=== PATIENT | male | born 1935 | race Caucasian/White ===

== ENCOUNTER 2017-01-07 16:26 | Outpatient (CLI) | payer MEDICARE | END 2017-01-07 16:27 | disposition home or self-care (01) | DX: R33.9 Retention of urine, unspecified (principal); R50.9 Fever, unspecified; R61 Generalized hyperhidrosis ==

== ENCOUNTER 2017-01-16 11:17 | Outpatient (CLI) | payer MEDICARE ==
[2017-01-16] MEDS ORDERED: IOPAMIDOL-300 50 ML VIAL PO ONE (13:47)
[2017-01-16] MEDS ORDERED: IOPAMIDOL-300 100 ML VIAL IVP ONE (13:47)
== END 2017-01-16 11:18 | disposition home or self-care (01) ==
DX: N40.0 Benign prostatic hyperplasia without lower urinary tract symptoms (principal); R50.9 Fever, unspecified; K57.30 Diverticulosis of large intestine without perforation or abscess without bleeding; J43.9 Emphysema, unspecified; R52 Pain, unspecified
CPT/HCPCS: 36415; 74177; 80053; 85025; Q9967

== ENCOUNTER 2018-07-21 13:28 | Outpatient (CLI) | payer MEDICARE ==
--- NOTE | 2018-07-21 14:17 | XRAY Report ---
Reason: R WRIST PAIN Procedure Date: 07/21/2018 Accession Number: [id number] / [id number] Procedure: XR - Wrist 4 View RT CPT Code: FULL RESULT: EXAM: RIGHT WRIST RADIOGRAPHY EXAM DATE: 07/21/2018 01:57 PM. CLINICAL HISTORY: Right wrist pain. COMPARISON: None. TECHNIQUE: 4 views. FINDINGS: Bones: Normal. No fractures or bone lesions. Joints: There are degenerative changes of the first carpometacarpal joint including sclerosis and joint space narrowing. Soft Tissues: Normal. No soft tissue swelling. IMPRESSION: No fracture or dislocation is identified. RADIA
== END 2018-07-21 13:29 | disposition home or self-care (01) ==
LOC: DI 13:28
PROVIDERS: ATTEND Internal Medicine
DX: M25.531 Pain in right wrist (principal)

== ENCOUNTER 2018-10-14 14:21 | Outpatient (CLI) | payer MEDICARE ==
--- NOTE | 2018-10-14 15:42 | XRAY Report ---
Reason: R SHOULDER PAIN Procedure Date: 10/14/2018 Accession Number: [id number] / [id number] Procedure: XR - Shoulder 3 View RT CPT Code: FULL RESULT: EXAM: RIGHT SHOULDER RADIOGRAPHY EXAM DATE: 10/14/2018 03:09 PM. CLINICAL HISTORY: Right shoulder pain. COMPARISON: None. TECHNIQUE: 3 views. FINDINGS: Bones: Note is made of degenerative changes along the inferior osseous glenoid as well as projecting over the superolateral aspect of the humeral head. No fracture or bone lesion. Joints: Degenerative changes of the AC joint are noted, mild to moderate. The glenohumeral joint is located. Soft tissues: The visualized hemithorax is unremarkable. No soft tissue swelling. IMPRESSION: Degenerative changes without acute fracture or dislocation. RADIA
== END 2018-10-14 14:22 | disposition home or self-care (01) ==
LOC: DI 14:21
PROVIDERS: ATTEND Internal Medicine
DX: M19.011 Primary osteoarthritis, right shoulder (principal)

== ENCOUNTER 2019-04-30 20:06 | Outpatient (CLI) | payer MEDICARE | END 2019-04-30 20:07 | disposition critical access hospital (66) | LOC: EMS 20:06 | PROVIDERS: ATTEND Surgery | DX: R42 Dizziness and giddiness (principal) | CPT/HCPCS: A0425; A0427 ==

== ENCOUNTER 2019-04-30 20:18 | Observation (INO) | payer MEDICARE ==
[2019-04-30] MEDS ORDERED: SODIUM CHLORIDE 0.9% 1,000 ML IV ONE (20:26)
--- NOTE | 2019-04-30 20:35 | ED Physician Documentation ---
History of Present Illness - Stated complaint Stated Complaint: FOUND DOWN - History obtained from History obtained from: Patient, EMS - History of Present Illness Timing: Today Pain level now: 0 Improved by: nothing Worsened by: no exacerbating factors - Additonal information Additional information: neighbors checked on patient today, and found him slumped over a table in his home. He usually lives with his , but his is in a subacute facility in [place] after having been admitted to [facility] for CVA. The patient was awake when neighbors found him, and denied any symptoms. Medics were called, and they report that the house was extremely hot, approximately 90 inside the house where the patient was. They found patients blood pressure to be 90/40 and measured a temperature of 100.4. On arrival to emergency department, patient denies symptoms, cannot give a reason that he was slumped onto the table. Review of Systems Constitutional: reports: Fever (as measured by medics) Eyes: reports: Reviewed and negative Ears: reports: Reviewed and negative Nose: reports: Reviewed and negative Throat: reports: Reviewed and negative Cardiac: reports: Reviewed and negative Respiratory: reports: Reviewed and negative GI: reports: Reviewed and negative : denies: Dysuria, Frequency Skin: reports: Reviewed and negative Musculoskeletal: reports: Reviewed and negative Neurologic: reports: Generalized weakness. denies: Focal weakness, Numbness, Headache PD PAST MEDICAL HISTORY - Past Medical History Past Medical History: No Cardiovascular: Hypertension - Past Surgical History Past Surgical History: No - Present Medications Home Medications: Ambulatory Orders Medication Instructions Recorded Confirmed Albuterol Sulfate [Proair Hfa 1 - 2 puffs INH Q4H PRN #1 inhaler 05/02/19 Inhaler] Cyanocobalamin (Vitamin B-12) 1,000 mcg PO DAILY #10 capsule 05/02/19 [Vitamin B-12] Folic Acid 1 mg PO DAILY #10 tablet 05/02/19 Furosemide [Lasix] 20 mg PO DAILY #10 tablet 05/02/19 Ipratropium/Albuterol [Combivent 4 gm IH Q6H PRN #1 aer.w.adap 05/02/19 Respimat] Lisinopril [Zestril] 2.5 mg PO DAILY #10 tablet 05/02/19 Metoprolol Succinate [Toprol Xl] 12.5 mg PO DAILY #10 tablet 05/02/19 Saccharomyces Boulardii [Florastor] 250 mg PO DAILY #7 capsule 05/02/19 cefUROXime axetil [Ceftin] 250 mg PO Q12H #14 tablet 05/02/19 - Allergies Allergies/Adverse Reactions: Allergies Allergy/AdvReac Type Severity Reaction Status Date / Time No Known Drug Allergies Allergy Verified 04/30/19 20:24 PD ED PE NORMAL - Vitals Vital signs reviewed: Yes - General General: Alert and oriented X 3, No acute distress, Well developed/nourished - HEENT HEENT: PERRL, EOMI, Moist mucous membranes - Neck Neck: Supple, no meningeal sign - Cardiac Cardiac: RRR, No murmur - Respiratory Respiratory: No respiratory distress, Clear bilaterally - Abdomen Abdomen: Normal bowel sounds, Soft, Non tender, Non distended - Derm Derm: Normal color, Warm and dry - Extremities Extremities: No edema - 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 No: Normal speech (mild slurred speech; sometimes slow to provide answers) Results - Vitals Vitals: Oxygen O2 Source Room air - Labs Labs: Microbiology 04/30/19 23:15 Urine Culture - Preliminary Urine,Catheterized Laboratory Tests 04/30/19 04/30/19 04/30/19 20:26 20:26 20:26 WBC RBC Hgb Hct MCV MCH MCHC RDW Plt Count MPV Neut # (Auto) Lymph # (Auto) [place] # (Auto) Eos # (Auto) Baso # (Auto) Absolute Nucleated RBC Nucleated RBC % Manual Slide Review WBC Morphology Platelet Estimate Platelet Morphology RBC Morph Micro Appear PT 17.3 H INR 1.5 H APTT 32.7 Sodium Potassium Chloride Carbon Dioxide Anion Gap BUN Creatinine Estimated GFR (MDRD) Glucose Lactic Acid Uric Acid Calcium Magnesium Total Bilirubin AST ALT Alkaline Phosphatase Total Creatine Kinase 61 CK-MB (CK-2) 0.8 Troponin I B-Natriuretic Peptide Total Protein Albumin Globulin Albumin/Globulin Ratio Lipase TSH Urine Color Urine Clarity Urine pH Ur Specific [place] Urine Protein Urine Glucose (UA) Urine Ketones Urine Occult Blood Urine Nitrite Urine Bilirubin Urine Urobilinogen Ur Leukocyte Esterase Urine RBC Urine WBC Ur Squamous Epith Cells Urine Bacteria Ur Microscopic Review Urine Culture Comments Urine Opiates Screen Ur Oxycodone Screen Urine Methadone Screen Ur Propoxyphene Screen Ur Barbiturates Screen Ur Tricyclics Screen Ur Phencyclidine Scrn Ur Amphetamine Screen U Methamphetamines Scrn U Benzodiazepines Scrn Urine Cocaine Screen U Cannabinoids Screen Ethyl Alcohol 04/30/19 04/30/19 04/30/19 20:37 20:37 20:37 WBC 15.6 H RBC 3.96 L Hgb 13.8 L Hct 42.3 MCV 106.8 H MCH 34.8 H MCHC 32.6 RDW 13.6 Plt Count 172 MPV 11.3 Neut # (Auto) 14.7 H Lymph # (Auto) 0.3 L [place] # (Auto) 0.2 Eos # (Auto) 0.1 Baso # (Auto) 0.0 Absolute Nucleated RBC 0.00 Nucleated RBC % 0.0 Manual Slide Review Indicated WBC Morphology NORMAL APPEARANCE Platelet Estimate NORMAL (130-450,000) Platelet Morphology NORMAL APPEARANCE RBC Morph Micro Appear NORMAL APPEARANCE PT INR APTT Sodium 142 Potassium 4.3 Chloride 108 Carbon Dioxide 25 Anion Gap 9.0 BUN 28 H Creatinine 1.5 H Estimated GFR (MDRD) 44 L Glucose 123 H Lactic Acid Uric Acid Calcium 8.2 L Magnesium Total Bilirubin 1.9 H AST 27 ALT 11 Alkaline Phosphatase 38 L Total Creatine Kinase CK-MB (CK-2) Troponin I B-Natriuretic Peptide 1315 H Total Protein 5.5 L Albumin 3.0 L Globulin 2.5 Albumin/Globulin Ratio 1.2 Lipase 20 L TSH Urine Color Urine Clarity Urine pH Ur Specific [place] Urine Protein Urine Glucose (UA) Urine Ketones Urine Occult Blood Urine Nitrite Urine Bilirubin Urine Urobilinogen Ur Leukocyte Esterase Urine RBC Urine WBC Ur Squamous Epith Cells Urine Bacteria Ur Microscopic Review Urine Culture Comments Urine Opiates Screen Ur Oxycodone Screen Urine Methadone Screen Ur Propoxyphene Screen Ur Barbiturates Screen Ur Tricyclics Screen Ur Phencyclidine Scrn Ur Amphetamine Screen U Methamphetamines Scrn U Benzodiazepines Scrn Urine Cocaine Screen U Cannabinoids Screen Ethyl Alcohol 04/30/19 04/30/19 04/30/19 20:37 20:37 20:37 WBC RBC Hgb Hct MCV MCH MCHC RDW Plt Count MPV Neut # (Auto) Lymph # (Auto) [place] # (Auto) Eos # (Auto) Baso # (Auto) Absolute Nucleated RBC Nucleated RBC % Manual Slide Review WBC Morphology Platelet Estimate Platelet Morphology RBC Morph Micro Appear PT INR APTT Sodium Potassium Chloride Carbon Dioxide Anion Gap BUN Creatinine Estimated GFR (MDRD) Glucose Lactic Acid Uric Acid Calcium Magnesium Total Bilirubin AST ALT Alkaline Phosphatase Total Creatine Kinase CK-MB (CK-2) Troponin I 0.06 B-Natriuretic Peptide Total Protein Albumin Globulin Albumin/Globulin Ratio Lipase TSH 1.39 Urine Color Urine Clarity Urine pH Ur Specific [place] Urine Protein Urine Glucose (UA) Urine Ketones Urine Occult Blood Urine Nitrite Urine Bilirubin Urine Urobilinogen Ur Leukocyte Esterase Urine RBC Urine WBC Ur Squamous Epith Cells Urine Bacteria Ur Microscopic Review Urine Culture Comments Urine Opiates Screen Ur Oxycodone Screen Urine Methadone Screen Ur Propoxyphene Screen Ur Barbiturates Screen Ur Tricyclics Screen Ur Phencyclidine Scrn Ur Amphetamine Screen U Methamphetamines Scrn U Benzodiazepines Scrn Urine Cocaine Screen U Cannabinoids Screen Ethyl Alcohol < 5.0 04/30/19 04/30/19 04/30/19 20:37 21:49 23:15 WBC RBC Hgb Hct MCV MCH MCHC RDW Plt Count MPV Neut # (Auto) Lymph # (Auto) [place] # (Auto) Eos # (Auto) Baso # (Auto) Absolute Nucleated RBC Nucleated RBC % Manual Slide Review WBC Morphology Platelet Estimate Platelet Morphology RBC Morph Micro Appear PT INR APTT Sodium Potassium Chloride Carbon Dioxide Anion Gap BUN Creatinine Estimated GFR (MDRD) Glucose Lactic Acid 1.9 Uric Acid 6.7 Calcium Magnesium 1.4 L Total Bilirubin AST ALT Alkaline Phosphatase Total Creatine Kinase CK-MB (CK-2) Troponin I B-Natriuretic Peptide Total Protein Albumin Globulin Albumin/Globulin Ratio Lipase TSH Urine Color YELLOW Urine Clarity HAZY Urine pH 5.0 Ur Specific [place] 1.025 Urine Protein 30 H Urine Glucose (UA) NEGATIVE Urine Ketones TRACE Urine Occult Blood LARGE H Urine Nitrite POSITIVE H Urine Bilirubin NEGATIVE Urine Urobilinogen 0.2 (NORMAL) Ur Leukocyte Esterase SMALL H Urine RBC TNTC H Urine WBC 4-5 Ur Squamous Epith Cells NONE SEEN Urine Bacteria Moderate H Ur Microscopic Review INDICATED Urine Culture Comments INDICATED Urine Opiates Screen Ur Oxycodone Screen Urine Methadone Screen Ur Propoxyphene Screen Ur Barbiturates Screen Ur Tricyclics Screen Ur Phencyclidine Scrn Ur Amphetamine Screen U Methamphetamines Scrn U Benzodiazepines Scrn Urine Cocaine Screen U Cannabinoids Screen Ethyl Alcohol 04/30/19 23:15 WBC RBC Hgb Hct MCV MCH MCHC RDW Plt Count MPV Neut # (Auto) Lymph # (Auto) [place] # (Auto) Eos # (Auto) Baso # (Auto) Absolute Nucleated RBC Nucleated RBC % Manual Slide Review WBC Morphology Platelet Estimate Platelet Morphology RBC Morph Micro Appear PT INR APTT Sodium Potassium Chloride Carbon Dioxide Anion Gap BUN Creatinine Estimated GFR (MDRD) Glucose Lactic Acid Uric Acid Calcium Magnesium Total Bilirubin AST ALT Alkaline Phosphatase Total Creatine Kinase CK-MB (CK-2) Troponin I B-Natriuretic Peptide Total Protein Albumin Globulin Albumin/Globulin Ratio Lipase TSH Urine Color Urine Clarity Urine pH Ur Specific [place] Urine Protein Urine Glucose (UA) Urine Ketones Urine Occult Blood Urine Nitrite Urine Bilirubin Urine Urobilinogen Ur Leukocyte Esterase Urine RBC Urine WBC Ur Squamous Epith Cells Urine Bacteria Ur Microscopic Review Urine Culture Comments Urine Opiates Screen NEGATIVE Ur Oxycodone Screen NEGATIVE Urine Methadone Screen NEGATIVE Ur Propoxyphene Screen NEGATIVE Ur Barbiturates Screen NEGATIVE Ur Tricyclics Screen NEGATIVE Ur Phencyclidine Scrn NEGATIVE Ur Amphetamine Screen NEGATIVE U Methamphetamines Scrn NEGATIVE U Benzodiazepines Scrn NEGATIVE Urine Cocaine Screen NEGATIVE U Cannabinoids Screen NEGATIVE Ethyl Alcohol - Rads (name of study) CT head Radiology: Prelim report reviewed, See rad report chest xray Radiology: Prelim report reviewed, See rad report PD MEDICAL DECISION MAKING - ED course Complexity details: reviewed old records, reviewed results, re-evaluated patient, considered differential, d/w patient, d/w family ED course: exhibits some difficulty with describing what is taking place in picture on NIHSS test, and points to first three objects and identifies them, but points to feather and identifies it as franco. however, most answers are correct, and he can read sentences easily albeit slurred and thus slight difficulty understanding him. one family member says this is new, other says it is chronic. patient was in NAD during ED stay, awake, alert, and smiling at times. Departure - Departure Disposition: ED Place in Observation Clinical Impression: Weakness Urinary tract infection Qualifiers: Urinary tract infection type: acute cystitis Hematuria presence: with hematuria Qualified Code(s): N30.01 - Acute cystitis with hematuria Condition: Poor Discharge Date/Time: 05/01/19 01:15
[2019-04-30] MEDS ORDERED: IPRATROPIUM/ALBUTEROL 3 ML NEB INH STA (20:39)
[2019-04-30 20:45] LABS: BASOPHILS % (AUTO) 0.3 %; EOSINOPHILS # (AUTO) 0.1 10^3/uL (0.0-0.7); EOSINOPHILS % (AUTO) 0.4 %; HGB - HEMOGLOBIN 13.8 g/dL (14.0-18.0); LYMPHOCYTES # (AUTO) 0.3 10^3/uL (1.5-3.5); LYMPHOCYTES % (AUTO) 1.8 %; MEAN CORPUSCULAR HEMOGLOBIN 34.8 pg (27.0-31.0); MEAN CORPUSCULAR HGB CONC 32.6 g/dL (32.0-36.0); MEAN CORPUSCULAR VOLUME 106.8 fL (80.0-94.0); MEAN PLATELET VOLUME 11.3 fL (7.4-11.4); MONOCYTES # (AUTO) 0.2 10^3/uL (0.0-1.0); MONOCYTES % (AUTO) 1.5 %; NEUTROPHILS # (AUTO) 14.7 10^3/uL (1.5-6.6); NEUTROPHILS % (AUTO) 94.5 %; PLT - PLATELET COUNT 172 10^3/uL (130-450); RED BLOOD COUNT 3.96 10^6/uL (4.70-6.10); RED CELL DISTRIBUTION WIDTH 13.6 % (12.0-15.0); WHITE BLOOD COUNT 15.6 x10^3/uL (4.8-10.8)
[2019-04-30 20:56] LABS: ALBUMIN/GLOBULIN RATIO 1.2 (1.0-2.2); BILIRUBIN,TOTAL 1.9 mg/dL (0.2-1.0); CALCIUM 8.2 mg/dL (8.5-10.3); CREATININE 1.5 mg/dL (0.6-1.2); TOTAL PROTEIN 5.5 g/dL (6.7-8.2)
[2019-04-30 21:08] LABS: INR 1.5 (0.8-1.2); PT - PROTHROMBIN TIME 17.3 secs (9.9-12.6)
[2019-04-30 21:15] LABS: PARTIAL THROMBOPLASTIN TIME 32.7 secs (24.9-33.3)
--- NOTE | 2019-04-30 21:20 | XRAY Report ---
Reason: dyspnea Procedure Date: 04/30/2019 Accession Number: [id number] / [id number] Procedure: XR - Chest 2 View X-Ray CPT Code: 66291 FULL RESULT: EXAM: CHEST RADIOGRAPHY EXAM DATE: 04/30/2019 08:53 PM. CLINICAL HISTORY: Dyspnea. COMPARISON: CHEST 2 VIEW PA/LAT 07/27/2013 10:06 AM. TECHNIQUE: 2 views. FINDINGS: Lungs/Pleura: Hyperexpanded with flattened diaphragm and coarse lung markings typical for COPD. No localized infiltrate, consolidation, effusion, or pneumothorax. Mediastinum: Heart and mediastinal contours are unremarkable. Upper lobe vessels not distended. Other: Degenerative changes. IMPRESSION: No acute disease. RADIA
[2019-04-30 21:22] LABS: PLATELET ESTIMATE, MANUAL NORMAL (130-450,000) (NORMAL); PLATELET MORPHOLOGY NORMAL APPEARANCE (NORMAL); RBC MORPHOLOGY (MULTIPLE) NORMAL APPEARANCE (NORMAL)
--- NOTE | 2019-04-30 23:10 | CT Report ---
Reason: AMS Procedure Date: 04/30/2019 Accession Number: [id number] / [id number] Procedure: CT - HEAD WO CPT Code: FULL RESULT: EXAM: CT HEAD EXAM DATE: 04/30/2019 10:53 PM. CLINICAL HISTORY: Altered mental status. COMPARISON: None. TECHNIQUE: Multiaxial CT images were obtained from the foramen magnum to the vertex. Reformats: Sagittal and coronal. IV contrast: None. In accordance with CT protocol optimization, one or more of the following dose reduction techniques were utilized for this exam: automated exposure control, adjustment of mA and/or KV based on patient size, or use of iterative reconstructive technique. FINDINGS: Parenchyma: No intraparenchymal hemorrhage. No evidence of mass, midline shift, or CT findings of infarction. [place]-white differentiation is distinct. There is moderate chronic microvascular change in the deep white matter bilaterally. Extraaxial Spaces: There is age-related generalized cerebral volume loss. No subdural or epidural collections identified. Ventricles: No hydrocephalus. Sinuses and Orbits: Imaged paranasal sinuses, orbits, and mastoids show no significant abnormality. Bones: No evidence of fracture or calvarial defect. Other: None. IMPRESSION: 1. No acute intracranial abnormality. 2. No intracranial mass lesion, mass-effect, or hydrocephalus. 3. Age-related generalized cerebral volume loss and chronic microvascular change. RADIA
[2019-04-30 23:33] LABS: BILIRUBIN,URINE NEGATIVE (NEGATIVE); GLUCOSE, URINE (UA) NEGATIVE (NEGATIVE); KETONES,URINE (UA) TRACE mg/dL (NEGATIVE); LEUKOCYTE ESTERASE, URINE SMALL (NEGATIVE); NITRITE,URINE POSITIVE (NEGATIVE); OCCULT BLOOD,URINE LARGE (NEGATIVE); PROTEIN,URINE 30 mg/dL (NEGATIVE); UROBILINOGEN,URINE 0.2 (NORMAL) E.U./dL (NORMAL)
[2019-04-30 23:34] LABS: CLARITY,URINE HAZY (CLEAR)
[2019-04-30 23:42] LABS: BACTERIA,URINE Moderate /HPF (None Seen); RBC,URINE TNTC /HPF (0-5); SQUAMOUS EPITHELIAL CELL,UR NONE SEEN (<= Few)
[2019-05-01 00:22] LABS: MUDS CUTOFF CONCENTRATIONS CUTOFF CONC BELOW:
[2019-05-01 00:32] LABS: AMPHETAMINE SCREEN,URINE NEGATIVE (NEGATIVE); BENZODIAZEPINES SCREEN, URINE NEGATIVE (NEGATIVE); COCAINE SCREEN URINE NEGATIVE (NEGATIVE); METHADONE SCREEN, URINE NEGATIVE (NEGATIVE); METHAMPHETAMINES SCREEN, URINE NEGATIVE (NEGATIVE); OPIATE SCREEN, URINE NEGATIVE (NEGATIVE); OXYCODONE SCREEN, URINE NEGATIVE (NEGATIVE); PROPOXYPHENE SCREEN, URINE NEGATIVE (NEGATIVE); TRICYCLIC ANTIDEPRESSANT,URINE NEGATIVE (NEGATIVE)
[2019-05-01] MEDS ORDERED: MIDODRINE 2.5 MG TABLET PO PRN (00:42)
[2019-05-01] MEDS ORDERED: ONDANSETRON ODT 4 MG TABLET TL PRN (00:44)
[2019-05-01] MEDS ORDERED: TEMAZEPAM 15 MG CAPSULE PO PRN (00:44)
[2019-05-01] MEDS ORDERED: ACETAMINOPHEN 325 MG TABLET PO PRN (00:44)
[2019-05-01] MEDS ORDERED: ASPIRIN CHEW 81 MG TABLET PO STA (00:48)
--- NOTE | 2019-05-01 00:56 | HISTORY & PHYSICAL EXAMINATION ---
Chief Complaint - Chief Complaint Chief Complaint: Weakness with associated slurred speech Stroke/TIA/Neuro Template - Admitted From Admitted from: ED - History Obtained From Records Reviewed: RN notes reviewed, Old records reviewed History obtained from: Patient, Family Exam limitations: Clinical condition (Patient is a poor historian and has dysarthria) - History of Present Illness HPI Comment/Other: This is a 84 y/o male with hx Asthma/COPD with 02 dep prn, occasional beer drinker who was found by neighbors slumped over on the coffee table. Initial bp 90/40. Pt reports not feeling well. FS 140. Gallo's was recently admitted at [facility] for a stroke and was dispositioned to [facility] for rehab. EMS stated patient using accessory muscle breathing. Denied, cough, SOB, SOSA, fevers, dysuria, flank pain, N/V//GI symptoms. Found to have mild pyuria on UA with micro hematuria, along with CXR showing COPD changes, CT head showed microvascular changes only, BNP elevated 1315, LA 1.9, Tbili 1..9 with cr 1.5, however unknown baseline as only last cr in 2017 showed 1.7, may have underlying CKD. WBC 15.6 with macrocytosis, INR 1.5, glucose 123. EKG SR at 89 bpm and LBBB. Patient displaying dysarthria and some ataxia with decreased regional liaison and plantar/dorsiflexion on exam. PMH/PSH - Past Medical History Respiratory: positive: Asthma Social & Family Hx - Social History Does the pt smoke?: No Smoking Status: Never smoker ETOH Use: Beer Meds/Allgy - Home Medications Home Medications: Ambulatory Orders Medication Instructions Recorded Confirmed No Known Home Medications 04/30/19 04/30/19 - Allergies Allergies/Adverse Reactions: Allergies Allergy/AdvReac Type Severity Reaction Status Date / Time No Known Drug Allergies Allergy Verified 04/30/19 20:24 Review of Systems - All Other Systems All Other Systems: reports: Reviewed and negative Prior Level of Functionality: Patient with unknown FC and home ADL's Exam - Vital Signs Reviewed Vital Signs: Yes Vital Signs: Vital Signs x48h Temp Pulse Resp BP Pulse Ox 05/01/19 00:44 85 21 103/71 99 04/30/19 23:12 93 24 113/56 L 97 04/30/19 20:55 96 22 04/30/19 20:19 37.9 C H 105 H 23 102/68 100 - Physical Exam General Appearance: positive: No acute distress, Alert Eyes Bilateral: positive: Normal inspection, PERRL, EOMI, Conjunctivae nml ENT: positive: ENT inspection nml, Pharynx nml, Dry mucous membranes Neck: positive: Nml inspection, Thyroid nml, No JVD, Trachea midline. negative: Thyromegaly Respiratory: positive: Chest non-tender, No respiratory distress, Breath sounds nml Cardiovascular: positive: Regular rate & rhythm, No murmur, No gallop Peripheral Pulses: positive: 2+ Abdomen: positive: Non-tender, No organomegaly, Nml bowel sounds, No distention Extremities: positive: Non-tender, Full ROM, Nml appearance. negative: Pedal e sharlene Neurologic/Psychiatric: positive: Oriented x3, CN's nml (2-12), Weakness, Slurred/abnml speech. negative: Facial droop, Depressed mood/affect Babinski Reflex: Right: Absent, Left: Absent Results - Lab Results Lab results reviewed: Yes Fish Bones: 04/30/19 20:37 04/30/19 20:37 Other Lab Results: Lab Results x24hrs 04/30/19 04/30/19 04/30/19 Range/Units 23:15 23:15 21:49 WBC (4.8-10.8) x10^3/uL RBC (4.70-6.10) 10^6/uL Hgb (14.0-18.0) g/dL Hct (42.0-52.0) % MCV (80.0-94.0) fL MCH (27.0-31.0) pg MCHC (32.0-36.0) g/dL RDW (12.0-15.0) % Plt Count (130-450) 10^3/uL MPV (7.4-11.4) fL Neut # (Auto) (1.5-6.6) 10^3/uL Lymph # (Auto) (1.5-3.5) 10^3/uL [place] # (Auto) (0.0-1.0) 10^3/uL Eos # (Auto) (0.0-0.7) 10^3/uL Baso # (Auto) (0.0-0.1) 10^3/uL Absolute Nucleated RBC x10^3/uL Nucleated RBC % /100WBC Manual Slide Review WBC Morphology (NORMAL) Platelet Estimate (NORMAL) Platelet Morphology (NORMAL) RBC Morph Micro Appear (NORMAL) PT (9.9-12.6) secs INR (0.8-1.2) APTT (24.9-33.3) secs Sodium (135-145) mmol/L Potassium (3.5-5.0) mmol/L Chloride (101-111) mmol/L Carbon Dioxide (21-32) mmol/L Anion Gap (6-13) BUN (6-20) mg/dL Creatinine (0.6-1.2) mg/dL Estimated GFR (MDRD) (>89) Glucose (70-100) mg/dL Lactic Acid 1.9 (0.5-2.2) mmol/L Calcium (8.5-10.3) mg/dL Total Bilirubin (0.2-1.0) mg/dL AST (10-42) IU/L ALT (10-60) IU/L Alkaline Phosphatase (42-121) IU/L Total Creatine Kinase (22-269) IU/L CK-MB (CK-2) (0.6-6.3) ng/mL Troponin I (<0.49) ng/mL B-Natriuretic Peptide (5-100) pg/mL Total Protein (6.7-8.2) g/dL Albumin (3.2-5.5) g/dL Globulin (2.1-4.2) g/dL Albumin/Globulin Ratio (1.0-2.2) Lipase (22-51) U/L Urine Color YELLOW Urine Clarity HAZY (CLEAR) Urine pH 5.0 (5.0-7.5) PH Ur Specific [place] 1.025 (1.002-1.030) Urine Protein 30 H (NEGATIVE) mg/dL Urine Glucose (UA) NEGATIVE (NEGATIVE) mg/dL Urine Ketones TRACE (NEGATIVE) mg/dL Urine Occult Blood LARGE H (NEGATIVE) Urine Nitrite POSITIVE H (NEGATIVE) Urine Bilirubin NEGATIVE (NEGATIVE) Urine Urobilinogen 0.2 (NORMAL) (NORMAL) E.U./dL Ur Leukocyte Esterase SMALL H (NEGATIVE) Urine RBC TNTC H (0-5) /HPF Urine WBC 4-5 (0-3) /HPF Ur Squamous Epith Cells NONE SEEN (<= Few) Urine Bacteria Moderate H (None Seen) /HPF Ur Microscopic Review INDICATED Urine Culture Comments INDICATED Urine Opiates Screen NEGATIVE (NEGATIVE) Ur Oxycodone Screen NEGATIVE (NEGATIVE) Urine Methadone Screen NEGATIVE (NEGATIVE) Ur Propoxyphene Screen NEGATIVE (NEGATIVE) Ur Barbiturates Screen NEGATIVE (NEGATIVE) Ur Tricyclics Screen NEGATIVE (NEGATIVE) Ur Phencyclidine Scrn NEGATIVE (NEGATIVE) Ur Amphetamine Screen NEGATIVE (NEGATIVE) U Methamphetamines Scrn NEGATIVE (NEGATIVE) U Benzodiazepines Scrn NEGATIVE (NEGATIVE) Urine Cocaine Screen NEGATIVE (NEGATIVE) U Cannabinoids Screen NEGATIVE (NEGATIVE) Ethyl Alcohol mg/dL 04/30/19 04/30/19 04/30/19 Range/Units 20:37 20:37 20:37 WBC (4.8-10.8) x10^3/uL RBC (4.70-6.10) 10^6/uL Hgb (14.0-18.0) g/dL Hct (42.0-52.0) % MCV (80.0-94.0) fL MCH (27.0-31.0) pg MCHC (32.0-36.0) g/dL RDW (12.0-15.0) % Plt Count (130-450) 10^3/uL MPV (7.4-11.4) fL Neut # (Auto) (1.5-6.6) 10^3/uL Lymph # (Auto) (1.5-3.5) 10^3/uL [place] # (Auto) (0.0-1.0) 10^3/uL Eos # (Auto) (0.0-0.7) 10^3/uL Baso # (Auto) (0.0-0.1) 10^3/uL Absolute Nucleated RBC x10^3/uL Nucleated RBC % /100WBC Manual Slide Review WBC Morphology (NORMAL) Platelet Estimate (NORMAL) Platelet Morphology (NORMAL) RBC Morph Micro Appear (NORMAL) PT (9.9-12.6) secs INR (0.8-1.2) APTT (24.9-33.3) secs Sodium (135-145) mmol/L Potassium (3.5-5.0) mmol/L Chloride (101-111) mmol/L Carbon Dioxide (21-32) mmol/L Anion Gap (6-13) BUN (6-20) mg/dL Creatinine (0.6-1.2) mg/dL Estimated GFR (MDRD) (>89) Glucose (70-100) mg/dL Lactic Acid (0.5-2.2) mmol/L Calcium (8.5-10.3) mg/dL Total Bilirubin (0.2-1.0) mg/dL AST (10-42) IU/L ALT (10-60) IU/L Alkaline Phosphatase (42-121) IU/L Total Creatine Kinase (22-269) IU/L CK-MB (CK-2) (0.6-6.3) ng/mL Troponin I 0.06 (<0.49) ng/mL B-Natriuretic Peptide 1315 H (5-100) pg/mL Total Protein (6.7-8.2) g/dL Albumin (3.2-5.5) g/dL Globulin (2.1-4.2) g/dL Albumin/Globulin Ratio (1.0-2.2) Lipase (22-51) U/L Urine Color Urine Clarity (CLEAR) Urine pH (5.0-7.5) PH Ur Specific [place] (1.002-1.030) Urine Protein (NEGATIVE) mg/dL Urine Glucose (UA) (NEGATIVE) mg/dL Urine Ketones (NEGATIVE) mg/dL Urine Occult Blood (NEGATIVE) Urine Nitrite (NEGATIVE) Urine Bilirubin (NEGATIVE) Urine Urobilinogen (NORMAL) E.U./dL Ur Leukocyte Esterase (NEGATIVE) Urine RBC (0-5) /HPF Urine WBC (0-3) /HPF Ur Squamous Epith Cells (<= Few) Urine Bacteria (None Seen) /HPF Ur Microscopic Review Urine Culture Comments Urine Opiates Screen (NEGATIVE) Ur Oxycodone Screen (NEGATIVE) Urine Methadone Screen (NEGATIVE) Ur Propoxyphene Screen (NEGATIVE) Ur Barbiturates Screen (NEGATIVE) Ur Tricyclics Screen (NEGATIVE) Ur Phencyclidine Scrn (NEGATIVE) Ur Amphetamine Screen (NEGATIVE) U Methamphetamines Scrn (NEGATIVE) U Benzodiazepines Scrn (NEGATIVE) Urine Cocaine Screen (NEGATIVE) U Cannabinoids Screen (NEGATIVE) Ethyl Alcohol < 5.0 mg/dL 04/30/19 04/30/19 04/30/19 Range/Units 20:37 20:37 20:26 WBC 15.6 H (4.8-10.8) x10^3/uL RBC 3.96 L (4.70-6.10) 10^6/uL Hgb 13.8 L (14.0-18.0) g/dL Hct 42.3 (42.0-52.0) % MCV 106.8 H (80.0-94.0) fL MCH 34.8 H (27.0-31.0) pg MCHC 32.6 (32.0-36.0) g/dL RDW 13.6 (12.0-15.0) % Plt Count 172 (130-450) 10^3/uL MPV 11.3 (7.4-11.4) fL Neut # (Auto) 14.7 H (1.5-6.6) 10^3/uL Lymph # (Auto) 0.3 L (1.5-3.5) 10^3/uL [place] # (Auto) 0.2 (0.0-1.0) 10^3/uL Eos # (Auto) 0.1 (0.0-0.7) 10^3/uL Baso # (Auto) 0.0 (0.0-0.1) 10^3/uL Absolute Nucleated RBC 0.00 x10^3/uL Nucleated RBC % 0.0 /100WBC Manual Slide Review Indicated WBC Morphology NORMAL APPEARANCE (NORMAL) Platelet Estimate NORMAL (130-450,000) (NORMAL) Platelet Morphology NORMAL APPEARANCE (NORMAL) RBC Morph Micro Appear NORMAL APPEARANCE (NORMAL) PT (9.9-12.6) secs INR (0.8-1.2) APTT (24.9-33.3) secs Sodium 142 (135-145) mmol/L Potassium 4.3 (3.5-5.0) mmol/L Chloride 108 (101-111) mmol/L Carbon Dioxide 25 (21-32) mmol/L Anion Gap 9.0 (6-13) BUN 28 H (6-20) mg/dL Creatinine 1.5 H (0.6-1.2) mg/dL Estimated GFR (MDRD) 44 L (>89) Glucose 123 H (70-100) mg/dL Lactic Acid (0.5-2.2) mmol/L Calcium 8.2 L (8.5-10.3) mg/dL Total Bilirubin 1.9 H (0.2-1.0) mg/dL AST 27 (10-42) IU/L ALT 11 (10-60) IU/L Alkaline Phosphatase 38 L (42-121) IU/L Total Creatine Kinase (22-269) IU/L CK-MB (CK-2) 0.8 (0.6-6.3) ng/mL Troponin I (<0.49) ng/mL B-Natriuretic Peptide (5-100) pg/mL Total Protein 5.5 L (6.7-8.2) g/dL Albumin 3.0 L (3.2-5.5) g/dL Globulin 2.5 (2.1-4.2) g/dL Albumin/Globulin Ratio 1.2 (1.0-2.2) Lipase 20 L (22-51) U/L Urine Color Urine Clarity (CLEAR) Urine pH (5.0-7.5) PH Ur Specific [place] (1.002-1.030) Urine Protein (NEGATIVE) mg/dL Urine Glucose (UA) (NEGATIVE) mg/dL Urine Ketones (NEGATIVE) mg/dL Urine Occult Blood (NEGATIVE) Urine Nitrite (NEGATIVE) Urine Bilirubin (NEGATIVE) Urine Urobilinogen (NORMAL) E.U./dL Ur Leukocyte Esterase (NEGATIVE) Urine RBC (0-5) /HPF Urine WBC (0-3) /HPF Ur Squamous Epith Cells (<= Few) Urine Bacteria (None Seen) /HPF Ur Microscopic Review Urine Culture Comments Urine Opiates Screen (NEGATIVE) Ur Oxycodone Screen (NEGATIVE) Urine Methadone Screen (NEGATIVE) Ur Propoxyphene Screen (NEGATIVE) Ur Barbiturates Screen (NEGATIVE) Ur Tricyclics Screen (NEGATIVE) Ur Phencyclidine Scrn (NEGATIVE) Ur Amphetamine Screen (NEGATIVE) U Methamphetamines Scrn (NEGATIVE) U Benzodiazepines Scrn (NEGATIVE) Urine Cocaine Screen (NEGATIVE) U Cannabinoids Screen (NEGATIVE) Ethyl Alcohol mg/dL 04/30/19 04/30/19 Range/Units 20:26 20:26 WBC (4.8-10.8) x10^3/uL RBC (4.70-6.10) 10^6/uL Hgb (14.0-18.0) g/dL Hct (42.0-52.0) % MCV (80.0-94.0) fL MCH (27.0-31.0) pg MCHC (32.0-36.0) g/dL RDW (12.0-15.0) % Plt Count (130-450) 10^3/uL MPV (7.4-11.4) fL Neut # (Auto) (1.5-6.6) 10^3/uL Lymph # (Auto) (1.5-3.5) 10^3/uL [place] # (Auto) (0.0-1.0) 10^3/uL Eos # (Auto) (0.0-0.7) 10^3/uL Baso # (Auto) (0.0-0.1) 10^3/uL Absolute Nucleated RBC x10^3/uL Nucleated RBC % /100WBC Manual Slide Review WBC Morphology (NORMAL) Platelet Estimate (NORMAL) Platelet Morphology (NORMAL) RBC Morph Micro Appear (NORMAL) PT 17.3 H (9.9-12.6) secs INR 1.5 H (0.8-1.2) APTT 32.7 (24.9-33.3) secs Sodium (135-145) mmol/L Potassium (3.5-5.0) mmol/L Chloride (101-111) mmol/L Carbon Dioxide (21-32) mmol/L Anion Gap (6-13) BUN (6-20) mg/dL Creatinine (0.6-1.2) mg/dL Estimated GFR (MDRD) (>89) Glucose (70-100) mg/dL Lactic Acid (0.5-2.2) mmol/L Calcium (8.5-10.3) mg/dL Total Bilirubin (0.2-1.0) mg/dL AST (10-42) IU/L ALT (10-60) IU/L Alkaline Phosphatase (42-121) IU/L Total Creatine Kinase 61 (22-269) IU/L CK-MB (CK-2) (0.6-6.3) ng/mL Troponin I (<0.49) ng/mL B-Natriuretic Peptide (5-100) pg/mL Total Protein (6.7-8.2) g/dL Albumin (3.2-5.5) g/dL Globulin (2.1-4.2) g/dL Albumin/Globulin Ratio (1.0-2.2) Lipase (22-51) U/L Urine Color Urine Clarity (CLEAR) Urine pH (5.0-7.5) PH Ur Specific [place] (1.002-1.030) Urine Protein (NEGATIVE) mg/dL Urine Glucose (UA) (NEGATIVE) mg/dL Urine Ketones (NEGATIVE) mg/dL Urine Occult Blood (NEGATIVE) Urine Nitrite (NEGATIVE) Urine Bilirubin (NEGATIVE) Urine Urobilinogen (NORMAL) E.U./dL Ur Leukocyte Esterase (NEGATIVE) Urine RBC (0-5) /HPF Urine WBC (0-3) /HPF Ur Squamous Epith Cells (<= Few) Urine Bacteria (None Seen) /HPF Ur Microscopic Review Urine Culture Comments Urine Opiates Screen (NEGATIVE) Ur Oxycodone Screen (NEGATIVE) Urine Methadone Screen (NEGATIVE) Ur Propoxyphene Screen (NEGATIVE) Ur Barbiturates Screen (NEGATIVE) Ur Tricyclics Screen (NEGATIVE) Ur Phencyclidine Scrn (NEGATIVE) Ur Amphetamine Screen (NEGATIVE) U Methamphetamines Scrn (NEGATIVE) U Benzodiazepines Scrn (NEGATIVE) Urine Cocaine Screen (NEGATIVE) U Cannabinoids Screen (NEGATIVE) Ethyl Alcohol mg/dL - Diagnostic Imaging Results Diagnostic Imaging Results: positive: Final report reviewed - EKG Results EKG Interpreted Independently: Yes EKG Comparison: positive: Old EKG unavailable Impression/Plan - Problem List Problem List: 1. UTI 2. Acute hypoxemic RF 3. Acute renal insufficiency sec to dehydration 4. Acute transient hypovolemia sec to dehydration 5. Acute encephalopathy 6. Dysarthria 7. Hyperbilirubinemia 8. LBBB on EKG 9. Mild coagulopathy 10. leukocytosis sec to UTI 11. Hyperglycemia 12. COPD exacerbation 13. Advanced care planning education and counseling Plan: Admit to obs/tele, start empiric IV abx with rocephin for UTI, WBC reflective of possible UTI which was POA. However, no dysuria but is weak and encephalopathic, blood cultures to collect prior. Hypovolemia resolved, IVF's to continue, neurochecks, MRI brain to eval for ischemic CVA, give ASA daily, check am lipids, although motor/sensory intact some weakness to regional liaison strength with mild tremors. ECHO to follow in the setting of LBBB on ECG. Orthostats. M idodrine prn. Dehydration present with cr 1.5, likely underlying CKD however only a cr in 2017 available and was 1.7. Would correct underlyning electrolyte d/o, perduse kidneys, check uric acid, tsh, amg, etoh and uds in the setting of his encephalopathy as drinks beers, does not mention depression as his was recently d/c'ed to [facility] for rehab for an CVA. Inr slightly elevated with no evidence of bleeding, hgba1c to follow, LA was only 1.9. Would benefit from PT/OT adnd palliative care services. Upon re-eval patient was tachypniec, wheezing and hypoxemic 88%RA and placed on supp o2 now, will starts IV solumedrol, duonebs, pulmicort, performist, singulair, [place], pulm toilet, and check CXR in am. GI/DVT ppx initiated Code status: DNR per patient's wishes. Core Measures - Anticipated LOS I expect patient to be DC'd or transferred within 96 hours.: Yes - Issues Hospital Issues and Management Plan: IVF's, IV abx, med mgmt, possible SNF. MRI - DVT/VTE - Prophylaxis VTE/DVT Device ordered at admit?: Yes VTE/DVT Prophylaxis med ordered at admit?: Yes - Stroke - Rehab Assessment Rehab services assessment to be ordered?: No - AMI - Statin at Admit Aspirin Prescribed on Admit: Yes
[2019-05-01] MEDS ORDERED: SODIUM CHLORIDE 0.9% 1,000 ML IV SCH (01:00)
[2019-05-01] MEDS ORDERED: cefTRIAXone 1 GM VIAL IVP STA (01:02)
[2019-05-01 01:17] LABS: MAGNESIUM 1.4 mg/dL (1.7-2.8); URIC ACID 6.7 mg/dL (2.6-7.2)
[2019-05-01] MEDS: SODIUM CHLORIDE FLUSH 0.9% 10 ML SYRINGE IVP SCH ×3 (01:58→18:51)
--- NOTE | 2019-05-01 02:30 | ADVANCE CARE PLANNING NOTE ---
Advance Care Planning - Date/Time Date: 05/01/19 Time: 01:00 - Purpose of encounter Text: To discuss goals of care with medical conditions and line with patient's personal values and beliefs - Parties in attendance Parties in attendance: Patient and his son - Decisional capacity Decisional capacity of: Gallo with good decision making capacity however hindered with by his clinical presentation - Subjective/Patient's story Subjective/Patient's story: Patient lives alone and was found by neighbors as he recalls being helped from chair stating he was feeling weak and was not able to ambulate effectively. States his intentions to receive medical care and get better. States he does not feel sad even though his had a bad stroke and was admitted to [facility] and was just discharged to [facility] for rehab he anticipates her to getting better as well. He states he would like to discuss further medical options in terms of his current condition and that may be to use a POLST on this admission. - Objective/Medical story Objective/Medical Story: This is a 84 y/o male with hx Asthma/COPD with 02 dep prn, occasional beer drinker who was found by neighbors slumped over on the coffee table. Initial bp 90/40. Pt reports not feeling well. FS 140. Gallo's was recently adm itted at [facility] for a stroke and was dispositioned to [facility] for rehab. EMS stated patient using accessory muscle breathing. Denied, cough, SOB, SOSA, fevers, dysuria, flank pain, N/V//GI symptoms. Found to have mild pyuria on UA with micro hematuria, along with CXR showing COPD changes, CT head showed microvascular changes only, BNP elevated 1315, LA 1.9, Tbili 1..9 with cr 1.5, however unknown baseline as only last cr in 2017 showed 1.7, may have underlying CKD. WBC 15.6 with macrocytosis, INR 1.5, glucose 123. EKG SR at 89 bpm and LBBB. Patient displaying dysarthria and some ataxia with decreased trucker hand and plantar/dorsiflexion on exam. - Goals of Care Goals of care determinations: Goals of care determinations to be evaluated in detail as they pertain to his prognosis for hid medical conditions and whether he would like to continue with full code status. I explained to him that this may change at any given time as deemed necessary and how the trajectory of illness either declines or improves over time in the setting of inpatient clinical status. - Plan Plan: Continue with medical mgmt with the intention of correcting reversible causes and determining underlying etiology causing encephalopathy, dysarthria and treatment of UTI which may explain presentaion. Currently wants to be treated with DNR for his code status and would reevaluate the need for further discussions on changing this as deemed necessary. - Code Status Code Status: Attempt Resuscitation - Time Spent on Advance Care Planning Time spent on advance care plannin
[2019-05-01] MEDS: methylPREDNISolone SUCCINATE 40 MG/ML VIAL IVP SCH ×3 (04:41→21:55)
[2019-05-01] MEDS ORDERED: METOPROLOL 5 MG/5 ML VIAL IVP PRN (05:21)
[2019-05-01] MEDS: IPRATROPIUM/ALBUTEROL 3 ML NEB INH SCH ×4 (05:30→20:03)
[2019-05-01] MEDS ORDERED: IPRATROPIUM/ALBUTEROL 3 ML NEB INH ONE (05:33)
[2019-05-01] MEDS ORDERED: INSULIN REGULAR HUMAN 100 UNIT/1 ML 10 ML MDV SUBQ SCH (06:00)
[2019-05-01 06:56] LABS: BASOPHILS % (AUTO) 0.3 %; EOSINOPHILS % (AUTO) 2.6 %; HGB - HEMOGLOBIN 13.5 g/dL (14.0-18.0); LYMPHOCYTES % (AUTO) 2.6 %; MEAN CORPUSCULAR HEMOGLOBIN 34.4 pg (27.0-31.0); MEAN CORPUSCULAR HGB CONC 32.8 g/dL (32.0-36.0); MEAN CORPUSCULAR VOLUME 104.8 fL (80.0-94.0); MEAN PLATELET VOLUME 11.8 fL (7.4-11.4); MONOCYTES % (AUTO) 1.1 %; NEUTROPHILS % (AUTO) 92.8 %; PLT - PLATELET COUNT 157 10^3/uL (130-450); RED BLOOD COUNT 3.93 10^6/uL (4.70-6.10); RED CELL DISTRIBUTION WIDTH 13.6 % (12.0-15.0); WHITE BLOOD COUNT 6.5 x10^3/uL (4.8-10.8)
[2019-05-01 07:01] LABS: ABNORMAL LYMPHS % (MANUAL) 0 %
[2019-05-01 07:10] LABS: ALBUMIN 2.9 g/dL (3.2-5.5); BUN - BLOOD UREA NITROGEN 34 mg/dL (6-20); CARBON DIOXIDE - CO2 22 mmol/L (21-32); CHLORIDE 108 mmol/L (101-111); CHOL/HDL RATIO 2.2 (<5.0); CHOLESTEROL 86 mg/dL; CREATININE 1.6 mg/dL (0.6-1.2); GFR - MDRD 41 (>89); GLUCOSE 111 mg/dL (70-100); HDL CHOLESTEROL 39 mg/dL; LDL CHOLESTEROL,CALCULATED 33 mg/dL; LDL/HDL RATIO 0.8 (<3.6); PHOSPHORUS 1.8 mg/dL (2.5-4.6); SODIUM 141 mmol/L (135-145); VLDL CHOLESTEROL 14 mg/dL
[2019-05-01] MEDS: BUDESONIDE 0.5 MG/2 ML NEB INH SCH ×2 (07:20→20:02)
[2019-05-01 07:32] LABS: FOLATE 5.12 ng/mL (5.90 - >24.8)
[2019-05-01 07:44] LABS: HB2 TOTAL 13.9 g/dL; HEMOGLOBIN A1C 0.48 g/dL; HEMOGLOBIN A1C % 5.3 % (4.6-6.2)
[2019-05-01 07:55] LABS: BAND NEUTROPHILS % (MANUAL) 16 %; EOSINOPHILS # (MANUAL) 0.3 10^3/uL (0-0.7); LYMPHOCYTES # (MANUAL) 0.3 10^3/uL (1.5-3.5); LYMPHOCYTES % (MANUAL) 4 %; NEUTROPHILS % (MANUAL) 76 %
[2019-05-01 07:57] LABS: PLATELET ESTIMATE, MANUAL NORMAL (130-450,000) (NORMAL); PLATELET MORPHOLOGY NORMAL APPEARANCE (NORMAL)
[2019-05-01 07:58] LABS: DIFFERENTIAL COMMENT MANUAL DIFFERENTIAL
--- NOTE | 2019-05-01 08:53 | XRAY Report ---
Reason: COPD exacerabtion Procedure Date: 05/01/2019 Accession Number: [id number] / [id number] Procedure: XR - Chest 1 View X-Ray CPT Code: 20922 FULL RESULT: EXAM: CHEST RADIOGRAPHY EXAM DATE: 05/01/2019 08:26 AM. CLINICAL HISTORY: COPD exacerbation. COMPARISON: CHEST 2 VIEW 04/30/2019 8:41 PM. TECHNIQUE: 1 view. FINDINGS: Lungs/Pleura: Increased interstitial markings bilaterally No focal opacities evident. No pleural effusion. No pneumothorax. Hyperexpanded. Mediastinum: Within exam limitations, the cardiomediastinal contour is normal. Other: None. IMPRESSION: 1. COPD. 2. No new findings RADIA
[2019-05-01] MEDS ORDERED: MAGNESIUM SULFATE 2 GRAM 2 GM/50 ML BAG IV ONE (08:54)
[2019-05-01] MEDS ORDERED: cefTRIAXone 1 GM VIAL IVP SCH (09:00)
[2019-05-01] MEDS: FAMOTIDINE 20 MG TABLET PO SCH ×2 (10:31→21:55)
[2019-05-01] MEDS: POLYETHYLENE GLYCOL 3350 17 GM PACKET PO SCH (10:32)
[2019-05-01] MEDS ORDERED: CYANOCOBALAMIN 1,000 MCG/ML VIAL IM ONE (10:35)
[2019-05-01] MEDS: CYANOCOBALAMIN 500 MCG TABLET PO SCH (10:37)
[2019-05-01] MEDS: FOLIC ACID 1 MG TABLET PO SCH (10:37)
[2019-05-01] MEDS: HEPARIN 5,000 UNIT/ML VIAL SUBQ SCH ×2 (10:44→21:55)
[2019-05-01] MEDS ORDERED: FUROSEMIDE 20 MG TABLET PO SCH (11:00)
[2019-05-01] MEDS: SODIUM CHLORIDE FLUSH 0.9% 10 ML SYRINGE IVP PRN ×2 (11:37→13:05)
[2019-05-01] MEDS: LORazepam 2 MG/ML VIAL IVP ONE ×2 (11:37→17:43)
[2019-05-01] MEDS: cefTRIAXone 1 GM in SODIUM CHLORIDE 0.9% MINIBAG 100 ML IV SCH (11:42)
[2019-05-01] MEDS: NEUTRA-PHOS 250 MG TABLET PO SCH ×2 (13:06→17:38)
--- NOTE | 2019-05-01 16:41 | Ultrasound Report ---
Reason: TIA Procedure Date: 05/01/2019 Accession Number: [id number] / [id number] Procedure: US - Carotid Doppler Complete CPT Code: FULL RESULT: EXAM: BILATERAL CAROTID AND VERTEBRAL ARTERY DUPLEX DOPPLER ULTRASOUND: EXAM DATE: 05/01/2019 04:08 PM CLINICAL HISTORY: TIA. COMPARISON: None. TECHNIQUE: Grayscale imaging, color Doppler, and duplex spectral Doppler were used to evaluate the carotid and vertebral arteries bilaterally. Static images were obtained. FINDINGS: There is marked intimal thickening throughout both carotid systems. Morphologically, there is a combination of hypoechoic and focally echogenic atherosclerotic plaque in both systems which is most pronounced in the regions of the bifurcation, visually less than 50% of caliber. Normal antegrade flow is present in bilateral vertebral arteries. VELOCITIES (cm/sec): Right CCA mid: PSV 72 cm/sec CCA dist: PSV 68 cm/sec ICA prox: PSV 52 cm/sec, EDV 10 cm/sec ICA mid: PSV 73 cm/sec, EDV 15 cm/sec ICA dist: PSV 88 cm/sec, EDV 17 cm/sec ECA: PSV 152 cm/sec Vert: PSV 72 cm/sec ICA/CCA: 1.2 Left CCA mid: PSV 83 cm/sec CCA dist: PSV 92 cm/sec ICA prox: PSV 74 cm/sec, EDV 11 cm/sec ICA mid: PSV 92 cm/sec, EDV 14 cm/sec ICA dist: PSV 106 cm/sec, EDV 18 cm/sec ECA: PSV 82 cm/sec Vert: PSV 70 cm/sec ICA/CCA: 1.2 ICA diameter stenosis: Right: <50% by velocity and <70% by NASCET criteria. Left: <50% by velocity and <70% by NASCET criteria. IMPRESSION: 1. Morphologically less than 50% bilateral carotid artery plaquing. 2. In the right carotid artery there are no elevated carotid artery velocities to suggest hemodynamically significant stenosis. 3. In the left carotid artery there are no elevated carotid artery velocities to suggest hemodynamically significant stenosis. 4. Normal antegrade flow is present in bilateral vertebral arteries. General Recommendations: Stenosis =50% ICA - Follow-up ultrasound 6-12 months Stenosis <50% ICA - High Risk Patient with plaque - Follow-up ultrasound 1-2 years Normal Study but High Risk Patient - Follow-up ultrasound 3-5 years Management recommendations and diagnostic criteria are based on current IAC endorsed standards in Carotid Artery Stenosis: Grayscale and Doppler Ultrasound Diagnosis. Validated velocity measurements with angiographic measurements and velocity criteria are extrapolated from diameter data as defined by the Society of Radiologists in Ultrasound Consensus Conference Radiology 2003; 229;340-346. RADIA
[2019-05-01] MEDS ORDERED: LORazepam 0.5 MG TABLET PO SCH (17:00)
[2019-05-01] MEDS: NS W/20 MEQ KCL 1,000 ML IV SCH (17:36)
[2019-05-01] MEDS: SACCHAROMYCES BOULARDII 250 MG CAPSULE PO SCH (17:38)
--- NOTE | 2019-05-01 18:19 | PROVIDER PROGRESS NOTE ---
Objective - Vital Signs/Intake & Output Vital Signs: Vital Signs x48h Temp Pulse Pulse Pulse Resp Resp BP 05/01/19 16:00 36.1 C L 79 16 109/64 05/01/19 15:45 84 16 05/01/19 14:28 36.6 C 82 20 93/54 L 05/01/19 12:10 83 16 05/01/19 11:30 83 16 BP Pulse Ox Pulse Ox 05/01/19 16:00 98 05/01/19 15:45 05/01/19 14:28 100 05/01/19 12:10 102/68 99 05/01/19 11:30 Intake & Output: Intake & Output 04/28/19 04/29/19 04/30/19 05/01/19 23:59 23:59 23:59 23:59 Intake Total 1000 1390 Output Total 200 Balance 1000 1190 - Lab Results Fish Bones: 05/01/19 06:08 05/01/19 06:08 Other Labs: Lab Results x24hrs 05/01/19 05/01/19 05/01/19 Range/Units 14:10 11:08 06:08 WBC (4.8-10.8) x10^3/uL RBC (4.70-6.10) 10^6/uL Hgb (14.0-18.0) g/dL Hct (42.0-52.0) % MCV (80.0-94.0) fL MCH (27.0-31.0) pg MCHC (32.0-36.0) g/dL RDW (12.0-15.0) % Plt Count (130-450) 10^3/uL MPV (7.4-11.4) fL Neut # (Auto) (1.5-6.6) 10^3/uL Lymph # (Auto) (1.5-3.5) 10^3/uL [place] # (Auto) (0.0-1.0) 10^3/uL Eos # (Auto) (0.0-0.7) 10^3/uL Baso # (Auto) (0.0-0.1) 10^3/uL Absolute Nucleated RBC x10^3/uL Total Counted Band Neuts % (Manual) (0 - 10) % Abnorm Lymph % (Manual) % Nucleated RBC % /100WBC Neutrophils # (Manual) (1.5-6.6) 10^3/uL Lymphocytes # (Manual) (1.5-3.5) 10^3/uL Monocytes # (Manual) (0.0-1.0) 10^3/uL Eosinophils # (Manual) (0-0.7) 10^3/uL Basophils # (Manual) (0-0.1) 10^3/uL Differential Comment Manual Slide Review WBC Morphology (NORMAL) Platelet Estimate (NORMAL) Platelet Morphology (NORMAL) RBC Morph Micro Appear (NORMAL) PT (9.9-12.6) secs INR (0.8-1.2) APTT (24.9-33.3) secs Sodium (135-145) mmol/L Potassium (3.5-5.0) mmol/L Chloride (101-111) mmol/L Carbon Dioxide (21-32) mmol/L Anion Gap (6-13) BUN (6-20) mg/dL Creatinine (0.6-1.2) mg/dL Estimated GFR (MDRD) (>89) Glucose (70-100) mg/dL Glycated Hemoglobin (4.6-6.2) % Estim Average Glucose (70-100) Lactic Acid (0.5-2.2) mmol/L Uric Acid (2.6-7.2) mg/dL Calcium (8.5-10.3) mg/dL Phosphorus (2.5-4.6) mg/dL Magnesium (1.7-2.8) mg/dL Total Bilirubin (0.2-1.0) mg/dL AST (10-42) IU/L ALT (10-60) IU/L Alkaline Phosphatase (42-121) IU/L Total Creatine Kinase (22-269) IU/L CK-MB (CK-2) (0.6-6.3) ng/mL Troponin I 0.16 (<0.49) ng/mL B-Natriuretic Peptide (5-100) pg/mL Total Protein (6.7-8.2) g/dL Albumin (3.2-5.5) g/dL Globulin (2.1-4.2) g/dL Albumin/Globulin Ratio (1.0-2.2) Triglycerides ( - 149) mg/dL Cholesterol ( - 199) mg/dL LDL Cholesterol, Calc ( - 129) mg/dL VLDL Cholesterol mg/dL HDL Cholesterol (60 - ) mg/dL LDL/HDL Ratio (<3.6) Cholesterol/HDL Ratio (<5.0) Lipase (22-51) U/L Vitamin B12 77 L (180-914) pg/mL Folate 5.12 L (5.90 - >24.8) ng/mL TSH (0.34-5.60) uIU/mL Urine Color Urine Clarity (CLEAR) Urine pH (5.0-7.5) PH Ur Specific [place] (1.002-1.030) Urine Protein (NEGATIVE) mg/dL Urine Glucose (UA) (NEGATIVE) mg/dL Urine Ketones (NEGATIVE) mg/dL Urine Occult Blood (NEGATIVE) Urine Nitrite (NEGATIVE) Urine Bilirubin (NEGATIVE) Urine Urobilinogen (NORMAL) E.U./dL Ur Leukocyte Esterase (NEGATIVE) Urine RBC (0-5) /HPF Urine WBC (0-3) /HPF Ur Squamous Epith Cells (<= Few) Urine Bacteria (None Seen) /HPF Ur Microscopic Review Urine Culture Comments Urine Opiates Screen (NEGATIVE) Ur Oxycodone Screen (NEGATIVE) Urine Methadone Screen (NEGATIVE) Ur Propoxyphene Screen (NEGATIVE) Ur Barbiturates Screen (NEGATIVE) Ur Tricyclics Screen (NEGATIVE) Ur Phencyclidine Scrn (NEGATIVE) Ur Amphetamine Screen (NEGATIVE) U Methamphetamines Scrn (NEGATIVE) U Benzodiazepines Scrn (NEGATIVE) Urine Cocaine Screen (NEGATIVE) U Cannabinoids Screen (NEGATIVE) Ethyl Alcohol mg/dL C. difficile Tox B Gene NEGATIVE (NEGATIVE) 05/01/19 05/01/19 05/01/19 Range/Units 06:08 06:08 06:08 WBC 6.5 (4.8-10.8) x10^3/uL RBC 3.93 L (4.70-6.10) 10^6/uL Hgb 13.5 L (14.0-18.0) g/dL Hct 41.2 L (42.0-52.0) % MCV 104.8 H (80.0-94.0) fL MCH 34.4 H (27.0-31.0) pg MCHC 32.8 (32.0-36.0) g/dL RDW 13.6 (12.0-15.0) % Plt Count 157 (130-450) 10^3/uL MPV 11.8 H (7.4-11.4) fL Neut # (Auto) Not Reportable (1.5-6.6) 10^3/uL Lymph # (Auto) Not Reportable (1.5-3.5) 10^3/uL [place] # (Auto) Not Reportable (0.0-1.0) 10^3/uL Eos # (Auto) Not Reportable (0.0-0.7) 10^3/uL Baso # (Auto) Not Reportable (0.0-0.1) 10^3/uL Absolute Nucleated RBC Not Reportable x10^3/uL Total Counted 100 Band Neuts % (Manual) 16 H (0 - 10) % Abnorm Lymph % (Manual) 0 % Nucleated RBC % Not Reportable /100WBC Neutrophils # (Manual) 6.0 (1.5-6.6) 10^3/uL Lymphocytes # (Manual) 0.3 L (1.5-3.5) 10^3/uL Monocytes # (Manual) 0.0 (0.0-1.0) 10^3/uL Eosinophils # (Manual) 0.3 (0-0.7) 10^3/uL Basophils # (Manual) 0.0 (0-0.1) 10^3/uL Differential Comment MANUAL DIFFERENTIAL Manual Slide Review WBC Morphology 1+ DOHLE BODIES (NORMAL) Platelet Estimate NORMAL (130-450,000) (NORMAL) Platelet Morphology NORMAL APPEARANCE (NORMAL) RBC Morph Micro Appear 1+ POIKILOCYTOSIS (NORMAL) PT (9.9-12.6) secs INR (0.8-1.2) APTT (24.9-33.3) secs Sodium 141 (135-145) mmol/L Potassium 3.5 (3.5-5.0) mmol/L Chloride 108 (101-111) mmol/L Carbon Dioxide 22 (21-32) mmol/L Anion Gap 11.0 (6-13) BUN 34 H (6-20) mg/dL Creatinine 1.6 H (0.6-1.2) mg/dL Estimated GFR (MDRD) 41 L (>89) Glucose 111 H (70-100) mg/dL Glycated Hemoglobin 5.3 (4.6-6.2) % Estim Average Glucose 105 H (70-100) Lactic Acid (0.5-2.2) mmol/L Uric Acid (2.6-7.2) mg/dL Calcium 8.0 L (8.5-10.3) mg/dL Phosphorus 1.8 L (2.5-4.6) mg/dL Magnesium (1.7-2.8) mg/dL Total Bilirubin (0.2-1.0) mg/dL AST (10-42) IU/L ALT (10-60) IU/L Alkaline Phosphatase (42-121) IU/L Total Creatine Kinase (22-269) IU/L CK-MB (CK-2) (0.6-6.3) ng/mL Troponin I (<0.49) ng/mL B-Natriuretic Peptide (5-100) pg/mL Total Protein (6.7-8.2) g/dL Albumin 2.9 L (3.2-5.5) g/dL Globulin (2.1-4.2) g/dL Albumin/Globulin Ratio (1.0-2.2) Triglycerides 71 ( - 149) mg/dL Cholesterol 86 ( - 199) mg/dL LDL Cholesterol, Calc 33 ( - 129) mg/dL VLDL Cholesterol 14 mg/dL HDL Cholesterol 39 L (60 - ) mg/dL LDL/HDL Ratio 0.8 (<3.6) Cholesterol/HDL Ratio 2.2 (<5.0) Lipase (22-51) U/L Vitamin B12 (180-914) pg/mL Folate (5.90 - >24.8) ng/mL TSH (0.34-5.60) uIU/mL Urine Color Urine Clarity (CLEAR) Urine pH (5.0-7.5) PH Ur Specific [place] (1.002-1.030) Urine Protein (NEGATIVE) mg/dL Urine Glucose (UA) (NEGATIVE) mg/dL Urine Ketones (NEGATIVE) mg/dL Urine Occult Blood (NEGATIVE) Urine Nitrite (NEGATIVE) Urine Bilirubin (NEGATIVE) Urine Urobilinogen (NORMAL) E.U./dL Ur Leukocyte Esterase (NEGATIVE) Urine RBC (0-5) /HPF Urine WBC (0-3) /HPF Ur Squamous Epith Cells (<= Few) Urine Bacteria (None Seen) /HPF Ur Microscopic Review Urine Culture Comments Urine Opiates Screen (NEGATIVE) Ur Oxycodone Screen (NEGATIVE) Urine Methadone Screen (NEGATIVE) Ur Propoxyphene Screen (NEGATIVE) Ur Barbiturates Screen (NEGATIVE) Ur Tricyclics Screen (NEGATIVE) Ur Phencyclidine Scrn (NEGATIVE) Ur Amphetamine Screen (NEGATIVE) U Methamphetamines Scrn (NEGATIVE) U Benzodiazepines Scrn (NEGATIVE) Urine Cocaine Screen (NEGATIVE) U Cannabinoids Screen (NEGATIVE) Ethyl Alcohol mg/dL C. difficile Tox B Gene (NEGATIVE) 04/30/19 04/30/19 04/30/19 Range/Units 23:15 23:15 21:49 WBC (4.8-10.8) x10^3/uL RBC (4.70-6.10) 10^6/uL Hgb (14.0-18.0) g/dL Hct (42.0-52.0) % MCV (80.0-94.0) fL MCH (27.0-31.0) pg MCHC (32.0-36.0) g/dL RDW (12.0-15.0) % Plt Count (130-450) 10^3/uL MPV (7.4-11.4) fL Neut # (Auto) (1.5-6.6) 10^3/uL Lymph # (Auto) (1.5-3.5) 10^3/uL [place] # (Auto) (0.0-1.0) 10^3/uL Eos # (Auto) (0.0-0.7) 10^3/uL Baso # (Auto) (0.0-0.1) 10^3/uL Absolute Nucleated RBC x10^3/uL Total Counted Band Neuts % (Manual) (0 - 10) % Abnorm Lymph % (Manual) % Nucleated RBC % /100WBC Neutrophils # (Manual) (1.5-6.6) 10^3/uL Lymphocytes # (Manual) (1.5-3.5) 10^3/uL Monocytes # (Manual) (0.0-1.0) 10^3/uL Eosinophils # (Manual) (0-0.7) 10^3/uL Basophils # (Manual) (0-0.1) 10^3/uL Differential Comment Manual Slide Review WBC Morphology (NORMAL) Platelet Estimate (NORMAL) Platelet Morphology (NORMAL) RBC Morph Micro Appear (NORMAL) PT (9.9-12.6) secs INR (0.8-1.2) APTT (24.9-33.3) secs Sodium (135-145) mmol/L Potassium (3.5-5.0) mmol/L Chloride (101-111) mmol/L Carbon Dioxide (21-32) mmol/L Anion Gap (6-13) BUN (6-20) mg/dL Creatinine (0.6-1.2) mg/dL Estimated GFR (MDRD) (>89) Glucose (70-100) mg/dL Glycated Hemoglobin (4.6-6.2) % Estim Average Glucose (70-100) Lactic Acid 1.9 (0.5-2.2) mmol/L Uric Acid (2.6-7.2) mg/dL Calcium (8.5-10.3) mg/dL Phosphorus (2.5-4.6) mg/dL Magnesium (1.7-2.8) mg/dL Total Bilirubin (0.2-1.0) mg/dL AST (10-42) IU/L ALT (10-60) IU/L Alkaline Phosphatase (42-121) IU/L Total Creatine Kinase (22-269) IU/L CK-MB (CK-2) (0.6-6.3) ng/mL Troponin I (<0.49) ng/mL B-Natriuretic Peptide (5-100) pg/mL Total Protein (6.7-8.2) g/dL Albumin (3.2-5.5) g/dL Globulin (2.1-4.2) g/dL Albumin/Globulin Ratio (1.0-2.2) Triglycerides ( - 149) mg/dL Cholesterol ( - 199) mg/dL LDL Cholesterol, Calc ( - 129) mg/dL VLDL Cholesterol mg/dL HDL Cholesterol (60 - ) mg/dL LDL/HDL Ratio (<3.6) Cholesterol/HDL Ratio (<5.0) Lipase (22-51) U/L Vitamin B12 (180-914) pg/mL Folate (5.90 - >24.8) ng/mL TSH (0.34-5.60) uIU/mL Urine Color YELLOW Urine Clarity HAZY (CLEAR) Urine pH 5.0 (5.0-7.5) PH Ur Specific [place] 1.025 (1.002-1.030) Urine Protein 30 H (NEGATIVE) mg/dL Urine Glucose (UA) NEGATIVE (NEGATIVE) mg/dL Urine Ketones TRACE (NEGATIVE) mg/dL Urine Occult Blood LARGE H (NEGATIVE) Urine Nitrite POSITIVE H (NEGATIVE) Urine Bilirubin NEGATIVE (NEGATIVE) Urine Urobilinogen 0.2 (NORMAL) (NORMAL) E.U./dL Ur Leukocyte Esterase SMALL H (NEGATIVE) Urine RBC TNTC H (0-5) /HPF Urine WBC 4-5 (0-3) /HPF Ur Squamous Epith Cells NONE SEEN (<= Few) Urine Bacteria Moderate H (None Seen) /HPF Ur Microscopic Review INDICATED Urine Culture Comments INDICATED Urine Opiates Screen NEGATIVE (NEGATIVE) Ur Oxycodone Screen NEGATIVE (NEGATIVE) Urine Methadone Screen NEGATIVE (NEGATIVE) Ur Propoxyphene Screen NEGATIVE (NEGATIVE) Ur Barbiturates Screen NEGATIVE (NEGATIVE) Ur Tricyclics Screen NEGATIVE (NEGATIVE) Ur Phencyclidine Scrn NEGATIVE (NEGATIVE) Ur Amphetamine Screen NEGATIVE (NEGATIVE) U Methamphetamines Scrn NEGATIVE (NEGATIVE) U Benzodiazepines Scrn NEGATIVE (NEGATIVE) Urine Cocaine Screen NEGATIVE (NEGATIVE) U Cannabinoids Screen NEGATIVE (NEGATIVE) Ethyl Alcohol mg/dL C. difficile Tox B Gene (NEGATIVE) 04/30/19 04/30/19 04/30/19 Range/Units 20:37 20:37 20:37 WBC (4.8-10.8) x10^3/uL RBC (4.70-6.10) 10^6/uL Hgb (14.0-18.0) g/dL Hct (42.0-52.0) % MCV (80.0-94.0) fL MCH (27.0-31.0) pg MCHC (32.0-36.0) g/dL RDW (12.0-15.0) % Plt Count (130-450) 10^3/uL MPV (7.4-11.4) fL Neut # (Auto) (1.5-6.6) 10^3/uL Lymph # (Auto) (1.5-3.5) 10^3/uL [place] # (Auto) (0.0-1.0) 10^3/uL Eos # (Auto) (0.0-0.7) 10^3/uL Baso # (Auto) (0.0-0.1) 10^3/uL Absolute Nucleated RBC x10^3/uL Total Counted Band Neuts % (Manual) (0 - 10) % Abnorm Lymph % (Manual) % Nucleated RBC % /100WBC Neutrophils # (Manual) (1.5-6.6) 10^3/uL Lymphocytes # (Manual) (1.5-3.5) 10^3/uL Monocytes # (Manual) (0.0-1.0) 10^3/uL Eosinophils # (Manual) (0-0.7) 10^3/uL Basophils # (Manual) (0-0.1) 10^3/uL Differential Comment Manual Slide Review WBC Morphology (NORMAL) Platelet Estimate (NORMAL) Platelet Morphology (NORMAL) RBC Morph Micro Appear (NORMAL) PT (9.9-12.6) secs INR (0.8-1.2) APTT (24.9-33.3) secs Sodium (135-145) mmol/L Potassium (3.5-5.0) mmol/L Chloride (101-111) mmol/L Carbon Dioxide (21-32) mmol/L Anion Gap (6-13) BUN (6-20) mg/dL Creatinine (0.6-1.2) mg/dL Estimated GFR (MDRD) (>89) Glucose (70-100) mg/dL Glycated Hemoglobin (4.6-6.2) % Estim Average Glucose (70-100) Lactic Acid (0.5-2.2) mmol/L Uric Acid 6.7 (2.6-7.2) mg/dL Calcium (8.5-10.3) mg/dL Phosphorus (2.5-4.6) mg/dL Magnesium 1.4 L (1.7-2.8) mg/dL Total Bilirubin (0.2-1.0) mg/dL AST (10-42) IU/L ALT (10-60) IU/L Alkaline Phosphatase (42-121) IU/L Total Creatine Kinase (22-269) IU/L CK-MB (CK-2) (0.6-6.3) ng/mL Troponin I (<0.49) ng/mL B-Natriuretic Peptide (5-100) pg/mL Total Protein (6.7-8.2) g/dL Albumin (3.2-5.5) g/dL Globulin (2.1-4.2) g/dL Albumin/Globulin Ratio (1.0-2.2) Triglycerides ( - 149) mg/dL Cholesterol ( - 199) mg/dL LDL Cholesterol, Calc ( - 129) mg/dL VLDL Cholesterol mg/dL HDL Cholesterol (60 - ) mg/dL LDL/HDL Ratio (<3.6) Cholesterol/HDL Ratio (<5.0) Lipase (22-51) U/L Vitamin B12 (180-914) pg/mL Folate (5.90 - >24.8) ng/mL TSH 1.39 (0.34-5.60) uIU/mL Urine Color Urine Clarity (CLEAR) Urine pH (5.0-7.5) PH Ur Specific [place] (1.002-1.030) Urine Protein (NEGATIVE) mg/dL Urine Glucose (UA) (NEGATIVE) mg/dL Urine Ketones (NEGATIVE) mg/dL Urine Occult Blood (NEGATIVE) Urine Nitrite (NEGATIVE) Urine Bilirubin (NEGATIVE) Urine Urobilinogen (NORMAL) E.U./dL Ur Leukocyte Esterase (NEGATIVE) Urine RBC (0-5) /HPF Urine WBC (0-3) /HPF Ur Squamous Epith Cells (<= Few) Urine Bacteria (None Seen) /HPF Ur Microscopic Review Urine Culture Comments Urine Opiates Screen (NEGATIVE) Ur Oxycodone Screen (NEGATIVE) Urine Methadone Screen (NEGATIVE) Ur Propoxyphene Screen (NEGATIVE) Ur Barbiturates Screen (NEGATIVE) Ur Tricyclics Screen (NEGATIVE) Ur Phencyclidine Scrn (NEGATIVE) Ur Amphetamine Screen (NEGATIVE) U Methamphetamines Scrn (NEGATIVE) U Benzodiazepines Scrn (NEGATIVE) Urine Cocaine Screen (NEGATIVE) U Cannabinoids Screen (NEGATIVE) Ethyl Alcohol < 5.0 mg/dL C. difficile Tox B Gene (NEGATIVE) 04/30/19 04/30/19 04/30/19 Range/Units 20:37 20:37 20:37 WBC (4.8-10.8) x10^3/uL RBC (4.70-6.10) 10^6/uL Hgb (14.0-18.0) g/dL Hct (42.0-52.0) % MCV (80.0-94.0) fL MCH (27.0-31.0) pg MCHC (32.0-36.0) g/dL RDW (12.0-15.0) % Plt Count (130-450) 10^3/uL MPV (7.4-11.4) fL Neut # (Auto) (1.5-6.6) 10^3/uL Lymph # (Auto) (1.5-3.5) 10^3/uL [place] # (Auto) (0.0-1.0) 10^3/uL Eos # (Auto) (0.0-0.7) 10^3/uL Baso # (Auto) (0.0-0.1) 10^3/uL Absolute Nucleated RBC x10^3/uL Total Counted Band Neuts % (Manual) (0 - 10) % Abnorm Lymph % (Manual) % Nucleated RBC % /100WBC Neutrophils # (Manual) (1.5-6.6) 10^3/uL Lymphocytes # (Manual) (1.5-3.5) 10^3/uL Monocytes # (Manual) (0.0-1.0) 10^3/uL Eosinophils # (Manual) (0-0.7) 10^3/uL Basophils # (Manual) (0-0.1) 10^3/uL Differential Comment Manual Slide Review WBC Morphology (NORMAL) Platelet Estimate (NORMAL) Platelet Morphology (NORMAL) RBC Morph Micro Appear (NORMAL) PT (9.9-12.6) secs INR (0.8-1.2) APTT (24.9-33.3) secs Sodium 142 (135-145) mmol/L Potassium 4.3 (3.5-5.0) mmol/L Chloride 108 (101-111) mmol/L Carbon Dioxide 25 (21-32) mmol/L Anion Gap 9.0 (6-13) BUN 28 H (6-20) mg/dL Creatinine 1.5 H (0.6-1.2) mg/dL Estimated GFR (MDRD) 44 L (>89) Glucose 123 H (70-100) mg/dL Glycated Hemoglobin (4.6-6.2) % Estim Average Glucose (70-100) Lactic Acid (0.5-2.2) mmol/L Uric Acid (2.6-7.2) mg/dL Calcium 8.2 L (8.5-10.3) mg/dL Phosphorus (2.5-4.6) mg/dL Magnesium (1.7-2.8) mg/dL Total Bilirubin 1.9 H (0.2-1.0) mg/dL AST 27 (10-42) IU/L ALT 11 (10-60) IU/L Alkaline Phosphatase 38 L (42-121) IU/L Total Creatine Kinase (22-269) IU/L CK-MB (CK-2) (0.6-6.3) ng/mL Troponin I 0.06 (<0.49) ng/mL B-Natriuretic Peptide 1315 H (5-100) pg/mL Total Protein 5.5 L (6.7-8.2) g/dL Albumin 3.0 L (3.2-5.5) g/dL Globulin 2.5 (2.1-4.2) g/dL Albumin/Globulin Ratio 1.2 (1.0-2.2) Triglycerides ( - 149) mg/dL Cholesterol ( - 199) mg/dL LDL Cholesterol, Calc ( - 129) mg/dL VLDL Cholesterol mg/dL HDL Cholesterol (60 - ) mg/dL LDL/HDL Ratio (<3.6) Cholesterol/HDL Ratio (<5.0) Lipase 20 L (22-51) U/L Vitamin B12 (180-914) pg/mL Folate (5.90 - >24.8) ng/mL TSH (0.34-5.60) uIU/mL Urine Color Urine Clarity (CLEAR) Urine pH (5.0-7.5) PH Ur Specific [place] (1.002-1.030) Urine Protein (NEGATIVE) mg/dL Urine Glucose (UA) (NEGATIVE) mg/dL Urine Ketones (NEGATIVE) mg/dL Urine Occult Blood (NEGATIVE) Urine Nitrite (NEGATIVE) Urine Bilirubin (NEGATIVE) Urine Urobilinogen (NORMAL) E.U./dL Ur Leukocyte Esterase (NEGATIVE) Urine RBC (0-5) /HPF Urine WBC (0-3) /HPF Ur Squamous Epith Cells (<= Few) Urine Bacteria (None Seen) /HPF Ur Microscopic Review Urine Culture Comments Urine Opiates Screen (NEGATIVE) Ur Oxycodone Screen (NEGATIVE) Urine Methadone Screen (NEGATIVE) Ur Propoxyphene Screen (NEGATIVE) Ur Barbiturates Screen (NEGATIVE) Ur Tricyclics Screen (NEGATIVE) Ur Phencyclidine Scrn (NEGATIVE) Ur Amphetamine Screen (NEGATIVE) U Methamphetamines Scrn (NEGATIVE) U Benzodiazepines Scrn (NEGATIVE) Urine Cocaine Screen (NEGATIVE) U Cannabinoids Screen (NEGATIVE) Ethyl Alcohol mg/dL C. difficile Tox B Gene (NEGATIVE) 04/30/19 04/30/19 04/30/19 Range/Units 20:37 20:26 20:26 WBC 15.6 H (4.8-10.8) x10^3/uL RBC 3.96 L (4.70-6.10) 10^6/uL Hgb 13.8 L (14.0-18.0) g/dL Hct 42.3 (42.0-52.0) % MCV 106.8 H (80.0-94.0) fL MCH 34.8 H (27.0-31.0) pg MCHC 32.6 (32.0-36.0) g/dL RDW 13.6 (12.0-15.0) % Plt Count 172 (130-450) 10^3/uL MPV 11.3 (7.4-11.4) fL Neut # (Auto) 14.7 H (1.5-6.6) 10^3/uL Lymph # (Auto) 0.3 L (1.5-3.5) 10^3/uL [place] # (Auto) 0.2 (0.0-1.0) 10^3/uL Eos # (Auto) 0.1 (0.0-0.7) 10^3/uL Baso # (Auto) 0.0 (0.0-0.1) 10^3/uL Absolute Nucleated RBC 0.00 x10^3/uL Total Counted Band Neuts % (Manual) (0 - 10) % Abnorm Lymph % (Manual) % Nucleated RBC % 0.0 /100WBC Neutrophils # (Manual) (1.5-6.6) 10^3/uL Lymphocytes # (Manual) (1.5-3.5) 10^3/uL Monocytes # (Manual) (0.0-1.0) 10^3/uL Eosinophils # (Manual) (0-0.7) 10^3/uL Basophils # (Manual) (0-0.1) 10^3/uL Differential Comment Manual Slide Review Indicated WBC Morphology NORMAL APPEARANCE (NORMAL) Platelet Estimate NORMAL (130-450,000) (NORMAL) Platelet Morphology NORMAL APPEARANCE (NORMAL) RBC Morph Micro Appear NORMAL APPEARANCE (NORMAL) PT (9.9-12.6) secs INR (0.8-1.2) APTT (24.9-33.3) secs Sodium (135-145) mmol/L Potassium (3.5-5.0) mmol/L Chloride (101-111) mmol/L Carbon Dioxide (21-32) mmol/L Anion Gap (6-13) BUN (6-20) mg/dL Creatinine (0.6-1.2) mg/dL Estimated GFR (MDRD) (>89) Glucose (70-100) mg/dL Glycated Hemoglobin (4.6-6.2) % Estim Average Glucose (70-100) Lactic Acid (0.5-2.2) mmol/L Uric Acid (2.6-7.2) mg/dL Calcium (8.5-10.3) mg/dL Phosphorus (2.5-4.6) mg/dL Magnesium (1.7-2.8) mg/dL Total Bilirubin (0.2-1.0) mg/dL AST (10-42) IU/L ALT (10-60) IU/L Alkaline Phosphatase (42-121) IU/L Total Creatine Kinase 61 (22-269) IU/L CK-MB (CK-2) 0.8 (0.6-6.3) ng/mL Troponin I (<0.49) ng/mL B-Natriuretic Peptide (5-100) pg/mL Total Protein (6.7-8.2) g/dL Albumin (3.2-5.5) g/dL Globulin (2.1-4.2) g/dL Albumin/Globulin Ratio (1.0-2.2) Triglycerides ( - 149) mg/dL Cholesterol ( - 199) mg/dL LDL Cholesterol, Calc ( - 129) mg/dL VLDL Cholesterol mg/dL HDL Cholesterol (60 - ) mg/dL LDL/HDL Ratio (<3.6) Cholesterol/HDL Ratio (<5.0) Lipase (22-51) U/L Vitamin B12 (180-914) pg/mL Folate (5.90 - >24.8) ng/mL TSH (0.34-5.60) uIU/mL Urine Color Urine Clarity (CLEAR) Urine pH (5.0-7.5) PH Ur Specific [place] (1.002-1.030) Urine Protein (NEGATIVE) mg/dL Urine Glucose (UA) (NEGATIVE) mg/dL Urine Ketones (NEGATIVE) mg/dL Urine Occult Blood (NEGATIVE) Urine Nitrite (NEGATIVE) Urine Bilirubin (NEGATIVE) Urine Urobilinogen (NORMAL) E.U./dL Ur Leukocyte Esterase (NEGATIVE) Urine RBC (0-5) /HPF Urine WBC (0-3) /HPF Ur Squamous Epith Cells (<= Few) Urine Bacteria (None Seen) /HPF Ur Microscopic Review Urine Culture Comments Urine Opiates Screen (NEGATIVE) Ur Oxycodone Screen (NEGATIVE) Urine Methadone Screen (NEGATIVE) Ur Propoxyphene Screen (NEGATIVE) Ur Barbiturates Screen (NEGATIVE) Ur Tricyclics Screen (NEGATIVE) Ur Phencyclidine Scrn (NEGATIVE) Ur Amphetamine Screen (NEGATIVE) U Methamphetamines Scrn (NEGATIVE) U Benzodiazepines Scrn (NEGATIVE) Urine Cocaine Screen (NEGATIVE) U Cannabinoids Screen (NEGATIVE) Ethyl Alcohol mg/dL C. difficile Tox B Gene (NEGATIVE) 04/30/19 Range/Units 20:26 WBC (4.8-10.8) x10^3/uL RBC (4.70-6.10) 10^6/uL Hgb (14.0-18.0) g/dL Hct (42.0-52.0) % MCV (80.0-94.0) fL MCH (27.0-31.0) pg MCHC (32.0-36.0) g/dL RDW (12.0-15.0) % Plt Count (130-450) 10^3/uL MPV (7.4-11.4) fL Neut # (Auto) (1.5-6.6) 10^3/uL Lymph # (Auto) (1.5-3.5) 10^3/uL [place] # (Auto) (0.0-1.0) 10^3/uL Eos # (Auto) (0.0-0.7) 10^3/uL Baso # (Auto) (0.0-0.1) 10^3/uL Absolute Nucleated RBC x10^3/uL Total Counted Band Neuts % (Manual) (0 - 10) % Abnorm Lymph % (Manual) % Nucleated RBC % /100WBC Neutrophils # (Manual) (1.5-6.6) 10^3/uL Lymphocytes # (Manual) (1.5-3.5) 10^3/uL Monocytes # (Manual) (0.0-1.0) 10^3/uL Eosinophils # (Manual) (0-0.7) 10^3/uL Basophils # (Manual) (0-0.1) 10^3/uL Differential Comment Manual Slide Review WBC Morphology (NORMAL) Platelet Estimate (NORMAL) Platelet Morphology (NORMAL) RBC Morph Micro Appear (NORMAL) PT 17.3 H (9.9-12.6) secs INR 1.5 H (0.8-1.2) APTT 32.7 (24.9-33.3) secs Sodium (135-145) mmol/L Potassium (3.5-5.0) mmol/L Chloride (101-111) mmol/L Carbon Dioxide (21-32) mmol/L Anion Gap (6-13) BUN (6-20) mg/dL Creatinine (0.6-1.2) mg/dL Estimated GFR (MDRD) (>89) Glucose (70-100) mg/dL Glycated Hemoglobin (4.6-6.2) % Estim Average Glucose (70-100) Lactic Acid (0.5-2.2) mmol/L Uric Acid (2.6-7.2) mg/dL Calcium (8.5-10.3) mg/dL Phosphorus (2.5-4.6) mg/dL Magnesium (1.7-2.8) mg/dL Total Bilirubin (0.2-1.0) mg/dL AST (10-42) IU/L ALT (10-60) IU/L Alkaline Phosphatase (42-121) IU/L Total Creatine Kinase (22-269) IU/L CK-MB (CK-2) (0.6-6.3) ng/mL Troponin I (<0.49) ng/mL B-Natriuretic Peptide (5-100) pg/mL Total Protein (6.7-8.2) g/dL Albumin (3.2-5.5) g/dL Globulin (2.1-4.2) g/dL Albumin/Globulin Ratio (1.0-2.2) Triglycerides ( - 149) mg/dL Cholesterol ( - 199) mg/dL LDL Cholesterol, Calc ( - 129) mg/dL VLDL Cholesterol mg/dL HDL Cholesterol (60 - ) mg/dL LDL/HDL Ratio (<3.6) Cholesterol/HDL Ratio (<5.0) Lipase (22-51) U/L Vitamin B12 (180-914) pg/mL Folate (5.90 - >24.8) ng/mL TSH (0.34-5.60) uIU/mL Urine Color Urine Clarity (CLEAR) Urine pH (5.0-7.5) PH Ur Specific [place] (1.002-1.030) Urine Protein (NEGATIVE) mg/dL Urine Glucose (UA) (NEGATIVE) mg/dL Urine Ketones (NEGATIVE) mg/dL Urine Occult Blood (NEGATIVE) Urine Nitrite (NEGATIVE) Urine Bilirubin (NEGATIVE) Urine Urobilinogen (NORMAL) E.U./dL Ur Leukocyte Esterase (NEGATIVE) Urine RBC (0-5) /HPF Urine WBC (0-3) /HPF Ur Squamous Epith Cells (<= Few) Urine Bacteria (None Seen) /HPF Ur Microscopic Review Urine Culture Comments Urine Opiates Screen (NEGATIVE) Ur Oxycodone Screen (NEGATIVE) Urine Methadone Screen (NEGATIVE) Ur Propoxyphene Screen (NEGATIVE) Ur Barbiturates Screen (NEGATIVE) Ur Tricyclics Screen (NEGATIVE) Ur Phencyclidine Scrn (NEGATIVE) Ur Amphetamine Screen (NEGATIVE) U Methamphetamines Scrn (NEGATIVE) U Benzodiazepines Scrn (NEGATIVE) Urine Cocaine Screen (NEGATIVE) U Cannabinoids Screen (NEGATIVE) Ethyl Alcohol mg/dL C. difficile Tox B Gene (NEGATIVE) Assessment/Plan - Problem List (1) Urinary tract infection Impression: 1. UTI 2. Acute hypoxemic RF 3. Acute renal insufficiency sec to dehydration 4. Acute transient hypovolemia sec to dehydration 5. Acute encephalopathy 6. Dysarthria 7. Hyperbilirubinemia 8. LBBB on EKG 9. Mild coagulopathy 10. leukocytosis sec to UTI 11. Hyperglycemia 12. COPD exacerbation 13. Advanced care planning education and counseling 14 systolic heart failure Qualifiers: Urinary tract infection type: acute cystitis Hematuria presence: with hematuria Qualified Code(s): N30.01 - Acute cystitis with hematuria
--- NOTE | 2019-05-01 18:25 | CONSULTATION NOTE ---
Palliative Care Consultation - Referral Referring Provider: Shravan Cole MD Time of Visit: [id number]; [id number] Referral setting: [facility] [place] Referral Reason: Failure to Thrive - Information Sources Records reviewed: Previous records reviewed Exam limitations: Clinical condition (son Grayson does not know much about history; patient with STM deficits) - History of Present Illness Brief History of Present Illness: This is a frail 84-year-old gentleman who was admitted acutely after found by his neighbors slumped over the coffee table. Patient has been under a lot of stress, his had a severe stroke last week, has been at the [facility], and they are transitioning her home with hospice tomorrow at their son Grayson's house. Son and had neighbors checked, because had not shown up at residential yesterday, and is not quite sure how the series of events happened. Patient does not recall much of the history of the last couple days, other than he was feeling somewhat weak. Patient denies any acute pain, shortness of breath, cough, but is still feeling quite weak. Patient does have known underlying COPD, he does not have oxygen at home. Son reports they did receive Meals on Wheels at the home setting, patient was the one to cook some meals. Not quite sure if he been managing to stay. Patient has had hoarseness and increased tr ouble with talking for actually a couple weeks, though this is much more acute in nature. Patient still having some difficulty with memory, tracking conversation, and feeling somewhat overwhelmed. Medical/Surgical History - Past Medical History Cardiovascular: reports: None Respiratory: reports: Asthma, COPD Neuro: Tremors, Other (mild cognitive issues) Endocrine/Autoimmune: reports: None GI: reports: None : reports: None Psych: reports: Depression, Anxiety Musculoskeletal: reports: Osteoarthritis, Chronic back pain Derm: reports: None - Past Surgical History General: reports: Appendectomy - Substance History Use: Uses substance without health or social issues: Tobacco (hx), Alcohol (beer) Social History - Living Situation Living arrangement: At home Living Situation: Alone Support System: Patient has a frail elderly spouse, who would actually been running mostly the household and doing the finances. Secondary to patient's memory issues. She had an acute stroke, concerned about patient be able to take care of himself long-term even previous to this episode. [place] him most likely live with them long-term, but certainly for the short-term. Other son Ronak expected back on May 07, he also has other siblings who are aware of the situation as well.Patient has 8 children, 2 who had at an early age. They also have significant financial stressors. Family History - Family History Family History: Mother: , Father: , Other family: Alive and Well (2 children) Medications/Allergies - Medications Active Medication List: Active Medications Acetaminophen (Tylenol) 650 mg PO Q4HR PRN PRN Reason: Pain 1 to 4 Albuterol/Ipratropium (Duoneb) 3 ml INH RTQID [facility] Last Admin: 05/01/19 15:45 Dose: 3 ml Budesonide (Pulmicort) 0.5 mg INH RTBID [facility] Last Admin: 05/01/19 07:20 Dose: 0.5 mg Cyanocobalamin (Vitamin B-12) 500 mcg PO DAILY [facility] Last Admin: 05/01/19 10:37 Dose: 500 mcg Famotidine (Pepcid) 20 mg PO BID [facility] Last Admin: 05/01/19 10:31 Dose: 20 mg Folic Acid () 1 mg PO DAILY [facility] Last Admin: 05/01/19 10:37 Dose: 1 mg Furosemide (Lasix) 20 mg PO BIDDIURETIC [facility] Heparin Sodium (Porcine) () 5,000 unit SUBQ BID [facility] Last Admin: 05/01/19 10:44 Dose: 5,000 unit Ceftriaxone Sodium 1 gm/ (Sodium Chloride) 100 mls @ 200 mls/hr IV DAILY [facility] Last Infusion: 05/01/19 12:12 Dose: Infused Potassium Chloride/Sodium Chloride (Normal Saline 0.9% W/20 Meq Kcl) 1,000 mls @ 50 mls/hr IV .Q20H [facility] Last Admin: 05/01/19 17:36 Dose: 50 mls/hr Lorazepam (Ativan) 1 mg PO ONCE [facility] Stop: 05/01/19 19:00 Last Admin: 05/01/19 16:28 Dose: 1 mg Methylprednisolone (Solu-Medrol (40mg Vial)) 40 mg IVP TID [facility] Last Admin: 05/01/19 13:05 Dose: 40 mg Metoprolol Tartrate (Lopressor Inj) 5 mg IVP Q6H PRN PRN Reason: HR>120, hold if SBP<110 Midodrine () 10 mg PO TID PRN PRN Reason: SBP<100 Ondansetron HCl (Zofran Odt) 4 mg TL Q6HR PRN PRN Reason: Nausea / Vomiting Polyethylene Glycol (Miralax) 17 gm PO DAILY [facility] Last Admin: 05/01/19 10:32 Dose: Not Given Saccharomyces Boulardii (Florastor) 250 mg PO BIDWM [facility] Last Admin: 05/01/19 17:38 Dose: 250 mg Sodium Chloride (Normal Saline Flush 0.9%) 10 ml IVP PRN PRN PRN Reason: NEEDED PER PROVIDER ORDERS Last Admin: 05/01/19 13:05 Dose: 20 ml Sodium Chloride (Normal Saline Flush 0.9%) 10 ml IVP 0100,0900,1700 [facility] Last Admin: 05/01/19 10:50 Dose: Not Given Sodium Phosphate (K-Phos Neutral) 250 mg PO TIDWM [facility] Last Admin: 05/01/19 17:38 Dose: 250 mg Sterile Water (Sterile Water) 10 ml MC DAILY [facility] Last Admin: 05/01/19 10:47 Dose: Not Given Temazepam (Restoril) 15 mg PO QPM PRN PRN Reason: Insomnia No Known Home Medications 04/30/19 - Allergies Allergies/Adverse Reactions: Allergies Allergy/AdvReac Type Severity Reaction Status Date / Time No Known Drug Allergies Allergy Verified 04/30/19 20:24 Review of Systems - Constitutional Constitutional: reports: Fatigue, Other (quite cachetic) - Eyes Eyes: reports: Vision loss - Ears, Nose & Throat Ears, Nose & Throat: reports: Hearing loss, Dry mouth - Cardiovascular Cardiovascular: reports: Decr. exercise tolerance - Respiratory Respiratory: reports: Cough, SOB with exertion. denies: SOB at rest - Gastrointestinal Gastrointestinal: reports: Poor appetite, Early satiety. denies: Abdominal pain, Nausea, Reflux/heartburn - Musculoskeletal Musculoskeletal: reports: Back pain, Stiffness, Limited range of motion, Muscle weakness - Integumentary Integumentary: reports: Dryness - Neurological Neurological: reports: General weakness, Memory problems, Abnormal gait, Other (tremors) - Psychiatric Psychiatric: reports: Depression - Hematologic/Lymphatic Hematologic/Lymphatic: denies: Recurrent infections - All Other Systems All Other Systems: reports: Other (limited ROS) Physical Exam - Vital Signs Vital Signs: Vital Signs x48h Temp Pulse Pulse Pulse Resp Resp BP 05/01/19 16:00 36.1 C L 79 16 109/64 05/01/19 15:45 84 16 05/01/19 14:28 36.6 C 82 20 93/54 L 05/01/19 12:10 83 16 05/01/19 11:30 83 16 BP Pulse Ox Pulse Ox 05/01/19 16:00 98 05/01/19 15:45 05/01/19 14:28 100 05/01/19 12:10 102/68 99 05/01/19 11:30 - Physical Exam General Appearance: positive: No acute distress Eyes Bilateral: positive: Normal inspection ENT: negative: Pharyngeal erythema Neck: positive: No JVD, Trachea midline Cardiovascular: positive: Regular rate & rhythm Respiratory: positive: No respiratory distress, Diminished throughout, Diminished in bases. negative: Wheezes, Rales, Rhonchi Abdomen: positive: Non-tender, Soft Skin: positive: Pallor, Dryness Extremities: positive: No pedal edema Neurologic/Psychiatric: positive: Disoriented to time, Weakness, Slurred/abnml speech, Flat affect, Other (voice very weak). negative: Facial droop Palliative Care - POLST Patient has POLST: No Pain: No pain Performance Status: Patient has had functional decline over the last several weeks to months. He is ambulatory, but is quite weak and frail. Has been managing his ADLs up to this point in time, he has been visiting his at residential. He appears quite frail weak and shaky in his bed, has not been out of bed yet. - Palliative Care Discussion: I met with patient in the morning, patient reports he "had a heart attack". He was unable to recall events leading up to event, he understands he is in the hospital, but does not understand the plan and is feeling quite tired and lethargic. He did recognize me from meeting with the family previously for his . Did speak with son, did agree patient most likely is not been taking care of himself, feeling somewhat stressed with all the changes and his 's decline. They are bringing his home to their house, Grayson and Vianey'carlos, to take care of her through end of life with hospice support. They do have room for patient, and plan eventually for him to move in with him anyway. Met with son and patient in room, patient does not have a D POA, and does have any legal and financial issues to resolve. We did focus today though on the medical power of environmental attorney, discussed the need to pick 1 of his sons Grayson or Ronak to serve as his spokesperson if he is unable to speak for himself. Given the form, they will talk amongst themselves and confirm what makes most sense. Explained need to witnesses or rotary. Also initiate conversation regarding the POLST, given patient's frailty, leaning towards do not attempt resuscitation with selective treatments. There are 5 other siblings, that need to be consulted, Grayson will work with them and complete form with his dad. Do feel that he needs some time, given patient's acute illness, and have not had previous discussions. They do have hard choices for loving people and have just gone through this or their mom. Discussed patient is not currently appropriate for hospice, but still would need to know what patient's goals would be in the future as well as with acute hospitalization regarding CODE STATUS.Encouraged to follow-up either with hospitalist and/or primary care provider at later date if not completed before discharge Results - Lab Results Lab results reviewed: Yes Fish Bones: 05/01/19 06:08 05/01/19 06:08 Lab and Imaging Results: Lab Results x24hrs 05/01/19 05/01/19 05/01/19 Range/Units 14:10 11:08 06:08 WBC (4.8-10.8) x10^3/uL RBC (4.70-6.10) 10^6/uL Hgb (14.0-18.0) g/dL Hct (42.0-52.0) % MCV (80.0-94.0) fL MCH (27.0-31.0) pg MCHC (32.0-36.0) g/dL RDW (12.0-15.0) % Plt Count (130-450) 10^3/uL MPV (7.4-11.4) fL Neut # (Auto) (1.5-6.6) 10^3/uL Lymph # (Auto) (1.5-3.5) 10^3/uL [place] # (Auto) (0.0-1.0) 10^3/uL Eos # (Auto) (0.0-0.7) 10^3/uL Baso # (Auto) (0.0-0.1) 10^3/uL Absolute Nucleated RBC x10^3/uL Total Counted Band Neuts % (Manual) (0 - 10) % Abnorm Lymph % (Manual) % Nucleated RBC % /100WBC Neutrophils # (Manual) (1.5-6.6) 10^3/uL Lymphocytes # (Manual) (1.5-3.5) 10^3/uL Monocytes # (Manual) (0.0-1.0) 10^3/uL Eosinophils # (Manual) (0-0.7) 10^3/uL Basophils # (Manual) (0-0.1) 10^3/uL Differential Comment Manual Slide Review WBC Morphology (NORMAL) Platelet Estimate (NORMAL) Platelet Morphology (NORMAL) RBC Morph Micro Appear (NORMAL) PT (9.9-12.6) secs INR (0.8-1.2) APTT (24.9-33.3) secs Sodium (135-145) mmol/L Potassium (3.5-5.0) mmol/L Chloride (101-111) mmol/L Carbon Dioxide (21-32) mmol/L Anion Gap (6-13) BUN (6-20) mg/dL Creatinine (0.6-1.2) mg/dL Estimated GFR (MDRD) (>89) Glucose (70-100) mg/dL Glycated Hemoglobin (4.6-6.2) % Estim Average Glucose (70-100) Lactic Acid (0.5-2.2) mmol/L Uric Acid (2.6-7.2) mg/dL Calcium (8.5-10.3) mg/dL Phosphorus (2.5-4.6) mg/dL Magnesium (1.7-2.8) mg/dL Total Bilirubin (0.2-1.0) mg/dL AST (10-42) IU/L ALT (10-60) IU/L Alkaline Phosphatase (42-121) IU/L Total Creatine Kinase (22-269) IU/L CK-MB (CK-2) (0.6-6.3) ng/mL Troponin I 0.16 (<0.49) ng/mL B-Natriuretic Peptide (5-100) pg/mL Total Protein (6.7-8.2) g/dL Albumin (3.2-5.5) g/dL Globulin (2.1-4.2) g/dL Albumin/Globulin Ratio (1.0-2.2) Triglycerides ( - 149) mg/dL Cholesterol ( - 199) mg/dL LDL Cholesterol, Calc ( - 129) mg/dL VLDL Cholesterol mg/dL HDL Cholesterol (60 - ) mg/dL LDL/HDL Ratio (<3.6) Cholesterol/HDL Ratio (<5.0) Lipase (22-51) U/L Vitamin B12 77 L (180-914) pg/mL Folate 5.12 L (5.90 - >24.8) ng/mL TSH (0.34-5.60) uIU/mL Urine Color Urine Clarity (CLEAR) Urine pH (5.0-7.5) PH Ur Specific [place] (1.002-1.030) Urine Protein (NEGATIVE) mg/dL Urine Glucose (UA) (NEGATIVE) mg/dL Urine Ketones (NEGATIVE) mg/dL Urine Occult Blood (NEGATIVE) Urine Nitrite (NEGATIVE) Urine Bilirubin (NEGATIVE) Urine Urobilinogen (NORMAL) E.U./dL Ur Leukocyte Esterase (NEGATIVE) Urine RBC (0-5) /HPF Urine WBC (0-3) /HPF Ur Squamous Epith Cells (<= Few) Urine Bacteria (None Seen) /HPF Ur Microscopic Review Urine Culture Comments Urine Opiates Screen (NEGATIVE) Ur Oxycodone Screen (NEGATIVE) Urine Methadone Screen (NEGATIVE) Ur Propoxyphene Screen (NEGATIVE) Ur Barbiturates Screen (NEGATIVE) Ur Tricyclics Screen (NEGATIVE) Ur Phencyclidine Scrn (NEGATIVE) Ur Amphetamine Screen (NEGATIVE) U Methamphetamines Scrn (NEGATIVE) U Benzodiazepines Scrn (NEGATIVE) Urine Cocaine Screen (NEGATIVE) U Cannabinoids Screen (NEGATIVE) Ethyl Alcohol mg/dL C. difficile Tox B Gene NEGATIVE (NEGATIVE) 05/01/19 05/01/19 05/01/19 Range/Units 06:08 06:08 06:08 WBC 6.5 (4.8-10.8) x10^3/uL RBC 3.93 L (4.70-6.10) 10^6/uL Hgb 13.5 L (14.0-18.0) g/dL Hct 41.2 L (42.0-52.0) % MCV 104.8 H (80.0-94.0) fL MCH 34.4 H (27.0-31.0) pg MCHC 32.8 (32.0-36.0) g/dL RDW 13.6 (12.0-15.0) % Plt Count 157 (130-450) 10^3/uL MPV 11.8 H (7.4-11.4) fL Neut # (Auto) Not Reportable (1.5-6.6) 10^3/uL Lymph # (Auto) Not Reportable (1.5-3.5) 10^3/uL [place] # (Auto) Not Reportable (0.0-1.0) 10^3/uL Eos # (Auto) Not Reportable (0.0-0.7) 10^3/uL Baso # (Auto) Not Reportable (0.0-0.1) 10^3/uL Absolute Nucleated RBC Not Reportable x10^3/uL Total Counted 100 Band Neuts % (Manual) 16 H (0 - 10) % Abnorm Lymph % (Manual) 0 % Nucleated RBC % Not Reportable /100WBC Neutrophils # (Manual) 6.0 (1.5-6.6) 10^3/uL Lymphocytes # (Manual) 0.3 L (1.5-3.5) 10^3/uL Monocytes # (Manual) 0.0 (0.0-1.0) 10^3/uL Eosinophils # (Manual) 0.3 (0-0.7) 10^3/uL Basophils # (Manual) 0.0 (0-0.1) 10^3/uL Differential Comment MANUAL DIFFERENTIAL Manual Slide Review WBC Morphology 1+ DOHLE BODIES (NORMAL) Platelet Estimate NORMAL (130-450,000) (NORMAL) Platelet Morphology NORMAL APPEARANCE (NORMAL) RBC Morph Micro Appear 1+ POIKILOCYTOSIS (NORMAL) PT (9.9-12.6) secs INR (0.8-1.2) APTT (24.9-33.3) secs Sodium 141 (135-145) mmol/L Potassium 3.5 (3.5-5.0) mmol/L Chloride 108 (101-111) mmol/L Carbon Dioxide 22 (21-32) mmol/L Anion Gap 11.0 (6-13) BUN 34 H (6-20) mg/dL Creatinine 1.6 H (0.6-1.2) mg/dL Estimated GFR (MDRD) 41 L (>89) Glucose 111 H (70-100) mg/dL Glycated Hemoglobin 5.3 (4.6-6.2) % Estim Average Glucose 105 H (70-100) Lactic Acid (0.5-2.2) mmol/L Uric Acid (2.6-7.2) mg/dL Calcium 8.0 L (8.5-10.3) mg/dL Phosphorus 1.8 L (2.5-4.6) mg/dL Magnesium (1.7-2.8) mg/dL Total Bilirubin (0.2-1.0) mg/dL AST (10-42) IU/L ALT (10-60) IU/L Alkaline Phosphatase (42-121) IU/L Total Creatine Kinase (22-269) IU/L CK-MB (CK-2) (0.6-6.3) ng/mL Troponin I (<0.49) ng/mL B-Natriuretic Peptide (5-100) pg/mL Total Protein (6.7-8.2) g/dL Albumin 2.9 L (3.2-5.5) g/dL Globulin (2.1-4.2) g/dL Albumin/Globulin Ratio (1.0-2.2) Triglycerides 71 ( - 149) mg/dL Cholesterol 86 ( - 199) mg/dL LDL Cholesterol, Calc 33 ( - 129) mg/dL VLDL Cholesterol 14 mg/dL HDL Cholesterol 39 L (60 - ) mg/dL LDL/HDL Ratio 0.8 (<3.6) Cholesterol/HDL Ratio 2.2 (<5.0) Lipase (22-51) U/L Vitamin B12 (180-914) pg/mL Folate (5.90 - >24.8) ng/mL TSH (0.34-5.60) uIU/mL Urine Color Urine Clarity (CLEAR) Urine pH (5.0-7.5) PH Ur Specific [place] (1.002-1.030) Urine Protein (NEGATIVE) mg/dL Urine Glucose (UA) (NEGATIVE) mg/dL Urine Ketones (NEGATIVE) mg/dL Urine Occult Blood (NEGATIVE) Urine Nitrite (NEGATIVE) Urine Bilirubin (NEGATIVE) Urine Urobilinogen (NORMAL) E.U./dL Ur Leukocyte Esterase (NEGATIVE) Urine RBC (0-5) /HPF Urine WBC (0-3) /HPF Ur Squamous Epith Cells (<= Few) Urine Bacteria (None Seen) /HPF Ur Microscopic Review Urine Culture Comments Urine Opiates Screen (NEGATIVE) Ur Oxycodone Screen (NEGATIVE) Urine Methadone Screen (NEGATIVE) Ur Propoxyphene Screen (NEGATIVE) Ur Barbiturates Screen (NEGATIVE) Ur Tricyclics Screen (NEGATIVE) Ur Phencyclidine Scrn (NEGATIVE) Ur Amphetamine Screen (NEGATIVE) U Methamphetamines Scrn (NEGATIVE) U Benzodiazepines Scrn (NEGATIVE) Urine Cocaine Screen (NEGATIVE) U Cannabinoids Screen (NEGATIVE) Ethyl Alcohol mg/dL C. difficile Tox B Gene (NEGATIVE) 04/30/19 04/30/19 04/30/19 Range/Units 23:15 23:15 21:49 WBC (4.8-10.8) x10^3/uL RBC (4.70-6.10) 10^6/uL Hgb (14.0-18.0) g/dL Hct (42.0-52.0) % MCV (80.0-94.0) fL MCH (27.0-31.0) pg MCHC (32.0-36.0) g/dL RDW (12.0-15.0) % Plt Count (130-450) 10^3/uL MPV (7.4-11.4) fL Neut # (Auto) (1.5-6.6) 10^3/uL Lymph # (Auto) (1.5-3.5) 10^3/uL [place] # (Auto) (0.0-1.0) 10^3/uL Eos # (Auto) (0.0-0.7) 10^3/uL Baso # (Auto) (0.0-0.1) 10^3/uL Absolute Nucleated RBC x10^3/uL Total Counted Band Neuts % (Manual) (0 - 10) % Abnorm Lymph % (Manual) % Nucleated RBC % /100WBC Neutrophils # (Manual) (1.5-6.6) 10^3/uL Lymphocytes # (Manual) (1.5-3.5) 10^3/uL Monocytes # (Manual) (0.0-1.0) 10^3/uL Eosinophils # (Manual) (0-0.7) 10^3/uL Basophils # (Manual) (0-0.1) 10^3/uL Differential Comment Manual Slide Review WBC Morphology (NORMAL) Platelet Estimate (NORMAL) Platelet Morphology (NORMAL) RBC Morph Micro Appear (NORMAL) PT (9.9-12.6) secs INR (0.8-1.2) APTT (24.9-33.3) secs Sodium (135-145) mmol/L Potassium (3.5-5.0) mmol/L Chloride (101-111) mmol/L Carbon Dioxide (21-32) mmol/L Anion Gap (6-13) BUN (6-20) mg/dL Creatinine (0.6-1.2) mg/dL Estimated GFR (MDRD) (>89) Glucose (70-100) mg/dL Glycated Hemoglobin (4.6-6.2) % Estim Average Glucose (70-100) Lactic Acid 1.9 (0.5-2.2) mmol/L Uric Acid (2.6-7.2) mg/dL Calcium (8.5-10.3) mg/dL Phosphorus (2.5-4.6) mg/dL Magnesium (1.7-2.8) mg/dL Total Bilirubin (0.2-1.0) mg/dL AST (10-42) IU/L ALT (10-60) IU/L Alkaline Phosphatase (42-121) IU/L Total Creatine Kinase (22-269) IU/L CK-MB (CK-2) (0.6-6.3) ng/mL Troponin I (<0.49) ng/mL B-Natriuretic Peptide (5-100) pg/mL Total Protein (6.7-8.2) g/dL Albumin (3.2-5.5) g/dL Globulin (2.1-4.2) g/dL Albumin/Globulin Ratio (1.0-2.2) Triglycerides ( - 149) mg/dL Cholesterol ( - 199) mg/dL LDL Cholesterol, Calc ( - 129) mg/dL VLDL Cholesterol mg/dL HDL Cholesterol (60 - ) mg/dL LDL/HDL Ratio (<3.6) Cholesterol/HDL Ratio (<5.0) Lipase (22-51) U/L Vitamin B12 (180-914) pg/mL Folate (5.90 - >24.8) ng/mL TSH (0.34-5.60) uIU/mL Urine Color YELLOW Urine Clarity HAZY (CLEAR) Urine pH 5.0 (5.0-7.5) PH Ur Specific [place] 1.025 (1.002-1.030) Urine Protein 30 H (NEGATIVE) mg/dL Urine Glucose (UA) NEGATIVE (NEGATIVE) mg/dL Urine Ketones TRACE (NEGATIVE) mg/dL Urine Occult Blood LARGE H (NEGATIVE) Urine Nitrite POSITIVE H (NEGATIVE) Urine Bilirubin NEGATIVE (NEGATIVE) Urine Urobilinogen 0.2 (NORMAL) (NORMAL) E.U./dL Ur Leukocyte Esterase SMALL H (NEGATIVE) Urine RBC TNTC H (0-5) /HPF Urine WBC 4-5 (0-3) /HPF Ur Squamous Epith Cells NONE SEEN (<= Few) Urine Bacteria Moderate H (None Seen) /HPF Ur Microscopic Review INDICATED Urine Culture Comments INDICATED Urine Opiates Screen NEGATIVE (NEGATIVE) Ur Oxycodone Screen NEGATIVE (NEGATIVE) Urine Methadone Screen NEGATIVE (NEGATIVE) Ur Propoxyphene Screen NEGATIVE (NEGATIVE) Ur Barbiturates Screen NEGATIVE (NEGATIVE) Ur Tricyclics Screen NEGATIVE (NEGATIVE) Ur Phencyclidine Scrn NEGATIVE (NEGATIVE) Ur Amphetamine Screen NEGATIVE (NEGATIVE) U Methamphetamines Scrn NEGATIVE (NEGATIVE) U Benzodiazepines Scrn NEGATIVE (NEGATIVE) Urine Cocaine Screen NEGATIVE (NEGATIVE) U Cannabinoids Screen NEGATIVE (NEGATIVE) Ethyl Alcohol mg/dL C. difficile Tox B Gene (NEGATIVE) 04/30/19 04/30/19 04/30/19 Range/Units 20:37 20:37 20:37 WBC (4.8-10.8) x10^3/uL RBC (4.70-6.10) 10^6/uL Hgb (14.0-18.0) g/dL Hct (42.0-52.0) % MCV (80.0-94.0) fL MCH (27.0-31.0) pg MCHC (32.0-36.0) g/dL RDW (12.0-15.0) % Plt Count (130-450) 10^3/uL MPV (7.4-11.4) fL Neut # (Auto) (1.5-6.6) 10^3/uL Lymph # (Auto) (1.5-3.5) 10^3/uL [place] # (Auto) (0.0-1.0) 10^3/uL Eos # (Auto) (0.0-0.7) 10^3/uL Baso # (Auto) (0.0-0.1) 10^3/uL Absolute Nucleated RBC x10^3/uL Total Counted Band Neuts % (Manual) (0 - 10) % Abnorm Lymph % (Manual) % Nucleated RBC % /100WBC Neutrophils # (Manual) (1.5-6.6) 10^3/uL Lymphocytes # (Manual) (1.5-3.5) 10^3/uL Monocytes # (Manual) (0.0-1.0) 10^3/uL Eosinophils # (Manual) (0-0.7) 10^3/uL Basophils # (Manual) (0-0.1) 10^3/uL Differential Comment Manual Slide Review WBC Morphology (NORMAL) Platelet Estimate (NORMAL) Platelet Morphology (NORMAL) RBC Morph Micro Appear (NORMAL) PT (9.9-12.6) secs INR (0.8-1.2) APTT (24.9-33.3) secs Sodium (135-145) mmol/L Potassium (3.5-5.0) mmol/L Chloride (101-111) mmol/L Carbon Dioxide (21-32) mmol/L Anion Gap (6-13) BUN (6-20) mg/dL Creatinine (0.6-1.2) mg/dL Estimated GFR (MDRD) (>89) Glucose (70-100) mg/dL Glycated Hemoglobin (4.6-6.2) % Estim Average Glucose (70-100) Lactic Acid (0.5-2.2) mmol/L Uric Acid 6.7 (2.6-7.2) mg/dL Calcium (8.5-10.3) mg/dL Phosphorus (2.5-4.6) mg/dL Magnesium 1.4 L (1.7-2.8) mg/dL Total Bilirubin (0.2-1.0) mg/dL AST (10-42) IU/L ALT (10-60) IU/L Alkaline Phosphatase (42-121) IU/L Total Creatine Kinase (22-269) IU/L CK-MB (CK-2) (0.6-6.3) ng/mL Troponin I (<0.49) ng/mL B-Natriuretic Peptide (5-100) pg/mL Total Protein (6.7-8.2) g/dL Albumin (3.2-5.5) g/dL Globulin (2.1-4.2) g/dL Albumin/Globulin Ratio (1.0-2.2) Triglycerides ( - 149) mg/dL Cholesterol ( - 199) mg/dL LDL Cholesterol, Calc ( - 129) mg/dL VLDL Cholesterol mg/dL HDL Cholesterol (60 - ) mg/dL LDL/HDL Ratio (<3.6) Cholesterol/HDL Ratio (<5.0) Lipase (22-51) U/L Vitamin B12 (180-914) pg/mL Folate (5.90 - >24.8) ng/mL TSH 1.39 (0.34-5.60) uIU/mL Urine Color Urine Clarity (CLEAR) Urine pH (5.0-7.5) PH Ur Specific [place] (1.002-1.030) Urine Protein (NEGATIVE) mg/dL Urine Glucose (UA) (NEGATIVE) mg/dL Urine Ketones (NEGATIVE) mg/dL Urine Occult Blood (NEGATIVE) Urine Nitrite (NEGATIVE) Urine Bilirubin (NEGATIVE) Urine Urobilinogen (NORMAL) E.U./dL Ur Leukocyte Esterase (NEGATIVE) Urine RBC (0-5) /HPF Urine WBC (0-3) /HPF Ur Squamous Epith Cells (<= Few) Urine Bacteria (None Seen) /HPF Ur Microscopic Review Urine Culture Comments Urine Opiates Screen (NEGATIVE) Ur Oxycodone Screen (NEGATIVE) Urine Methadone Screen (NEGATIVE) Ur Propoxyphene Screen (NEGATIVE) Ur Barbiturates Screen (NEGATIVE) Ur Tricyclics Screen (NEGATIVE) Ur Phencyclidine Scrn (NEGATIVE) Ur Amphetamine Screen (NEGATIVE) U Methamphetamines Scrn (NEGATIVE) U Benzodiazepines Scrn (NEGATIVE) Urine Cocaine Screen (NEGATIVE) U Cannabinoids Screen (NEGATIVE) Ethyl Alcohol < 5.0 mg/dL C. difficile Tox B Gene (NEGATIVE) 04/30/19 04/30/19 04/30/19 Range/Units 20:37 20:37 20:37 WBC (4.8-10.8) x10^3/uL RBC (4.70-6.10) 10^6/uL Hgb (14.0-18.0) g/dL Hct (42.0-52.0) % MCV (80.0-94.0) fL MCH (27.0-31.0) pg MCHC (32.0-36.0) g/dL RDW (12.0-15.0) % Plt Count (130-450) 10^3/uL MPV (7.4-11.4) fL Neut # (Auto) (1.5-6.6) 10^3/uL Lymph # (Auto) (1.5-3.5) 10^3/uL [place] # (Auto) (0.0-1.0) 10^3/uL Eos # (Auto) (0.0-0.7) 10^3/uL Baso # (Auto) (0.0-0.1) 10^3/uL Absolute Nucleated RBC x10^3/uL Total Counted Band Neuts % (Manual) (0 - 10) % Abnorm Lymph % (Manual) % Nucleated RBC % /100WBC Neutrophils # (Manual) (1.5-6.6) 10^3/uL Lymphocytes # (Manual) (1.5-3.5) 10^3/uL Monocytes # (Manual) (0.0-1.0) 10^3/uL Eosinophils # (Manual) (0-0.7) 10^3/uL Basophils # (Manual) (0-0.1) 10^3/uL Differential Comment Manual Slide Review WBC Morphology (NORMAL) Platelet Estimate (NORMAL) Platelet Morphology (NORMAL) RBC Morph Micro Appear (NORMAL) PT (9.9-12.6) secs INR (0.8-1.2) APTT (24.9-33.3) secs Sodium 142 (135-145) mmol/L Potassium 4.3 (3.5-5.0) mmol/L Chloride 108 (101-111) mmol/L Carbon Dioxide 25 (21-32) mmol/L Anion Gap 9.0 (6-13) BUN 28 H (6-20) mg/dL Creatinine 1.5 H (0.6-1.2) mg/dL Estimated GFR (MDRD) 44 L (>89) Glucose 123 H (70-100) mg/dL Glycated Hemoglobin (4.6-6.2) % Estim Average Glucose (70-100) Lactic Acid (0.5-2.2) mmol/L Uric Acid (2.6-7.2) mg/dL Calcium 8.2 L (8.5-10.3) mg/dL Phosphorus (2.5-4.6) mg/dL Magnesium (1.7-2.8) mg/dL Total Bilirubin 1.9 H (0.2-1.0) mg/dL AST 27 (10-42) IU/L ALT 11 (10-60) IU/L Alkaline Phosphatase 38 L (42-121) IU/L Total Creatine Kinase (22-269) IU/L CK-MB (CK-2) (0.6-6.3) ng/mL Troponin I 0.06 (<0.49) ng/mL B-Natriuretic Peptide 1315 H (5-100) pg/mL Total Protein 5.5 L (6.7-8.2) g/dL Albumin 3.0 L (3.2-5.5) g/dL Globulin 2.5 (2.1-4.2) g/dL Albumin/Globulin Ratio 1.2 (1.0-2.2) Triglycerides ( - 149) mg/dL Cholesterol ( - 199) mg/dL LDL Cholesterol, Calc ( - 129) mg/dL VLDL Cholesterol mg/dL HDL Cholesterol (60 - ) mg/dL LDL/HDL Ratio (<3.6) Cholesterol/HDL Ratio (<5.0) Lipase 20 L (22-51) U/L Vitamin B12 (180-914) pg/mL Folate (5.90 - >24.8) ng/mL TSH (0.34-5.60) uIU/mL Urine Color Urine Clarity (CLEAR) Urine pH (5.0-7.5) PH Ur Specific [place] (1.002-1.030) Urine Protein (NEGATIVE) mg/dL Urine Glucose (UA) (NEGATIVE) mg/dL Urine Ketones (NEGATIVE) mg/dL Urine Occult Blood (NEGATIVE) Urine Nitrite (NEGATIVE) Urine Bilirubin (NEGATIVE) Urine Urobilinogen (NORMAL) E.U./dL Ur Leukocyte Esterase (NEGATIVE) Urine RBC (0-5) /HPF Urine WBC (0-3) /HPF Ur Squamous Epith Cells (<= Few) Urine Bacteria (None Seen) /HPF Ur Microscopic Review Urine Culture Comments Urine Opiates Screen (NEGATIVE) Ur Oxycodone Screen (NEGATIVE) Urine Methadone Screen (NEGATIVE) Ur Propoxyphene Screen (NEGATIVE) Ur Barbiturates Screen (NEGATIVE) Ur Tricyclics Screen (NEGATIVE) Ur Phencyclidine Scrn (NEGATIVE) Ur Amphetamine Screen (NEGATIVE) U Methamphetamines Scrn (NEGATIVE) U Benzodiazepines Scrn (NEGATIVE) Urine Cocaine Screen (NEGATIVE) U Cannabinoids Screen (NEGATIVE) Ethyl Alcohol mg/dL C. difficile Tox B Gene (NEGATIVE) 04/30/19 04/30/19 04/30/19 Range/Units 20:37 20:26 20:26 WBC 15.6 H (4.8-10.8) x10^3/uL RBC 3.96 L (4.70-6.10) 10^6/uL Hgb 13.8 L (14.0-18.0) g/dL Hct 42.3 (42.0-52.0) % MCV 106.8 H (80.0-94.0) fL MCH 34.8 H (27.0-31.0) pg MCHC 32.6 (32.0-36.0) g/dL RDW 13.6 (12.0-15.0) % Plt Count 172 (130-450) 10^3/uL MPV 11.3 (7.4-11.4) fL Neut # (Auto) 14.7 H (1.5-6.6) 10^3/uL Lymph # (Auto) 0.3 L (1.5-3.5) 10^3/uL [place] # (Auto) 0.2 (0.0-1.0) 10^3/uL Eos # (Auto) 0.1 (0.0-0.7) 10^3/uL Baso # (Auto) 0.0 (0.0-0.1) 10^3/uL Absolute Nucleated RBC 0.00 x10^3/uL Total Counted Band Neuts % (Manual) (0 - 10) % Abnorm Lymph % (Manual) % Nucleated RBC % 0.0 /100WBC Neutrophils # (Manual) (1.5-6.6) 10^3/uL Lymphocytes # (Manual) (1.5-3.5) 10^3/uL Monocytes # (Manual) (0.0-1.0) 10^3/uL Eosinophils # (Manual) (0-0.7) 10^3/uL Basophils # (Manual) (0-0.1) 10^3/uL Differential Comment Manual Slide Review Indicated WBC Morphology NORMAL APPEARANCE (NORMAL) Platelet Estimate NORMAL (130-450,000) (NORMAL) Platelet Morphology NORMAL APPEARANCE (NORMAL) RBC Morph Micro Appear NORMAL APPEARANCE (NORMAL) PT (9.9-12.6) secs INR (0.8-1.2) APTT (24.9-33.3) secs Sodium (135-145) mmol/L Potassium (3.5-5.0) mmol/L Chloride (101-111) mmol/L Carbon Dioxide (21-32) mmol/L Anion Gap (6-13) BUN (6-20) mg/dL Creatinine (0.6-1.2) mg/dL Estimated GFR (MDRD) (>89) Glucose (70-100) mg/dL Glycated Hemoglobin (4.6-6.2) % Estim Average Glucose (70-100) Lactic Acid (0.5-2.2) mmol/L Uric Acid (2.6-7.2) mg/dL Calcium (8.5-10.3) mg/dL Phosphorus (2.5-4.6) mg/dL Magnesium (1.7-2.8) mg/dL Total Bilirubin (0.2-1.0) mg/dL AST (10-42) IU/L ALT (10-60) IU/L Alkaline Phosphatase (42-121) IU/L Total Creatine Kinase 61 (22-269) IU/L CK-MB (CK-2) 0.8 (0.6-6.3) ng/mL Troponin I (<0.49) ng/mL B-Natriuretic Peptide (5-100) pg/mL Total Protein (6.7-8.2) g/dL Albumin (3.2-5.5) g/dL Globulin (2.1-4.2) g/dL Albumin/Globulin Ratio (1.0-2.2) Triglycerides ( - 149) mg/dL Cholesterol ( - 199) mg/dL LDL Cholesterol, Calc ( - 129) mg/dL VLDL Cholesterol mg/dL HDL Cholesterol (60 - ) mg/dL LDL/HDL Ratio (<3.6) Cholesterol/HDL Ratio (<5.0) Lipase (22-51) U/L Vitamin B12 (180-914) pg/mL Folate (5.90 - >24.8) ng/mL TSH (0.34-5.60) uIU/mL Urine Color Urine Clarity (CLEAR) Urine pH (5.0-7.5) PH Ur Specific [place] (1.002-1.030) Urine Protein (NEGATIVE) mg/dL Urine Glucose (UA) (NEGATIVE) mg/dL Urine Ketones (NEGATIVE) mg/dL Urine Occult Blood (NEGATIVE) Urine Nitrite (NEGATIVE) Urine Bilirubin (NEGATIVE) Urine Urobilinogen (NORMAL) E.U./dL Ur Leukocyte Esterase (NEGATIVE) Urine RBC (0-5) /HPF Urine WBC (0-3) /HPF Ur Squamous Epith Cells (<= Few) Urine Bacteria (None Seen) /HPF Ur Microscopic Review Urine Culture Comments Urine Opiates Screen (NEGATIVE) Ur Oxycodone Screen (NEGATIVE) Urine Methadone Screen (NEGATIVE) Ur Propoxyphene Screen (NEGATIVE) Ur Barbiturates Screen (NEGATIVE) Ur Tricyclics Screen (NEGATIVE) Ur Phencyclidine Scrn (NEGATIVE) Ur Amphetamine Screen (NEGATIVE) U Methamphetamines Scrn (NEGATIVE) U Benzodiazepines Scrn (NEGATIVE) Urine Cocaine Screen (NEGATIVE) U Cannabinoids Screen (NEGATIVE) Ethyl Alcohol mg/dL C. difficile Tox B Gene (NEGATIVE) 04/30/19 Range/Units 20:26 WBC (4.8-10.8) x10^3/uL RBC (4.70-6.10) 10^6/uL Hgb (14.0-18.0) g/dL Hct (42.0-52.0) % MCV (80.0-94.0) fL MCH (27.0-31.0) pg MCHC (32.0-36.0) g/dL RDW (12.0-15.0) % Plt Count (130-450) 10^3/uL MPV (7.4-11.4) fL Neut # (Auto) (1.5-6.6) 10^3/uL Lymph # (Auto) (1.5-3.5) 10^3/uL [place] # (Auto) (0.0-1.0) 10^3/uL Eos # (Auto) (0.0-0.7) 10^3/uL Baso # (Auto) (0.0-0.1) 10^3/uL Absolute Nucleated RBC x10^3/uL Total Counted Band Neuts % (Manual) (0 - 10) % Abnorm Lymph % (Manual) % Nucleated RBC % /100WBC Neutrophils # (Manual) (1.5-6.6) 10^3/uL Lymphocytes # (Manual) (1.5-3.5) 10^3/uL Monocytes # (Manual) (0.0-1.0) 10^3/uL Eosinophils # (Manual) (0-0.7) 10^3/uL Basophils # (Manual) (0-0.1) 10^3/uL Differential Comment Manual Slide Review WBC Morphology (NORMAL) Platelet Estimate (NORMAL) Platelet Morphology (NORMAL) RBC Morph Micro Appear (NORMAL) PT 17.3 H (9.9-12.6) secs INR 1.5 H (0.8-1.2) APTT 32.7 (24.9-33.3) secs Sodium (135-145) mmol/L Potassium (3.5-5.0) mmol/L Chloride (101-111) mmol/L Carbon Dioxide (21-32) mmol/L Anion Gap (6-13) BUN (6-20) mg/dL Creatinine (0.6-1.2) mg/dL Estimated GFR (MDRD) (>89) Glucose (70-100) mg/dL Glycated Hemoglobin (4.6-6.2) % Estim Average Glucose (70-100) Lactic Acid (0.5-2.2) mmol/L Uric Acid (2.6-7.2) mg/dL Calcium (8.5-10.3) mg/dL Phosphorus (2.5-4.6) mg/dL Magnesium (1.7-2.8) mg/dL Total Bilirubin (0.2-1.0) mg/dL AST (10-42) IU/L ALT (10-60) IU/L Alkaline Phosphatase (42-121) IU/L Total Creatine Kinase (22-269) IU/L CK-MB (CK-2) (0.6-6.3) ng/mL Troponin I (<0.49) ng/mL B-Natriuretic Peptide (5-100) pg/mL Total Protein (6.7-8.2) g/dL Albumin (3.2-5.5) g/dL Globulin (2.1-4.2) g/dL Albumin/Globulin Ratio (1.0-2.2) Triglycerides ( - 149) mg/dL Cholesterol ( - 199) mg/dL LDL Cholesterol, Calc ( - 129) mg/dL VLDL Cholesterol mg/dL HDL Cholesterol (60 - ) mg/dL LDL/HDL Ratio (<3.6) Cholesterol/HDL Ratio (<5.0) Lipase (22-51) U/L Vitamin B12 (180-914) pg/mL Folate (5.90 - >24.8) ng/mL TSH (0.34-5.60) uIU/mL Urine Color Urine Clarity (CLEAR) Urine pH (5.0-7.5) PH Ur Specific [place] (1.002-1.030) Urine Protein (NEGATIVE) mg/dL Urine Glucose (UA) (NEGATIVE) mg/dL Urine Ketones (NEGATIVE) mg/dL Urine Occult Blood (NEGATIVE) Urine Nitrite (NEGATIVE) Urine Bilirubin (NEGATIVE) Urine Urobilinogen (NORMAL) E.U./dL Ur Leukocyte Esterase (NEGATIVE) Urine RBC (0-5) /HPF Urine WBC (0-3) /HPF Ur Squamous Epith Cells (<= Few) Urine Bacteria (None Seen) /HPF Ur Microscopic Review Urine Culture Comments Urine Opiates Screen (NEGATIVE) Ur Oxycodone Screen (NEGATIVE) Urine Methadone Screen (NEGATIVE) Ur Propoxyphene Screen (NEGATIVE) Ur Barbiturates Screen (NEGATIVE) Ur Tricyclics Screen (NEGATIVE) Ur Phencyclidine Scrn (NEGATIVE) Ur Amphetamine Screen (NEGATIVE) U Methamphetamines Scrn (NEGATIVE) U Benzodiazepines Scrn (NEGATIVE) Urine Cocaine Screen (NEGATIVE) U Cannabinoids Screen (NEGATIVE) Ethyl Alcohol mg/dL C. difficile Tox B Gene (NEGATIVE) Impression and Recommendations - Palliative Care Impression: This is an 84-year-old gentleman who has had somewhat of a failure to thrive, is quite cachectic, has had functional decline and cognitive decline, and now presents with acute event. Patient has been quite involved recently in the transition of his with severe stroke to SNF, now planning to do transition to hospice. Patient presented with dehydration, now presents with ejection fraction of 25 to 30%, as well LBBB, and BNP of 1315. Patient's only outstanding symptom has been fatigue. Palliative care to meet with patient and family to establish goals of care. Recommendations/Counseling Done: 1.Generalized weakness. Patient has had functional decline, patient presents with tremors and weakness. Would recommend physical therapy, consider assistive device, and possibly consider outpatient or home health therapy for strengthening. Patient at high risk for falls. 2. Advanced care planning. Patient still with some pending tests, though does appear quite frail, son at this point in time Gr[place] looked at facility in conversation with recommendation to have patient return to son's home at least for first few days, to monitor response to any new medications, as well as monitor and encouraged nutritional/fluid status. Initiated conversation regarding POLST, leaning towards DNA R/selective treatments, patient has 6 living children, will define a D POA and consult with other children before completing. Forms were provided. Would recommend [employer] provide [place] PES application, patient decides to return back home will need assistance and patient would qualify given his current financial status. 3. Grief reaction. This would be appropriate given his current situation, patient's to return home to patient's son's house tomorrow with hospice support. Acknowledged sadness and feelings regarding impending loss. Time Spent: See minutes with getting 50% of this done in counseling regarding goals of care, review of patient's current decline, and anticipatory guidance. Coordination of care with hospitalist and [employer] staff
[2019-05-01] MEDS: FUROSEMIDE 20 MG TABLET PO SCH (18:50)
--- NOTE | 2019-05-01 19:19 | MRI Report ---
Reason: Dysarthria with encephalopathy Procedure Date: 05/01/2019 Accession Number: [id number] / [id number] Procedure: MRI - Brain W/O CPT Code: FULL RESULT: DATE: 05/01/2019. EXAM: MRI BRAIN WITHOUT CONTRAST. INDICATION: 84-year-old male. Dysarthria with encephalopathy. Please assess. TECHNIQUE: 1. T1-weighted sagittal sequence. 2. Coronal fat saturated T2. 3. Axial T1 3D MP rage, FLAIR, T2*GRE and DWI. COMPARISON: Head CT 04/30/2019. FINDINGS: The patient was not able to hold still for this examination. There is image degradation from patient motion on multiple sequences, decreasing the diagnostic quality of this examination. The axial T2 FLAIR is severely compromised and it is virtually nondiagnostic. There is generalized dilatation of the cerebral cortical sulci and cerebellar folia, considered within normal limits for stated age. There is mild to moderate third/lateral ventriculomegaly that appears to be ex vacuo in nature. There is no significant discordance between the degree of ventriculomegaly and the amount of cortical sulcal dilatation to suggest the possibility of NPH or other form of hydrocephalus. Patency of the main intracranial arteries cannot be confirmed on sequences provided. However, the diffusion weighted sequence is of relatively good, diagnostic quality. No abnormal diffusion restriction is identified within the brain. No evidence of acute or chronic hemorrhage on susceptibility weighted sequence. No obvious, abnormal extra-axial fluid collection. No significant mass effect. No midline shift. The orbits are not evaluated. There is minor mucosal thickening in a few ethmoid air cells. Grossly the paranasal sinuses are otherwise clear. No significant mastoid or middle ear effusion is identified. IMPRESSION: 1. The patient was not able to hold still for this examination. There is significant image degradation on most sequences, severely limiting the diagnostic quality of the study. 2. However, the DWI sequence is of relatively good, diagnostic quality and there is no evidence of cerebral infarction.
[2019-05-02] MEDS: NS W/20 MEQ KCL 1,000 ML IV SCH (03:31)
[2019-05-02] MEDS: SODIUM CHLORIDE FLUSH 0.9% 10 ML SYRINGE IVP SCH ×2 (05:50→10:23)
[2019-05-02] MEDS: FUROSEMIDE 20 MG TABLET PO SCH ×2 (05:50→13:59)
[2019-05-02] MEDS: methylPREDNISolone SUCCINATE 40 MG/ML VIAL IVP SCH (05:50)
[2019-05-02 07:00] LABS: BASOPHILS % (AUTO) 0.2 %; HGB - HEMOGLOBIN 12.8 g/dL (14.0-18.0); MEAN CORPUSCULAR HGB CONC 32.5 g/dL (32.0-36.0); MEAN CORPUSCULAR VOLUME 104.8 fL (80.0-94.0); MEAN PLATELET VOLUME 12.4 fL (7.4-11.4); MONOCYTES % (AUTO) 2.7 %; NEUTROPHILS % (AUTO) 90.2 %; PLT - PLATELET COUNT 121 10^3/uL (130-450); RED BLOOD COUNT 3.76 10^6/uL (4.70-6.10); RED CELL DISTRIBUTION WIDTH 13.4 % (12.0-15.0); WHITE BLOOD COUNT 9.5 x10^3/uL (4.8-10.8)
[2019-05-02 07:11] LABS: ALBUMIN 2.6 g/dL (3.2-5.5); BILIRUBIN,TOTAL 1.1 mg/dL (0.2-1.0); CALCIUM 7.5 mg/dL (8.5-10.3); CREATININE 1.3 mg/dL (0.6-1.2); PHOSPHORUS 2.5 mg/dL (2.5-4.6); TOTAL PROTEIN 5.3 g/dL (6.7-8.2)
[2019-05-02 07:36] LABS: PLATELET ESTIMATE, MANUAL DECREASED (<130,000) (NORMAL); PLATELET MORPHOLOGY 1+ LARGE PLATELETS (NORMAL)
[2019-05-02 07:37] LABS: DIFFERENTIAL COMMENT MANUAL DIFFERENTIAL
[2019-05-02] MEDS: IPRATROPIUM/ALBUTEROL 3 ML NEB INH SCH ×3 (07:59→15:05)
[2019-05-02] MEDS: BUDESONIDE 0.5 MG/2 ML NEB INH SCH (07:59)
[2019-05-02] MEDS ORDERED: METOPROLOL SUCCINATE 25 MG TABLET PO SCH (09:00)
[2019-05-02] MEDS ORDERED: LISINOPRIL 5 MG TABLET PO SCH (09:00)
[2019-05-02] MEDS: FOLIC ACID 1 MG TABLET PO SCH (10:12)
[2019-05-02] MEDS: SACCHAROMYCES BOULARDII 250 MG CAPSULE PO SCH (10:12)
[2019-05-02] MEDS: NEUTRA-PHOS 250 MG TABLET PO SCH ×2 (10:12→13:06)
[2019-05-02] MEDS: FAMOTIDINE 20 MG TABLET PO SCH ×2 (10:13→10:23)
[2019-05-02] MEDS: HEPARIN 5,000 UNIT/ML VIAL SUBQ SCH (10:13)
[2019-05-02] MEDS: cefTRIAXone 1 GM in SODIUM CHLORIDE 0.9% MINIBAG 100 ML IV SCH (10:14)
[2019-05-02] MEDS: POLYETHYLENE GLYCOL 3350 17 GM PACKET PO SCH (10:23)
[2019-05-02] MEDS: CYANOCOBALAMIN 500 MCG TABLET PO SCH (10:31)
--- NOTE | 2019-05-02 14:19 | Discharge Plan ---
Discharge Plan Problem Reviewed?: Yes Disposition: 06 Home Health Service Condition: Poor Prescriptions: Albuterol Sulfate [Proair Hfa Inhaler] 1 - 2 puffs INH Q4H PRN #1 inhaler PRN Reason: Shortness Of Air/Wheezing cefUROXime axetil [Ceftin] 250 mg PO Q12H #14 tablet Cyanocobalamin (Vitamin B-12) [Vitamin B-12] 1,000 mcg PO DAILY #10 capsule Folic Acid 1 mg PO DAILY #10 tablet Furosemide [Lasix] 20 mg PO DAILY #10 tablet Ipratropium/Albuterol [Combivent Respimat] 4 gm IH Q6H PRN #1 aer.w.adap PRN Reason: Shortness Of Air/Wheezing Lisinopril [Zestril] 2.5 mg PO DAILY #10 tablet Metoprolol Succinate [Toprol Xl] 12.5 mg PO DAILY #10 tablet Saccharomyces Boulardii [Florastor] 250 mg PO DAILY #7 capsule Diet: Regular Activity Restrictions: Activity as Tolerated Shower Restrictions: No (fall precaution, caregiver closely monitor) Instruction Topics: Albuterol Ipratropium respiratory inhalation spray Combivent Respimat, Cefuroxime tablets, Metoprolol tablets, Albuterol inhalation aerosol, Lisinopril tablets, Furosemide tablets Health Concerns: systolic heart failure and UTI Plan of Treatment: you start to have beta-tomeka Metoprolol and HUBERT inhibitor Lisinopril, Lasix for your heart failure, antibiotic Ceftin for your UTI. Care Goals: stabilization of your medical condition Assessment: Your CT and MRI of brain study are unremarkable. ECHO reveals EF is 25% Additional Instructions or Follow Up instructions: you may followup your PCP in one week, followup forensics team director as out-pt. Should your symptoms return or worsen, you may present ER, call 911 for help Follow-[facility] Care: [facility], [facility], [facility] - PT No Smoking: If you smoke, Please STOP! Call for help. Follow-up with: Cristel Newton MD [Primary Care Provider] -
--- NOTE | 2019-05-02 15:41 | DISCHARGE SUMMARY ---
Discharge Summary Discharge Date: 05/02/19 Discharging Provider: TA Primary Care Provider: Cristel Fish Condition at Discharge: Poor Discharge Disposition: Home Health Service Discharge Facility Name: home - DIAGNOSES Admission Diagnoses: 1. UTI 2. Acute hypoxemic RF 3. Acute renal insufficiency sec to dehydration 4. Acute transient hypovolemia sec to dehydration 5. Acute encephalopathy 6. Dysarthria 7. COPD exacerbation Discharge Diagnoses with Status of Each Condition: 1. UTI pt has no fever, chill, WBC is normal now. pt has no dysuria or hematuria. UA culture reveal positive Klebesiella Oxytoca, which is sensitive to most an tibiotics. pt is prescribed Ceftin to home to finish the treatment course. 2. Acute hypoxemic RF resolved. 96% sats on room air 3. Acute renal insufficiency sec to dehydration improved. Creatinine is 1.3 from his 1.5 at admission. it is better than his baseline now 4. Acute transient hypovolemia sec to dehydration resolved 5. Acute encephalopathy resolved. pt is alert and oriented to self, location and time today. pt's MRI and CT of head were unremarkable 6. Dysarthria resolved, clear speech pt's MRI and CT of head were unremarkable 7. COPD exacerbation stable after treatment, 96% sats on room air. pt is prescribed albuterol and combivent to home pt has no any home meds 8. medical non-compliance pt did not take any home meds, non-compliance advise pt medical compliance 9, systolic CHF pt's EF is 25% on ECHO. pt is prescribed Lasix, Metoprolol, Lisinopril. followup PCP and brick yard hand for continuing management. - HPI History of Present Illness: refer from [facility] on 05/01/19 This is a 84 y/o male with hx Asthma/COPD with 02 dep prn, occasional beer drinker who was found by neighbors slumped over on the coffee table. Initial bp 90/40. Pt reports not feeling well. FS 140. Gallo's was recently admitted at [facility] for a stroke and was dispositioned to [facility] for rehab. EMS stated patient using accessory muscle breathing. Denied, cough, SOB, SOSA, fevers, dysuria, flank pain, N/V//GI symptoms. Found to have mild pyuria on UA with micro hematuria, along with CXR showing COPD changes, CT head showed microvascular changes only, BNP elevated 1315, LA 1.9, Tbili 1..9 with cr 1.5, however unknown baseline as only last cr in 2017 showed 1.7, may have underlying CKD. WBC 15.6 with macrocytosis, INR 1.5, glucose 123. EKG SR at 89 bpm and LBBB. Patient displaying dysarthria and some ataxia with decreased monitor tech and plantar/dorsiflexion on exam. - HOSPITAL COURSE Hospital Course: pt was found to have pre-syncope at the table at his home. pt was previous cigarette smoker and required O2 supplement at hospital. pt was found to have 25% EF at his ECHO, severe systolic heart failure. pt was also found to have UTI. pt did not take any medications at home. after treatment, pt's sat was 96% at room air. pt was advise medical compliance. pt was prescribe antibiotics Ceftin, breathing treatment agents Albuterol and Combivent, heart failure medications of Lasix, beta tomeka, Lisinopril to home pt was evaluated and treated by PT. Home health PT is arranged for pt - ALLERGIES Allergies/Adverse Reactions: Allergies Allergy/AdvReac Type Severity Reaction Status Date / Time No Known Drug Allergies Allergy Verified 04/30/19 20:24 - MEDICATIONS Home Medications: Ambulatory Orders Medication Instructions Recorded Confirmed Albuterol Sulfate [Proair Hfa 1 - 2 puffs INH Q4H PRN #1 inhaler 05/02/19 Inhaler] Cyanocobalamin (Vitamin B-12) 1,000 mcg PO DAILY #10 capsule 05/02/19 [Vitamin B-12] Folic Acid 1 mg PO DAILY #10 tablet 05/02/19 Furosemide [Lasix] 20 mg PO DAILY #10 tablet 05/02/19 Ipratropium/Albuterol [Combivent 4 gm IH Q6H PRN #1 aer.w.adap 05/02/19 Respimat] Lisinopril [Zestril] 2.5 mg PO DAILY #10 tablet 05/02/19 Metoprolol Succinate [Toprol Xl] 12.5 mg PO DAILY #10 tablet 05/02/19 Saccharomyces Boulardii [Florastor] 250 mg PO DAILY #7 capsule 05/02/19 cefUROXime axetil [Ceftin] 250 mg PO Q12H #14 tablet 05/02/19 - PHYSICAL EXAM AT DISCHARGE General Appearance: positive: No acute distress, Alert. negative: Lethargic Eyes Bilateral: positive: Normal inspection, PERRL, No lid inflammation, Conjunctivae nml ENT: positive: ENT inspection nml, Pharynx nml, No signs of dehydration. negative: Purulent nasal drainage, Pharyngeal erythema, Oral lesions Neck: positive: Nml inspection, Thyroid nml, No JVD, Trachea midline. negative: Thyromegaly, Lymphadenopathy (R), Lymphadenopathy (L), Stiff neck, Swelling/bruising, Tracheal deviation Respiratory: positive: Chest non-tender, No respiratory distress, Breath sounds nml. negative: Wheezes, Rales, Rhonchi Cardiovascular: positive: Regular rate & rhythm, No murmur, No gallop, Irregul ronak irregular. negative: Extrasystoles, Tachycardia, Bradycardia, JVD present, Systolic murmur, Diastolic murmur Peripheral Pulses: positive: 2+ Abdomen: positive: Non-tender, No organomegaly, Nml bowel sounds, No distention. negative: Tenderness, Guarding, Rebound Back: positive: Nml inspection. negative: CVA tenderness (R), CVA tenderness (L) Skin: positive: Color nml, No rash, Warm, Dry. negative: Cyanosis, Diaphoresis, Pallor Extremities: positive: Non-tender, Nml appearance. negative: Calf tenderness, Joint swelling, Gagan's sign/cords Neurologic/Psychiatric: positive: Oriented x3, Sensation nml, Mood/affect nml. negative: Weakness, Sensory loss, Facial droop, Slurred/abnml speech, Depressed mood/affect - LABS Result Diagrams: 05/02/19 06:35 05/02/19 06:35 - FOLLOW UP Follow Up: you may followup your PCP in one week, followup brick yard hand as out-pt. Should your symptoms return or worsen, you may present ER, call 911 for help - TIME SPENT Time Spent in Discharge (Minutes): 55
[2019-05-02 15:57] VITALS: BP 102/76
== END 2019-05-02 16:45 | disposition home health service (06) ==
LOC: EDUNIT# → ED 20:18 → MS2 05-01 00:44
PROVIDERS: ADMIT Family Medicine; ATTEND Nurse Practitioner Gerontology
DX: N30.01 Acute cystitis with hematuria (principal); B96.89 Other specified bacterial agents as the cause of diseases classified elsewhere; J96.01 Acute respiratory failure with hypoxia; I11.0 Hypertensive heart disease with heart failure; N28.9 Disorder of kidney and ureter, unspecified; E86.0 Dehydration; E86.1 Hypovolemia; G93.40 Encephalopathy, unspecified; R47.1 Dysarthria and anarthria; R27.0 Ataxia, unspecified; J44.1 Chronic obstructive pulmonary disease with (acute) exacerbation; I50.20 Unspecified systolic (congestive) heart failure; R55 Syncope and collapse; R47.81 Slurred speech; E80.6 Other disorders of bilirubin metabolism; I44.7 Left bundle-branch block, unspecified; R73.9 Hyperglycemia, unspecified; D68.9 Coagulation defect, unspecified; G31.84 Mild cognitive impairment of uncertain or unknown etiology; R62.7 Adult failure to thrive; R53.1 Weakness; R25.1 Tremor, unspecified; F43.21 Adjustment disorder with depressed mood; Z68.1 Body mass index [BMI] 19.9 or less, adult; Z87.891 Personal history of nicotine dependence; Z66 Do not resuscitate; Z63.79 Other stressful life events affecting family and household; Z51.5 Encounter for palliative care; Z91.81 History of falling; Z91.14 Patient's other noncompliance with medication regimen
CPT/HCPCS: 36415; 51701; 70450; 70551; 71045; 71046; 80053; 80061; 80069; 81001; 82550; 82553; 82607; 82746; 83036; 83605; 83690; 83735; 83880; 84484; 84550; 85025; 85610; 85730; 87040; 87077; 87086; 87181; 87493; 93005; 93306; 93880; 94640; 96361; 96365; 96366; 96367; 96372; 96375; 96376; 97161; 97530; 99205; 99283; 99284; A9270; G0378; J7626; 80306; 80320; 81003; 83721; 84443

== ENCOUNTER 2019-05-08 08:30 | Emergency (ER) | payer MEDICARE ==
--- NOTE | 2019-05-08 08:55 | ED Physician Documentation ---
PD HPI MALE - Stated complaint Stated Complaint: MALE - History obtained from History obtained from: Patient, Family (Sons) - History of Present Illness Timing - onset: Today Associated symptoms: Unable to urinate Recently seen: Admitted (Hospitalized for UTI and dehydration with encephalopathy one week ago. Has completed antibiotic course, Ceftin.) - Additional information Additional information: The patient is an 84-year-old male who has been brought to the emergency department by his sons because of inability to urinate. He describes lower abdominal discomfort and right flank pain. He denies fever, nausea or vomiting. He last urinated about 36 hours ago. The patient was hospitalized here for observation 1 week ago for urinary tract infection, dehydration, and acute encephalopathy. His discharge medications included Ceftin which he is still taking. Review of Systems Constitutional: denies: Fever Nose: denies: Congestion Throat: denies: Sore throat Cardiac: denies: Chest pain / pressure Respiratory: denies: Dyspnea, Cough GI: reports: Abdominal Pain. denies: Nausea, Vomiting, Diarrhea : reports: Unable to Void. denies: Dysuria Skin: denies: Rash Musculoskeletal: reports: Back pain (Right flank.). denies: Extremity swelling Neurologic: reports: Generalized weakness. denies: Focal weakness, Numbness, Headache PD PAST MEDICAL HISTORY - Past Medical History Cardiovascular: Hypertension Respiratory: Asthma, COPD Neuro: Tremors, Other (mild cognitive issues) Endocrine/Autoimmune: None GI: None : None Psych: Depression, Anxiety Musculoskeletal: Osteoarthritis, Chronic back pain Derm: None - Past Surgical History Past Surgical History: No General: Appendectomy - Present Medications Home Medications: Ambulatory Orders Medication Instructions Recorded Confirmed Albuterol Sulfate [Proair Hfa 1 - 2 puffs INH Q4H PRN #1 inhaler 05/02/19 Inhaler] Cyanocobalamin (Vitamin B-12) 1,000 mcg PO DAILY #10 capsule 05/02/19 [Vitamin B-12] Folic Acid 1 mg PO DAILY #10 tablet 05/02/19 Furosemide [Lasix] 20 mg PO DAILY #10 tablet 05/02/19 Ipratropium/Albuterol [Combivent 4 gm IH Q6H PRN #1 aer.w.adap 05/02/19 Respimat] Lisinopril [Zestril] 2.5 mg PO DAILY #10 tablet 05/02/19 Metoprolol Succinate [Toprol Xl] 12.5 mg PO DAILY #10 tablet 05/02/19 Saccharomyces Boulardii [Florastor] 250 mg PO DAILY #7 capsule 05/02/19 cefUROXime axetil [Ceftin] 250 mg PO Q12H #14 tablet 05/02/19 - Allergies Allergies/Adverse Reactions: Allergies Allergy/AdvReac Type Severity Reaction Status Date / Time No Known Drug Allergies Allergy Verified 05/09/19 06:42 - Social History Does the pt smoke?: No Smoking Status: Never smoker - POLST Patient has POLST: No PD ED PE NORMAL - Vitals Vital signs reviewed: Yes (Mild hypertension.) - General General: Alert and oriented X 3, Well developed/nourished - HEENT HEENT: Atraumatic, Pharynx benign - Neck Neck: No adenopathy, No JVD - Cardiac Cardiac: RRR - Respiratory Respiratory: No respiratory distress, Clear bilaterally - Abdomen Abdomen: Soft, Other (Lower abdominal tenderness, without rebound.) - Back Back: Other (Right CVA tenderness.) - Derm Derm: No rash - Extremities Extremities: No edema, No calf tenderness / cord - Neuro Neuro: Alert and oriented X 3, No motor deficit, No sensory deficit Results - Vitals Vitals: Vital Signs - 24 hr 05/08/19 05/08/19 05/08/19 08:42 09:15 11:23 Temperature 36.6 C Heart Rate 107 H 85 79 Respiratory 20 19 18 Rate Blood Pressure 146/94 H 139/75 H 129/69 O2 Saturation 96 97 98 Oxygen O2 Source [] Nasal cannula O2 Source Room air - Labs Labs: Laboratory Tests 05/08/19 05/08/19 05/08/19 09:02 09:11 09:11 WBC 12.3 H RBC 4.06 L Hgb 14.1 Hct 42.0 MCV 103.4 H MCH 34.7 H MCHC 33.6 RDW 12.8 Plt Count 300 MPV 11.3 Neut # (Auto) 10.5 H Lymph # (Auto) 0.8 L [place] # (Auto) 0.7 Eos # (Auto) 0.1 Baso # (Auto) 0.0 Absolute Nucleated RBC 0.00 Nucleated RBC % 0.0 Sodium 142 Potassium 3.4 L Chloride 102 Carbon Dioxide 31 Anion Gap 9.0 BUN 18 Creatinine 1.4 H Estimated GFR (MDRD) 48 L Glucose 108 H Calcium 8.5 Total Bilirubin 1.2 H AST 18 ALT 12 Alkaline Phosphatase 54 Total Protein 5.9 L Albumin 3.1 L Globulin 2.8 Albumin/Globulin Ratio 1.1 Lipase 56 H Urine Color YELLOW Urine Clarity CLEAR Urine pH 6.0 Ur Specific [place] 1.010 Urine Protein NEGATIVE Urine Glucose (UA) NEGATIVE Urine Ketones NEGATIVE Urine Occult Blood LARGE H Urine Nitrite NEGATIVE Urine Bilirubin NEGATIVE Urine Urobilinogen 0.2 (NORMAL) Ur Leukocyte Esterase NEGATIVE Urine RBC 6-10 H Urine WBC 0-3 Ur Squamous Epith Cells NONE SEEN Urine Bacteria None Seen Ur Microscopic Review INDICATED Urine Culture Comments NOT INDICATED - Rads (name of study) CT abd/pelvis Radiology: Prelim report reviewed, EMP read contemporaneously, See rad report (1) No nephrolithiasis. No hydronephrosis. No bladder calculi. Urinary bladder is largely decompressed and contains a [place] catheter. 2) Prostate gland enlargement. 3) Mild colonic diverticulosis, without diverticulitis. No bowel obstruction.) PD MEDICAL DECISION MAKING - ED course Complexity details: reviewed old records, reviewed results, re-evaluated patient, considered differential, d/w patient, d/w family ED course: The patient presented with urinary retention and associated abdominal pain. His urinalysis revealed microscopic hematuria, without pyuria. A CT scan of his abdomen and pelvis reveals no evidence of ureteral stone or hydronephrosis. His pain resolved after installation of a [place] catheter. There were no clots of blood removed, and his urine appeared clear. He was recently treated for urinary tract infection, and is still on antibiotic therapy. His presentation does not suggest pyelonephritis. On reexamination the patient has a benign abdomen. He demonstrates ability to ambulate with some vigor. His Sal[place]ana catheter was removed prior to discharge. It is recommended that he have follow-up with urology regarding the microscopic hematuria. I discussed with him and his sons the results of his workup, outpatient follow-up, as well as potentially worrisome signs or symptoms that should prompt reevaluation in the emergency department. Departure - Departure Disposition: 01 Home, Self Care Clinical Impression: Urinary retention Condition: Stable Instructions: ED Abdominal Pain Unkn Cause, ED Retention Urinary Male Follow-Up: Cristel Newton MD [Primary Care Provider] - Comments: Drink adequate fluids. Continue antibiotic medication as previously prescribed. Follow-up with your primary physician within 1 week. Return to the emergency department if you develop increasing abdominal pain, fever, vomiting, or otherwise worsening symptoms. Discharge Date/Time: 05/08/19 11:32
[2019-05-08 09:31] LABS: BILIRUBIN,URINE NEGATIVE (NEGATIVE); GLUCOSE, URINE (UA) NEGATIVE (NEGATIVE); KETONES,URINE (UA) NEGATIVE (NEGATIVE); LEUKOCYTE ESTERASE, URINE NEGATIVE (NEGATIVE); NITRITE,URINE NEGATIVE (NEGATIVE); OCCULT BLOOD,URINE LARGE (NEGATIVE); PROTEIN,URINE NEGATIVE (NEGATIVE); UROBILINOGEN,URINE 0.2 (NORMAL) E.U./dL (NORMAL)
[2019-05-08 09:31] LABS: BASOPHILS % (AUTO) 0.3 %; EOSINOPHILS # (AUTO) 0.1 10^3/uL (0.0-0.7); EOSINOPHILS % (AUTO) 0.9 %; HGB - HEMOGLOBIN 14.1 g/dL (14.0-18.0); LYMPHOCYTES # (AUTO) 0.8 10^3/uL (1.5-3.5); LYMPHOCYTES % (AUTO) 6.3 %; MEAN CORPUSCULAR HEMOGLOBIN 34.7 pg (27.0-31.0); MEAN CORPUSCULAR HGB CONC 33.6 g/dL (32.0-36.0); MEAN CORPUSCULAR VOLUME 103.4 fL (80.0-94.0); MEAN PLATELET VOLUME 11.3 fL (7.4-11.4); MONOCYTES # (AUTO) 0.7 10^3/uL (0.0-1.0); MONOCYTES % (AUTO) 5.5 %; NEUTROPHILS # (AUTO) 10.5 10^3/uL (1.5-6.6); NEUTROPHILS % (AUTO) 85.5 %; PLT - PLATELET COUNT 300 10^3/uL (130-450); RED BLOOD COUNT 4.06 10^6/uL (4.70-6.10); RED CELL DISTRIBUTION WIDTH 12.8 % (12.0-15.0); WHITE BLOOD COUNT 12.3 x10^3/uL (4.8-10.8)
[2019-05-08 09:32] LABS: CLARITY,URINE CLEAR (CLEAR)
[2019-05-08 09:34] LABS: ALBUMIN 3.1 g/dL (3.2-5.5); ALBUMIN/GLOBULIN RATIO 1.1 (1.0-2.2); BILIRUBIN,TOTAL 1.2 mg/dL (0.2-1.0); CALCIUM 8.5 mg/dL (8.5-10.3); CREATININE 1.4 mg/dL (0.6-1.2); TOTAL PROTEIN 5.9 g/dL (6.7-8.2)
[2019-05-08 09:39] LABS: BACTERIA,URINE None Seen /HPF (None Seen); SQUAMOUS EPITHELIAL CELL,UR NONE SEEN (<= Few)
--- NOTE | 2019-05-08 10:25 | CT Report ---
Reason: Right flank pain and hematuria. Procedure Date: 05/08/2019 Accession Number: [id number] / [id number] Procedure: CT - Abdomen/Pelvis WO CPT Code: FULL RESULT: EXAM: CT ABDOMEN AND PELVIS (CT KUB) EXAM DATE: 05/08/2019 10:03 AM. CLINICAL HISTORY: Right flank pain and hematuria. COMPARISONS: ABDOMEN/PELVIS W/ 01/16/2017 1:37 PM. TECHNIQUE: Routine axial helical CT imaging was performed through the abdomen and pelvis without IV contrast. Reconstructions: Coronal and sagittal. In accordance with CT protocol optimization, one or more of the following dose reduction techniques were utilized for this exam: automated exposure control, adjustment of mA and/or KV based on patient size, or use of iterative reconstructive technique. FINDINGS: Lung Bases: Lower lung emphysematous changes. Basilar scar/atelectasis. Included portions of the heart are unremarkable. Small hiatal hernia. Right Kidney/Ureter: No nephrolithiasis. No hydronephrosis. Right perinephric stranding. Left Kidney/Ureter: No nephrolithiasis. No hydronephrosis. Left perinephric stranding. Extra renal pelvis on the left. Other Solid Organs: Unenhanced images of the liver, spleen, adrenals and pancreas are unremarkable. Gallbladder/Bile Ducts: Unremarkable. Peritoneal Cavity: Stomach nondistended. No bowel obstruction. No small bowel thickening on these unenhanced images. Very small volume of stool in the colon. Diverticula are seen in the colon. No evidence of diverticulitis. Pelvic Organs: Prostate gland is enlarged. Urinary bladder is largely compressed and contains a Saldana catheter. Small volume pelvic free fluid. Prostate calcifications. No pelvic adenopathy. Vasculature: Vascular calcifications. No aneurysm. Other: Degenerative changes in the lower thoracic and lumbar spine, greatest at L5-S1. There is grade 1 anterolisthesis of L5 on S1. Degenerative changes of both hip joints. Slight levoscoliosis of the lumbar spine. There is lumbar facet arthropathy. IMPRESSION: 1. No nephrolithiasis. No hydronephrosis. No bladder calculi. Urinary bladder is largely decompressed and contains a Saldana catheter. 2. Prostate gland enlargement. 3. Mild colonic diverticulosis. No diverticulitis. No bowel obstruction. RADIA
[2019-05-08 11:24] VITALS: BP 129/69
== END 2019-05-08 11:32 | disposition home or self-care (01) ==
LOC: ED 08:30
DX: N40.1 Benign prostatic hyperplasia with lower urinary tract symptoms (principal); R33.8 Other retention of urine; R31.29 Other microscopic hematuria; Z87.440 Personal history of urinary (tract) infections; I10 Essential (primary) hypertension
CPT/HCPCS: 36415; 51702; 74176; 80053; 81001; 81003; 83690; 85025; 87086; 99283

== ENCOUNTER 2019-05-09 06:25 | Emergency (ER) | payer MEDICARE ==
--- NOTE | 2019-05-09 06:57 | ED Physician Documentation ---
PD HPI MALE - Stated complaint Stated Complaint: RT SIDE BACK PAIN - Chief complaint Chief Complaint: Back Pain - History obtained from History obtained from: Patient - History of Present Illness Timing - onset: How many days ago (few) Timing - duration: Days (few days of feeling unable to urinate/empty fully and then was in retention yesterday. Seen here in ER and had bautista drainage of full bladder and discharged without bautista. Feeling of unable to urinate again today. No recent change in meds, dysuria, blood in urine.) Timing - details: Gradual onset, Waxing and waning Associated symptoms: Urinary frequency, Unable to urinate, Abdominal pain. No: Hematuria, Discharge Similar symptoms before: Has not had sx before Recently seen: Emergency Dept (yesterday) Review of Systems Constitutional: denies: Fever, Chills, Myalgias Nose: denies: Rhinorrhea / runny nose, Congestion Throat: denies: Sore throat Respiratory: denies: Cough GI: reports: Abdominal Pain (suprapubic fullness). denies: Nausea, Vomiting, Diarrhea Musculoskeletal: denies: Neck pain, Back pain Neurologic: denies: Near syncope (but he says he gets feeling of lightheadedness if he gets up quickly senior care symptom) PD PAST MEDICAL HISTORY - Past Medical History Cardiovascular: Hypertension Respiratory: Asthma, COPD Neuro: Tremors, Other (mild cognitive issues) Endocrine/Autoimmune: None GI: None : None Psych: Depression, Anxiety Musculoskeletal: Osteoarthritis, Chronic back pain Derm: None - Past Surgical History Past Surgical History: No General: Appendectomy - Present Medications Home Medications: Ambulatory Orders Medication Instructions Recorded Confirmed Albuterol Sulfate [Proair Hfa 1 - 2 puffs INH Q4H PRN #1 inhaler 05/02/19 Inhaler] Cyanocobalamin (Vitamin B-12) 1,000 mcg PO DAILY #10 capsule 05/02/19 [Vitamin B-12] Folic Acid 1 mg PO DAILY #10 tablet 05/02/19 Furosemide [Lasix] 20 mg PO DAILY #10 tablet 05/02/19 Ipratropium/Albuterol [Combivent 4 gm IH Q6H PRN #1 aer.w.adap 05/02/19 Respimat] Lisinopril [Zestril] 2.5 mg PO DAILY #10 tablet 05/02/19 Metoprolol Succinate [Toprol Xl] 12.5 mg PO DAILY #10 tablet 05/02/19 Saccharomyces Boulardii [Florastor] 250 mg PO DAILY #7 capsule 05/02/19 cefUROXime axetil [Ceftin] 250 mg PO Q12H #14 tablet 05/02/19 [place] 160 mg PO DAILY #30 capsule 05/09/19 - Allergies Allergies/Adverse Reactions: Allergies Allergy/AdvReac Type Severity Reaction Status Date / Time No Known Drug Allergies Allergy Verified 05/09/19 06:42 - Social History Does the pt smoke?: No Smoking Status: Never smoker - POLST Patient has POLST: No PD ED PE NORMAL - Vitals Vital signs reviewed: Yes - General General: Alert and oriented X 3, Well developed/nourished, Other (very uncomfortable due to full bladder; pacing in room. ) - Abdomen Abdomen: Normal bowel sounds, Soft, No organomegaly, Other (tender and fullness in suprapubic area.) - Male Male : Other (no external sores nor lesions. ) - Back Back: No CVA TTP - Derm Derm: Normal color, Warm and dry Results - Vitals Vitals: Vital Signs - 24 hr 05/09/19 05/09/19 06:39 07:03 Temperature 36.4 C L Heart Rate 103 H 89 Respiratory 20 16 Rate Blood Pressure 143/64 H 149/114 H O2 Saturation 95 96 Oxygen O2 Source [Without Activity] Nasal cannula O2 Source Room air - Labs Labs: Laboratory Tests 05/09/19 06:55 Urine Color YELLOW Urine Clarity CLEAR Urine pH 5.5 Ur Specific [place] 1.010 Urine Protein TRACE Urine Glucose (UA) NEGATIVE Urine Ketones NEGATIVE Urine Occult Blood LARGE H Urine Nitrite NEGATIVE Urine Bilirubin NEGATIVE Urine Urobilinogen 0.2 (NORMAL) Ur Leukocyte Esterase NEGATIVE Urine RBC 11-25 H Urine WBC 0-3 Ur Squamous Epith Cells NONE SEEN Urine Bacteria Rare Ur Microscopic Review INDICATED Urine Culture Comments NOT INDICATED PD MEDICAL DECISION MAKING - ED course Complexity details: re-evaluated patient (We will keep the catheter in at this point to allow continued drainage of the bladder. He was here yesterday with decompression with a catheter and had retention again so we will leave it in at this point. He had been recently admitted for lightheadedness and weakness symptoms so I concerned about adding an anti-prostate medicine. We could potentially do [id number] or herbal like saw palmetto that has some track record with prostate improvement and wont have the lightheadedness symptoms), considered differential, d/w patient Departure - Departure Disposition: 01 Home, Self Care Clinical Impression: Acute urinary retention Condition: Stable Record reviewed to determine appropriate education?: Yes Health Concerns: urinary retention Plan of Treatment: bautista Care Goals: improved urinary output Assessment: urinary retention Instructions: ED Catheter Care Shana, ED Retention Urinary Male Follow-Up: Cristel Newton MD [Primary Care Provider] - Prescriptions: [place] 160 mg PO DAILY #30 capsule Comments: Keep the catheter in place to ensure continued output. Add a prostate medication to try to decrease the size of the prostate. The CT scan yesterday did show some enlargement of the prostate. There are no signs of infection on the urine test. Given your lightheadedness and such symptoms recently, I would be concerned about a traditional prostate type medicine as that would add to those symptoms/effects. Could try an [id number] medication saw palmetto that has some track record and improving prostate function. Follow-up with your primary care next week for catheter removal and see if things are better at that time. Discharge Date/Time: 05/09/19 08:27
[2019-05-09 07:01] LABS: BILIRUBIN,URINE NEGATIVE (NEGATIVE); GLUCOSE, URINE (UA) NEGATIVE (NEGATIVE); KETONES,URINE (UA) NEGATIVE (NEGATIVE); LEUKOCYTE ESTERASE, URINE NEGATIVE (NEGATIVE); NITRITE,URINE NEGATIVE (NEGATIVE); OCCULT BLOOD,URINE LARGE (NEGATIVE); PH,URINE 5.5 PH (5.0-7.5); PROTEIN,URINE TRACE mg/dL (NEGATIVE); UROBILINOGEN,URINE 0.2 (NORMAL) E.U./dL (NORMAL)
[2019-05-09 07:03] LABS: CLARITY,URINE CLEAR (CLEAR)
[2019-05-09 07:04] VITALS: BP 149/114
[2019-05-09 07:06] LABS: BACTERIA,URINE Rare /HPF (None Seen); SQUAMOUS EPITHELIAL CELL,UR NONE SEEN (<= Few)
== END 2019-05-09 08:27 | disposition home or self-care (01) ==
LOC: ED 06:25
DX: R33.9 Retention of urine, unspecified (principal); I10 Essential (primary) hypertension
CPT/HCPCS: 51702; 81001; 81003; 87086; 99283

== ENCOUNTER 2019-05-20 05:40 | Emergency (ER) | payer MEDICARE ==
--- NOTE | 2019-05-20 06:26 | ED Physician Documentation ---
PD HPI MALE - Stated complaint Stated Complaint: CATH ISSUES - Chief complaint Chief Complaint: Abd Pain - History obtained from History obtained from: Patient - History of Present Illness Timing - onset: Today Timing - duration: Hours Timing - details: Gradual onset, Constant Associated symptoms: Unable to urinate - Additional information Additional information: bautista catheter removed yesterday in urologists office. over past several hours, has had increasing urge to urinate with suprapubic fullness and pressure with inability to urinate Review of Systems Constitutional: reports: Reviewed and negative GI: reports: Reviewed and negative : reports: Unable to Void Musculoskeletal: denies: Back pain PD PAST MEDICAL HISTORY - Past Medical History Past Medical History: Yes Cardiovascular: Hypertension Respiratory: Asthma, COPD Neuro: Tremors, Other Endocrine/Autoimmune: None GI: None : None Psych: Depression, Anxiety Musculoskeletal: Osteoarthritis, Chronic back pain Derm: None - Past Surgical History Past Surgical History: No General: Appendectomy - Present Medications Home Medications: Ambulatory Orders Medication Instructions Recorded Confirmed Albuterol Sulfate [Proair Hfa 1 - 2 puffs INH Q4H PRN #1 inhaler 05/02/19 Inhaler] Cyanocobalamin (Vitamin B-12) 1,000 mcg PO DAILY #10 capsule 05/02/19 [Vitamin B-12] Folic Acid 1 mg PO DAILY #10 tablet 05/02/19 Furosemide [Lasix] 20 mg PO DAILY #10 tablet 05/02/19 Ipratropium/Albuterol [Combivent 4 gm IH Q6H PRN #1 aer.w.adap 05/02/19 Respimat] Lisinopril [Zestril] 2.5 mg PO DAILY #10 tablet 05/02/19 Metoprolol Succinate [Toprol Xl] 12.5 mg PO DAILY #10 tablet 05/02/19 Saccharomyces Boulardii [Florastor] 250 mg PO DAILY #7 capsule 05/02/19 cefUROXime axetil [Ceftin] 250 mg PO Q12H #14 tablet 05/02/19 [place] 160 mg PO DAILY #30 capsule 05/09/19 - Allergies Allergies/Adverse Reactions: Allergies Allergy/AdvReac Type Severity Reaction Status Date / Time No Known Drug Allergies Allergy Verified 05/20/19 05:50 - Social History Does the pt smoke?: No Smoking Status: Never smoker Does the pt drink ETOH?: Yes Does the pt have substance abuse?: No - Immunizations Immunizations are current?: Yes - POLST Patient has POLST: No PD ED PE NORMAL - Vitals Vital signs reviewed: Yes - General General: Alert and oriented X 3, No acute distress, Well developed/nourished - Abdomen Abdomen: Soft, Non tender, Non distended - Back Back: No CVA TTP Results - Vitals Vitals: Vital Signs - 24 hr 05/20/19 05/20/19 05:48 07:06 Temperature 36.6 C Heart Rate 109 H 88 Respiratory 18 16 Rate Blood Pressure 155/93 H 120/83 H O2 Saturation 95 97 Oxygen O2 Source [Without Activity] Nasal cannula O2 Source Room air PD MEDICAL DECISION MAKING - ED course Complexity details: considered differential, d/w patient, d/w family ED course: bautista catheter placed by ED RN with 300cc clear yellow urine output associated with complete resolution of symptoms Departure - Departure Disposition: 01 Home, Self Care Clinical Impression: Acute urinary retention Condition: Good Health Concerns: urinary retention Plan of Treatment: continuation of bautista catheter, follow up with your urologist Care Goals: prevention of recurrence of retention Assessment: see diagnosis Instructions: ED Catheter Care Shana, ED Retention Urinary Male Follow-Up: Cristel Newton MD [Primary Care Provider] - Discharge Date/Time: 05/20/19 07:07
[2019-05-20 07:07] VITALS: BP 120/83
== END 2019-05-20 07:07 | disposition home or self-care (01) ==
LOC: ED 05:40
DX: R33.9 Retention of urine, unspecified (principal); I10 Essential (primary) hypertension
CPT/HCPCS: 51702; 51798; 99283

== ENCOUNTER 2019-05-21 07:18 | Outpatient (CLI) | payer MEDICARE | END 2019-05-21 07:19 | disposition critical access hospital (66) | LOC: EMS 07:18 | PROVIDERS: ATTEND Surgery | DX: R06.00 Dyspnea, unspecified (principal) | CPT/HCPCS: A0425; A0427 ==

== ENCOUNTER 2019-05-21 07:35 | Emergency (ER) | payer MEDICARE ==
[2019-05-21] MEDS ORDERED: DEXAMETHASONE 10 MG/ML VIAL IVP STA (07:49)
[2019-05-21] MEDS ORDERED: MAGNESIUM SULFATE 2 GRAM 2 GM/50 ML BAG IV ONE (07:49)
[2019-05-21] MEDS ORDERED: IPRATROPIUM/ALBUTEROL 3 ML NEB INH STA (07:49)
[2019-05-21] MEDS ORDERED: ALBUTEROL NEB 2.5 MG/3 ML INH STA (08:23)
--- NOTE | 2019-05-21 08:26 | ED Physician Documentation ---
PD HPI DYSPNEA - Stated complaint Stated Complaint: SOA - Chief complaint Chief Complaint: Resp - History obtained from History obtained from: Patient, Family - History of Present Illness Timing - onset: How many days ago (1-2) Timing - onset during: Rest (today), Light activity (1-2 days) Timing - duration: Days Timing - details: Gradual onset, Still present Inciting event(s): URI (some cough and congestion). No: Out of meds, Immobilization/travel Improved by: O2, Inhaler/neb Associated symptoms: Cough, Wheezing. No: Fever, Bilateral edema Similar symptoms before: Diagnosis (COPD, but some history of CHF as well.) Recently seen: Not recently seen Review of Systems Constitutional: reports: Myalgias, Fatigue. denies: Fever, Chills, Weight Loss Nose: denies: Rhinorrhea / runny nose, Congestion Throat: denies: Sore throat Cardiac: denies: Chest pain / pressure, Palpitations, Calf pain Respiratory: reports: Dyspnea, Cough, Wheezing. denies: Hemoptysis GI: denies: Abdominal Pain, Nausea, Vomiting, Diarrhea Skin: denies: Rash, Lesions Musculoskeletal: denies: Extremity swelling Neurologic: reports: Generalized weakness. denies: Focal weakness, Numbness, Difficulty speaking PD PAST MEDICAL HISTORY - Past Medical History Cardiovascular: Hypertension Respiratory: Asthma, COPD Neuro: Tremors, Other Endocrine/Autoimmune: None GI: None : None Psych: Depression, Anxiety Musculoskeletal: Osteoarthritis, Chronic back pain Derm: None - Past Surgical History Past Surgical History: No General: Appendectomy - Present Medications Home Medications: Ambulatory Orders Medication Instructions Recorded Confirmed Albuterol Sulfate [Proair Hfa 1 - 2 puffs INH Q4H PRN #1 inhaler 05/02/19 Inhaler] Ipratropium/Albuterol [Combivent 4 gm IH Q6H PRN #1 aer.w.adap 05/02/19 Respimat] Lisinopril [Zestril] 2.5 mg PO DAILY #10 tablet 05/02/19 Metoprolol Succinate [Toprol Xl] 12.5 mg PO DAILY #10 tablet 05/02/19 Saw [place] 160 mg PO DAILY #30 capsule 05/09/19 Albuterol 2.5 mg INH Q4H PRN #30 neb 05/21/19 Alfuzosin HCl [Alfuzosin HCl ER] 10 mg PO 05/21/19 05/21/19 Doxycycline Hyclate 100 mg PO BID #15 capsule 05/21/19 Finasteride 5 mg PO 05/21/19 05/21/19 Ipratropium [Atrovent] 0.5 mg INH Q6H #30 neb 05/21/19 Nebulizer [Aeroneb Go Nebulizer] 1 each MC QID #1 each 05/21/19 dexAMETHasone [Decadron] 4 mg PO DAILY #5 tablet 05/21/19 - Allergies Allergies/Adverse Reactions: Allergies Allergy/AdvReac Type Severity Reaction Status Date / Time No Known Drug Allergies Allergy Verified 05/21/19 07:43 - Social History Does the pt smoke?: No Smoking Status: Never smoker Does the pt drink ETOH?: Yes Does the pt have substance abuse?: No - Immunizations Immunizations are current?: Yes - POLST Patient has POLST: No PD ED PE NORMAL - Vitals Vital signs reviewed: Yes - General General: Alert and oriented X 3, Well developed/nourished, Other (prolonged exp phase and has some partial sentence dyspnea. Mild retractions of ribs. ) - HEENT HEENT: Pharynx benign - Neck Neck: Supple, no meningeal sign, No adenopathy, No JVD - Cardiac Cardiac: RRR, No murmur - Respiratory Respiratory: No: Clear bilaterally - Abdomen Abdomen: Soft, Non tender - Back Back: No CVA TTP - Derm Derm: Normal color, Warm and dry - Extremities Extremities: No tenderness to palpate, Normal ROM s pain, No edema, No calf tenderness / cord - Neuro Neuro: Alert and oriented X 3, No motor deficit, Normal speech Results - Vitals Vitals: Vital Signs - 24 hr 05/21/19 05/21/19 05/21/19 07:40 08:05 08:58 Temperature 37.4 C Heart Rate 98 110 H 92 Respiratory 20 16 16 Rate Blood Pressure 122/63 O2 Saturation 97 05/21/19 10:22 Temperature 37.6 C H Heart Rate 95 Respiratory 18 Rate Blood Pressure 105/45 L O2 Saturation 93 Oxygen O2 Source [Without Activity] Nasal cannula O2 Source Room air - EKG (time done) 0758 Rate: Rate (enter#) (108) Rhythm: NSR QRS: LVH Ischemia: Normal ST segments. No: ST elevation c/w ischemia, ST depression - Labs Labs: Laboratory Tests 05/21/19 05/21/19 05/21/19 08:20 08:40 08:40 WBC 15.8 H RBC 3.49 L Hgb 11.9 L Hct 36.9 L MCV 105.7 H MCH 34.1 H MCHC 32.2 RDW 12.9 Plt Count 254 MPV 12.0 H Neut # (Auto) 14.1 H Lymph # (Auto) 0.8 L [place] # (Auto) 0.6 Eos # (Auto) 0.0 Baso # (Auto) 0.0 Absolute Nucleated RBC 0.00 Band Neuts % (Manual) Not Reportable Abnorm Lymph % (Manual) Not Reportable Nucleated RBC % 0.0 Neutrophils # (Manual) Not Reportable Lymphocytes # (Manual) Not Reportable Monocytes # (Manual) Not Reportable Eosinophils # (Manual) Not Reportable Basophils # (Manual) Not Reportable Differential Comment MANUAL=AUTO DIFF WBC Morphology NORMAL APPEARANCE Platelet Estimate NORMAL (130-450,000) Platelet Morphology NORMAL APPEARANCE RBC Morph Micro Appear 1+ MACROCYTOSIS Sodium 141 Potassium 3.6 Chloride 101 Carbon Dioxide 26 Anion Gap 14.0 H BUN 17 Creatinine 1.4 H Estimated GFR (MDRD) 48 L Glucose 129 H Calcium 8.8 Magnesium 1.7 Total Bilirubin 1.2 H AST 21 ALT 11 Alkaline Phosphatase 59 Troponin I B-Natriuretic Peptide Total Protein 6.3 L Albumin 3.0 L Globulin 3.3 Albumin/Globulin Ratio 0.9 L Lipase 24 Urine Color YELLOW Urine Clarity CLOUDY Urine pH 5.0 Ur Specific [place] 1.025 Urine Protein 30 H Urine Glucose (UA) NEGATIVE Urine Ketones 15 H Urine Occult Blood LARGE H Urine Nitrite POSITIVE H Urine Bilirubin NEGATIVE Urine Urobilinogen 0.2 (NORMAL) Ur Leukocyte Esterase LARGE H Urine RBC TNTC H Urine WBC >25 H Urine WBC Clumps PRESENT Ur Epithelial Cells RARE Transitional Ur Squamous Epith Cells RARE Squamous Urine Bacteria Many H Urine Casts 0-2 Cellular Casts Ur Microscopic Review INDICATED Urine Culture Comments INDICATED 05/21/19 05/21/19 08:40 08:40 WBC RBC Hgb Hct MCV MCH MCHC RDW Plt Count MPV Neut # (Auto) Lymph # (Auto) [place] # (Auto) Eos # (Auto) Baso # (Auto) Absolute Nucleated RBC Band Neuts % (Manual) Abnorm Lymph % (Manual) Nucleated RBC % Neutrophils # (Manual) Lymphocytes # (Manual) Monocytes # (Manual) Eosinophils # (Manual) Basophils # (Manual) Differential Comment WBC Morphology Platelet Estimate Platelet Morphology RBC Morph Micro Appear Sodium Potassium Chloride Carbon Dioxide Anion Gap BUN Creatinine Estimated GFR (MDRD) Glucose Calcium Magnesium Total Bilirubin AST ALT Alkaline Phosphatase Troponin I 0.05 B-Natriuretic Peptide 1171 H Total Protein Albumin Globulin Albumin/Globulin Ratio Lipase Urine Color Urine Clarity Urine pH Ur Specific [place] Urine Protein Urine Glucose (UA) Urine Ketones Urine Occult Blood Urine Nitrite Urine Bilirubin Urine Urobilinogen Ur Leukocyte Esterase Urine RBC Urine WBC Urine WBC Clumps Ur Epithelial Cells Ur Squamous Epith Cells Urine Bacteria Urine Casts Ur Microscopic Review Urine Culture Comments - Rads (name of study) chest xray Radiology: Prelim report reviewed (no chest xrays), EMP read contemporaneously, See rad report PD MEDICAL DECISION MAKING - ED course Complexity details: reviewed results, re-evaluated patient (improved after 3 nebs and some IV MAg/steroids), considered differential (seems COPD flare with asthma quality. Seems possible for some infectious component.), d/w patient Departure - Departure Disposition: 01 Home, Self Care Clinical Impression: Acute exacerbation of COPD with asthma Urinary tract infection Qualifiers: Urinary tract infection type: acute cystitis Hematuria presence: without hematuria Qualified Code(s): N30.00 - Acute cystitis without hematuria Dyspnea Qualifiers: Dyspnea type: shortness of breath Qualified Code(s): R06.02 - Shortness of breath Clinical Impression: (Ruled Out): Pneumonia Condition: Stable Record reviewed to determine appropriate education?: Yes Instructions: COPD Dc, ED UTI Cystitis Male Follow-Up: Cristel Newton MD [Primary Care Provider] - Prescriptions: Albuterol 2.5 mg INH Q4H PRN #30 neb PRN Reason: Wheezing dexAMETHasone [Decadron] 4 mg PO DAILY #5 tablet Doxycycline Hyclate 100 mg PO BID #15 capsule Ipratropium [Atrovent] 0.5 mg INH Q6H #30 neb Nebulizer [Aeroneb Go Nebulizer] 1 each MC QID #1 each Comments: Use the albuterol either nebulizer or inhaler 4 times a day for the next several days then as needed. Use the ipratropium combined with the albuterol twice daily. Doxycycline antibiotic for the urinary tract infection and will cover for possible bronchitis as well. Decadron steroid daily for the next 5 days. Follow-up with your primary care next week, call for an appointment. Follow-up with cardiology. He will presumably have to reschedule your appo intment. Discharge Date/Time: 05/21/19 10:24
--- NOTE | 2019-05-21 08:32 | XRAY Report ---
Reason: dyspnea today Procedure Date: 05/21/2019 Accession Number: [id number] / [id number] Procedure: XR - Chest 1 View X-Ray CPT Code: 42764 FULL RESULT: EXAM: CHEST RADIOGRAPHY EXAM DATE: 05/21/2019 08:17 AM. CLINICAL HISTORY: Dyspnea today. COMPARISON: CHEST 1 VIEW 05/01/2019 8:10 AM. TECHNIQUE: 1 view. FINDINGS: Lungs/Pleura: No focal opacities evident. No pleural effusion. No pneumothorax. Lungs are hyperexpanded. Mediastinum: Within exam limitations, the cardiomediastinal contour is normal. Other: No acute osseous abnormality. IMPRESSION: Lungs are hyperexpanded, raising the possibility of COPD/emphysema. No focal pulmonary consolidation or other acute change. RADIA
[2019-05-21 08:40] LABS: BILIRUBIN,URINE NEGATIVE (NEGATIVE); GLUCOSE, URINE (UA) NEGATIVE (NEGATIVE); KETONES,URINE (UA) 15 mg/dL (NEGATIVE); LEUKOCYTE ESTERASE, URINE LARGE (NEGATIVE); NITRITE,URINE POSITIVE (NEGATIVE); OCCULT BLOOD,URINE LARGE (NEGATIVE); PROTEIN,URINE 30 mg/dL (NEGATIVE); UROBILINOGEN,URINE 0.2 (NORMAL) E.U./dL (NORMAL)
[2019-05-21 08:44] LABS: BACTERIA,URINE Many /HPF (None Seen); CLARITY,URINE CLOUDY (CLEAR); EPITHELIAL CELLS,UR RARE Transitional /HPF (<= Few); RBC,URINE TNTC /HPF (0-5); SQUAMOUS EPITHELIAL CELL,UR RARE Squamous (<= Few); WBC CLUMPS,URINE PRESENT
[2019-05-21] MEDS ORDERED: DOXYCYCLINE 100 MG TABLET PO STA (08:49)
[2019-05-21] MEDS ORDERED: cefTRIAXone 1 GM VIAL IVP STA (08:49)
[2019-05-21 09:12] LABS: ALBUMIN/GLOBULIN RATIO 0.9 (1.0-2.2); BILIRUBIN,TOTAL 1.2 mg/dL (0.2-1.0); CALCIUM 8.8 mg/dL (8.5-10.3); CREATININE 1.4 mg/dL (0.6-1.2); MAGNESIUM 1.7 mg/dL (1.7-2.8); TOTAL PROTEIN 6.3 g/dL (6.7-8.2)
[2019-05-21 09:25] LABS: BASOPHILS % (AUTO) 0.3 %; EOSINOPHILS % (AUTO) 0.3 %; HGB - HEMOGLOBIN 11.9 g/dL (14.0-18.0); LYMPHOCYTES # (AUTO) 0.8 10^3/uL (1.5-3.5); LYMPHOCYTES % (AUTO) 4.8 %; MEAN CORPUSCULAR HEMOGLOBIN 34.1 pg (27.0-31.0); MEAN CORPUSCULAR HGB CONC 32.2 g/dL (32.0-36.0); MEAN CORPUSCULAR VOLUME 105.7 fL (80.0-94.0); MONOCYTES # (AUTO) 0.6 10^3/uL (0.0-1.0); MONOCYTES % (AUTO) 3.7 %; NEUTROPHILS # (AUTO) 14.1 10^3/uL (1.5-6.6); NEUTROPHILS % (AUTO) 89.6 %; PLT - PLATELET COUNT 254 10^3/uL (130-450); RED BLOOD COUNT 3.49 10^6/uL (4.70-6.10); RED CELL DISTRIBUTION WIDTH 12.9 % (12.0-15.0); WHITE BLOOD COUNT 15.8 x10^3/uL (4.8-10.8)
[2019-05-21 10:02] LABS: DIFFERENTIAL COMMENT MANUAL=AUTO DIFF; PLATELET ESTIMATE, MANUAL NORMAL (130-450,000) (NORMAL); PLATELET MORPHOLOGY NORMAL APPEARANCE (NORMAL); RBC MORPHOLOGY (MULTIPLE) 1+ MACROCYTOSIS (NORMAL)
[2019-05-21 10:23] VITALS: BP 105/45
== END 2019-05-21 10:24 | disposition home or self-care (01) ==
LOC: EDUNIT# → ED 07:35
DX: J44.1 Chronic obstructive pulmonary disease with (acute) exacerbation (principal); N30.00 Acute cystitis without hematuria; I10 Essential (primary) hypertension
CPT/HCPCS: 36415; 71045; 80053; 81001; 83690; 83735; 83880; 84484; 85025; 87086; 87181; 93005; 94640; 96365; 96375; 99284; A9270; 81003

== ENCOUNTER 2019-05-26 15:56 | Outpatient (CLI) | payer MEDICARE | END 2019-05-26 15:57 | disposition critical access hospital (66) | LOC: EMS 15:56 | PROVIDERS: ATTEND Surgery | DX: R06.00 Dyspnea, unspecified (principal); R07.9 Chest pain, unspecified | CPT/HCPCS: A0425; A0427 ==

== ENCOUNTER 2019-05-26 16:13 | Emergency (ER) | payer MEDICARE ==
--- NOTE | 2019-05-26 16:35 | ED Physician Documentation ---
PD HPI CHEST PAIN - Stated complaint Stated Complaint: CP - Chief complaint Chief Complaint: Cardiac - History obtained from History obtained from: Patient, Family (daughter, Arrived about 5 PM, also shared that he was complaining of a frontal headache earlier in the day. The patient had said initially that he was on blood thinners but could not name which one. I confirmed the medications with the daughter, he is on no cardiac medications currently.) - History of Present Illness Timing - onset: Today (84-year-old gentleman with COPD, renal insufficiency, chronic UTIs and wears oxygen at home presents with increased shortness of breath with strenal sharp chest pain starting today about 4pm. No Cough, fevers, or chills.) Review of Systems Ten Systems: 10 systems reviewed and negative Constitutional: denies: Fever, Chills Cardiac: reports: Chest pain / pressure. denies: Palpitations Respiratory: reports: Dyspnea. denies: Cough GI: denies: Abdominal Pain, Nausea, Vomiting PD PAST MEDICAL HISTORY - Past Medical History Cardiovascular: Hypertension Respiratory: Asthma, COPD Neuro: Tremors, Other Endocrine/Autoimmune: None GI: None : None Psych: Depression, Anxiety Musculoskeletal: Osteoarthritis, Chronic back pain Derm: None - Past Surgical History Past Surgical History: No General: Appendectomy - Present Medications Home Medications: Ambulatory Orders Medication Instructions Recorded Confirmed Albuterol Sulfate [Proair Hfa 1 - 2 puffs INH Q4H PRN #1 inhaler 05/02/19 Inhaler] Ipratropium/Albuterol [Combivent 4 gm IH Q6H PRN #1 aer.w.adap 05/02/19 Respimat] Lisinopril [Zestril] 2.5 mg PO DAILY #10 tablet 05/02/19 Metoprolol Succinate [Toprol Xl] 12.5 mg PO DAILY #10 tablet 05/02/19 Saw [place] 160 mg PO DAILY #30 capsule 05/09/19 Albuterol 2.5 mg INH Q4H PRN #30 neb 05/21/19 Alfuzosin HCl [Alfuzosin HCl ER] 10 mg PO 05/21/19 05/21/19 Doxycycline Hyclate 100 mg PO BID #15 capsule 05/21/19 Finasteride 5 mg PO 05/21/19 05/21/19 Ipratropium [Atrovent] 0.5 mg INH Q6H #30 neb 05/21/19 Nebulizer [Aeroneb Go Nebulizer] 1 each QID #1 each 05/21/19 dexAMETHasone [Decadron] 4 mg PO DAILY #5 tablet 05/21/19 - Allergies Allergies/Adverse Reactions: Allergies Allergy/AdvReac Type Severity Reaction Status Date / Time No Known Drug Allergies Allergy Verified 05/21/19 07:43 - Social History Does the pt smoke?: No Smoking Status: Never smoker Does the pt drink ETOH?: Yes Does the pt have substance abuse?: No - Immunizations Immunizations are current?: Yes - POLST Patient has POLST: No PD ED PE NORMAL - Vitals Vital signs reviewed: Yes (89%RA, but on O2 at home... Tachycardic) - General General: Alert and oriented X 3, No acute distress - HEENT HEENT: PERRL, EOMI - Neck Neck: Supple, no meningeal sign, No bony TTP - Cardiac Cardiac: Other (irregularly irreg.) - Respiratory Respiratory: Other (diminished L base) - Abdomen Abdomen: Normal bowel sounds, Soft, Non tender - Back Back: No CVA TTP, No spinal TTP - Extremities Extremities: No calf tenderness / cord, Other (2+ BLE edema) - Neuro Neuro: Alert and oriented X 3, Normal speech - Psych Psych: Normal mood, Normal affect Results - Vitals Vitals: Vital Signs - 24 hr 05/26/19 05/26/19 05/26/19 16:16 16:28 16:50 Temperature 36.2 C L Heart Rate 122 H 121 H 100 Respiratory 24 21 22 Rate Blood Pressure 118/79 118/79 O2 Saturation 100 100 05/26/19 05/26/19 05/26/19 17:02 18:50 19:11 Temperature Heart Rate 96 106 H 103 H Respiratory 18 20 26 H Rate Blood Pressure 90/72 88/58 L 99/58 L O2 Saturation 100 100 100 05/26/19 05/26/19 05/26/19 19:39 21:00 22:01 Temperature Heart Rate 111 H 100 97 Respiratory 100 H 18 22 Rate Blood Pressure 88/52 L 100/66 78/64 L O2 Saturation 100 100 Oxygen O2 Source [] Nasal cannula O2 Source Nasal cannula Oxygen Flow Rate 4 - EKG (time done) 1644 Rate: Rate (enter#) (128) Rhythm: Other (Narrow complex tachycardia, it is somewhat irregular and initially to my looks most consistent with atrial fibrillation, but many of the QRS complexes are preceded by normal P waves so it may just be very very frequent PACs.) Intervals: Other (IVCD trending toward LBBB) QRS: LVH Ischemia: Non specific changes 1711 Rate: Rate (enter#) (102) Rhythm: NSR (with PACs and PVCs) Intervals: Other (IVCD with LAD and LVH) Ischemia: Non specific changes Computer interpretation: Agree with computer - Labs Labs: Laboratory Tests 05/26/19 05/26/19 05/26/19 17:03 17:03 17:03 WBC 13.2 H RBC 3.75 L Hgb 12.7 L Hct 40.0 L MCV 106.7 H MCH 33.9 H MCHC 31.8 L RDW 12.5 Plt Count 247 MPV 11.3 Neut # (Auto) 10.2 H Lymph # (Auto) 1.7 [place] # (Auto) 0.8 Eos # (Auto) 0.1 Baso # (Auto) 0.0 Absolute Nucleated RBC 0.00 Nucleated RBC % 0.0 Sodium 142 Potassium 3.7 Chloride 103 Carbon Dioxide 26 Anion Gap 13.0 BUN 34 H Creatinine 1.3 H Estimated GFR (MDRD) 52 L Glucose 118 H Calcium 8.8 Total Bilirubin 0.6 AST 24 ALT 20 Alkaline Phosphatase 61 Troponin I 0.07 Troponin I High Sens 68.1 H* B-Natriuretic Peptide Total Protein 5.6 L Albumin 2.9 L Globulin 2.7 Albumin/Globulin Ratio 1.1 Lipase 43 05/26/19 05/26/19 17:03 19:25 WBC RBC Hgb Hct MCV MCH MCHC RDW Plt Count MPV Neut # (Auto) Lymph # (Auto) [place] # (Auto) Eos # (Auto) Baso # (Auto) Absolute Nucleated RBC Nucleated RBC % Sodium Potassium Chloride Carbon Dioxide Anion Gap BUN Creatinine Estimated GFR (MDRD) Glucose Calcium Total Bilirubin AST ALT Alkaline Phosphatase Troponin I Troponin I High Sens 224.4 H* B-Natriuretic Peptide 967 H Total Protein Albumin Globulin Albumin/Globulin Ratio Lipase - Rads (name of study) CT Head Radiology: EMP read contemporaneously (NAD) CT Angio Chest Radiology: EMP read contemporaneously (Bilateral PEs with moderate clot burden and mild to moderate right heart strain.) PD MEDICAL DECISION MAKING - ED course ED course: 84-year-old gentleman with COPD presents with acute chest pain. He is looking like he is trending forward toward rapid A. fib. His EKG was not a STEMI. He was administered diltiazem IV and converted to sinus rhythm, repeat EKG was ordered. CT pulmonary angiogram demonstrates a moderate clot burden, with his tachycardia and mild hypotension albeit after diltiazem I put him on heparin and I think he should be inpatient for further evaluation and treatment. Spoke with Dr. George for admission at 7:26 PM. He saw the patient and reported to me that he had discussed the case with cardiothoracic surgery in [place] who felt that the patient may benefit from transfer for either catheter guided or systemic thrombolysis. After that consultation we called [facility] for potential transfer. Accepted by Dr. Pruett at [place] at 8:57 PM and cobras were completed. Even a couple of hours after the diltiazem, he still had episodic mild hypotension which is treated with small boluses of IV fluids. His mentation remained normal and his map remained higher than 65. - Critical Care Time(min): 40 Time Includes: Direct patient care, Review records, Reassess patient, Document care, Coordinate care, Medical consult, Family consult for tx dec, See progress note Data interpretation: Labs Procedures excluded from critical care time: EKG Departure - Departure Disposition: 02 Transfer Acute Care Hosp Clinical Impression: Dyspnea Qualifiers: Dyspnea type: dyspnea on exertion Qualified Code(s): R06.09 - Other forms of dyspnea Pulmonary embolism Qualifiers: Pulmonary embolism type: other Chronicity: acute Acute cor pulmonale presence: with acute cor pulmonale Qualified Code(s): I26.09 - Other pulmonary embolism with acute cor pulmonale Condition: Serious
[2019-05-26] MEDS ORDERED: ALBUTEROL NEB 2.5 MG/3 ML INH STA (16:38)
[2019-05-26] MEDS ORDERED: diltiaZEM INJ 5 MG/ML VIAL IVP STA (16:49)
[2019-05-26 17:08] LABS: BASOPHILS % (AUTO) 0.2 %; EOSINOPHILS # (AUTO) 0.1 10^3/uL (0.0-0.7); EOSINOPHILS % (AUTO) 0.7 %; HGB - HEMOGLOBIN 12.7 g/dL (14.0-18.0); LYMPHOCYTES # (AUTO) 1.7 10^3/uL (1.5-3.5); LYMPHOCYTES % (AUTO) 12.5 %; MEAN CORPUSCULAR HEMOGLOBIN 33.9 pg (27.0-31.0); MEAN CORPUSCULAR HGB CONC 31.8 g/dL (32.0-36.0); MEAN CORPUSCULAR VOLUME 106.7 fL (80.0-94.0); MEAN PLATELET VOLUME 11.3 fL (7.4-11.4); MONOCYTES # (AUTO) 0.8 10^3/uL (0.0-1.0); MONOCYTES % (AUTO) 6.2 %; NEUTROPHILS # (AUTO) 10.2 10^3/uL (1.5-6.6); NEUTROPHILS % (AUTO) 77.5 %; PLT - PLATELET COUNT 247 10^3/uL (130-450); RED BLOOD COUNT 3.75 10^6/uL (4.70-6.10); RED CELL DISTRIBUTION WIDTH 12.5 % (12.0-15.0); WHITE BLOOD COUNT 13.2 x10^3/uL (4.8-10.8)
[2019-05-26] MEDS ORDERED: IOVERSOL 320 100 ML VIAL IVP ONE ×2 (17:10→19:01)
--- NOTE | 2019-05-26 17:17 | XRAY Report ---
Reason: dyspnea, CP Procedure Date: 05/26/2019 Accession Number: [id number] / [id number] Procedure: XR - Chest 1 View X-Ray CPT Code: 86362 FULL RESULT: EXAM: CHEST RADIOGRAPHY EXAM DATE: 05/26/2019 04:54 PM. CLINICAL HISTORY: Dyspnea, chest pain. COMPARISON: CHEST 1 VIEW 05/21/2019 8:02 AM. TECHNIQUE: 1 view. FINDINGS: Lungs/Pleura: No focal opacities evident. No pleural effusion. No pneumothorax. Mediastinum: Within exam limitations, the cardiomediastinal contour is normal. Other: None. IMPRESSION: No acute cardiopulmonary process. RADIA
[2019-05-26 17:33] LABS: TROPONIN I 0.07 ng/mL (<0.49)
[2019-05-26 17:35] LABS: BILIRUBIN,TOTAL 0.6 mg/dL (0.2-1.0); CALCIUM 8.8 mg/dL (8.5-10.3); CREATININE 1.3 mg/dL (0.6-1.2)
[2019-05-26 17:36] LABS: ALBUMIN 2.9 g/dL (3.2-5.5); ALBUMIN/GLOBULIN RATIO 1.1 (1.0-2.2); TOTAL PROTEIN 5.6 g/dL (6.7-8.2)
[2019-05-26] MEDS ORDERED: HEPARIN 25000UNITS/500ML (D5W) 25,000 UNIT/500 ML BAG IV STA (18:11)
--- NOTE | 2019-05-26 18:46 | CT Report ---
Reason: headache Procedure Date: 05/26/2019 Accession Number: [id number] / [id number] Procedure: CT - HEAD WO CPT Code: FULL RESULT: EXAM: CT HEAD EXAM DATE: 05/26/2019 06:02 PM. CLINICAL HISTORY: Headache. COMPARISON: HEAD W/O 04/30/2019 10:49 PM. TECHNIQUE: Multiaxial CT images were obtained from the foramen magnum to the vertex. Reformats: Sagittal and coronal. IV contrast: None. In accordance with CT protocol optimization, one or more of the following dose reduction techniques were utilized for this exam: automated exposure control, adjustment of mA and/or KV based on patient size, or use of iterative reconstructive technique. FINDINGS: Parenchyma: No intraparenchymal hemorrhage. No evidence of mass, midline shift, or CT findings of acute infarction. [place]-white differentiation is distinct. Periventricular white matter hypodensity may represent small vessel ischemic disease. Extraaxial Spaces: Normal for age. No subdural or epidural collections identified. Ventricles: Normal in size and position. Sinuses and Orbits: Imaged paranasal sinuses, orbits, and mastoids show no significant abnormality. Bones: No acute bony abnormalities are seen. Stable geographic lytic lesion within the left occipital bone. Other: None. IMPRESSION: No acute intracranial CT abnormality. RADIA
--- NOTE | 2019-05-26 18:50 | CT Report ---
Reason: PE protocol, dyspnea, CP Procedure Date: 05/26/2019 Accession Number: [id number] / [id number] Procedure: CT - ANGIO CHEST W/WO CPT Code: FULL RESULT: EXAM: CT ANGIOGRAM CHEST EXAM DATE: 05/26/2019 06:02 PM. CLINICAL HISTORY: Dyspnea, chest pain COMPARISON: HEAD W/O 04/30/2019 10:49 PM ABDOMEN/PELVIS W/O 05/08/2019 10:00 AM. TECHNIQUE: Routine helical imaging was performed through the chest in the pulmonary arterial phase. IV Contrast: OPTI 320 80ML. Reconstructions: Coronal 3-D MIP reconstructions.Sagittal and coronal. In accordance with CT protocol optimization, one or more of the following dose reduction techniques were utilized for this exam: automated exposure control, adjustment of mA and/or KV based on patient size, or use of iterative reconstructive technique. FINDINGS: Pulmonary Arteries: Diagnostic quality: Adequate through the segmental arteries. Studies positive for acute pulmonary embolism. Moderate clot burden within branch vessels supplying all lung lobes. There is thrombus within the right main pulmonary artery. RV/LV is greater than 1. There is flattening of the interventricular septum. There is reflux of contrast material in the IVC. Lungs/Pleura: There is emphysema. No evidence of lobar infiltrate or effusion. No pneumothorax. Mediastinum: Heart size is within normal limits. There are no enlarged axillary, supraclavicular, mediastinal, or hilar lymph nodes. Thoracic Aorta: No evidence of aortic dissection or aneurysm. Upper Abdomen: Unremarkable. Other: None. IMPRESSION: Study is positive for acute pulmonary embolism. There is moderate clot burden with thrombus in branch vessels supplying all lung lobes. There is some thrombus within the right main pulmonary artery. There are CT findings suspicious for associated right heart strain. RADIA The call report notification system was initiated by Dr. Luz Cantor at 06:46 PM on 05/26/2019. ADDENDUM: 05/26/19 18:52 The above call report findings were discussed with Yovani Crawford by Dr. Luz Cantor at 06:52 PM on 05/26/2019.
[2019-05-26] MEDS ORDERED: SODIUM CHLORIDE 0.9% 500 ML IV ONE ×2 (19:02→22:04)
[2019-05-26 23:37] VITALS: BP 119/73
== END 2019-05-26 23:14 | disposition short-term general hospital (02) ==
LOC: EDUNIT# → ED 16:13
DX: I26.09 Other pulmonary embolism with acute cor pulmonale (principal); I10 Essential (primary) hypertension; Z99.81 Dependence on supplemental oxygen
CPT/HCPCS: 36415; 70450; 71045; 71275; 80053; 83690; 83880; 84484; 85025; 93005; 94640; 96361; 96374; 96375; 99285; 99291; Q9967

== ENCOUNTER 2019-06-05 22:54 | Emergency (ER) | payer MEDICARE ==
[2019-06-05] MEDS ORDERED: IPRATROPIUM/ALBUTEROL 3 ML NEB INH STA (23:28)
--- NOTE | 2019-06-06 00:13 | ED Physician Documentation ---
PD HPI DYSPNEA - Stated complaint Stated Complaint: CATHETER ISSUES/SOA - Chief complaint Chief Complaint: Resp - History obtained from History obtained from: Patient, Family - History of Present Illness Timing - onset: Today (bautista catheter problem), How many days ago (dyspnea) Timing - details: Gradual onset Improved by: Rest Worsened by: Exertion Associated symptoms: Wheezing. No: Fever, Cough, Chest pain / discomfort Recently seen: Emergency Dept (5 [facility] ED visits last month for similar c/o (bautista problems, dyspnea)) - Additional information Additional information: chief complaint is urge to urinate and no output into bautista catheter bag since this afternoon. he was seen by his urologist earlier today (no symptoms at that time) and per family the bag and tubing was changed but not the bautista catheter itself. since then he has had increasing symptoms of bautista catheter obstruction. in triage, patient also noted to be dyspneic, and family says this has been waxing and waning for past two days. Review of Systems Constitutional: denies: Fever Cardiac: reports: Reviewed and negative Respiratory: reports: Dyspnea, Wheezing. denies: Cough GI: reports: Reviewed and negative : reports: Unable to Void, Bautista Problem PD PAST MEDICAL HISTORY - Past Medical History Cardiovascular: Hypertension Respiratory: Asthma, COPD Neuro: Tremors, Other Endocrine/Autoimmune: None GI: None : None Psych: Depression, Anxiety Musculoskeletal: Osteoarthritis, Chronic back pain Derm: None - Past Surgical History Past Surgical History: No General: Appendectomy - Present Medications Home Medications: Ambulatory Orders Medication Instructions Recorded Confirmed Albuterol Sulfate [Proair Hfa 1 - 2 puffs INH Q4H PRN #1 inhaler 05/02/19 Inhaler] Ipratropium/Albuterol [Combivent 4 gm IH Q6H PRN #1 aer.w.adap 05/02/19 Respimat] Lisinopril [Zestril] 2.5 mg PO DAILY #10 tablet 05/02/19 Saw [place] 160 mg PO DAILY #30 capsule 05/09/19 Alfuzosin HCl [Alfuzosin HCl ER] 10 mg PO 05/21/19 05/21/19 Finasteride 5 mg PO 05/21/19 05/21/19 Ipratropium [Atrovent] 0.5 mg INH Q6H #30 neb 05/21/19 Ipratropium/Albuterol Sulfate 3 ml INH PRN PRN 06/06/19 06/06/19 [Iprat-Albut 0.5-3(2.5) mg/3 ml] Timolol Maleate [Timoptic] 1 drops EACHEYE DAILY 06/06/19 06/06/19 Warfarin [Coumadin] 2.5 mg PO DAILY 06/06/19 06/06/19 - Allergies Allergies/Adverse Reactions: Allergies Allergy/AdvReac Type Severity Reaction Status Date / Time No Known Drug Allergies Allergy Verified 06/05/19 23:33 - Social History Does the pt smoke?: No Smoking Status: Never smoker Does the pt drink ETOH?: Yes Does the pt have substance abuse?: No - Immunizations Immunizations are current?: Yes - POLST Patient has POLST: No PD ED PE NORMAL - Vitals Vital signs reviewed: Yes - General General: Alert and oriented X 3, Well developed/nourished, Other (appears uncomfortable due to urinary retention as well as dyspnea, speaking in abbreviated answers (1-2 words at a time)) - HEENT HEENT: Moist mucous membranes - Neck Neck: No JVD - Cardiac Cardiac: No murmur - Respiratory Respiratory: No respiratory distress - Abdomen Abdomen: Soft, Non tender - Derm Derm: Normal color, Warm and dry - Extremities Extremities: No edema PD ED PE EXPANDED - Cardiac Cardiac: Tachy, Regular Rhythm - Respiratory Respiratory: Wheezing, Decreased breath sounds Results - Vitals Vitals: Oxygen O2 Source [Without Activity] Nasal cannula O2 Source Room air - EKG (time done) No standard instances Rate: Rate (enter#) (95) Rhythm: NSR [place]: Normal Intervals: LBBB Other comments: Other comments (PVCs) - Labs Labs: Microbiology 06/05/19 23:54 Urine Culture - Final Urine,Catheterized NO AEROBIC GROWTH AT 24 HOURS Laboratory Tests 06/05/19 06/05/19 06/05/19 23:54 23:57 23:57 WBC 16.7 H RBC 3.65 L Hgb 12.5 L Hct 38.1 L MCV 104.4 H MCH 34.2 H MCHC 32.8 RDW 12.9 Plt Count 322 MPV 11.4 Neut # (Auto) 14.7 H Lymph # (Auto) 0.8 L [place] # (Auto) 0.9 Eos # (Auto) 0.1 Baso # (Auto) 0.1 Absolute Nucleated RBC 0.00 Nucleated RBC % 0.0 PT INR APTT Sodium 139 Potassium 3.9 Chloride 103 Carbon Dioxide 26 Anion Gap 10.0 BUN 20 Creatinine 1.7 H Estimated GFR (MDRD) 38 L Glucose 142 H Calcium 8.7 Total Bilirubin 0.9 AST 29 ALT 24 Alkaline Phosphatase 74 B-Natriuretic Peptide Total Protein 6.4 L Albumin 3.2 Globulin 3.2 Albumin/Globulin Ratio 1.0 Lipase 31 Urine Color YELLOW Urine Clarity CLEAR Urine pH 6.0 Ur Specific [place] <=1.005 Urine Protein NEGATIVE Urine Glucose (UA) NEGATIVE Urine Ketones NEGATIVE Urine Occult Blood MODERATE H Urine Nitrite NEGATIVE Urine Bilirubin NEGATIVE Urine Urobilinogen 0.2 (NORMAL) Ur Leukocyte Esterase TRACE H Urine RBC 11-25 H Urine WBC 0-3 Ur Squamous Epith Cells RARE Squamous Urine Bacteria Rare Ur Microscopic Review INDICATED Urine Culture Comments INDICATED 06/05/19 06/05/19 23:57 23:57 WBC RBC Hgb Hct MCV MCH MCHC RDW Plt Count MPV Neut # (Auto) Lymph # (Auto) [place] # (Auto) Eos # (Auto) Baso # (Auto) Absolute Nucleated RBC Nucleated RBC % PT 27.1 H INR 2.4 H APTT 36.2 H Sodium Potassium Chloride Carbon Dioxide Anion Gap BUN Creatinine Estimated GFR (MDRD) Glucose Calcium Total Bilirubin AST ALT Alkaline Phosphatase B-Natriuretic Peptide 683 H Total Protein Albumin Globulin Albumin/Globulin Ratio Lipase Urine Color Urine Clarity Urine pH Ur Specific [place] Urine Protein Urine Glucose (UA) Urine Ketones Urine Occult Blood Urine Nitrite Urine Bilirubin Urine Urobilinogen Ur Leukocyte Esterase Urine RBC Urine WBC Ur Squamous Epith Cells Urine Bacteria Ur Microscopic Review Urine Culture Comments - Rads (name of study) chest xray Radiology: Prelim report reviewed, See rad report PD MEDICAL DECISION MAKING - ED course Complexity details: reviewed old records, reviewed results, re-evaluated patient, considered differential, d/w patient, d/w family ED course: urinary retention symptoms resolved with replacement of bautista catheter by RN. his dyspnea also resolved shortly after this was performed, as well as with administration of duoneb. NAD prior to discharge Departure - Departure Disposition: 01 Home, Self Care Clinical Impression: Obstructed Bautista catheter Qualifiers: Encounter type: initial encounter Qualified Code(s): T83.091A - Other mechanical complication of indwelling urethral catheter, initial encounter Dyspnea Qualifiers: Dyspnea type: unspecified Qualified Code(s): R06.00 - Dyspnea, unspecified Condition: Good Instructions: ED Dyspnea Shortness of Breath, ED Catheter Care Bautista Follow-Up: Cristel Newton MD [Primary Care Provider] - Discharge Date/Time: 06/06/19 02:43
[2019-06-06 00:14] LABS: BASOPHILS # (AUTO) 0.1 10^3/uL (0.0-0.1); BASOPHILS % (AUTO) 0.3 %; EOSINOPHILS # (AUTO) 0.1 10^3/uL (0.0-0.7); EOSINOPHILS % (AUTO) 0.4 %; HGB - HEMOGLOBIN 12.5 g/dL (14.0-18.0); LYMPHOCYTES # (AUTO) 0.8 10^3/uL (1.5-3.5); LYMPHOCYTES % (AUTO) 4.6 %; MEAN CORPUSCULAR HEMOGLOBIN 34.2 pg (27.0-31.0); MEAN CORPUSCULAR HGB CONC 32.8 g/dL (32.0-36.0); MEAN CORPUSCULAR VOLUME 104.4 fL (80.0-94.0); MEAN PLATELET VOLUME 11.4 fL (7.4-11.4); MONOCYTES # (AUTO) 0.9 10^3/uL (0.0-1.0); MONOCYTES % (AUTO) 5.6 %; NEUTROPHILS # (AUTO) 14.7 10^3/uL (1.5-6.6); PLT - PLATELET COUNT 322 10^3/uL (130-450); RED BLOOD COUNT 3.65 10^6/uL (4.70-6.10); RED CELL DISTRIBUTION WIDTH 12.9 % (12.0-15.0); WHITE BLOOD COUNT 16.7 x10^3/uL (4.8-10.8)
[2019-06-06 00:28] LABS: ALBUMIN 3.2 g/dL (3.2-5.5); BILIRUBIN,TOTAL 0.9 mg/dL (0.2-1.0); CALCIUM 8.7 mg/dL (8.5-10.3); CREATININE 1.7 mg/dL (0.6-1.2); TOTAL PROTEIN 6.4 g/dL (6.7-8.2)
[2019-06-06 00:29] LABS: BILIRUBIN,URINE NEGATIVE (NEGATIVE); GLUCOSE, URINE (UA) NEGATIVE (NEGATIVE); KETONES,URINE (UA) NEGATIVE (NEGATIVE); LEUKOCYTE ESTERASE, URINE TRACE (NEGATIVE); NITRITE,URINE NEGATIVE (NEGATIVE); OCCULT BLOOD,URINE MODERATE (NEGATIVE); PROTEIN,URINE NEGATIVE (NEGATIVE); UROBILINOGEN,URINE 0.2 (NORMAL) E.U./dL (NORMAL)
[2019-06-06 00:45] LABS: CLARITY,URINE CLEAR (CLEAR)
[2019-06-06 00:46] LABS: BACTERIA,URINE Rare /HPF (None Seen); SQUAMOUS EPITHELIAL CELL,UR RARE Squamous (<= Few)
[2019-06-06 00:48] LABS: INR 2.4 (0.8-1.2); PT - PROTHROMBIN TIME 27.1 secs (9.9-12.6)
[2019-06-06 00:55] LABS: PARTIAL THROMBOPLASTIN TIME 36.2 secs (24.9-33.3)
--- NOTE | 2019-06-06 01:21 | XRAY Report ---
Reason: dyspnea Procedure Date: 06/06/2019 Accession Number: [id number] / [id number] Procedure: XR - Chest 2 View X-Ray CPT Code: 41199 FULL RESULT: EXAM: CHEST RADIOGRAPHY EXAM DATE: 06/06/2019 12:59 AM. CLINICAL HISTORY: Dyspnea. Intermittent chest pain. COMPARISON: CHEST 1 VIEW 05/26/2019 4:41 PM. TECHNIQUE: 2 views. FINDINGS: Lungs/Pleura: Large lung volumes. No alveolar consolidations seen. No definite pleural effusion. No pneumothorax. Mediastinum: Within exam limitations, heart size is normal to upper normal. Other: Osteopenia. IMPRESSION: 1. Large lung volumes. No acute abnormality seen. RADIA
[2019-06-06 02:31] VITALS: BP 127/56
== END 2019-06-06 02:43 | disposition home or self-care (01) ==
LOC: ED 22:54
DX: T83.091A Other mechanical complication of indwelling urethral catheter, initial encounter (principal); Y84.6 Urinary catheterization as the cause of abnormal reaction of the patient, or of later complication, without mention of misadventure at the time of the procedure; J44.9 Chronic obstructive pulmonary disease, unspecified; I49.3 Ventricular premature depolarization; I44.7 Left bundle-branch block, unspecified; I10 Essential (primary) hypertension; Z79.01 Long term (current) use of anticoagulants
CPT/HCPCS: 36415; 51702; 71046; 80053; 81001; 81003; 83690; 83880; 85025; 85610; 85730; 87086; 94640; 99284

== ENCOUNTER 2019-06-29 09:55 | Outpatient (CLI) | payer MEDICARE | END 2019-06-29 09:56 | disposition critical access hospital (66) | LOC: EMS 09:55 | PROVIDERS: ATTEND Surgery | DX: R07.9 Chest pain, unspecified (principal); R42 Dizziness and giddiness | CPT/HCPCS: A0425; A0427 ==

== ENCOUNTER 2019-06-29 10:12 | Emergency (ER) | payer MEDICARE ==
--- NOTE | 2019-06-29 11:12 | ED Physician Documentation ---
PD HPI CHEST PAIN - Stated complaint Stated Complaint: CP - Chief complaint Chief Complaint: Cardiac - History obtained from History obtained from: Patient - History of Present Illness Timing - onset: Today Timing - onset during: Rest, Light activity Timing - duration: Seconds (having fleeting sharp left anterior chest pains, without associated dyspnea nor near syncope, onset this morning and is occurring a few times per hour.) Timing - details: Abrupt onset, Intermittant. No: Still present Quality: Sharp, Pain. No: Pressure, Tightness Location: Left chest Radiation: No: Back, Abdominal Improved by: No: Rest Worsened by: No: Inspiration, Movement Associated symptoms: Cough (mild). No: Shortness of air, Nausea, Vomiting Similar symptoms before: Diagnosis (had similar pains with dyspnea though, and Dx with PEs a few weeks ago. Has been on Coumadin with low INR last week at 1.6. Had dose increased and was to have INR checked tomorrow.) Recently seen: Emergency Dept, Admitted (for PEs a few weeks ago. Has h/o COPD as well and was seen month prior for dyspnea without pain.) Review of Systems Constitutional: reports: Fatigue. denies: Fever, Chills, Myalgias Nose: denies: Rhinorrhea / runny nose, Congestion Throat: denies: Sore throat Cardiac: reports: Chest pain / pressure. denies: Palpitations, Pedal edema, Calf pain Respiratory: reports: Dyspnea. denies: Cough, Hemoptysis, Wheezing GI: denies: Abdominal Pain, Nausea, Vomiting, Diarrhea, Bloody / black stool Musculoskeletal: reports: Back pain Neurologic: reports: Generalized weakness. denies: Focal weakness, Numbness, Near syncope Endocrine: denies: Easy bruising / bleeding PD PAST MEDICAL HISTORY - Past Medical History Cardiovascular: Hypertension Respiratory: Asthma, COPD Neuro: Tremors, Other Endocrine/Autoimmune: None GI: None : None Psych: Depression, Anxiety Musculoskeletal: Osteoarthritis, Chronic back pain Derm: None - Past Surgical History Past Surgical History: No General: Appendectomy - Present Medications Home Medications: Ambulatory Orders Medication Instructions Recorded Confirmed Albuterol Sulfate [Proair Hfa 1 - 2 puffs INH Q4H PRN #1 inhaler 05/02/19 Inhaler] Ipratropium/Albuterol [Combivent 4 gm IH Q6H PRN #1 aer.w.adap 05/02/19 Respimat] Lisinopril [Zestril] 2.5 mg PO DAILY #10 tablet 05/02/19 Saw [place] 160 mg PO DAILY #30 capsule 05/09/19 Alfuzosin HCl [Alfuzosin HCl ER] 10 mg PO 05/21/19 05/21/19 Finasteride 5 mg PO 05/21/19 05/21/19 Ipratropium [Atrovent] 0.5 mg INH Q6H #30 neb 05/21/19 Ipratropium/Albuterol Sulfate 3 ml INH PRN PRN 06/06/19 06/06/19 [Iprat-Albut 0.5-3(2.5) mg/3 ml] Timolol Maleate [Timoptic] 1 drops EACHEYE DAILY 06/06/19 06/06/19 Warfarin [Coumadin] 2.5 mg PO DAILY 06/06/19 06/06/19 Hydrocodone/Acetaminophen [[place] 1 each PO Q6H PRN #15 tablet 06/29/19 5-325 Tablet] Rivaroxaban [Xarelto] 15 mg PO BID #42 tablet 06/29/19 - Allergies Allergies/Adverse Reactions: Allergies Allergy/AdvReac Type Severity Reaction Status Date / Time No Known Drug Allergies Allergy Verified 06/05/19 23:33 - Social History Does the pt smoke?: No Smoking Status: Never smoker Does the pt drink ETOH?: Yes Does the pt have substance abuse?: No - Immunizations Immunizations are current?: Yes - POLST Patient has POLST: No PD ED PE NORMAL - Vitals Vital signs reviewed: Yes - HEENT HEENT: Atraumatic, EOMI - Neck Neck: Supple, no meningeal sign, No bony TTP, No adenopathy - Cardiac Cardiac: RRR, No gallop - Respiratory Respiratory: Clear bilaterally - Abdomen Abdomen: Normal bowel sounds, Non tender - Back Back: No CVA TTP - Derm Derm: Normal color, Warm and dry - Extremities Extremities: No edema, No calf tenderness / cord - Neuro Neuro: Alert and oriented X 3, No motor deficit, Normal speech Results - Vitals Vitals: Vital Signs - 24 hr 06/29/19 06/29/19 06/29/19 10:24 10:36 12:29 Temperature 36.5 C Heart Rate 65 64 77 Respiratory 18 18 18 Rate Blood Pressure 118/59 L 106/80 117/77 O2 Saturation 97 98 97 06/29/19 14:00 Temperature Heart Rate 77 Respiratory 18 Rate Blood Pressure 125/77 O2 Saturation 96 Oxygen O2 Source [Without Activity] Nasal cannula O2 Source Room air - EKG (time done) 10:16 Rate: Rate (enter#) (67) Rhythm: NSR [place]: Normal Intervals: Normal OR, LBBB Ischemia: Normal ST segments. No: ST elevation c/w ischemia, ST depression - Labs Labs: Laboratory Tests 06/29/19 06/29/19 06/29/19 11:15 11:18 11:18 WBC 14.6 H RBC 3.28 L Hgb 11.1 L Hct 34.2 L MCV 104.3 H MCH 33.8 H MCHC 32.5 RDW 12.8 Plt Count 289 MPV 11.1 Neut # (Auto) 12.6 H Lymph # (Auto) 1.3 L [place] # (Auto) 0.4 Eos # (Auto) 0.2 Baso # (Auto) 0.1 Absolute Nucleated RBC 0.00 Nucleated RBC % 0.0 PT INR Sodium 142 Potassium 4.6 Chloride 104 Carbon Dioxide 30 Anion Gap 8.0 BUN 34 H Creatinine 1.4 H Estimated GFR (MDRD) 48 L Glucose 124 H Calcium 8.5 Total Bilirubin 1.2 H AST 18 ALT 10 Alkaline Phosphatase 61 Troponin I High Sens 17.0 B-Natriuretic Peptide Total Protein 6.1 L Albumin 3.0 L Globulin 3.1 Albumin/Globulin Ratio 1.0 Lipase 32 06/29/19 06/29/19 12:14 12:14 WBC RBC Hgb Hct MCV MCH MCHC RDW Plt Count MPV Neut # (Auto) Lymph # (Auto) [place] # (Auto) Eos # (Auto) Baso # (Auto) Absolute Nucleated RBC Nucleated RBC % PT 14.8 H INR 1.3 H Sodium Potassium Chloride Carbon Dioxide Anion Gap BUN Creatinine Estimated GFR (MDRD) Glucose Calcium Total Bilirubin AST ALT Alkaline Phosphatase Troponin I High Sens B-Natriuretic Peptide 355 H Total Protein Albumin Globulin Albumin/Globulin Ratio Lipase - Rads (name of study) chest xray Radiology: Prelim report reviewed (no acute process), See rad report PD MEDICAL DECISION MAKING - ED course Complexity details: reviewed results (CXR is okay. His INR is low, so consider possible repeat clot/PE. He has normal Trop and BNP, so not appearing to put left heart strain, and thus, even if were another PE, would not be sizeable one. Talked with patient and family (sons) and options of scan for more PEs, [facility] would want therapeutic anticoag. Or changing anticoag, since coumadin hard to regulate. Patient and sons opted for not further testing, and to treat with DOAC anticoag instead. ), considered differential (INR is low. Was 1.6 and had meds increased, now 1.3, so difficulty getting right level/dose. ), d/w patient Departure - Departure Disposition: Home, Self Care Clinical Impression: Intermittent chest pain, Subtherapeutic anticoagulation Condition: Stable Record reviewed to determine appropriate education?: Yes Instructions: ED Chest Pain Atypical [place] Follow-Up: Cristel Newton MD [Primary Care Provider] - Prescriptions: Hydrocodone/Acetaminophen [[place] 5-325 Tablet] 1 each PO Q6H PRN #15 tablet PRN Reason: Pain Rivaroxaban [Xarelto] 15 mg PO BID #42 tablet Comments: Stay well-hydrated. Stop your Coumadin (warfarin). Change instead to Xarelto 15 mg twice daily for 3 weeks and then it will change to 20 mg daily after that. Continue other usual medicines. Add Tylenol or [place] if needed for chest pains. This may represent some inflammation through the lungs or chest. Consider the possibility of another small clot given that your Coumadin level was not effective. However this would still be just treated with the new blood thinner. No signs of heart attack or heart failure, pneumonia, effusion. Discharge Date/Time: 06/29/19 14:36
[2019-06-29 11:25] LABS: BASOPHILS # (AUTO) 0.1 10^3/uL (0.0-0.1); BASOPHILS % (AUTO) 0.4 %; EOSINOPHILS # (AUTO) 0.2 10^3/uL (0.0-0.7); EOSINOPHILS % (AUTO) 1.2 %; HGB - HEMOGLOBIN 11.1 g/dL (14.0-18.0); LYMPHOCYTES # (AUTO) 1.3 10^3/uL (1.5-3.5); LYMPHOCYTES % (AUTO) 8.8 %; MEAN CORPUSCULAR HEMOGLOBIN 33.8 pg (27.0-31.0); MEAN CORPUSCULAR HGB CONC 32.5 g/dL (32.0-36.0); MEAN CORPUSCULAR VOLUME 104.3 fL (80.0-94.0); MEAN PLATELET VOLUME 11.1 fL (7.4-11.4); MONOCYTES # (AUTO) 0.4 10^3/uL (0.0-1.0); MONOCYTES % (AUTO) 2.9 %; NEUTROPHILS # (AUTO) 12.6 10^3/uL (1.5-6.6); NEUTROPHILS % (AUTO) 86.1 %; PLT - PLATELET COUNT 289 10^3/uL (130-450); RED BLOOD COUNT 3.28 10^6/uL (4.70-6.10); RED CELL DISTRIBUTION WIDTH 12.8 % (12.0-15.0); WHITE BLOOD COUNT 14.6 x10^3/uL (4.8-10.8)
--- NOTE | 2019-06-29 11:35 | XRAY Report ---
Reason: cp Procedure Date: 06/29/2019 Accession Number: [id number] / [id number] Procedure: XR - Chest 1 View X-Ray CPT Code: 17537 FULL RESULT: EXAM: CHEST RADIOGRAPHY EXAM DATE: 06/29/2019 11:27 AM. CLINICAL HISTORY: Chest pain COMPARISON: CHEST 2 VIEW 06/06/2019 12:37 AM. TECHNIQUE: 1 view. FINDINGS: Lungs/Pleura: No focal opacities evident. No pleural effusion. No pneumothorax. Mediastinum: Within exam limitations, the cardiomediastinal contour is normal. Other: None. IMPRESSION: Negative single view chest. RADIA
[2019-06-29 11:38] LABS: BILIRUBIN,TOTAL 1.2 mg/dL (0.2-1.0); CALCIUM 8.5 mg/dL (8.5-10.3); CREATININE 1.4 mg/dL (0.6-1.2); TOTAL PROTEIN 6.1 g/dL (6.7-8.2)
[2019-06-29] MEDS ORDERED: MORPHINE 2 MG/ML CARPUJECT IVP STA (11:56)
[2019-06-29] MEDS ORDERED: KETOROLAC 15 MG/ML VIAL IVP STA (11:56)
[2019-06-29 12:33] LABS: INR 1.3 (0.8-1.2); PT - PROTHROMBIN TIME 14.8 secs (9.9-12.6)
[2019-06-29] MEDS ORDERED: RIVAROXABAN 15 MG TABLET PO STA (13:38)
[2019-06-29 14:29] VITALS: BP 125/77
== END 2019-06-29 14:36 | disposition home or self-care (01) ==
LOC: EDSEX → EDUNIT# → ED 10:12
DX: R79.1 Abnormal coagulation profile (principal); R07.9 Chest pain, unspecified; I10 Essential (primary) hypertension; Z79.01 Long term (current) use of anticoagulants
CPT/HCPCS: 36415; 71045; 80053; 83690; 83880; 84484; 85025; 85610; 93005; 99284; A9270

== ENCOUNTER 2019-07-03 17:11 | Emergency (ER) | payer MEDICARE ==
[2019-07-03] MEDS ORDERED: MAG HYDROX/AL HYDROX/SIMETH 30 ML UDC PO STA (17:26)
[2019-07-03] MEDS ORDERED: LIDOCAINE VISCOUS 2% 15 ML UDC MM STA (17:26)
--- NOTE | 2019-07-03 17:29 | ED Physician Documentation ---
PD HPI HEENT - Stated complaint Stated Complaint: LUMP ON THROAT - Chief complaint Chief Complaint: Heent - History obtained from History obtained from: Patient - History of Present Illness Timing - onset: Other (84-year-old gentleman with history of PE presents feeling like he has a piece of crap shell stuck in his throat for the last 2 days since eating crab. He points to the left neck near the hyoid as the site of the pain. His son-in-law relates that he has been having increasing difficulty swallowing now for longer, may be several months. He is able to drink water, but it hurts to eat food.) Review of Systems Constitutional: reports: Reviewed and negative Throat: reports: Reviewed and negative Cardiac: reports: Reviewed and negative Respiratory: reports: Reviewed and negative PD PAST MEDICAL HISTORY - Past Medical History Cardiovascular: Hypertension Respiratory: Asthma, COPD Neuro: Tremors, Other Endocrine/Autoimmune: None GI: None : None Psych: Depression, Anxiety Musculoskeletal: Osteoarthritis, Chronic back pain Derm: None - Past Surgical History Past Surgical History: No General: Appendectomy - Present Medications Home Medications: Ambulatory Orders Medication Instructions Recorded Confirmed Albuterol Sulfate [Proair Hfa 1 - 2 puffs INH Q4H PRN #1 inhaler 05/02/19 Inhaler] Ipratropium/Albuterol [Combivent 4 gm IH Q6H PRN #1 aer.w.adap 05/02/19 Respimat] Lisinopril [Zestril] 2.5 mg PO DAILY #10 tablet 05/02/19 Saw [place] 160 mg PO DAILY #30 capsule 05/09/19 Alfuzosin HCl [Alfuzosin HCl ER] 10 mg PO 05/21/19 05/21/19 Finasteride 5 mg PO 05/21/19 05/21/19 Ipratropium [Atrovent] 0.5 mg INH Q6H #30 neb 05/21/19 Ipratropium/Albuterol Sulfate 3 ml INH PRN PRN 06/06/19 06/06/19 [Iprat-Albut 0.5-3(2.5) mg/3 ml] Timolol Maleate [Timoptic] 1 drops EACHEYE DAILY 06/06/19 06/06/19 Warfarin [Coumadin] 2.5 mg PO DAILY 06/06/19 06/06/19 Hydrocodone/Acetaminophen [[place] 1 each PO Q6H PRN #15 tablet 06/29/19 5-325 Tablet] Rivaroxaban [Xarelto] 15 mg PO BID #42 tablet 06/29/19 Maalox:Lidocaine 5 ml PO Q6H PRN #100 ml 07/03/19 - Allergies Allergies/Adverse Reactions: Allergies Allergy/AdvReac Type Severity Reaction Status Date / Time No Known Drug Allergies Allergy Verified 07/03/19 17:17 - Social History Does the pt smoke?: No Smoking Status: Never smoker Does the pt drink ETOH?: Yes Does the pt have substance abuse?: No - Immunizations Immunizations are current?: Yes - POLST Patient has POLST: No PD ED PE NORMAL - Vitals Vital signs reviewed: Yes - General General: Alert and oriented X 3, No acute distress - HEENT HEENT: Pharynx benign, Other (No palpable external abnormality of the anterior neck) - Neck Neck: Supple, no meningeal sign, No bony TTP - Cardiac Cardiac: RRR, No murmur - Respiratory Respiratory: No respiratory distress, Clear bilaterally Results - Vitals Vitals: Vital Signs - 24 hr 07/03/19 17:14 Temperature 36.2 C L Heart Rate 81 Respiratory 16 Rate Blood Pressure 128/78 O2 Saturation 98 Oxygen O2 Source [Without Activity] Nasal cannula O2 Source Room air - Rads (name of study) soft tissue neck XR Radiology: EMP read contemporaneously (no FB) PD MEDICAL DECISION MAKING - ED course ED course: 84-year-old gentleman with sensation of foreign body at the level of the hyoid cartilage on the left, he thinks it is crab shell. There is no radiopaque foreign body on x-ray. He felt much better after a GI cocktail. The son-in-law says he has been having more subacute problems with swallowing and probably does need to go see ENT for video naso-laryngoscopy and he is given a referral for same. Departure - Departure Disposition: 01 Home, Self Care Clinical Impression: Dysphagia Qualifiers: Dysphagia type: pharyngoesophageal phase Qualified Code(s): R13.14 - Dysphagia, pharyngoesophageal phase Condition: Good Record reviewed to determine appropriate education?: Yes Instructions: ED Abrasion Pharyngeal Follow-Up: Pramod Jose MD [Physician No Access] - Prescriptions: Maalox:Lidocaine 5 ml PO Q6H PRN #100 ml PRN Reason: Pain Comments: As discussed, your x-ray is normal today so there is no evidence of a crab shell and there. You do need to go see an ear nose and throat physician for evaluation and likely nasolaryngoscopy. You can call the gentleman listed on this form for an appointment. Return for new or worsening symptoms.
--- NOTE | 2019-07-03 18:27 | XRAY Report ---
Reason: poss crabshell in throat Procedure Date: 07/03/2019 Accession Number: [id number] / [id number] Procedure: XR - Neck Soft Tissue CPT Code: FULL RESULT: EXAM: SOFT TISSUE NECK RADIOGRAPHY EXAM DATE: 07/03/2019 05:50 PM. CLINICAL HISTORY: Foreign body. COMPARISONS: None. TECHNIQUE: 2 views. FINDINGS: Soft Tissues: Generalized thyroid cartilage calcification is seen. No prevertebral soft tissue swelling. The epiglottis and aryepiglottic folds are unremarkable. No tonsillar or adenoidal enlargement. No definitive evidence for radiopaque foreign body taking into account the thyroid cartilage. Regional Skeleton: There is moderate diffuse degenerative disk and facet disease seen throughout the mid and lower aspects of the cervical spine. Other: The visualized lung apices are clear. IMPRESSION: No radiodense foreign body definitively seen. Prominent thyroid cartilage calcification is seen. RADIA
[2019-07-03 18:45] VITALS: BP 124/70
== END 2019-07-03 18:45 | disposition home or self-care (01) ==
LOC: ED 17:11
DX: R13.14 Dysphagia, pharyngoesophageal phase (principal); I10 Essential (primary) hypertension
CPT/HCPCS: 70360; 99283; 99284; A9270

== ENCOUNTER 2019-07-09 09:37 | Outpatient (CLI) | payer MEDICARE | END 2019-07-09 09:38 | disposition short-term general hospital (02) | LOC: EMS 09:37 | PROVIDERS: ATTEND Surgery | DX: R10.13 Epigastric pain (principal) | CPT/HCPCS: A0425; A0427 ==

== ENCOUNTER 2019-07-11 15:35 | Emergency (ER) | payer MEDICARE ==
--- NOTE | 2019-07-11 16:07 | ED Physician Documentation ---
History of Present Illness - Stated complaint Stated Complaint: CONSTIPATED - Chief complaint Chief Complaint: General - History obtained from History obtained from: Patient, Family - Additonal information Additional information: 84-year-old gentleman with chronic constipation, last good BM was a few days ago and now feels full and is having some rectal bleeding without abdominal pain or nausea. He is anticoagulated on warfarin. Review of Systems Ten Systems: 10 systems reviewed and negative Constitutional: reports: Fatigue. denies: Fever, Chills Respiratory: denies: Dyspnea, Cough GI: reports: Constipation, Bloody / black stool. denies: Abdominal Pain, Nausea, Vomiting : denies: Dysuria PD PAST MEDICAL HISTORY - Past Medical History Past Medical History: Yes Cardiovascular: Hypertension Respiratory: Asthma, COPD Neuro: Tremors, Other Endocrine/Autoimmune: None GI: None : None Psych: Depression, Anxiety Musculoskeletal: Osteoarthritis, Chronic back pain Derm: None - Past Surgical History Past Surgical History: No General: Appendectomy - Present Medications Home Medications: Ambulatory Orders Medication Instructions Recorded Confirmed Albuterol Sulfate [Proair Hfa 1 - 2 puffs INH Q4H PRN #1 inhaler 05/02/19 Inhaler] Ipratropium/Albuterol [Combivent 4 gm IH Q6H PRN #1 aer.w.adap 05/02/19 07/11/19 Respimat] Lisinopril [Zestril] 2.5 mg PO DAILY #10 tablet 05/02/19 07/11/19 Saw [place] 160 mg PO DAILY #30 capsule 05/09/19 07/11/19 Alfuzosin HCl [Alfuzosin HCl ER] 10 mg PO 05/21/19 05/21/19 Finasteride 5 mg PO 05/21/19 05/21/19 Ipratropium [Atrovent] 0.5 mg INH Q6H #30 neb 05/21/19 07/11/19 Ipratropium/Albuterol Sulfate 3 ml INH PRN PRN 06/06/19 07/11/19 [Iprat-Albut 0.5-3(2.5) mg/3 ml] Timolol Maleate [Timoptic] 1 drops EACHEYE DAILY 06/06/19 07/11/19 Warfarin [Coumadin] 2.5 mg PO DAILY 06/06/19 07/11/19 Hydrocodone/Acetaminophen [[place] 1 each PO Q6H PRN #15 tablet 06/29/19 5-325 Tablet] Maalox:Lidocaine 5 ml PO Q6H PRN #100 ml 07/03/19 07/11/19 Lactulose [Generlac] 10 gm PO QID PRN #200 ml 07/11/19 - Allergies Allergies/Adverse Reactions: Allergies Allergy/AdvReac Type Severity Reaction Status Date / Time No Known Drug Allergies Allergy Verified 07/03/19 17:17 - Social History Does the pt smoke?: No Smoking Status: Never smoker Does the pt drink ETOH?: Yes Does the pt have substance abuse?: No - Family History Family history: reports: Non contributory - Immunizations Immunizations are current?: Yes - POLST Patient has POLST: No PD ED PE NORMAL - Vitals Vital signs reviewed: Yes - General General: Alert and oriented X 3, No acute distress - Neck Neck: Supple, no meningeal sign, No bony TTP - Respiratory Respiratory: No respiratory distress, Clear bilaterally - Abdomen Abdomen: Normal bowel sounds, Soft, Non tender - Rectal Rectal: Other (There is dark blood red blood per rectum, I do not see an obvious source, he has a fecal impaction though that is brown and enema was instilled during exam.) - Back Back: No CVA TTP, No spinal TTP - Extremities Extremities: No edema, No calf tenderness / cord - Neuro Neuro: Alert and oriented X 3, Normal speech Results - Vitals Vitals: Vital Signs - 24 hr 07/11/19 07/11/19 07/11/19 15:49 17:33 18:50 Temperature 36.3 C L 36.7 C Heart Rate 88 69 78 Respiratory 14 20 16 Rate Blood Pressure 112/64 157/84 H 138/68 H O2 Saturation 100 07/11/19 07/11/19 07/11/19 19:08 19:22 19:42 Temperature 36.6 C 36.9 C 37.0 C Heart Rate 84 83 80 Respiratory 17 17 19 Rate Blood Pressure 127/61 123/65 140/70 H O2 Saturation 98 07/11/19 07/11/19 07/11/19 19:51 20:03 20:31 Temperature 37.1 C 37 C 37 C Heart Rate 80 77 78 Respiratory 17 19 19 Rate Blood Pressure 127/72 144/62 H 144/61 H O2 Saturation Oxygen O2 Source [Without Activity] Nasal cannula O2 Source Room air - Labs Labs: Laboratory Tests 07/11/19 07/11/19 07/11/19 16:10 16:10 16:10 WBC 15.9 H RBC 3.58 L Hgb 12.1 L Hct 36.9 L MCV 103.1 H MCH 33.8 H MCHC 32.8 RDW 12.6 Plt Count 412 MPV 10.7 Neut # (Auto) 13.1 H Lymph # (Auto) 1.4 L [place] # (Auto) 0.7 Eos # (Auto) 0.4 Baso # (Auto) 0.1 Absolute Nucleated RBC 0.00 Nucleated RBC % 0.0 PT 54.9 H INR 4.9 H* Sodium 141 Potassium 4.0 Chloride 100 L Carbon Dioxide 31 Anion Gap 10.0 BUN 29 H Creatinine 1.8 H Estimated GFR (MDRD) 36 L Glucose 141 H Calcium 9.0 Total Bilirubin 0.6 AST 16 ALT 10 Alkaline Phosphatase 62 Total Protein 6.8 Albumin 3.3 Globulin 3.5 Albumin/Globulin Ratio 0.9 L Lipase 37 Blood Type Blood Type Recheck Antibody Screen 07/11/19 07/11/19 07/11/19 16:10 16:10 18:10 WBC RBC Hgb Hct MCV MCH MCHC RDW Plt Count MPV Neut # (Auto) Lymph # (Auto) [place] # (Auto) Eos # (Auto) Baso # (Auto) Absolute Nucleated RBC Nucleated RBC % PT INR Sodium Potassium Chloride Carbon Dioxide Anion Gap BUN Creatinine Estimated GFR (MDRD) Glucose Calcium Total Bilirubin AST ALT Alkaline Phosphatase Total Protein Albumin Globulin Albumin/Globulin Ratio Lipase Blood Type O NEGATIVE O NEGATIVE Blood Type Recheck O NEGATIVE Antibody Screen NEGATIVE 07/11/19 07/11/19 18:46 18:46 WBC RBC Hgb 10.7 L Hct 33.3 L MCV MCH MCHC RDW Plt Count MPV Neut # (Auto) Lymph # (Auto) [place] # (Auto) Eos # (Auto) Baso # (Auto) Absolute Nucleated RBC Nucleated RBC % PT 29.5 H INR 2.6 H Sodium Potassium Chloride Carbon Dioxide Anion Gap BUN Creatinine Estimated GFR (MDRD) Glucose Calcium Total Bilirubin AST ALT Alkaline Phosphatase Total Protein Albumin Globulin Albumin/Globulin Ratio Lipase Blood Type Blood Type Recheck Antibody Screen PD MEDICAL DECISION MAKING - ED course ED course: 84-year-old gentleman with a fecal impaction and lower GI bleeding. The source appears to be right at the rectum based on the fact that his fecal impaction itself was brown. His H&H is reassuring, basically is baseline for him, but his INR is quite high at 4.9. For this, given the ongoing bleeding he will be transfused 2 units of platelets and placed in observation for serial H&H. Discussed case by phone with the surgeon who will consult as needed and Dr. Hernandez for observation who felt that he could be managed as an ER patient. I agreed that we could give him 2 units of FFP and recheck his H&H and INR here. After 2 units of FFP, he had no further bleeding while in the department. His H&H had an insignificant drop probably from the previous bleeding and from the volume of the FFP. Departure - Departure Disposition: 01 Home, Self Care Clinical Impression: Supratherapeutic INR, Rectal bleed Condition: Stable Record reviewed to determine appropriate education?: Yes Instructions: ED Hematochezia Stable Follow-Up: Cristel Newton MD [Primary Care Provider] - Prescriptions: Lactulose [Generlac] 10 gm PO QID PRN #200 ml PRN Reason: Constipation Comments: Return for recurrent bleeding, or if worse in any way. Follow-up with your physician in a few days for recheck and INR recheck. Your INR went from 4.9-2.6 today.
[2019-07-11 16:22] LABS: BASOPHILS # (AUTO) 0.1 10^3/uL (0.0-0.1); BASOPHILS % (AUTO) 0.4 %; EOSINOPHILS # (AUTO) 0.4 10^3/uL (0.0-0.7); EOSINOPHILS % (AUTO) 2.6 %; HGB - HEMOGLOBIN 12.1 g/dL (14.0-18.0); LYMPHOCYTES # (AUTO) 1.4 10^3/uL (1.5-3.5); MEAN CORPUSCULAR HEMOGLOBIN 33.8 pg (27.0-31.0); MEAN CORPUSCULAR HGB CONC 32.8 g/dL (32.0-36.0); MEAN CORPUSCULAR VOLUME 103.1 fL (80.0-94.0); MEAN PLATELET VOLUME 10.7 fL (7.4-11.4); MONOCYTES # (AUTO) 0.7 10^3/uL (0.0-1.0); MONOCYTES % (AUTO) 4.6 %; NEUTROPHILS # (AUTO) 13.1 10^3/uL (1.5-6.6); NEUTROPHILS % (AUTO) 82.5 %; PLT - PLATELET COUNT 412 10^3/uL (130-450); RED BLOOD COUNT 3.58 10^6/uL (4.70-6.10); RED CELL DISTRIBUTION WIDTH 12.6 % (12.0-15.0); WHITE BLOOD COUNT 15.9 x10^3/uL (4.8-10.8)
[2019-07-11 16:30] LABS: PT - PROTHROMBIN TIME 54.9 secs (9.9-12.6)
[2019-07-11 16:37] LABS: INR 4.9 (0.8-1.2)
[2019-07-11 16:38] LABS: ALBUMIN 3.3 g/dL (3.2-5.5); ALBUMIN/GLOBULIN RATIO 0.9 (1.0-2.2); BILIRUBIN,TOTAL 0.6 mg/dL (0.2-1.0); CREATININE 1.8 mg/dL (0.6-1.2); TOTAL PROTEIN 6.8 g/dL (6.7-8.2)
[2019-07-11] MEDS ORDERED: MAGNESIUM CITRATE 296 ML BOTTLE PO STA (16:51)
[2019-07-11 20:50] LABS: HGB - HEMOGLOBIN 10.7 g/dL (14.0-18.0)
[2019-07-11 20:56] LABS: INR 2.6 (0.8-1.2); PT - PROTHROMBIN TIME 29.5 secs (9.9-12.6)
[2019-07-11 21:14] VITALS: BP 126/64
== END 2019-07-11 21:26 | disposition home or self-care (01) ==
LOC: ED 15:35
DX: K62.5 Hemorrhage of anus and rectum (principal); K56.41 Fecal impaction; Z79.01 Long term (current) use of anticoagulants; I10 Essential (primary) hypertension
CPT/HCPCS: 36415; 36430; 80053; 83690; 85014; 85018; 85025; 85610; 86850; 86900; 86901; 99284; 99285; A9270; P9017

== ENCOUNTER 2019-07-28 16:17 | Outpatient (CLI) | payer MEDICARE ==
[2019-07-28 16:41] LABS: INR 2.1 (0.8-1.2); PT - PROTHROMBIN TIME 22.7 secs (9.9-12.6)
[2019-07-28 16:44] LABS: CREATININE 1.3 mg/dL (0.6-1.2)
== END 2019-07-28 16:18 | disposition home or self-care (01) ==
LOC: LAB 16:17
PROVIDERS: ATTEND Internal Medicine
DX: N18.9 Chronic kidney disease, unspecified (principal); Z79.899 Other long term (current) drug therapy; Z79.01 Long term (current) use of anticoagulants
CPT/HCPCS: 36415; 80048; 85610

== ENCOUNTER 2019-07-30 15:16 | Emergency (ER) | payer MEDICARE ==
[2019-07-30] MEDS ORDERED: IPRATROPIUM/ALBUTEROL 3 ML NEB INH STA (17:14)
--- NOTE | 2019-07-30 17:16 | ED Physician Documentation ---
PD HPI DYSPNEA - Stated complaint Stated Complaint: SOA - Chief complaint Chief Complaint: Resp - History obtained from History obtained from: Patient, Family - History of Present Illness Timing - onset: Last night (This is an 84-year-old gentleman presents by private vehicle accompanied by his son. He has a history of COPD but does not wear oxygen at home. For the last day he has had a nonproductive cough with increased shortness of breath and chills. He denies chest pain, pedal edema. He recently had some heart testing done per the son but we do not know the results or the specifics of what testing he had done.) Review of Systems Ten Systems: 10 systems reviewed and negative Constitutional: reports: Chills. denies: Fever Nose: reports: Rhinorrhea / runny nose Throat: denies: Sore throat Cardiac: denies: Chest pain / pressure, Palpitations Respiratory: reports: Dyspnea, Cough PD PAST MEDICAL HISTORY - Past Medical History Cardiovascular: Hypertension Respiratory: Asthma, COPD Neuro: Tremors, Other Endocrine/Autoimmune: None GI: None : None Psych: Depression, Anxiety Musculoskeletal: Osteoarthritis, Chronic back pain Derm: None - Past Surgical History Past Surgical History: No General: Appendectomy - Present Medications Home Medications: Ambulatory Orders Medication Instructions Recorded Confirmed Albuterol Sulfate [Proair Hfa 1 - 2 puffs INH Q4H PRN #1 inhaler 05/02/19 Inhaler] Ipratropium/Albuterol [Combivent 4 gm IH Q6H PRN #1 aer.w.adap 05/02/19 07/11/19 Respimat] Lisinopril [Zestril] 2.5 mg PO DAILY #10 tablet 05/02/19 07/11/19 Saw [place] 160 mg PO DAILY #30 capsule 05/09/19 07/11/19 Alfuzosin HCl [Alfuzosin HCl ER] 10 mg PO 05/21/19 05/21/19 Finasteride 5 mg PO 05/21/19 05/21/19 Ipratropium [Atrovent] 0.5 mg INH Q6H #30 neb 05/21/19 07/11/19 Ipratropium/Albuterol Sulfate 3 ml INH PRN PRN 06/06/19 07/11/19 [Iprat-Albut 0.5-3(2.5) mg/3 ml] Timolol Maleate [Timoptic] 1 drops EACHEYE DAILY 06/06/19 07/11/19 Warfarin [Coumadin] 2.5 mg PO DAILY 06/06/19 07/11/19 Hydrocodone/Acetaminophen [[place] 1 each PO Q6H PRN #15 tablet 06/29/19 5-325 Tablet] Maalox:Lidocaine 5 ml PO Q6H PRN #100 ml 07/03/19 07/11/19 Lactulose [Generlac] 10 gm PO QID PRN #200 ml 07/11/19 Azithromycin 07/30/19 Levofloxacin [Levaquin] 500 mg PO DAILY #7 tablet 07/30/19 Metoprolol Succinate 25 mg 07/30/19 predniSONE [Deltasone] 20 mg PO [id number] #21 tab 07/30/19 - Allergies Allergies/Adverse Reactions: Allergies Allergy/AdvReac Type Severity Reaction Status Date / Time No Known Drug Allergies Allergy Verified 07/30/19 15:24 - Social History Does the pt smoke?: No Smoking Status: Never smoker Does the pt drink ETOH?: Yes Does the pt have substance abuse?: No - Family History Family history: reports: Non contributory - Immunizations Immunizations are current?: Yes - POLST Patient has POLST: No PD ED PE NORMAL - Vitals Vital signs reviewed: Yes - General General: Alert and oriented X 3 (Looks like he is having chills but he is afebrile) - HEENT HEENT: PERRL, EOMI - Neck Neck: Supple, no meningeal sign, No bony TTP - Cardiac Cardiac: RRR, No murmur - Respiratory Respiratory: No respiratory distress, Other (Rhonchorous and wheezy throughout, speaking in full sentences) - Abdomen Abdomen: Non tender - Derm Derm: Normal color, Warm and dry - Extremities Extremities: No edema, No calf tenderness / cord - Neuro Neuro: Alert and oriented X 3, Normal speech Results - Vitals Vitals: Vital Signs - 24 hr 07/30/19 07/30/19 07/30/19 15:24 17:11 17:13 Temperature 36.9 C 36.8 C Heart Rate 84 87 Respiratory 16 20 Rate Blood Pressure 103/56 L 147/51 H O2 Saturation 96 100 07/30/19 07/30/19 17:30 18:04 Temperature Heart Rate 85 89 Respiratory 20 18 Rate Blood Pressure 121/56 L O2 Saturation 99 Oxygen O2 Source [] Nasal cannula O2 Source Room air - EKG (time done) 1726 Rate: Rate (enter#) (82) Rhythm: NSR (with pvcs) [place]: Normal Intervals: LBBB Computer interpretation: Agree with computer - Labs Labs: Laboratory Tests 07/30/19 07/30/19 07/30/19 17:36 17:36 17:36 WBC 10.1 RBC 3.22 L Hgb 10.6 L Hct 33.5 L MCV 104.0 H MCH 32.9 H MCHC 31.6 L RDW 13.0 Plt Count 364 MPV 10.5 Neut # (Auto) 8.2 H Lymph # (Auto) 0.9 L [place] # (Auto) 0.5 Eos # (Auto) 0.4 Baso # (Auto) 0.1 Absolute Nucleated RBC 0.00 Nucleated RBC % 0.0 PT 24.7 H INR 2.3 H Sodium 141 Potassium 4.3 Chloride 105 Carbon Dioxide 28 Anion Gap 8.0 BUN 18 Creatinine 1.4 H Estimated GFR (MDRD) 48 L Glucose 104 H Lactic Acid Calcium 8.5 Total Bilirubin 0.7 AST 16 ALT 11 Alkaline Phosphatase 73 Troponin I High Sens B-Natriuretic Peptide Total Protein 6.9 Albumin 3.0 L Globulin 3.9 Albumin/Globulin Ratio 0.8 L Lipase 29 07/30/19 07/30/19 07/30/19 17:36 17:36 17:36 WBC RBC Hgb Hct MCV MCH MCHC RDW Plt Count MPV Neut # (Auto) Lymph # (Auto) [place] # (Auto) Eos # (Auto) Baso # (Auto) Absolute Nucleated RBC Nucleated RBC % PT INR Sodium Potassium Chloride Carbon Dioxide Anion Gap BUN Creatinine Estimated GFR (MDRD) Glucose Lactic Acid 1.4 Calcium Total Bilirubin AST ALT Alkaline Phosphatase Troponin I High Sens 13.9 B-Natriuretic Peptide 480 H Total Protein Albumin Globulin Albumin/Globulin Ratio Lipase - Rads (name of study) 1v chest Radiology: EMP read contemporaneously (NAD) PD MEDICAL DECISION MAKING - ED course ED course: This is an 84-year-old gentleman with history of COPD who presents with an apparent COPD exacerbation. After a DuoNeb he felt much better. His anemia is at his baseline, BNP also. There is no evidence on his x-ray or other work-up of cardiac decompensation. He coughed up a good sputum sample and this was sent for culture. We will start him on steroids and antibiotics. Departure - Departure Disposition: Home, Self Care Clinical Impression: Acute exacerbation of COPD with asthma Condition: Good Record reviewed to determine appropriate education?: Yes Instructions: ED COPD Flare Prescriptions: Levofloxacin [Levaquin] 500 mg PO DAILY #7 tablet predniSONE [Deltasone] 20 mg PO [id number] #21 tab Comments: As discussed, your INR will probably go up while on the antibiotics and steroids. Have it checked again on Saturday. Return for new or worsening symptoms. Follow-up with your doctor next week.
[2019-07-30 17:44] LABS: BASOPHILS # (AUTO) 0.1 10^3/uL (0.0-0.1); BASOPHILS % (AUTO) 0.5 %; EOSINOPHILS # (AUTO) 0.4 10^3/uL (0.0-0.7); EOSINOPHILS % (AUTO) 4.3 %; HGB - HEMOGLOBIN 10.6 g/dL (14.0-18.0); LYMPHOCYTES # (AUTO) 0.9 10^3/uL (1.5-3.5); LYMPHOCYTES % (AUTO) 9.1 %; MEAN CORPUSCULAR HEMOGLOBIN 32.9 pg (27.0-31.0); MEAN CORPUSCULAR HGB CONC 31.6 g/dL (32.0-36.0); MEAN PLATELET VOLUME 10.5 fL (7.4-11.4); MONOCYTES # (AUTO) 0.5 10^3/uL (0.0-1.0); MONOCYTES % (AUTO) 4.5 %; NEUTROPHILS # (AUTO) 8.2 10^3/uL (1.5-6.6); NEUTROPHILS % (AUTO) 81.2 %; PLT - PLATELET COUNT 364 10^3/uL (130-450); RED BLOOD COUNT 3.22 10^6/uL (4.70-6.10); WHITE BLOOD COUNT 10.1 x10^3/uL (4.8-10.8)
[2019-07-30 17:55] LABS: ALBUMIN/GLOBULIN RATIO 0.8 (1.0-2.2); BILIRUBIN,TOTAL 0.7 mg/dL (0.2-1.0); CALCIUM 8.5 mg/dL (8.5-10.3); CREATININE 1.4 mg/dL (0.6-1.2); TOTAL PROTEIN 6.9 g/dL (6.7-8.2)
[2019-07-30 17:59] LABS: INR 2.3 (0.8-1.2); PT - PROTHROMBIN TIME 24.7 secs (9.9-12.6)
--- NOTE | 2019-07-30 18:08 | XRAY Report ---
Reason: cough Procedure Date: 07/30/2019 Accession Number: [id number] / [id number] Procedure: XR - Chest 1 View X-Ray CPT Code: 06373 FULL RESULT: EXAM: CHEST RADIOGRAPHY EXAM DATE: 07/30/2019 05:26 PM. CLINICAL HISTORY: COUGH. COMPARISON: CHEST 1 VIEW 06/29/2019 11:12 AM. TECHNIQUE: 1 view. FINDINGS: Lungs/Pleura: No focal opacities evident. No pleural effusion. No pneumothorax. Mediastinum: Within exam limitations, the cardiomediastinal contour is normal. Other: None. IMPRESSION: Normal single view chest. RADIA
[2019-07-30 18:40] VITALS: BP 122/54
== END 2019-07-30 18:45 | disposition home or self-care (01) ==
LOC: ED 15:16
DX: J44.1 Chronic obstructive pulmonary disease with (acute) exacerbation (principal); I10 Essential (primary) hypertension; I44.7 Left bundle-branch block, unspecified; I49.3 Ventricular premature depolarization; Z79.01 Long term (current) use of anticoagulants
CPT/HCPCS: 36415; 71045; 80053; 83605; 83690; 83880; 84484; 85025; 85610; 87040; 87070; 87205; 93005; 94640; 99283; 99284

== ENCOUNTER 2019-08-03 11:28 | Outpatient (CLI) | payer MEDICARE | END 2019-08-03 23:59 | disposition home or self-care (01) | LOC: LAB.N 11:28 | PROVIDERS: ATTEND Internal Medicine | DX: Z51.81 Encounter for therapeutic drug level monitoring (principal); Z79.01 Long term (current) use of anticoagulants | CPT/HCPCS: 85610 ==

== ENCOUNTER 2019-08-07 13:56 | Outpatient (CLI) | payer MEDICARE ==
--- NOTE | 2019-08-07 14:45 | XRAY Report ---
Reason: COUGH Procedure Date: 08/07/2019 Accession Number: [id number] / [id number] Procedure: XRN - Chest 2 View X-Ray CPT Code: 98345 FULL RESULT: EXAM: CHEST RADIOGRAPHY EXAM DATE: 08/07/2019 02:12 PM. CLINICAL HISTORY: COUGH. COMPARISON: CHEST 1 VIEW 07/30/2019 5:11 PM. TECHNIQUE: 2 views. FINDINGS: Lungs/Pleura: No focal opacities evident. No pleural effusion. No pneumothorax. Normal volumes. Mediastinum: Heart and mediastinal contours are unremarkable. Other: None. IMPRESSION: Normal 2-view chest radiography. RADIA
== END 2019-08-07 13:57 | disposition home or self-care (01) ==
LOC: DI.N 13:56
PROVIDERS: ATTEND Internal Medicine
DX: R05 Cough (principal)
CPT/HCPCS: 71046

== ENCOUNTER 2019-08-17 11:52 | Inpatient (IN) | payer MEDICARE ==
[2019-08-17] MEDS ORDERED: IPRATROPIUM/ALBUTEROL 3 ML NEB INH PRN ×2 (12:05→13:19)
[2019-08-17] MEDS ORDERED: methylPREDNISolone SUCCINATE 125 MG/2 ML VIAL IVP STA (12:06)
[2019-08-17] MEDS ORDERED: IPRATROPIUM/ALBUTEROL 3 ML NEB INH STA (12:06)
--- NOTE | 2019-08-17 12:09 | ED Physician Documentation ---
PD HPI DYSPNEA - Stated complaint Stated Complaint: COUGH - Chief complaint Chief Complaint: Resp - History obtained from History obtained from: Patient, Family - History of Present Illness Timing - onset: Other (84-year-old gentleman with COPD presents referred from Dr. Newton's office with increased shortness of breath. He had a tough 8 weeks or so with coughing and shortness of breath. He went to the office today for follow-up and they noted his sat to be in the 70s with respiratory distress. Since I last saw him he finished the course of levofloxacin and steroids. He is on 3 times a week azithromycin prescribed by his program scheduler prophylactically. He is on warfarin as well.) Review of Systems Ten Systems: 10 systems reviewed and negative Constitutional: reports: Fatigue. denies: Fever, Chills Nose: denies: Rhinorrhea / runny nose, Congestion, Epistaxis Cardiac: denies: Chest pain / pressure, Palpitations Respiratory: reports: Dyspnea, Cough PD PAST MEDICAL HISTORY - Past Medical History Cardiovascular: Hypertension Respiratory: Asthma, COPD Neuro: Tremors, Other Endocrine/Autoimmune: None GI: None : None Psych: Depression, Anxiety Musculoskeletal: Osteoarthritis, Chronic back pain Derm: None - Past Surgical History Past Surgical History: No General: Appendectomy - Present Medications Home Medications: Ambulatory Orders Medication Instructions Recorded Confirmed Albuterol Sulfate [Proair Hfa 1 - 2 puffs INH Q4H PRN #1 inhaler 05/02/19 Inhaler] Ipratropium/Albuterol [Combivent 4 gm IH Q6H PRN #1 aer.w.adap 05/02/19 07/11/19 Respimat] Lisinopril [Zestril] 2.5 mg PO DAILY #10 tablet 05/02/19 07/11/19 Saw [place] 160 mg PO DAILY #30 capsule 05/09/19 07/11/19 Alfuzosin HCl [Alfuzosin HCl ER] 10 mg PO 05/21/19 05/21/19 Finasteride 5 mg PO 05/21/19 05/21/19 Ipratropium [Atrovent] 0.5 mg INH Q6H #30 neb 05/21/19 07/11/19 Ipratropium/Albuterol Sulfate 3 ml INH PRN PRN 06/06/19 07/11/19 [Iprat-Albut 0.5-3(2.5) mg/3 ml] Timolol Maleate [Timoptic] 1 drops EACHEYE DAILY 06/06/19 07/11/19 Warfarin [Coumadin] 2.5 mg PO DAILY 06/06/19 07/11/19 Hydrocodone/Acetaminophen [[place] 1 each PO Q6H PRN #15 tablet 06/29/19 5-325 Tablet] Maalox:Lidocaine 5 ml PO Q6H PRN #100 ml 07/03/19 07/11/19 Lactulose [Generlac] 10 gm PO QID PRN #200 ml 07/11/19 Azithromycin 07/30/19 Levofloxacin [Levaquin] 500 mg PO DAILY #7 tablet 07/30/19 Metoprolol Succinate 25 mg 07/30/19 predniSONE [Deltasone] 20 mg PO [id number] #21 tab 07/30/19 - Allergies Allergies/Adverse Reactions: Allergies Allergy/AdvReac Type Severity Reaction Status Date / Time No Known Drug Allergies Allergy Verified 08/17/19 12:04 - Social History Does the pt smoke?: No Smoking Status: Never smoker Does the pt drink ETOH?: Yes Does the pt have substance abuse?: No - Immunizations Immunizations are current?: Yes - POLST Patient has POLST: No PD ED PE NORMAL - Vitals Vital signs reviewed: Yes - General General: Alert and oriented X 3, Other (Speaking in full albeit short sentences with some respiratory distress) - HEENT HEENT: PERRL, EOMI - Neck Neck: Supple, no meningeal sign, No bony TTP - Cardiac Cardiac: RRR, No murmur - Respiratory Respiratory: Other (Diminished throughout with audible wheezing) - Abdomen Abdomen: Soft, Non tender - Back Back: No CVA TTP, No spinal TTP - Derm Derm: Normal color, Warm and dry - Extremities Extremities: No edema, No calf tenderness / cord - Neuro Neuro: Alert and oriented X 3, Normal speech Results - Vitals Vitals: Vital Signs - 24 hr 08/17/19 08/17/19 08/17/19 11:59 12:12 12:25 Temperature 36.4 C L Heart Rate 101 H 107 H 100 Respiratory 34 H 22 18 Rate Blood Pressure 139/118 H 158/103 H O2 Saturation 98 99 08/17/19 12:34 Temperature Heart Rate 100 Respiratory 16 Rate Blood Pressure 157/98 H O2 Saturation 100 Oxygen O2 Source [] Nasal cannula O2 Source Room air - EKG (time done) 1210 Rate: Rate (enter#) (119) Rhythm: Sinus tachycardia (He was very tremulous. There is a lot of artifact and I basically cannot tell anything. There is a suggestion of LVH with repolarization abnormality. Subtleties of the ST-T segments are impossible to differentiate.) - Labs Labs: Laboratory Tests 08/17/19 08/17/19 08/17/19 12:24 12:24 12:24 WBC 16.1 H RBC 3.71 L Hgb 12.3 L Hct 38.6 L MCV 104.0 H MCH 33.2 H MCHC 31.9 L RDW 13.3 Plt Count 330 MPV 11.3 Neut # (Auto) 13.9 H Lymph # (Auto) 0.9 L [place] # (Auto) 0.8 Eos # (Auto) 0.3 Baso # (Auto) 0.0 Absolute Nucleated RBC 0.00 Nucleated RBC % 0.0 Sodium 140 Potassium 4.1 Chloride 101 Carbon Dioxide 29 Anion Gap 10.0 BUN 19 Creatinine 1.1 Estimated GFR (MDRD) 64 L Glucose 104 H Lactic Acid Calcium 8.3 L Total Bilirubin 1.1 H AST 17 ALT 10 Alkaline Phosphatase 66 Troponin I High Sens 18.9 B-Natriuretic Peptide Total Protein 6.5 L Albumin 3.0 L Globulin 3.5 Albumin/Globulin Ratio 0.9 L Lipase 27 08/17/19 08/17/19 12:24 12:24 WBC RBC Hgb Hct MCV MCH MCHC RDW Plt Count MPV Neut # (Auto) Lymph # (Auto) [place] # (Auto) Eos # (Auto) Baso # (Auto) Absolute Nucleated RBC Nucleated RBC % Sodium Potassium Chloride Carbon Dioxide Anion Gap BUN Creatinine Estimated GFR (MDRD) Glucose Lactic Acid 1.5 Calcium Total Bilirubin AST ALT Alkaline Phosphatase Troponin I High Sens B-Natriuretic Peptide 481 H Total Protein Albumin Globulin Albumin/Globulin Ratio Lipase PD MEDICAL DECISION MAKING - ED course Complexity details: d/w family (This is an 84-year-old gentleman with severe COPD with exacerbation whose had a progressive decline. He would not like to be intubated or resuscitated if it came to that.) ED course: 84-year-old gentleman whose had a tough couple of months with COPD, despite being on recent treatments with antibiotics and steroids presents in extremis today with respiratory difficulty. After a DuoNeb he was more comfortable but still very wheezy. Given the recent outpatient antibiotics and steroids I think this represents a failure of outpatient treatment and a call was placed to the hospitalist for admission at 1:10 PM. Departure - Departure Disposition: 66 [facility] DC/Xfer Clinical Impression: Acute exacerbation of COPD with asthma, Adequate anticoagulation on anticoagulant therapy Condition: Serious
[2019-08-17] MEDS ORDERED: PANTOPRAZOLE 40 MG VIAL IVP STA (12:17)
--- NOTE | 2019-08-17 12:29 | XRAY Report ---
Reason: dyspnea Procedure Date: 08/17/2019 Accession Number: [id number] / [id number] Procedure: XR - Chest 1 View X-Ray CPT Code: 24257 FULL RESULT: EXAM: CHEST RADIOGRAPHY EXAM DATE: 08/17/2019 12:02 PM. CLINICAL HISTORY: Dyspnea. COMPARISON: CHEST 2 VIEW 08/07/2019 2:17 PM. TECHNIQUE: 1 view. FINDINGS: Lungs/Pleura: No focal opacities evident. No pleural effusion. No pneumothorax. Mediastinum: Within exam limitations, the cardiomediastinal contour is normal. Other: None. IMPRESSION: No evidence for acute cardiopulmonary process. RADIA
[2019-08-17 12:39] LABS: BASOPHILS % (AUTO) 0.2 %; EOSINOPHILS # (AUTO) 0.3 10^3/uL (0.0-0.7); EOSINOPHILS % (AUTO) 1.9 %; HGB - HEMOGLOBIN 12.3 g/dL (14.0-18.0); LYMPHOCYTES # (AUTO) 0.9 10^3/uL (1.5-3.5); LYMPHOCYTES % (AUTO) 5.8 %; MEAN CORPUSCULAR HEMOGLOBIN 33.2 pg (27.0-31.0); MEAN CORPUSCULAR HGB CONC 31.9 g/dL (32.0-36.0); MEAN PLATELET VOLUME 11.3 fL (7.4-11.4); MONOCYTES # (AUTO) 0.8 10^3/uL (0.0-1.0); MONOCYTES % (AUTO) 5.1 %; NEUTROPHILS # (AUTO) 13.9 10^3/uL (1.5-6.6); NEUTROPHILS % (AUTO) 86.2 %; PLT - PLATELET COUNT 330 10^3/uL (130-450); RED BLOOD COUNT 3.71 10^6/uL (4.70-6.10); RED CELL DISTRIBUTION WIDTH 13.3 % (12.0-15.0); WHITE BLOOD COUNT 16.1 x10^3/uL (4.8-10.8)
[2019-08-17 13:06] LABS: ALBUMIN/GLOBULIN RATIO 0.9 (1.0-2.2); BILIRUBIN,TOTAL 1.1 mg/dL (0.2-1.0); CALCIUM 8.3 mg/dL (8.5-10.3); CREATININE 1.1 mg/dL (0.6-1.2); TOTAL PROTEIN 6.5 g/dL (6.7-8.2)
[2019-08-17] MEDS ORDERED: cefTRIAXone 1 GM in SODIUM CHLORIDE 0.9% MINIBAG 100 ML IV STA (13:06)
[2019-08-17] MEDS ORDERED: LEVALBUTEROL 1.25 MG/3 ML NEB INH STA (13:06)
[2019-08-17] MEDS ORDERED: MORPHINE 2 MG/ML CARPUJECT IVP PRN (13:15)
[2019-08-17] MEDS ORDERED: SODIUM CHLORIDE FLUSH 0.9% 10 ML SYRINGE IVP PRN (13:15)
[2019-08-17] MEDS ORDERED: ACETAMINOPHEN 325 MG TABLET PO PRN (13:15)
[2019-08-17] MEDS ORDERED: PROCHLORPERAZINE 10 MG/2 ML VIAL IVP PRN (13:15)
[2019-08-17] MEDS ORDERED: LEVALBUTEROL 1.25 MG/3 ML NEB INH PRN ×2 (13:20→14:36)
[2019-08-17 13:28] LABS: INR 2.2 (0.8-1.2); PT - PROTHROMBIN TIME 23.5 secs (9.9-12.6)
[2019-08-17] MEDS ORDERED: LACTATED RINGERS 1,000 ML IV SCH (14:00)
[2019-08-17] MEDS: LEVALBUTEROL 1.25 MG/3 ML NEB INH SCH ×3 (15:56→19:31)
[2019-08-17] MEDS: SODIUM CHLORIDE FLUSH 0.9% 10 ML SYRINGE IVP SCH (18:20)
[2019-08-17 18:23] LABS: MAGNESIUM 1.7 mg/dL (1.7-2.8)
[2019-08-17] MEDS: FAMOTIDINE 20 MG TABLET PO SCH (20:52)
[2019-08-18] MEDS: SODIUM CHLORIDE FLUSH 0.9% 10 ML SYRINGE IVP SCH ×3 (01:51→16:18)
--- NOTE | 2019-08-18 02:30 | HISTORY & PHYSICAL EXAMINATION ---
DATE OF SERVICE: 08/17/2019 Physician: Cammie Hernandez MD HISTORY OF PRESENT ILLNESS: This is an 84-year-old white male who is a poor historian and has a history of COPD and systolic heart failure. The entire history is obtained from chart review, the patient states he does not know his diagnoses, does not know his medications, does not know his doctors and to speak to his [id number] who manages his medications. The patient presents with shortness of breath that has not responded to two weeks of prednisone and Levaquin and then recent addition of Zithromax three times a week by his warble saw operator. He was at his PCP office and found to have a oxygen saturation of 74% on room air and was sent to the ER. Here his lowest saturation was 90%, but he was very tight, required a nebulizer and continued to have air hunger and wheezing and is being admitted for COPD exacerbation. PAST MEDICAL HISTORY 1. COPD. 2. Systolic heart failure diagnosed by echo in April of this year. The patient does not know if he went to a junior qa analyst or if he is on cardiac medications. 3. Dementia, possibly. 4. Glaucoma 5. Unknown diagnosis for being on Warfarin MEDICATIONS 1. Eyedrops. 2. Albuterol. 3. Atrovent. 4. Ditropan. 5. Zithromax 3 times a week. 6. Alfuzosin 10 mg daily. 7. Metoprolol succinate 12.5 mg daily. 8. Finasteride 5 mg daily. 9. Saw [place]. 10. Warfarin. REVIEW OF SYSTEMS: Review of systems was done from chart review. The patient does not know why he is on his medications. I was unable to reach family members to determine specifically why he is on warfarin and what type of cardiac workup was done after the Echo done here in April 2019, when he was admitted for SOB. ALLERGIES: NONE. SOCIAL HISTORY: The patient is a nonsmoker, drinks no alcohol, no illicit drug use. FAMILY HISTORY: Noncontributory. PHYSICAL EXAMINATION GENERAL: Elderly white male. He is in no distress, breathing room air. VITAL SIGNS: Blood pressure 120/60, heart rate 90 in sinus rhythm, respiratory rate 25, room air saturation 90-94%. HEENT: Reveals dry oral mucosa and he is hard of hearing. NECK: No JVD in a vertical position. CHEST: Increased AP diameter and scattered wheezes. There are no rales or rhonchi. HEART: Distant heart sounds. No murmur. ABDOMEN: Soft, nontender. EXTREMITIES: No clubbing, cyanosis or edema. NEUROLOGIC: Poor memory, grossly intact motor exam. LABORATORY DATA: Normal electrolytes. Normal BUN and creatinine. Lactic acid 1.5. Troponin 18.9. BNP 481 (in the past his BNP has been as high as 1200). White blood count 60.1 (but he has been on steroids), hemoglobin 12.3 with MCV of 104, platelet count 330. INR 2.2. CHEST X-RAY: Changes of COPD, no infiltrate. EKG: Done in the ER had excessive baseline artifact plus tremulousness. Repeat EKG done as an inpatient shows normal sinus rhythm, left atrial and right atrial enlargement, left bundle branch block. IMPRESSION/DIAGNOSES 1. Chronic obstructive pulmonary disease exacerbation. 2. Systolic heart failure, details are not known. 3. Probable dementia. 4. Left bundle branch block. PLAN: Admit the patient to telemetry on inpatient service. Begin IV nebs, IV steroids, continue with the Levaquin, but change to IV treating. Continue with his other prehospital medications. Obtain details of his cardiac history. The [id number] did phone in information about his cardiac provider: Gloria Miranda at the [facility]. CODE STATUS: DNR (the patient told the ER doctor this was his wish). DEEP VENOUS THROMBOSIS PROPHYLAXIS: SCDs. ATTESTATION: The patient is expected to be discharged or transferred to another facility within 96 hours: Yes. TD: 08/17/2019 22:13 [email or web address]
[2019-08-18 05:50] LABS: BASOPHILS % (AUTO) 0.1 %; HGB - HEMOGLOBIN 11.2 g/dL (14.0-18.0); LYMPHOCYTES # (AUTO) 0.5 10^3/uL (1.5-3.5); LYMPHOCYTES % (AUTO) 5.5 %; MEAN CORPUSCULAR HEMOGLOBIN 32.3 pg (27.0-31.0); MEAN CORPUSCULAR HGB CONC 31.7 g/dL (32.0-36.0); MEAN CORPUSCULAR VOLUME 101.7 fL (80.0-94.0); MEAN PLATELET VOLUME 10.9 fL (7.4-11.4); MONOCYTES # (AUTO) 0.1 10^3/uL (0.0-1.0); MONOCYTES % (AUTO) 1.4 %; NEUTROPHILS # (AUTO) 8.5 10^3/uL (1.5-6.6); NEUTROPHILS % (AUTO) 92.2 %; PLT - PLATELET COUNT 340 10^3/uL (130-450); RED BLOOD COUNT 3.47 10^6/uL (4.70-6.10); RED CELL DISTRIBUTION WIDTH 13.3 % (12.0-15.0); WHITE BLOOD COUNT 9.2 x10^3/uL (4.8-10.8)
[2019-08-18 05:51] LABS: BILIRUBIN,URINE NEGATIVE (NEGATIVE); CLARITY,URINE CLEAR (CLEAR); GLUCOSE, URINE (UA) NEGATIVE (NEGATIVE); KETONES,URINE (UA) NEGATIVE (NEGATIVE); LEUKOCYTE ESTERASE, URINE MODERATE (NEGATIVE); NITRITE,URINE NEGATIVE (NEGATIVE); OCCULT BLOOD,URINE SMALL (NEGATIVE); PH,URINE 5.5 PH (5.0-7.5); PROTEIN,URINE TRACE mg/dL (NEGATIVE); UROBILINOGEN,URINE 0.2 (NORMAL) E.U./dL (NORMAL)
[2019-08-18 05:54] LABS: INR 2.4 (0.8-1.2); PT - PROTHROMBIN TIME 26.1 secs (9.9-12.6)
[2019-08-18 05:58] LABS: CALCIUM 8.3 mg/dL (8.5-10.3); CREATININE 1.1 mg/dL (0.6-1.2)
[2019-08-18 06:01] LABS: BACTERIA,URINE Moderate /HPF (None Seen); RBC,URINE 0-5 /HPF (0-5); SQUAMOUS EPITHELIAL CELL,UR NONE SEEN (<= Few)
[2019-08-18] MEDS: LEVALBUTEROL 1.25 MG/3 ML NEB INH SCH ×4 (07:50→20:22)
[2019-08-18] MEDS ORDERED: LACTOBACILLUS RHAMNOSUS GG CAPSULE PO SCH (09:00)
[2019-08-18] MEDS: methylPREDNISolone SUCCINATE 40 MG/ML VIAL IVP SCH ×2 (10:57→20:50)
[2019-08-18] MEDS: cefTRIAXone 1 GM in SODIUM CHLORIDE 0.9% MINIBAG 100 ML IV SCH (10:57)
[2019-08-18] MEDS: LISINOPRIL 5 MG TABLET PO SCH (10:59)
[2019-08-18] MEDS: POLYETHYLENE GLYCOL 3350 17 GM PACKET PO SCH (10:59)
[2019-08-18] MEDS: FAMOTIDINE 20 MG TABLET PO SCH (10:59)
--- NOTE | 2019-08-18 15:17 | PROVIDER PROGRESS NOTE ---
Subjective - Prog Note Date Prog Note Date: 08/18/19 Prog Note Time: 15:15 - Subjective Pt reports feeling: Improved Subjective: He reports that his shortness of breath is improving but still has symptoms. He continues to have a cough. Denies chest pain. Current Medications - Current Medications Current Medications: Active Medications Acetaminophen (Tylenol) 650 mg PO Q4HR PRN PRN Reason: Pain or Fever > 38C (100.4F) Famotidine (Pepcid) 20 mg PO DAILY [facility] Last Admin: 08/18/19 10:59 Dose: 20 mg Ceftriaxone Sodium 1 gm/ (Sodium Chloride) 100 mls @ 200 mls/hr IV DAILY [facility] Last Infusion: 08/18/19 12:45 Dose: Infused Lactobacillus Rhamnosus (Culturelle) 1 cap PO DAILY [facility] Levalbuterol HCl (Xopenex) 1.25 mg INH RTQID [facility] Last Admin: 08/18/19 11:30 Dose: 1.25 mg Levalbuterol HCl (Xopenex) 1.25 mg INH RTQ4H PRN PRN Reason: Wheezing/SHORTNESS OF AIR Lisinopril (Zestril) 2.5 mg PO DAILY [facility] Last Admin: 08/18/19 10:59 Dose: 2.5 mg Methylprednisolone (Solu-Medrol (40mg Vial)) 40 mg IVP BID [facility] Last Admin: 08/18/19 10:57 Dose: 40 mg Morphine Sulfate (Morphine (Carpuject)) 2 mg IVP Q2HR PRN PRN Reason: Pain 8 to 10 Multivitamins/Minerals (Theragran M) 1 tab PO DAILYWM [facility] Polyethylene Glycol (Miralax) 17 gm PO DAILY [facility] Last Admin: 08/18/19 10:59 Dose: 17 gm Prochlorperazine Edisylate (Compazine Inj) 10 mg IVP Q6HR PRN PRN Reason: Nausea / Vomiting Sodium Chloride (Normal Saline Flush 0.9%) 10 ml IVP PRN PRN PRN Reason: NEEDED PER PROVIDER ORDERS Sodium Chloride (Normal Saline Flush 0.9%) 10 ml IVP 0100,0900,1700 [facility] Last Admin: 08/18/19 10:40 Dose: 10 ml Alfuzosin HCl [Alfuzosin HCl ER] 10 mg PO DAILY 05/21/19 Finasteride 5 mg PO DAILY 05/21/19 Warfarin [Coumadin] 2.5 mg PO SUTUTHSA 06/06/19 Azithromycin 250 mg PO MOWEFR 07/30/19 Metoprolol Succinate 12.5 mg PO DAILY 07/30/19 Albuterol 3 ml INH Q4H PRN 08/17/19 Albuterol Sulfate [Albuterol Sulfate Hfa] 1 puffs INH Q4H PRN 08/17/19 Ipratropium [Atrovent] 2.5 ml INH Q6H 08/17/19 Latanoprost 0.005% Ophth Drops [Xalatan Ophth Drops] 1 drops EACHEYE QPM 08/17/19 Oxybutynin Chloride [Ditropan Xl] 5 mg PO DAILY 08/17/19 Saw [place] 450 mg PO DAILY 08/17/19 Timolol 0.5% Ophth Drops [Timoptic 0.5% Ophth Drops] 1 drops EACHEYE BID 08/17/19 Warfarin [Coumadin] 5 mg PO MOWEFR 08/17/19 Objective - Vital Signs/Intake & Output Reviewed Vital Signs: Yes Vital Signs: Vital Signs x48h Temp Pulse Pulse Resp BP Pulse Ox 08/18/19 11:30 83 16 08/18/19 07:55 36.5 C 76 20 147/56 H 97 Intake & Output: Intake & Output 08/15/19 08/16/19 08/17/19 08/18/19 23:59 23:59 23:59 23:59 Intake Total 420 1780 Output Total 425 1000 Balance -5 780 - Objective General Appearance: positive: No acute distress, Alert Eyes Bilateral: positive: Normal inspection ENT: positive: ENT inspection nml Neck: positive: Nml inspection Respiratory: positive: No respiratory distress, Other (Dimished breath sounds. Faint wheezes.). negative: Rales, Rhonchi Cardiovascular: positive: Regular rate & rhythm, No murmur. negative: Tachycardia, Systolic murmur, Diastolic murmur Abdomen: positive: Non-tender, No distention. negative: Tenderness Skin: positive: No rash, Warm, Dry Extremities: positive: Full ROM, No pedal edema Neurologic/Psychiatric: positive: Motor nml. negative: Disoriented to person, Disoriented to place, Weakness, Slurred/abnml speech - Lab Results Fish Bones: 10/15/19 05:25 08/18/19 05:25 Other Labs: Lab Results x24hrs 08/18/19 08/18/19 08/18/19 Range/Units Unknown 05:25 05:25 WBC (4.8-10.8) x10^3/uL RBC (4.70-6.10) 10^6/uL Hgb (14.0-18.0) g/dL Hct (42.0-52.0) % MCV (80.0-94.0) fL MCH (27.0-31.0) pg MCHC (32.0-36.0) g/dL RDW (12.0-15.0) % Plt Count (130-450) 10^3/uL MPV (7.4-11.4) fL Neut # (Auto) (1.5-6.6) 10^3/uL Lymph # (Auto) (1.5-3.5) 10^3/uL [place] # (Auto) (0.0-1.0) 10^3/uL Eos # (Auto) (0.0-0.7) 10^3/uL Baso # (Auto) (0.0-0.1) 10^3/uL Absolute Nucleated RBC x10^3/uL Nucleated RBC % /100WBC PT 26.1 H (9.9-12.6) secs INR 2.4 H (0.8-1.2) Sodium (135-145) mmol/L Potassium (3.5-5.0) mmol/L Chloride (101-111) mmol/L Carbon Dioxide (21-32) mmol/L Anion Gap (6-13) BUN (6-20) mg/dL Creatinine (0.6-1.2) mg/dL Estimated GFR (MDRD) (>89) Glucose (70-100) mg/dL Calcium (8.5-10.3) mg/dL Magnesium (1.7-2.8) mg/dL Troponin I High Sens (2.3-19.7) pg/mL Vitamin B12 330 (180-914) pg/mL Urine Color YELLOW Urine Clarity CLEAR (CLEAR) Urine pH 5.5 (5.0-7.5) PH Ur Specific [place] 1.015 (1.002-1.030) Urine Protein TRACE (NEGATIVE) mg/dL Urine Glucose (UA) NEGATIVE (NEGATIVE) mg/dL Urine Ketones NEGATIVE (NEGATIVE) mg/dL Urine Occult Blood SMALL H (NEGATIVE) Urine Nitrite NEGATIVE (NEGATIVE) Urine Bilirubin NEGATIVE (NEGATIVE) Urine Urobilinogen 0.2 (NORMAL) (NORMAL) E.U./dL Ur Leukocyte Esterase MODERATE H (NEGATIVE) Urine RBC 0-5 (0-5) /HPF Urine WBC 6-10 H (0-3) /HPF Ur Squamous Epith Cells NONE SEEN (<= Few) Urine Bacteria Moderate H (None Seen) /HPF Ur Microscopic Review INDICATED Urine Culture Comments INDICATED 08/18/19 08/18/19 08/17/19 Range/Units 05:25 05:25 17:50 WBC 9.2 (4.8-10.8) x10^3/uL RBC 3.47 L (4.70-6.10) 10^6/uL Hgb 11.2 L (14.0-18.0) g/dL Hct 35.3 L (42.0-52.0) % MCV 101.7 H (80.0-94.0) fL MCH 32.3 H (27.0-31.0) pg MCHC 31.7 L (32.0-36.0) g/dL RDW 13.3 (12.0-15.0) % Plt Count 340 (130-450) 10^3/uL MPV 10.9 (7.4-11.4) fL Neut # (Auto) 8.5 H (1.5-6.6) 10^3/uL Lymph # (Auto) 0.5 L (1.5-3.5) 10^3/uL [place] # (Auto) 0.1 (0.0-1.0) 10^3/uL Eos # (Auto) 0.0 (0.0-0.7) 10^3/uL Baso # (Auto) 0.0 (0.0-0.1) 10^3/uL Absolute Nucleated RBC 0.00 x10^3/uL Nucleated RBC % 0.0 /100WBC PT (9.9-12.6) secs INR (0.8-1.2) Sodium 140 (135-145) mmol/L Potassium 4.2 3.9 (3.5-5.0) mmol/L Chloride 102 (101-111) mmol/L Carbon Dioxide 29 (21-32) mmol/L Anion Gap 9.0 (6-13) BUN 21 H (6-20) mg/dL Creatinine 1.1 (0.6-1.2) mg/dL Estimated GFR (MDRD) 64 L (>89) Glucose 146 H (70-100) mg/dL Calcium 8.3 L (8.5-10.3) mg/dL Magnesium 1.7 (1.7-2.8) mg/dL Troponin I High Sens (2.3-19.7) pg/mL Vitamin B12 (180-914) pg/mL Urine Color Urine Clarity (CLEAR) Urine pH (5.0-7.5) PH Ur Specific [place] (1.002-1.030) Urine Protein (NEGATIVE) mg/dL Urine Glucose (UA) (NEGATIVE) mg/dL Urine Ketones (NEGATIVE) mg/dL Urine Occult Blood (NEGATIVE) Urine Nitrite (NEGATIVE) Urine Bilirubin (NEGATIVE) Urine Urobilinogen (NORMAL) E.U./dL Ur Leukocyte Esterase (NEGATIVE) Urine RBC (0-5) /HPF Urine WBC (0-3) /HPF Ur Squamous Epith Cells (<= Few) Urine Bacteria (None Seen) /HPF Ur Microscopic Review Urine Culture Comments 08/17/19 Range/Units 17:50 WBC (4.8-10.8) x10^3/uL RBC (4.70-6.10) 10^6/uL Hgb (14.0-18.0) g/dL Hct (42.0-52.0) % MCV (80.0-94.0) fL MCH (27.0-31.0) pg MCHC (32.0-36.0) g/dL RDW (12.0-15.0) % Plt Count (130-450) 10^3/uL MPV (7.4-11.4) fL Neut # (Auto) (1.5-6.6) 10^3/uL Lymph # (Auto) (1.5-3.5) 10^3/uL [place] # (Auto) (0.0-1.0) 10^3/uL Eos # (Auto) (0.0-0.7) 10^3/uL Baso # (Auto) (0.0-0.1) 10^3/uL Absolute Nucleated RBC x10^3/uL Nucleated RBC % /100WBC PT (9.9-12.6) secs INR (0.8-1.2) Sodium (135-145) mmol/L Potassium (3.5-5.0) mmol/L Chloride (101-111) mmol/L Carbon Dioxide (21-32) mmol/L Anion Gap (6-13) BUN (6-20) mg/dL Creatinine (0.6-1.2) mg/dL Estimated GFR (MDRD) (>89) Glucose (70-100) mg/dL Calcium (8.5-10.3) mg/dL Magnesium (1.7-2.8) mg/dL Troponin I High Sens 15.4 (2.3-19.7) pg/mL Vitamin B12 (180-914) pg/mL Urine Color Urine Clarity (CLEAR) Urine pH (5.0-7.5) PH Ur Specific [place] (1.002-1.030) Urine Protein (NEGATIVE) mg/dL Urine Glucose (UA) (NEGATIVE) mg/dL Urine Ketones (NEGATIVE) mg/dL Urine Occult Blood (NEGATIVE) Urine Nitrite (NEGATIVE) Urine Bilirubin (NEGATIVE) Urine Urobilinogen (NORMAL) E.U./dL Ur Leukocyte Esterase (NEGATIVE) Urine RBC (0-5) /HPF Urine WBC (0-3) /HPF Ur Squamous Epith Cells (<= Few) Urine Bacteria (None Seen) /HPF Ur Microscopic Review Urine Culture Comments - Diagnostic Imaging Diagnostic Imaging Results: positive: Final report reviewed ABX Reporting Has patient been on IV antibiotics over the past 48 hours?: Yes Assessment/Plan - Problem List (1) COPD exacerbation Impression: Improving but still wheezing and dyspnea with ambulation. Will continue IV Solumedrol, albuterol. Continue Ceftriaxone IV and will add Doxycycline PO to cover for atypicals. Exercise desat test prior to discharge. (2) Catheter-associated urinary tract infection Impression: Present on admission. Urinalysis revealed leukocyte esterase, 6-10 WBC, moderate bacteria. Bautista catheter was exchanged. Continue Ceftriaxone and follow up urine culture. Qualifiers: Indwelling urinary catheter type: indwelling urethral catheter (3) Urinary retention Impression: Chronic in nature. Reports follow with Urology at [place]. Patient is unsure why he has the catheter. Likely BPH given he is on Finasteride and Alfuzosin. Continue home medications. Bautista was replaced given urinalysis findings. Outpatient follow up with Urology. (4) Chronic HFrEF (heart failure with reduced ejection fraction) Impression: He appears euvolemic and not in exacerbation. EF 25% in April of 2019. Will continue Lisinopril and resume Toprol. No diuresis needed at this time. (5) Pulmonary embolism Impression: He is on Coumadin at home and INR is therapeutic. Continue Coumadin. Daily INR while on antibiotics. Qualifiers: Qualified Code(s): I26.09 - Other pulmonary embolism with acute cor pulmonale (6) BPH (benign prostatic hyperplasia) Impression: Has chronic indwelling bautista. Continue Finasteride. Will use Flomax instead of Alfuzosin while hospitalized.
[2019-08-18] MEDS: MULTIVITAMIN W/MINERALS TABLET PO SCH (16:17)
[2019-08-18] MEDS: LACTOBACILLUS RHAMNOSUS GG CAPSULE PO SCH (16:18)
[2019-08-18] MEDS: DOXYCYCLINE 100 MG TABLET PO SCH (20:50)
[2019-08-19 06:03] LABS: CALCIUM 8.3 mg/dL (8.5-10.3); CREATININE 1.1 mg/dL (0.6-1.2)
[2019-08-19 06:08] LABS: PT - PROTHROMBIN TIME 21.9 secs (9.9-12.6)
[2019-08-19] MEDS: LEVALBUTEROL 1.25 MG/3 ML NEB INH SCH ×4 (07:35→19:12)
[2019-08-19] MEDS: FINASTERIDE 5 MG TABLET PO SCH (09:13)
[2019-08-19] MEDS: TAMSULOSIN 0.4 MG CAPSULE PO SCH (09:13)
[2019-08-19] MEDS: POLYETHYLENE GLYCOL 3350 17 GM PACKET PO SCH (09:13)
[2019-08-19] MEDS: predniSONE 20 MG TABLET PO SCH (09:13)
[2019-08-19] MEDS: LACTOBACILLUS RHAMNOSUS GG CAPSULE PO SCH (09:13)
[2019-08-19] MEDS: MULTIVITAMIN W/MINERALS TABLET PO SCH (09:13)
[2019-08-19] MEDS: DOXYCYCLINE 100 MG TABLET PO SCH ×2 (09:14→20:57)
[2019-08-19] MEDS: LISINOPRIL 5 MG TABLET PO SCH (09:14)
[2019-08-19] MEDS: FAMOTIDINE 20 MG TABLET PO SCH (09:14)
[2019-08-19] MEDS: cefTRIAXone 1 GM in SODIUM CHLORIDE 0.9% MINIBAG 100 ML IV SCH (09:14)
[2019-08-19] MEDS: METOPROLOL SUCCINATE 25 MG TABLET PO SCH (09:14)
[2019-08-19] MEDS: SODIUM CHLORIDE FLUSH 0.9% 10 ML SYRINGE IVP SCH ×3 (09:15→17:35)
[2019-08-19] MEDS ORDERED: PANTOPRAZOLE 40 MG TABLET PO STA (12:09)
[2019-08-19] MEDS ORDERED: CALCIUM CARBONATE CHEW 500 MG TABLET PO PRN (12:26)
[2019-08-19] MEDS ORDERED: WARFARIN 2.5 MG TABLET PO SCH (14:00)
[2019-08-19] MEDS ORDERED: WARFARIN 5 MG TABLET PO ONE (17:00)
--- NOTE | 2019-08-19 17:23 | PROVIDER PROGRESS NOTE ---
Subjective - Prog Note Date Prog Note Date: 08/19/19 - Subjective Subjective: He reports feeling slightly better today but still has some dyspnea. He has been able to tolerate ambulating in his room. He did have an episode of NSVT that lasted a few seconds. It occurred while he was complaining to the nurse that he had some heart burn. He reports that the heart burn lasted a few minutes then resolved. He was eating during the episode. Reports it has occurred at times in the past. Current Medications - Current Medications Current Medications: Active Medications Acetaminophen (Tylenol) 650 mg PO Q4HR PRN PRN Reason: Pain or Fever > 38C (100.4F) Calcium Carbonate/Glycine (Tums) 500 mg PO BID PRN PRN Reason: Heartburn Doxycycline Hyclate (Vibramycin) 100 mg PO BID [facility] Last Admin: 08/19/19 09:14 Dose: 100 mg Famotidine (Pepcid) 20 mg PO DAILY [facility] Last Admin: 08/19/19 09:14 Dose: 20 mg Finasteride (Proscar) 5 mg PO DAILY [facility] Last Admin: 08/19/19 09:13 Dose: 5 mg Ceftriaxone Sodium 1 gm/ (Sodium Chloride) 100 mls @ 200 mls/hr IV DAILY [facility] Last Infusion: 08/19/19 10:23 Dose: Infused Lactobacillus Rhamnosus (Culturelle) 1 cap PO DAILY [facility] Last Admin: 08/19/19 09:13 Dose: 1 cap Levalbuterol HCl (Xopenex) 1.25 mg INH RTQID [facility] Last Admin: 08/19/19 16:06 Dose: 1.25 mg Levalbuterol HCl (Xopenex) 1.25 mg INH RTQ4H PRN PRN Reason: Wheezing/SHORTNESS OF AIR Lisinopril (Zestril) 2.5 mg PO DAILY [facility] Last Admin: 08/19/19 09:14 Dose: 2.5 mg Metoprolol Succinate (Toprol Xl) 12.5 mg PO DAILY [facility] Last Admin: 08/19/19 09:14 Dose: 12.5 mg Morphine Sulfate (Morphine (Carpuject)) 2 mg IVP Q2HR PRN PRN Reason: Pain 8 to 10 Multivitamins/Minerals (Theragran M) 1 tab PO DAILYWM [facility] Last Admin: 08/19/19 09:13 Dose: 1 tab Polyethylene Glycol (Miralax) 17 gm PO DAILY [facility] Last Admin: 08/19/19 09:13 Dose: Not Given Prednisone (Deltasone) 40 mg PO DAILYWM [facility] Last Admin: 08/19/19 09:13 Dose: 40 mg Prochlorperazine Edisylate (Compazine Inj) 10 mg IVP Q6HR PRN PRN Reason: Nausea / Vomiting Sodium Chloride (Normal Saline Flush 0.9%) 10 ml IVP PRN PRN PRN Reason: NEEDED PER PROVIDER ORDERS Last Admin: 08/18/19 20:50 Dose: 10 ml Sodium Chloride (Normal Saline Flush 0.9%) 10 ml IVP 0100,0900,1700 [facility] Last Admin: 08/19/19 09:15 Dose: 10 ml Tamsulosin HCl (Flomax) 0.4 mg PO DAILY [facility] Last Admin: 08/19/19 09:13 Dose: 0.4 mg Alfuzosin HCl [Alfuzosin HCl ER] 10 mg PO DAILY 05/21/19 Finasteride 5 mg PO DAILY 05/21/19 Warfarin [Coumadin] 2.5 mg PO SUTUTHSA 06/06/19 Azithromycin 250 mg PO MOWEFR 07/30/19 Metoprolol Succinate 12.5 mg PO DAILY 07/30/19 Albuterol 3 ml INH Q4H PRN 08/17/19 Albuterol Sulfate [Albuterol Sulfate Hfa] 1 puffs INH Q4H PRN 08/17/19 Ipratropium [Atrovent] 2.5 ml INH Q6H 08/17/19 Latanoprost 0.005% Ophth Drops [Xalatan Ophth Drops] 1 drops EACHEYE QPM 08/17/19 Oxybutynin Chloride [Ditropan Xl] 5 mg PO DAILY 08/17/19 Saw Foley 450 mg PO DAILY 08/17/19 Timolol 0.5% Ophth Drops [Timoptic 0.5% Ophth Drops] 1 drops EACHEYE BID 08/17/19 Warfarin [Coumadin] 5 mg PO MOWEFR 08/17/19 Objective - Vital Signs/Intake & Output Reviewed Vital Signs: Yes Vital Signs: Vital Signs x48h Temp Pulse Resp BP Pulse Ox 08/19/19 16:08 80 16 08/19/19 12:39 36.3 C L 20 120/54 L 98 08/19/19 11:29 82 16 Intake & Output: Intake & Output 08/16/19 08/17/19 08/18/19 08/19/19 23:59 23:59 23:59 23:59 Intake Total 420 1780 320 Output Total 425 1000 525 Balance -5 780 -205 - Objective General Appearance: positive: No acute distress, Alert Eyes Bilateral: positive: Normal inspection, Conjunctivae nml ENT: positive: ENT inspection nml Neck: positive: Nml inspection Respiratory: positive: No respiratory distress, Wheezes (Faint expiratory wheezes.), Other (Diminished.). negative: Rales, Rhonchi Cardiovascular: positive: Irregularly irregular. negative: Tachycardia, Antonio ycardia Abdomen: positive: Non-tender, No distention. negative: Tenderness, Guarding, Rebound Skin: positive: No rash, Warm, Dry Extremities: positive: No pedal edema Neurologic/Psychiatric: positive: Oriented x3. negative: Weakness - Lab Results Fish Bones: 08/18/19 05:25 08/19/19 05:35 Other Labs: Lab Results x24hrs 08/19/19 08/19/19 08/18/19 Range/Units 05:35 05:35 05:25 PT 21.9 H (9.9-12.6) secs INR 2.0 H (0.8-1.2) Sodium 142 (135-145) mmol/L Potassium 4.4 (3.5-5.0) mmol/L Chloride 105 (101-111) mmol/L Carbon Dioxide 29 (21-32) mmol/L Anion Gap 8.0 (6-13) BUN 26 H (6-20) mg/dL Creatinine 1.1 (0.6-1.2) mg/dL Estimated GFR (MDRD) 64 L (>89) Glucose 146 H (70-100) mg/dL Calcium 8.3 L (8.5-10.3) mg/dL RBC Folic Acid 1164 (>280) ng/mL RBC ABX Reporting Has patient been on IV antibiotics over the past 48 hours?: Yes Assessment/Plan - Problem List (1) COPD exacerbation Impression: Continues to improve and only has faint wheezing on exam. Was able to able to ambulate with RT and sats remained above 92%. Transition to oral Prednisone. Continue Ceftin and Doxycyline PO on discharge tomorrow to complete 5 days. (2) Atrial fibrillation Impression: New diagnosis for him this admission. He is rate controlled with Metoprolol. Already on Coumadin for history of pulmonary embolism. Continue current medications and monitor on telemetry. Qualifiers: Atrial fibrillation type: paroxysmal Qualified Code(s): I48.0 - Paroxysmal atrial fibrillation (3) NSVT (nonsustained ventricular tachycardia) Impression: He had approximately 13 beats of NSVT this evening with coincided with heart burn. This is concerning given his CHFrEF. His electrolytes are optimized. I did attempt to contact his Preschool Assistant Teacher to discuss this given his chronic heart failure but I was unable to reach them. I will try again tomorrow. Will continue Metoprolol, trend troponin, and check electrolytes. (4) Catheter-associated urinary tract infection Impression: Present on admission. Urinalysis revealed leukocyte esterase, 6-10 WBC, moderate bacteria. Bautista catheter was exchanged. Cultures growing staph aureus that is beta lactamase positive. Continue Ceftriaxone and Doxycyline given his COPD exacerbation and follow up urine culture. Will de-escalate based off sensitivities. Qualifiers: Indwelling urinary catheter type: indwelling urethral catheter (5) Urinary retention Impression: Chronic in nature. Reports follow with Urology at [place]. Patient is unsure why he has the catheter. Likely BPH given he is on Finasteride and Alfuzosin. Continue home medications. Bautista was replaced given urinalysis findings. Outpatient follow up with Urology. (6) Chronic HFrEF (heart failure with reduced ejection fraction) Impression: He appears euvolemic and not in exacerbation. EF 25% in April of 2019. Will continue Lisinopril and resume Toprol. No diuresis needed at this time (7) Pulmonary embolism Impression: He is on Coumadin at home and INR is therapeutic. Continue Coumadin. Daily INR while on antibiotics. Qualifiers: Qualified Code(s): I26.09 - Other pulmonary embolism with acute cor pulmonale (8) BPH (benign prostatic hyperplasia) Impression: Has chronic indwelling bautista. Continue Finasteride. Will use Flomax instead of Alfuzosin while hospitalized.
[2019-08-20] MEDS: SODIUM CHLORIDE FLUSH 0.9% 10 ML SYRINGE IVP SCH ×3 (00:42→17:03)
[2019-08-20 05:46] LABS: CREATININE 1.1 mg/dL (0.6-1.2); INR 2.1 (0.8-1.2); PT - PROTHROMBIN TIME 22.7 secs (9.9-12.6)
[2019-08-20] MEDS ORDERED: PHENOL THROAT SPRAY 177 ML MM PRN (07:48)
[2019-08-20] MEDS: LEVALBUTEROL 1.25 MG/3 ML NEB INH SCH ×3 (07:48→16:00)
[2019-08-20] MEDS: cefTRIAXone 1 GM in SODIUM CHLORIDE 0.9% MINIBAG 100 ML IV SCH (08:03)
[2019-08-20] MEDS: FINASTERIDE 5 MG TABLET PO SCH (08:04)
[2019-08-20] MEDS: DOXYCYCLINE 100 MG TABLET PO SCH ×2 (08:04→20:59)
[2019-08-20] MEDS: LACTOBACILLUS RHAMNOSUS GG CAPSULE PO SCH (08:04)
[2019-08-20] MEDS: predniSONE 20 MG TABLET PO SCH (08:04)
[2019-08-20] MEDS: FAMOTIDINE 20 MG TABLET PO SCH (08:04)
[2019-08-20] MEDS: METOPROLOL SUCCINATE 25 MG TABLET PO SCH (08:04)
[2019-08-20] MEDS: LISINOPRIL 5 MG TABLET PO SCH (08:04)
[2019-08-20] MEDS: MULTIVITAMIN W/MINERALS TABLET PO SCH (08:04)
[2019-08-20] MEDS: TAMSULOSIN 0.4 MG CAPSULE PO SCH (08:04)
[2019-08-20] MEDS: POLYETHYLENE GLYCOL 3350 17 GM PACKET PO SCH (08:05)
--- NOTE | 2019-08-20 11:17 | Discharge Plan ---
Discharge Plan Problem Reviewed?: Yes Disposition: Home Health Service Condition: Good Prescriptions: Doxycycline Monohydrate 100 mg PO BID 5 Days #10 tablet Metoprolol Succinate [Toprol Xl] 25 mg PO DAILY #30 tablet predniSONE [Prednisone 21-TAB dose pack] 10 mg PO UD #1 each Diet: Cardiac Activity Restrictions: Activity as Tolerated Instruction Topics: Prednisolone tablets, Doxycycline tablets or capsules, Metoprolol tablets, Coumadin Health Concerns: You were admitted to the hospital because your COPD flared up. You were treated with antibiotics and steroids with improvement. You do not need oxygen at home after you walked with therapists. You will need to continue taking Prednisone for a few more days and a prescription was sent to your pharmacy. You were also found to have a urinary tract infection. Your catheter was exchanged and the culture grew a bug called MRSA which is resistant to certain antibiotics. Please take Doxycycline for 5 more days to treat this infection. While you are taking Doxycycline, please do not take the Azithromycin that your lung doctor has previously prescribed. You may restart that medication after you finish the 5 days of Doxycycline. You also had a brief episode of an abnormal heart rhythm that lasted a few a seconds. I spoke with a heart doctor who recommended increasing your Metoprolol. You were previously on 12.5mg once a day but a new prescription has been sent for 25mg once a day. You have an appointment scheduled with your heart doctor on September 10 so please attend that appointment. There were no other changes to your medications. Plan of Treatment: Finish Doxycyline for the next 5 days for your urine infection. Do not take Azithromycin while taking Doxycycline. Finish the course of steroids as prescribed. A prescription was sent to your pharmacy. You were provided with a new prescription for Toprol. Please take 25mg once a day now instead of 12.5mg. Please follow up with your heart doctor on September 10. Care Goals: Please follow up with your heart doctor in September. It is recommended you follow up with your primary care physician next week. You may also want to follow up with your lung doctor to inform him of your hospitalization for your COPD. Additional Instructions or Follow Up instructions: Follow up with primary care physician in one week. Follow up with your heart doctor in September. No Smoking: If you smoke, Please STOP! Call for help. Follow-up with: Cristel Newton MD [Primary Care Provider] -
[2019-08-20] MEDS ORDERED: WARFARIN 2.5 MG TABLET PO SCH (17:00)
--- NOTE | 2019-08-20 17:09 | DISCHARGE SUMMARY ---
"Discharge Summary Admit Date: 08/17/19 Discharge Date: 08/20/19 Discharging Provider: Dr. Rip Carey Primary Care Provider: Dr. Cristel Newton Code Status: Attempt Resuscitation Condition at Discharge: Good Discharge Disposition: Home Health Service - DIAGNOSES Admission Diagnoses: COPD exacerbation Systolic heart failure Probable dementia Left bundle branch block Discharge Diagnoses with Status of Each Condition: COPD exacerbation - Improved. No further wheezing and was able to ambulate with minimal dyspnea. Will discharge Doxycycline for 5 more days for his UTI. I asked him to stop taking his home Azithromycin prescribed by his Well Cleaner which he takes 3x a week until he completes the course of Doxycycline. I have also prescribed him a prednisone taper given that he was on steroids for two weeks prior to admission and to prevent relative adrenal insufficiency. Atrial fibrillation - Stable. Appears to be a new diagnosis this admission. Paroxsymal in nature. Rate controlled with Metoprolol. Continue Coumadin as he was already on it for PE. NSVT - Stable. Electrolytes optimized. Increased Metoprolol to 25mg daily. Outpatient follow up with his Merchandise Complaint Adjuster, Dr. Miranda, on September 10. Catheter associated UTI - Improving. Cultures grew MRSA. Catheter was exchanged. He was not septic. Continue Doxcycline for 5 more days to complete 7 days. Urinary retention - Stable. Chronic in nature. Follows with Urology. Catheter was replaced given UTI. Chronic heart failure with preserved EF, with improvement of EF - Improved. Prior echo revealed EF of 25%. Echo this admission showed improved to 50-55%. Continued Lisinopril and Toprol. He appears euvolemic so will not add Lasix. Pulmonary embolism - Stable Was on coumadin previously. Continue home dose. BPH - Stable. Appears to be etiology of his urinary retention and chronic indwelling bautista catheter. Continue Alfuzosin and Finsateride. - HPI History of Present Illness: H&P per Dr. Hernandez on 08/17/19: This is an 84 year old white male who is a poor historian and has a history of COPD and systolic heart failure. The entire history s obtain from chart review, the patient states he does not know his diagnoses, does not know his medications, does not know his doctors and to speak to his [id number] who manages his medications. The patient presents with shortness of breath that has not responded to two weeks of prednisone and Levaquin and then recent addition of Zithromax three times a week by his bi solutions architect. He was at his PCP office and found to have an oxygen saturation of 74% on room air and was sent to the ER. Here his lowest saturation was 90%, but he was very tight, required a nebulizer and continued to have air hunger and wheezing and is being admitted for COPD exacerbation. - CONSULTS | PROCEDURES Consultations: Home Health for PT Procedures: Echo showed EF has improved to 50-55%. Mild global hypokineses of LV contractility. RVSP of 45 mmHg. - HOSPITAL COURSE Hospital Course: He was admitted for COPD exacerbation and treated with IV steroids and breathing treatments. He was started on Ceftriaxone after his urinalysis was suggestive of infection. He does have a chronic indwelling bautista catheter and this was replaced. Doxycycline was added in addition to Ceftriaxone for his COPD exacerbation. His breathing improved and he was transitioned to oral steroids. Urine culture grew MRSA and so ceftriaxone was discontinued and Doxycycline continued. He did have a few beats of NSVT which was concerning given his underlying CHFrEF. His echo ultimately revealed that his EF improved to 50%. I did speak with Cardiology who recommended optimizing electrolytes and increasing Metoprolol if possible. The dose was increased to 25mg daily. He has an appointment for follow up on September [address] Miranda at [facility]. He was assessed by PT who recommended that he continued with home PT at home. - ALLERGIES Allergies/Adverse Reactions: Allergies Allergy/AdvReac Type Severity Reaction Status Date / Time No Known Drug Allergies Allergy Verified 08/17/19 12:04 - MEDICATIONS Home Medications: Ambulatory Orders Medication Instructions Recorded Confirmed Alfuzosin HCl [Alfuzosin HCl ER] 10 mg PO DAILY 05/21/19 08/17/19 Finasteride 5 mg PO DAILY 05/21/19 08/17/19 Warfarin [Coumadin] 2.5 mg PO SUTUTHSA 06/06/19 08/17/19 Azithromycin 250 mg PO MOWEFR 07/30/19 08/17/19 Albuterol 3 ml INH Q4H PRN 08/17/19 08/17/19 Albuterol Sulfate [Albuterol 1 puffs INH Q4H PRN 08/17/19 08/17/19 Sulfate Hfa] Ipratropium [Atrovent] 2.5 ml INH Q6H 08/17/19 08/17/19 Latanoprost 0.005% Ophth Drops 1 drops EACHEYE QPM 08/17/19 08/17/19 [Xalatan Ophth Drops] Oxybutynin Chloride [Ditropan Xl] 5 mg PO DAILY 08/17/19 08/17/19 Saw Stites 450 mg PO DAILY 08/17/19 08/17/19 Timolol 0.5% Ophth Drops [Timoptic 1 drops EACHEYE BID 08/17/19 08/17/19 0.5% Ophth Drops] Warfarin [Coumadin] 5 mg PO MOWEFR 08/17/19 08/17/19 Doxycycline Monohydrate 100 mg PO BID 5 Days #10 tablet 08/20/19 Metoprolol Succinate [Toprol Xl] 25 mg PO DAILY #30 tablet 08/20/19 predniSONE [Prednisone 21-TAB dose 10 mg PO UD #1 each 08/20/19 pack] - PHYSICAL EXAM AT DISCHARGE General Appearance: positive: No acute distress, Alert Eyes Bilateral: positive: Normal inspection ENT: positive: ENT inspection nml Neck: positive: Nml inspection Respiratory: positive: No respiratory distress. negative: Wheezes, Rales, Rhonchi Cardiovascular: positive: No murmur, Irregularly irregular. negative: Tachycardia, Bradycardia, Systolic murmur Abdomen: positive: Non-tender, No distention. negative: Tenderness, Guarding, Rebound Skin: positive: No rash, Warm, Dry Extremities: positive: Full ROM, No pedal edema Neurologic/Psychiatric: positive: Motor nml, Other (No focal motor deficits.). negative: Disoriented to person, Disoriented to place - LABS Result Diagrams: 08/18/19 05:25 08/20/19 05:30 - DIAGNOSTIC IMAGING Diagnostic Imaging Results: Final report reviewed - FOLLOW UP Follow Up: Follow up with PCP in one week. Follow up with Cardiology on September 10. - TIME SPENT Time Spent in Discharge (Minutes): 40"
[2019-08-20 17:21] VITALS: BP 126/51
[2019-08-21] MEDS ORDERED: METOPROLOL SUCCINATE 25 MG TABLET PO SCH (09:00)
== END 2019-08-20 21:16 | disposition home health service (06) | DRG 191 ==
LOC: ED 11:52 → MS2 13:15
PROVIDERS: ADMIT Internal Medicine; ATTEND Internal Medicine
DX: J44.1 Chronic obstructive pulmonary disease with (acute) exacerbation (principal); I10 Essential (primary) hypertension; T83.511A Infection and inflammatory reaction due to indwelling urethral catheter, initial encounter; I47.2 Ventricular tachycardia; Z79.51 Long term (current) use of inhaled steroids; I50.42 Chronic combined systolic (congestive) and diastolic (congestive) heart failure; R45.851 Suicidal ideations; N39.0 Urinary tract infection, site not specified; I44.7 Left bundle-branch block, unspecified; I48.0 Paroxysmal atrial fibrillation; B95.62 Methicillin resistant Staphylococcus aureus infection as the cause of diseases classified elsewhere; Y84.6 Urinary catheterization as the cause of abnormal reaction of the patient, or of later complication, without mention of misadventure at the time of the procedure; N40.1 Benign prostatic hyperplasia with lower urinary tract symptoms; R33.8 Other retention of urine; H40.9 Unspecified glaucoma; H91.90 Unspecified hearing loss, unspecified ear; Z66 Do not resuscitate; Z79.2 Long term (current) use of antibiotics; Z79.01 Long term (current) use of anticoagulants; Z79.899 Other long term (current) drug therapy; Z86.711 Personal history of pulmonary embolism
CPT/HCPCS: 36415; 71045; 80048; 80053; 81001; 82607; 82747; 83605; 83690; 83735; 83880; 84132; 84484; 85025; 85610; 87040; 87086; 87181; 93005; 93306; 94640; 96374; 96375; 97161; 99285; A9270; J7120; J7512; 81003

== ENCOUNTER 2019-09-03 12:32 | Inpatient (IN) | payer MEDICARE ==
--- NOTE | 2019-09-03 13:31 | XRAY Report ---
Reason: chest pain Procedure Date: 09/03/2019 Accession Number: [id number] / [id number] Procedure: XR - Chest 1 View X-Ray CPT Code: 81074 Final Report FULL RESULT: EXAM: CHEST RADIOGRAPHY EXAM DATE: 09/03/2019 01:04 PM. CLINICAL HISTORY: Chest pain. COMPARISON: CHEST 1 VIEW 08/17/2019 12:02 PM. TECHNIQUE: 1 view. FINDINGS: Lungs/Pleura: No focal opacities evident. No pleural effusion. No pneumothorax. Mediastinum: Within exam limitations, the cardiomediastinal contour is normal. Other: None. IMPRESSION: No focal consolidation. RADIA
[2019-09-03 13:45] LABS: BASOPHILS % (AUTO) 0.3 %; EOSINOPHILS # (AUTO) 0.1 10^3/uL (0.0-0.7); HGB - HEMOGLOBIN 11.8 g/dL (14.0-18.0); LYMPHOCYTES # (AUTO) 0.7 10^3/uL (1.5-3.5); LYMPHOCYTES % (AUTO) 5.4 %; MEAN CORPUSCULAR HEMOGLOBIN 32.3 pg (27.0-31.0); MEAN CORPUSCULAR HGB CONC 31.6 g/dL (32.0-36.0); MEAN CORPUSCULAR VOLUME 102.2 fL (80.0-94.0); MEAN PLATELET VOLUME 11.1 fL (7.4-11.4); MONOCYTES # (AUTO) 0.7 10^3/uL (0.0-1.0); MONOCYTES % (AUTO) 4.8 %; NEUTROPHILS % (AUTO) 87.4 %; PLT - PLATELET COUNT 281 10^3/uL (130-450); RED BLOOD COUNT 3.65 10^6/uL (4.70-6.10); RED CELL DISTRIBUTION WIDTH 13.9 % (12.0-15.0); WHITE BLOOD COUNT 13.7 x10^3/uL (4.8-10.8)
--- NOTE | 2019-09-03 14:06 | ED Physician Documentation ---
History of Present Illness - Stated complaint Stated Complaint: LOW BLOOD PRESSURE - Chief complaint Chief Complaint: Cardiac - Additonal information Additional information: This is an 84-year-old male with a history of COPD, PE on coumadin, systolic heart failure, probable dementia, left bundle branch block, Chronic urinary retention with a Bautista in place, who presents with low blood pressure and difficulty eating. History is primarily obtained from his son as patient feels weak and has difficulty speaking more than a few words at a time. Patient went in today to his urologist office to have his catheter changed, this was done without issue. However patient feels generally weak all over, and he was found to have low blood pressure in the urology office. Sound like he has had issues with dysphagia in the past, and the last several days patient has had difficulty swallowing, he complains of pain in his esophagus when he swallows. His p.o. intake has been poor. No abdominal pain, no chest pain, no shortness of breath. His son states that he only complains of esophageal/chest pain when he eats. Review of Systems Constitutional: denies: Fever Eyes: denies: Loss of vision Throat: reports: Sore throat Respiratory: denies: Dyspnea GI: denies: Vomiting : reports: Other (Chronically catheterized) Skin: denies: Rash Neurologic: reports: Generalized weakness PD PAST MEDICAL HISTORY - Past Medical History Cardiovascular: Congestive heart failure, Hypertension, Pulmonary embolism, Atrial fibrillation Respiratory: Asthma, COPD Neuro: Tremors, Other Endocrine/Autoimmune: None GI: GERD : None Psych: Depression, Anxiety Musculoskeletal: Osteoarthritis, Chronic back pain Derm: None - Past Surgical History Past Surgical History: No General: Appendectomy - Present Medications Home Medications: Ambulatory Orders Medication Instructions Recorded Confirmed Finasteride 5 mg PO DAILY 05/21/19 09/04/19 Warfarin [Coumadin] 2.5 mg PO SUTUTHSA 06/06/19 09/04/19 Azithromycin 250 mg PO MOWEFR 07/30/19 09/04/19 Albuterol 3 ml INH Q4H PRN 08/17/19 09/04/19 Albuterol Sulfate [Albuterol 1 puffs INH Q4H PRN 08/17/19 09/04/19 Sulfate Hfa] Ipratropium [Atrovent] 2.5 ml INH Q6H 08/17/19 09/04/19 Latanoprost 0.005% Ophth Drops 1 drops EACHEYE QPM 08/17/19 09/04/19 [Xalatan Ophth Drops] Oxybutynin Chloride [Ditropan Xl] 5 mg PO DAILY 08/17/19 09/04/19 Timolol 0.5% Ophth Drops [Timoptic 1 drops EACHEYE BID 08/17/19 09/04/19 0.5% Ophth Drops] Warfarin [Coumadin] 5 mg PO MOWEFR 08/17/19 09/04/19 Doxycycline Monohydrate 100 mg PO BID 5 Days #10 tablet 08/20/19 09/04/19 predniSONE [Prednisone 21-TAB dose 10 mg PO UD #1 each 08/20/19 09/04/19 pack] Metoprolol Succinate [Toprol Xl] 50 mg PO DAILY 09/04/19 09/04/19 - Allergies Allergies/Adverse Reactions: Allergies Allergy/AdvReac Type Severity Reaction Status Date / Time No Known Drug Allergies Allergy Verified 09/03/19 12:39 - Social History Does the pt smoke?: No Smoking Status: Former smoker Does the pt drink ETOH?: Yes Does the pt have substance abuse?: No - Immunizations Immunizations are current?: Yes - POLST Patient has POLST: No PD ED PE NORMAL - Vitals Vital signs reviewed: Yes - General General: No acute distress, Other (elderly and frail appearing) - HEENT HEENT: PERRL - Neck Neck: Supple, no meningeal sign - Cardiac Cardiac: RRR - Respiratory Respiratory: No respiratory distress, Clear bilaterally - Abdomen Abdomen: Soft, Non tender, Non distended - Male Male : Other (Normal-appearing penis with a Bautista catheter in place draining to a leg bag, pale yellow urine.) - Derm Derm: Warm and dry - Extremities Extremities: No deformity - Neuro Neuro: Other (Alert, able to tell me basic information, moving all extremities, sensation intact to lightTouch. Weak voice, but able to verbalize some words, follows all commands.) - Psych Psych: Normal mood, Normal affect Results - Vitals Vitals: Oxygen O2 Source [Without Activity] Nasal cannula O2 Source Room air - EKG (time done) 12:52 Other comments: Other comments (Rate 83, rhythm sinus, there is [address] Elevation in V3, and less than [address] elevation in V2. These follow deep S waves, and the appearance of his EKG and the overall pattern is similar to past EKGs, most recently on 08/17. There is a left bundle branch block. ) - Labs Labs: Microbiology 09/03/19 16:00 Urine Culture - Final Urine,Catheterized No growth Laboratory Tests 09/03/19 09/03/19 09/03/19 13:34 13:34 13:34 WBC 13.7 H RBC 3.65 L Hgb 11.8 L Hct 37.3 L MCV 102.2 H MCH 32.3 H MCHC 31.6 L RDW 13.9 Plt Count 281 MPV 11.1 Neut # (Auto) 12.0 H Lymph # (Auto) 0.7 L [place] # (Auto) 0.7 Eos # (Auto) 0.1 Baso # (Auto) 0.0 Absolute Nucleated RBC 0.00 Nucleated RBC % 0.0 PT INR Sodium 140 Potassium 4.1 Chloride 101 Carbon Dioxide 29 Anion Gap 10.0 BUN 36 H Creatinine 1.9 H Estimated GFR (MDRD) 34 L Glucose 107 H Lactic Acid Calcium 8.7 Total Bilirubin 0.8 AST 16 ALT 14 Alkaline Phosphatase 58 Troponin I High Sens 23.4 H* Total Protein 6.1 L Albumin 2.9 L Globulin 3.2 Albumin/Globulin Ratio 0.9 L Lipase 29 Urine Color Urine Clarity Urine pH Ur Specific [place] Urine Protein Urine Glucose (UA) Urine Ketones Urine Occult Blood Urine Nitrite Urine Bilirubin Urine Urobilinogen Ur Leukocyte Esterase Urine RBC Urine WBC Ur Squamous Epith Cells Urine Bacteria Urine Yeast Urine Culture Comments 09/03/19 09/03/19 09/03/19 13:34 14:25 16:00 WBC RBC Hgb Hct MCV MCH MCHC RDW Plt Count MPV Neut # (Auto) Lymph # (Auto) [place] # (Auto) Eos # (Auto) Baso # (Auto) Absolute Nucleated RBC Nucleated RBC % PT 75.4 H INR 7.4 H* Sodium Potassium Chloride Carbon Dioxide Anion Gap BUN Creatinine Estimated GFR (MDRD) Glucose Lactic Acid 2.4 H Calcium Total Bilirubin AST ALT Alkaline Phosphatase Troponin I High Sens Total Protein Albumin Globulin Albumin/Globulin Ratio Lipase Urine Color YELLOW Urine Clarity SL. CLOUDY Urine pH 5.0 Ur Specific [place] 1.015 Urine Protein TRACE Urine Glucose (UA) NEGATIVE Urine Ketones NEGATIVE Urine Occult Blood LARGE H Urine Nitrite NEGATIVE Urine Bilirubin NEGATIVE Urine Urobilinogen 0.2 (NORMAL) Ur Leukocyte Esterase MODERATE H Urine RBC 6-10 H Urine WBC 11-25 H Ur Squamous Epith Cells NONE SEEN Urine Bacteria None Seen Urine Yeast PRESENT Urine Culture Comments INDICATED - Rads (name of study) CXR Radiology: Other (No focal consolidation) PD MEDICAL DECISION MAKING - ED course Complexity details: considered differential (Esophagitis, dysphagia, electrolyte abnormality, dehydration, HANY, pneumonia, ACS) ED course: Pt is chronically ill appearing but non-toxic on exam. He had soft blood pressures on arrival that improved with fluid bolus. UA is concerning for infection, this was drawn from his bautista that was just changed in the last several hours. He was started on ceftriaxone for this. Labs are notable for a leukocytosis consistent with UTI/pyelonephritis, elevated INR for unclear reasons (he is having no bleeding so we will not reverse immediately in the ED). He also has an HANY which is likely from his poor PO inta ke. Troponin is mildly elevated but in line with past values and his EKG and symptoms do not suggest ACS. Pt was admitted for treatment of his UTI, HANY, and trending of cardiac enzymes. I do not think he had septic shock, but rather a UTI along with poor hydration leading to hypovolemia and his initial mild hypotension. He was stable with normal blood pressure at the time of admission. Departure - Departure Disposition: 66 [facility] DC/Xfer Clinical Impression: HANY (acute kidney injury) UTI (urinary tract infection) Qualifiers: Urinary tract infection type: catheter-associated UTI Indwelling urinary catheter type: indwelling urethral catheter Encounter type: initial encounter Qualified Code(s): T83.511A - Infection and inflammatory reaction due to indwelling urethral catheter, initial encounter Condition: Fair Discharge Date/Time: 09/03/19 18:25
[2019-09-03 14:09] LABS: ALBUMIN 2.9 g/dL (3.2-5.5); ALBUMIN/GLOBULIN RATIO 0.9 (1.0-2.2); BILIRUBIN,TOTAL 0.8 mg/dL (0.2-1.0); CALCIUM 8.7 mg/dL (8.5-10.3); CREATININE 1.9 mg/dL (0.6-1.2); TOTAL PROTEIN 6.1 g/dL (6.7-8.2)
[2019-09-03 14:40] LABS: PT - PROTHROMBIN TIME 75.4 secs (9.9-12.6)
[2019-09-03 14:48] LABS: INR 7.4 (0.8-1.2)
[2019-09-03] MEDS ORDERED: SODIUM CHLORIDE 0.9% 1,000 ML IV ONE (14:59)
[2019-09-03 16:09] LABS: BILIRUBIN,URINE NEGATIVE (NEGATIVE); GLUCOSE, URINE (UA) NEGATIVE (NEGATIVE); KETONES,URINE (UA) NEGATIVE (NEGATIVE); LEUKOCYTE ESTERASE, URINE MODERATE (NEGATIVE); NITRITE,URINE NEGATIVE (NEGATIVE); OCCULT BLOOD,URINE LARGE (NEGATIVE); PROTEIN,URINE TRACE mg/dL (NEGATIVE); UROBILINOGEN,URINE 0.2 (NORMAL) E.U./dL (NORMAL)
[2019-09-03 16:10] LABS: CLARITY,URINE SL. CLOUDY (CLEAR)
[2019-09-03 16:31] LABS: BACTERIA,URINE None Seen /HPF (None Seen); SQUAMOUS EPITHELIAL CELL,UR NONE SEEN (<= Few); YEAST,URINE PRESENT
[2019-09-03] MEDS ORDERED: cefTRIAXone 1 GM in SODIUM CHLORIDE 0.9% MINIBAG 100 ML IV STA (16:55)
[2019-09-03] MEDS ORDERED: SODIUM CHLORIDE FLUSH 0.9% 10 ML SYRINGE IVP PRN (17:39)
[2019-09-03] MEDS ORDERED: ONDANSETRON 4 MG/2 ML VIAL IVP PRN (17:39)
[2019-09-03] MEDS ORDERED: oxyCODONE 5 MG TABLET PO PRN (17:39)
[2019-09-03] MEDS ORDERED: ONDANSETRON ODT 4 MG TABLET TL PRN (17:39)
[2019-09-03] MEDS: SODIUM CHLORIDE 0.9% 1,000 ML IV SCH (19:27)
--- NOTE | 2019-09-03 19:29 | HISTORY & PHYSICAL EXAMINATION ---
History - Past Medical History Cardiovascular: reports: Congestive heart failure, Hypertension, Pulmonary embolism, Atrial fibrillation Respiratory: reports: Asthma, COPD Neuro: reports: Tremors, Other Endocrine/Autoimmune: reports: None GI: reports: GERD : reports: None Psych: reports: Depression, Anxiety Musculoskeletal: reports: Osteoarthritis, Chronic back pain Derm: reports: None MRSA Hx?: Yes - Past Surgical History General: reports: Appendectomy - Family & Social History Family History: Mother: , Father: , Other family: Alive and Well (2 children) - Substance History Use: Uses substance without health or social issues: Tobacco (hx), Alcohol (beer) - POLST Patient has POLST: No Meds/Allgy - Home Medications Home Medications: Ambulatory Orders Medication Instructions Recorded Confirmed Alfuzosin HCl [Alfuzosin HCl ER] 10 mg PO DAILY 05/21/19 08/17/19 Finasteride 5 mg PO DAILY 05/21/19 08/17/19 Warfarin [Coumadin] 2.5 mg PO SUTUTHSA 06/06/19 08/17/19 Azithromycin 250 mg PO MOWEFR 07/30/19 08/17/19 Albuterol 3 ml INH Q4H PRN 08/17/19 08/17/19 Albuterol Sulfate [Albuterol 1 puffs INH Q4H PRN 08/17/19 08/17/19 Sulfate Hfa] Ipratropium [Atrovent] 2.5 ml INH Q6H 08/17/19 08/17/19 Latanoprost 0.005% Ophth Drops 1 drops EACHEYE QPM 08/17/19 08/17/19 [Xalatan Ophth Drops] Oxybutynin Chloride [Ditropan Xl] 5 mg PO DAILY 08/17/19 08/17/19 Saw Emery 450 mg PO DAILY 08/17/19 08/17/19 Timolol 0.5% Ophth Drops [Timoptic 1 drops EACHEYE BID 08/17/19 08/17/19 0.5% Ophth Drops] Warfarin [Coumadin] 5 mg PO MOWEFR 08/17/19 08/17/19 Doxycycline Monohydrate 100 mg PO BID 5 Days #10 tablet 08/20/19 Metoprolol Succinate [Toprol Xl] 25 mg PO DAILY #30 tablet 08/20/19 predniSONE [Prednisone 21-TAB dose 10 mg PO UD #1 each 08/20/19 pack] - Allergies Allergies/Adverse Reactions: Allergies Allergy/AdvReac Type Severity Reaction Status Date / Time No Known Drug Allergies Allergy Verified 09/03/19 12:39 Exam - Vital Signs Vital Signs: Vital Signs x48h Temp Pulse Pulse Resp BP BP Pulse Ox 09/03/19 19:19 36.6 C 70 18 110/63 98 09/03/19 18:00 76 19 110/90 H 99 09/03/19 17:30 82 17 125/57 L 98 09/03/19 17:00 76 17 113/61 96 09/03/19 16:30 71 16 103/65 100 09/03/19 16:00 75 18 119/70 100 09/03/19 15:30 76 16 108/73 100 09/03/19 15:00 96 17 105/49 L 100 09/03/19 14:30 80 15 84/54 L 98 09/03/19 14:15 78 16 82/50 L 98 09/03/19 12:39 36.4 C L 84 18 106/80 94 Conclusion/Plan - Lab Results Fish Bones: 09/03/19 13:34 09/03/19 13:34
[2019-09-03] MEDS ORDERED: PHENOL THROAT SPRAY 177 ML MM PRN (20:09)
[2019-09-03] MEDS ORDERED: BENZOCAINE/MENTHOL LOZENGE MM PRN (20:09)
--- NOTE | 2019-09-03 20:18 | HISTORY & PHYSICAL EXAMINATION ---
Chief Complaint - Chief Complaint Chief Complaint: Weakness History of Present Illness - Admitted From Admitted From:: Home - History Obtained From Records Reviewed: Yes History obtained from: Patient, EMR Exam Limitations: Patient responds with short answers, poor historian. - History of Present Illness HPI Comment/Other: This is a 84 year old male with a past medical history significant for COPD, atrial fibrillation (on coumadin), BPH with chronic indwelling bautista catheter, chronic CHF with improvement in his EF to 55% who presents from his Urologist's office after he was found to be hypotensive. He went there today to have his bautista catheter exchanged which was done without issues. He came to the emergency department because he has been weak and was now hypotensive. He reports doing well after he was discharged two weeks ago up until this morning. He reports generalized weakness and fatigue. He has had poor oral intake these past three days. He is also complaining of difficulty swallowing and that his throat feels "raw." He reports no heartburn, chest pain, fever, nausea, vomiting, and abdominal pain. He does report dyspnea but states that this has been a chronic issue for him. He reports no signs of bleeding. He is frustrated that he is in the hospital again as this is his third admission since the summer. In the emergency department, he was found to be hypotensive with systolic in the 80's. Heart rate was stable in the 80's. Labs revealed a white count of 13.7 with a left shift. His INR was elevated at 7.4. His BUN and creatinine were also elevated compared to baseline. Lactic acid was elevated at 2.4. His urinalysis revealed 11-25 WBC and moderate leukocyte esterase. There was no bacteria but yeast was present. I did speak with the patient regarding his goals of care. He once again mentions his frustration of his multiple admissions. He would like to "just let go" but his son encourages him to continue to toribio his medical problems. He states that he would like to be a DNR at this time. He is leaning towards focusing on comfort but would like to talk to his son. History - Past Medical History Cardiovascular: reports: Congestive heart failure, Hypertension, Pulmonary embolism, Atrial fibrillation Respiratory: reports: Asthma, COPD Neuro: reports: Tremors Endocrine/Autoimmune: reports: None GI: reports: GERD : reports: None Psych: reports: Depression, Anxiety Musculoskeletal: reports: Osteoarthritis, Chronic back pain Derm: reports: None MRSA Hx?: Yes - Past Surgical History General: reports: Appendectomy - Family & Social History Family History: Mother: , Father: , Other family: Alive and Well (2 children) Family History Comment/Other: He reports no known family history. Living arrangement: At home Living Situation: With family Social History Notes: He is a retired flatbed truck driver. Lives [place] [address] with his brother. Previously smoked two packs per day for 30 years but quite over 30 years ago. Reports minimal alcohol use. - Substance History Use: Uses substance without health or social issues: Alcohol - POLST Patient has POLST: No Meds/Allgy - Home Medications Home Medications: Ambulatory Orders Medication Instructions Recorded Confirmed Alfuzosin HCl [Alfuzosin HCl ER] 10 mg PO DAILY 05/21/19 08/17/19 Finasteride 5 mg PO DAILY 05/21/19 08/17/19 Warfarin [Coumadin] 2.5 mg PO [facility] 06/06/19 08/17/19 Azithromycin 250 mg PO MOWEFR 07/30/19 08/17/19 Albuterol 3 ml INH Q4H PRN 08/17/19 08/17/19 Albuterol Sulfate [Albuterol 1 puffs INH Q4H PRN 08/17/19 08/17/19 Sulfate Hfa] Ipratropium [Atrovent] 2.5 ml INH Q6H 08/17/19 08/17/19 Latanoprost 0.005% Ophth Drops 1 drops EACHEYE QPM 08/17/19 08/17/19 [Xalatan Ophth Drops] Oxybutynin Chloride [Ditropan Xl] 5 mg PO DAILY 08/17/19 08/17/19 [place] 450 mg PO DAILY 08/17/19 08/17/19 Timolol 0.5% Ophth Drops [Timoptic 1 drops EACHEYE BID 08/17/19 08/17/19 0.5% Ophth Drops] Warfarin [Coumadin] 5 mg PO MOWEFR 08/17/19 08/17/19 Doxycycline Monohydrate 100 mg PO BID 5 Days #10 tablet 08/20/19 Metoprolol Succinate [Toprol Xl] 25 mg PO DAILY #30 tablet 08/20/19 predniSONE [Prednisone 21-TAB dose 10 mg PO UD #1 each 08/20/19 pack] - Allergies Allergies/Adverse Reactions: Allergies Allergy/AdvReac Type Severity Reaction Status Date / Time No Known Drug Allergies Allergy Verified 09/03/19 12:39 Review of Systems - Constitutional Constitutional: reports: Fatigue, Weakness, Poor appetite. denies: Fever, Chills - Cardiovascular Cariovascular: denies: Chest pain, Lightheadedness - Respiratory Respiratory: reports: SOB with exertion. denies: Cough - Gastrointestinal Gastrointestinal: reports: Poor appetite. denies: Abdominal pain, Bloody stools, Nausea, Vomiting, Reflux/heartburn - Genitourinary Genitourinary: denies: Dysuria, Frequency, Urgency - Musculoskeletal Musculoskeletal: denies: Muscle pain, Muscle weakness - Integumentary Integumentary: denies: Rash - Neurological Neurological: reports: General weakness. denies: Focal weakness, Dizziness, Numbness - Psychiatric Psychiatric: reports: Depression - Hematologic/Lymphatic Hematologic/Lymphatic: denies: Bleeding tendencies - All Other Systems All Other Systems: reports: Reviewed and negative Prior Level of Functionality: He lives at home with his brother. Is being seeing by home PT for unsteady gait. Independent with most ADL's. Exam - Vital Signs Reviewed Vital Signs: Yes Vital Signs: Vital Signs x48h Temp Pulse Pulse Resp BP BP Pulse Ox 09/03/19 19:19 36.6 C 70 18 110/63 98 09/03/19 18:00 76 19 110/90 H 99 09/03/19 17:30 82 17 125/57 L 98 09/03/19 17:00 76 17 113/61 96 09/03/19 16:30 71 16 103/65 100 09/03/19 16:00 75 18 119/70 100 09/03/19 15:30 76 16 108/73 100 09/03/19 15:00 96 17 105/49 L 100 09/03/19 14:30 80 15 84/54 L 98 09/03/19 14:15 78 16 82/50 L 98 09/03/19 12:39 36.4 C L 84 18 106/80 94 - Physical Exam General Appearance: positive: No acute distress, Alert, Lethargic Eyes Bilateral: positive: Normal inspection ENT: positive: ENT inspection nml, Dry mucous membranes Neck: positive: Nml inspection Respiratory: positive: No respiratory distress, Other (Diminished breath sounds). negative: Wheezes, Rales, Rhonchi Cardiovascular: positive: Regular rate & rhythm, No murmur. negative: Tachycardia, Bradycardia Abdomen: positive: Non-tender, No distention. negative: Tenderness, Guarding, Rebound Skin: positive: Color nml, No rash, Warm, Dry Extremities: positive: Full ROM, Pedal edema (Trace lower extremity edema) Neurologic/Psychiatric: positive: Motor nml, Other (No focal motor deficits). negative: Disoriented to person, Disoriented to place, Weakness, Slurred/abnml speech Sepsis Event Note (H) - Evaluation Current Stage of Sepsis: Sepsis Possible source of Sepsis: positive: Genitourinary - Sepsis Criteria Sepsis Criteria: WBC count greater than 12,000 or less than 4000, SBP less than 90 mmHg, Renal: urine output less than 0.5ml/kg/hr for 2 hours or creatinine gr, Metabolic: lactate > 2 mmol/L Conclusion/Plan - Problem List (1) SIRS (systemic inflammatory response syndrome) Conclusion/Plan: He meets SIRS criteria given his hypotension, elevated white count and lactic acid. Although his urinalysis reveals pyuria and leukocyte esterase, this is likely colonization from a chronic indwelling bautista catheter. There is no bacteria on the urinalysis although yeast is present. I do not think this is causing a true infection as he no lower urinary tract symptoms and is afebrile. He recently completed treatment for MRSA CA-UTI. His hypotension and elevated white count may be secondary to dehydration and reactive in nature. Continue Ceftriaxone for now. Will continue IV hydration and trend his white count. If he becomes febrile or white count continues to increase, will treat for presumed jose antonio UTI. Follow up urine and blood cultures. (2) Hypotension Conclusion/Plan: Suspect this is likely secondary to poor oral intake rather than sepsis at this time. His blood pressure has already improved with hydration. Will continue IV hydration and check orthostatics. Monitor for signs of infection. Hold antihypertensives at this time. (3) HANY (acute kidney injury) Conclusion/Plan: Suspect this is likely pre-renal in nature given his poor oral intake and he clinically appears hydrated. Creatinine elevated at 1.9 compared to baseline of 1.1. This should improve with IV hydration. Will hold Lisinopril. Monitor renal function and urine output. (4) Supratherapeutic INR Conclusion/Plan: His INR is elevated >7 but there are no signs of bleeding. Will hold off on administering Vitamin K. Monitor INR. Hold Coumadin. (5) Chronic heart failure with preserved ejection fraction (HFpEF) Conclusion/Plan: He has history of CHF with reduced EF that improved to 55%. He is on Lisinopril and Toprol at home. No diuretic as he has been euvolemic. Not in exacerbation. Will resume home Toprol once blood pressure stabilizes. Hold Lisinopril due to HANY. Has outpatient follow up with Cardiology on September 10. (6) History of pulmonary embolism Conclusion/Plan: He is on Coumadin with an elevated INR. Will restart coumadin once INR is ther apeutic. (7) Chronic indwelling Bautista catheter Conclusion/Plan: He has a chronic indwelling bautista catheter for BPH that was replaced today. Will resume his home medications once his blood pressure stabilizes. Urinalysis is suggestive of colonization rather than infection at this time. (8) COPD (chronic obstructive pulmonary disease) Conclusion/Plan: Stable at this time. Will resume his home inhalers. (9) Atrial fibrillation Conclusion/Plan: He is currently in sinus rhythm and rate controlled. Will resume Metoprolol if blood pressure remains stable. Continue Coumadin once INR becomes therapeutic. Qualifiers: Atrial fibrillation type: paroxysmal Qualified Code(s): I48.0 - Paroxysmal atrial fibrillation (10) BPH (benign prostatic hyperplasia) Conclusion/Plan: Stable. Has chronic indwelling bautista catheter. - Lab Results Lab results reviewed: Yes Fish Bones: 09/03/19 13:34 09/03/19 13:34 - Diagnostic Imaging Results Diagnostic Imaging Results: positive: Final report reviewed - EKG Results EKG Interpreted Independently: Yes EKG Comparison: Unchanged from prior EKG EKG Findings: Sinus rhythm with no ischemic changes. Old LBBB noted. Core Measures - Anticipated LOS I expect patient to be DC'd or transferred within 96 hours.: Yes - Issues Hospital Issues and Management Plan: Hypotension and weakness. Rule out infection. - DVT/VTE - Prophylaxis VTE/DVT Device ordered at admit?: Yes VTE/DVT Prophylaxis med ordered at admit?: No Not Ordered - Medical Reason: Not indicated
[2019-09-03] MEDS: IPRATROPIUM/ALBUTEROL 3 ML NEB INH PRN (22:32)
[2019-09-04] MEDS: SODIUM CHLORIDE 0.9% 1,000 ML IV SCH (05:31)
[2019-09-04] MEDS: SODIUM CHLORIDE FLUSH 0.9% 10 ML SYRINGE IVP SCH ×3 (05:32→22:54)
[2019-09-04 05:38] LABS: BASOPHILS % (AUTO) 0.3 %; EOSINOPHILS # (AUTO) 0.1 10^3/uL (0.0-0.7); EOSINOPHILS % (AUTO) 1.4 %; HGB - HEMOGLOBIN 10.2 g/dL (14.0-18.0); LYMPHOCYTES # (AUTO) 0.7 10^3/uL (1.5-3.5); LYMPHOCYTES % (AUTO) 6.4 %; MEAN CORPUSCULAR HEMOGLOBIN 31.8 pg (27.0-31.0); MEAN CORPUSCULAR HGB CONC 31.9 g/dL (32.0-36.0); MEAN CORPUSCULAR VOLUME 99.7 fL (80.0-94.0); MEAN PLATELET VOLUME 10.4 fL (7.4-11.4); MONOCYTES # (AUTO) 0.5 10^3/uL (0.0-1.0); MONOCYTES % (AUTO) 5.2 %; NEUTROPHILS # (AUTO) 8.7 10^3/uL (1.5-6.6); NEUTROPHILS % (AUTO) 85.9 %; PLT - PLATELET COUNT 252 10^3/uL (130-450); RED BLOOD COUNT 3.21 10^6/uL (4.70-6.10); RED CELL DISTRIBUTION WIDTH 13.8 % (12.0-15.0); WHITE BLOOD COUNT 10.1 x10^3/uL (4.8-10.8)
[2019-09-04 05:51] LABS: CALCIUM 7.8 mg/dL (8.5-10.3); CREATININE 1.3 mg/dL (0.6-1.2)
[2019-09-04 05:55] LABS: INR 9.6 (0.8-1.2)
[2019-09-04] MEDS ORDERED: CHERRY SYRUP 10 ML UDC PO ONE ×2 (05:59→12:37)
[2019-09-04] MEDS ORDERED: PHYTONADIONE 10 MG/ML AMP PO ONE ×2 (05:59→12:37)
[2019-09-04] MEDS: FORMOTEROL FUMARATE NEB 20 MCG/2 ML INH SCH ×2 (07:51→19:24)
[2019-09-04] MEDS: BUDESONIDE 0.5 MG/2 ML NEB INH SCH ×2 (07:51→19:24)
[2019-09-04] MEDS: IPRATROPIUM/ALBUTEROL 3 ML NEB INH PRN ×2 (08:04→13:31)
[2019-09-04] MEDS: cefTRIAXone 1 GM in SODIUM CHLORIDE 0.9% MINIBAG 100 ML IV SCH (08:39)
--- NOTE | 2019-09-04 12:30 | PROVIDER PROGRESS NOTE ---
Subjective - Prog Note Date Prog Note Date: 09/04/19 Prog Note Time: 12:40 - Subjective Pt reports feeling: Improved Subjective: tired. still feels like he's run out of steam . but able to eat and drink today. not afraid of choking. denies cp, abd pain, dysuria. (+) mild cough, no chest congestion. Current Medications - Current Medications Current Medications: Active Medications Acetaminophen (Tylenol) 650 mg PO Q4HR PRN PRN Reason: Pain 1 to 4 Albuterol/Ipratropium (Duoneb) 3 ml INH Q4HR PRN PRN Reason: Wheezing Last Admin: 09/04/19 08:04 Dose: 3 ml Budesonide (Pulmicort) 0.5 mg INH RTBID JOSELIN Last Admin: 09/04/19 07:51 Dose: 0.5 mg Phillip Syrup () 10 ml PO ONCE ONE Stop: 09/04/19 12:38 Formoterol Fumarate (Perforomist) 20 mcg INH RTBID JOSELIN Last Admin: 09/04/19 07:51 Dose: 20 mcg Sodium Chloride (Normal Saline 0.9%) 1,000 mls @ 100 mls/hr IV .Q10H [facility] Stop: 09/04/19 13:59 Last Admin: 09/04/19 05:31 Dose: 100 mls/hr Ceftriaxone Sodium 1 gm/ (Sodium Chloride) 100 mls @ 200 mls/hr IV DAILY [facility] Last Infusion: 09/04/19 09:09 Dose: Infused Ondansetron HCl (Zofran Inj) 4 mg IVP Q6HR PRN PRN Reason: Nausea / Vomiting Ondansetron HCl (Zofran Odt) 4 mg TL Q6HR PRN PRN Reason: Nausea / Vomiting Oxycodone HCl (Roxicodone) 5 mg PO Q4HR PRN PRN Reason: Pain 5 to 7 Phenol/Menthol (Chloraseptic) 2 sprays MM Q2HR PRN PRN Reason: Throat Pain Phytonadione (Vitamin K (Adult)) 10 mg PO ONCE ONE Stop: 09/04/19 12:38 Sodium Chloride (Normal Saline Flush 0.9%) 10 ml IVP PRN PRN PRN Reason: NEEDED PER PROVIDER ORDERS Last Admin: 09/04/19 06:59 Dose: 10 ml Sodium Chloride (Normal Saline Flush 0.9%) 10 ml IVP 0100,0900,1700 JOSELIN Last Admin: 09/04/19 08:40 Dose: Not Given Throat Lozenges (Cepacol) 1 lozenge MM Q2HR PRN PRN Reason: Throat pain Last Admin: 09/03/19 21:59 Dose: 1 lozenge Finasteride 5 mg PO DAILY 05/21/19 Warfarin [Coumadin] 2.5 mg PO SUTUTHSA 06/06/19 Azithromycin 250 mg PO MOWEFR 07/30/19 Albuterol 3 ml INH Q4H PRN 08/17/19 Albuterol Sulfate [Albuterol Sulfate Hfa] 1 puffs INH Q4H PRN 08/17/19 Ipratropium [Atrovent] 2.5 ml INH Q6H 08/17/19 Latanoprost 0.005% Ophth Drops [Xalatan Ophth Drops] 1 drops EACHEYE QPM 08/17/19 Oxybutynin Chloride [Ditropan Xl] 5 mg PO DAILY 08/17/19 Timolol 0.5% Ophth Drops [Timoptic 0.5% Ophth Drops] 1 drops EACHEYE BID Warfarin [Coumadin] 5 mg PO WE08/17/19 Metoprolol Succinate [Toprol Xl] 50 mg PO DAILY 09/04/19 Objective - Vital Signs/Intake & Output Reviewed Vital Signs: Yes Vital Signs: Vital Signs x48h Temp Pulse Pulse Resp BP Pulse Ox 09/04/19 08:20 36.5 C 89 18 120/58 L 96 09/04/19 07:51 82 16 Intake & Output: Intake & Output 09/01/19 09/02/19 09/03/19 09/04/19 23:59 23:59 23:59 23:59 Intake Total 1270 1200 Output Total 175 250 Balance 1095 950 - Objective General Appearance: positive: Alert, Other (sittiing up in chair, exhausted, trembling? w effort of sitting, very hoarse) Eyes Bilateral: positive: PERRL ENT: negative: Dry mucous membranes Neck: positive: No JVD Respiratory: positive: Chest non-tender, No respiratory distress, Rhonchi (right mid lung ruiz). negative: Wheezes, Rales Cardiovascular: positive: Regular rate & rhythm, Systolic murmur. negative: Gallop/S4, Friction rub Abdomen: positive: Non-tender, No organomegaly, Nml bowel sounds, No distention Skin: positive: Warm, Dry Extremities: positive: Full ROM, No pedal edema, Other (wasted muscle mass, thin man) Neurologic/Psychiatric: positive: Oriented x3 (but forgets easily and has to be prompted, will lose track of conversation, hard to focus for him), CN's nml (2- 12), Motor nml (except trembles), Slurred/abnml speech (very hoarse) - Lab Results Fish Bones: 09/04/19 05:25 09/04/19 05:25 Other Labs: Lab Results x24hrs 09/04/19 09/04/19 09/04/19 Range/Units 05:25 05:25 05:25 WBC 10.1 (4.8-10.8) x10^3/uL RBC 3.21 L (4.70-6.10) 10^6/uL Hgb 10.2 L (14.0-18.0) g/dL Hct 32.0 L (42.0-52.0) % MCV 99.7 H (80.0-94.0) fL MCH 31.8 H (27.0-31.0) pg MCHC 31.9 L (32.0-36.0) g/dL RDW 13.8 (12.0-15.0) % Plt Count 252 (130-450) 10^3/uL MPV 10.4 (7.4-11.4) fL Neut # (Auto) 8.7 H (1.5-6.6) 10^3/uL Lymph # (Auto) 0.7 L (1.5-3.5) 10^3/uL [place] # (Auto) 0.5 (0.0-1.0) 10^3/uL Eos # (Auto) 0.1 (0.0-0.7) 10^3/uL Baso # (Auto) 0.0 (0.0-0.1) 10^3/uL Absolute Nucleated RBC 0.00 x10^3/uL Nucleated RBC % 0.0 /100WBC PT 96.0 H (9.9-12.6) secs INR 9.6 H* (0.8-1.2) Sodium 143 (135-145) mmol/L Potassium 3.8 (3.5-5.0) mmol/L Chloride 109 (101-111) mmol/L Carbon Dioxide 25 (21-32) mmol/L Anion Gap 9.0 (6-13) BUN 29 H (6-20) mg/dL Creatinine 1.3 H (0.6-1.2) mg/dL Estimated GFR (MDRD) 52 L (>89) Glucose 102 H (70-100) mg/dL Lactic Acid (0.5-2.2) mmol/L Calcium 7.8 L (8.5-10.3) mg/dL Total Bilirubin (0.2-1.0) mg/dL AST (10-42) IU/L ALT (10-60) IU/L Alkaline Phosphatase (42-121) IU/L Troponin I High Sens (2.3-19.7) pg/mL Total Protein (6.7-8.2) g/dL Albumin (3.2-5.5) g/dL Globulin (2.1-4.2) g/dL Albumin/Globulin Ratio (1.0-2.2) Lipase (22-51) U/L Urine Color Urine Clarity (CLEAR) Urine pH (5.0-7.5) PH Ur Specific [place] (1.002-1.030) Urine Protein (NEGATIVE) mg/dL Urine Glucose (UA) (NEGATIVE) mg/dL Urine Ketones (NEGATIVE) mg/dL Urine Occult Blood (NEGATIVE) Urine Nitrite (NEGATIVE) Urine Bilirubin (NEGATIVE) Urine Urobilinogen (NORMAL) E.U./dL Ur Leukocyte Esterase (NEGATIVE) Urine RBC (0-5) /HPF Urine WBC (0-3) /HPF Ur Squamous Epith Cells (<= Few) Urine Bacteria (None Seen) /HPF Urine Yeast Urine Culture Comments 09/03/19 09/03/19 09/03/19 Range/Units 21:12 20:27 16:00 WBC (4.8-10.8) x10^3/uL RBC (4.70-6.10) 10^6/uL Hgb (14.0-18.0) g/dL Hct (42.0-52.0) % MCV (80.0-94.0) fL MCH (27.0-31.0) pg MCHC (32.0-36.0) g/dL RDW (12.0-15.0) % Plt Count (130-450) 10^3/uL MPV (7.4-11.4) fL Neut # (Auto) (1.5-6.6) 10^3/uL Lymph # (Auto) (1.5-3.5) 10^3/uL [place] # (Auto) (0.0-1.0) 10^3/uL Eos # (Auto) (0.0-0.7) 10^3/uL Baso # (Auto) (0.0-0.1) 10^3/uL Absolute Nucleated RBC x10^3/uL Nucleated RBC % /100WBC PT (9.9-12.6) secs INR (0.8-1.2) Sodium (135-145) mmol/L Potassium (3.5-5.0) mmol/L Chloride (101-111) mmol/L Carbon Dioxide (21-32) mmol/L Anion Gap (6-13) BUN (6-20) mg/dL Creatinine (0.6-1.2) mg/dL Estimated GFR (MDRD) (>89) Glucose (70-100) mg/dL Lactic Acid 1.3 (0.5-2.2) mmol/L Calcium (8.5-10.3) mg/dL Total Bilirubin (0.2-1.0) mg/dL AST (10-42) IU/L ALT (10-60) IU/L Alkaline Phosphatase (42-121) IU/L Troponin I High Sens 16.8 (2.3-19.7) pg/mL Total Protein (6.7-8.2) g/dL Albumin (3.2-5.5) g/dL Globulin (2.1-4.2) g/dL Albumin/Globulin Ratio (1.0-2.2) Lipase (22-51) U/L Urine Color YELLOW Urine Clarity SL. CLOUDY (CLEAR) Urine pH 5.0 (5.0-7.5) PH Ur Specific [place] 1.015 (1.002-1.030) Urine Protein TRACE (NEGATIVE) mg/dL Urine Glucose (UA) NEGATIVE (NEGATIVE) mg/dL Urine Ketones NEGATIVE (NEGATIVE) mg/dL Urine Occult Blood LARGE H (NEGATIVE) Urine Nitrite NEGATIVE (NEGATIVE) Urine Bilirubin NEGATIVE (NEGATIVE) Urine Urobilinogen 0.2 (NORMAL) (NORMAL) E.U./dL Ur Leukocyte Esterase MODERATE H (NEGATIVE) Urine RBC 6-10 H (0-5) /HPF Urine WBC 11-25 H (0-3) /HPF Ur Squamous Epith Cells NONE SEEN (<= Few) Urine Bacteria None Seen (None Seen) /HPF Urine Yeast PRESENT Urine Culture Comments INDICATED 09/03/19 09/03/19 09/03/19 Range/Units 14:25 13:34 13:34 WBC (4.8-10.8) x10^3/uL RBC (4.70-6.10) 10^6/uL Hgb (14.0-18.0) g/dL Hct (42.0-52.0) % MCV (80.0-94.0) fL MCH (27.0-31.0) pg MCHC (32.0-36.0) g/dL RDW (12.0-15.0) % Plt Count (130-450) 10^3/uL MPV (7.4-11.4) fL Neut # (Auto) (1.5-6.6) 10^3/uL Lymph # (Auto) (1.5-3.5) 10^3/uL [place] # (Auto) (0.0-1.0) 10^3/uL Eos # (Auto) (0.0-0.7) 10^3/uL Baso # (Auto) (0.0-0.1) 10^3/uL Absolute Nucleated RBC x10^3/uL Nucleated RBC % /100WBC PT 75.4 H (9.9-12.6) secs INR 7.4 H* (0.8-1.2) Sodium (135-145) mmol/L Potassium (3.5-5.0) mmol/L Chloride (101-111) mmol/L Carbon Dioxide (21-32) mmol/L Anion Gap (6-13) BUN (6-20) mg/dL Creatinine (0.6-1.2) mg/dL Estimated GFR (MDRD) (>89) Glucose (70-100) mg/dL Lactic Acid 2.4 H (0.5-2.2) mmol/L Calcium (8.5-10.3) mg/dL Total Bilirubin (0.2-1.0) mg/dL AST (10-42) IU/L ALT (10-60) IU/L Alkaline Phosphatase (42-121) IU/L Troponin I High Sens 23.4 H* (2.3-19.7) pg/mL Total Protein (6.7-8.2) g/dL Albumin (3.2-5.5) g/dL Globulin (2.1-4.2) g/dL Albumin/Globulin Ratio (1.0-2.2) Lipase (22-51) U/L Urine Color Urine Clarity (CLEAR) Urine pH (5.0-7.5) PH Ur Specific [place] (1.002-1.030) Urine Protein (NEGATIVE) mg/dL Urine Glucose (UA) (NEGATIVE) mg/dL Urine Ketones (NEGATIVE) mg/dL Urine Occult Blood (NEGATIVE) Urine Nitrite (NEGATIVE) Urine Bilirubin (NEGATIVE) Urine Urobilinogen (NORMAL) E.U./dL Ur Leukocyte Esterase (NEGATIVE) Urine RBC (0-5) /HPF Urine WBC (0-3) /HPF Ur Squamous Epith Cells (<= Few) Urine Bacteria (None Seen) /HPF Urine Yeast Urine Culture Comments 09/03/19 09/03/19 Range/Units 13:34 13:34 WBC 13.7 H (4.8-10.8) x10^3/uL RBC 3.65 L (4.70-6.10) 10^6/uL Hgb 11.8 L (14.0-18.0) g/dL Hct 37.3 L (42.0-52.0) % MCV 102.2 H (80.0-94.0) fL MCH 32.3 H (27.0-31.0) pg MCHC 31.6 L (32.0-36.0) g/dL RDW 13.9 (12.0-15.0) % Plt Count 281 (130-450) 10^3/uL MPV 11.1 (7.4-11.4) fL Neut # (Auto) 12.0 H (1.5-6.6) 10^3/uL Lymph # (Auto) 0.7 L (1.5-3.5) 10^3/uL [place] # (Auto) 0.7 (0.0-1.0) 10^3/uL Eos # (Auto) 0.1 (0.0-0.7) 10^3/uL Baso # (Auto) 0.0 (0.0-0.1) 10^3/uL Absolute Nucleated RBC 0.00 x10^3/uL Nucleated RBC % 0.0 /100WBC PT (9.9-12.6) secs INR (0.8-1.2) Sodium 140 (135-145) mmol/L Potassium 4.1 (3.5-5.0) mmol/L Chloride 101 (101-111) mmol/L Carbon Dioxide 29 (21-32) mmol/L Anion Gap 10.0 (6-13) BUN 36 H (6-20) mg/dL Creatinine 1.9 H (0.6-1.2) mg/dL Estimated GFR (MDRD) 34 L (>89) Glucose 107 H (70-100) mg/dL Lactic Acid (0.5-2.2) mmol/L Calcium 8.7 (8.5-10.3) mg/dL Total Bilirubin 0.8 (0.2-1.0) mg/dL AST 16 (10-42) IU/L ALT 14 (10-60) IU/L Alkaline Phosphatase 58 (42-121) IU/L Troponin I High Sens (2.3-19.7) pg/mL Total Protein 6.1 L (6.7-8.2) g/dL Albumin 2.9 L (3.2-5.5) g/dL Globulin 3.2 (2.1-4.2) g/dL Albumin/Globulin Ratio 0.9 L (1.0-2.2) Lipase 29 (22-51) U/L Urine Color Urine Clarity (CLEAR) Urine pH (5.0-7.5) PH Ur Specific [place] (1.002-1.030) Urine Protein (NEGATIVE) mg/dL Urine Glucose (UA) (NEGATIVE) mg/dL Urine Ketones (NEGATIVE) mg/dL Urine Occult Blood (NEGATIVE) Urine Nitrite (NEGATIVE) Urine Bilirubin (NEGATIVE) Urine Urobilinogen (NORMAL) E.U./dL Ur Leukocyte Esterase (NEGATIVE) Urine RBC (0-5) /HPF Urine WBC (0-3) /HPF Ur Squamous Epith Cells (<= Few) Urine Bacteria (None Seen) /HPF Urine Yeast Urine Culture Comments ABX Reporting Has patient been on IV antibiotics over the past 48 hours?: Yes Sepsis Event Note (H) - Evaluation Current Stage of Sepsis: Sepsis Possible source of Sepsis: positive: Genitourinary - Sepsis Criteria Sepsis Criteria: WBC count greater than 12,000 or less than 4000, SBP less than 90 mmHg, Renal: urine output less than 0.5ml/kg/hr for 2 hours or creatinine gr, Metabolic: lactate > 2 mmol/L Assessment/Plan - Problem List (1) Dysphagia Impression: He was seen by speech therapy. She says that he was able to swallow peaches, pears, other food. No evidence of aspiration. Did feel some pain in the lower in the mid esophageal region on the right-hand side. Speech therapist as offered some instructions about staying up in bed after eating. But no other restrictions. However, he still has enough dysphagia that he does not want to eat and has lost weight and is dehydrated. He's so tired. He doesn't want to be here and shares that the only reason he is doing these things is because his son wants him to. Plan: Esophagram Advance Care planning conversatin with he and his son later today once son gets here. (2) SIRS (systemic inflammatory response syndrome) resolved Conclusion/Plan: On admission, he met SIRS criteria given his hypotension, elevated white count and lactic acid. Although his urinalysis reveals pyuria and leukocyte esterase, this is likely colonization from a chronic indwelling bautista catheter. There is no bacteria on the urinalysis although yeast is present. I do not think this is causing a true infection as he no lower urinary tract symptoms and is afebrile. He recently completed treatment for MRSA CA-UTI. His hypotension and elevated wh ite count may be secondary to dehydration and reactive in nature. Continue Ceftriaxone for now. IV hydration continues and it did improve his vital signs and labs. If he becomes febrile or white count continues to increase, will treat for presumed jose antonio UTI. Follow up urine and blood cultures. WBC 13.1>10.7 If there are no positive blood or urine cultures in 48 hours, I will stop abx. (3) Hypotension to 80's systolic, resolved Conclusion/Plan: Suspect this is likely secondary to poor oral intake rather than sepsis at this time. His blood pressure has already improved with hydration. Will continue IV hydration and check orthostatics. Monitor for signs of infection. Hold antihypertensives at this time. He is 112-130 without his BP meds. Once he is 130-140's will resume (4) HANY (acute kidney injury) Conclusion/Plan: Suspect this is likely pre-renal in nature given his poor oral intake and he clinically appears hydrated. Creatinine elevated at 1.9 compared to baseline of 1.1. This should improve with IV hydration. Will hold Lisinopril. Monitor renal function and urine output. Creat 1.9>1.3 (5) Supratherapeutic INR Conclusion/Plan: His INR is elevated >7 but there are no signs of bleeding. INR 7.4>9.6 Continue to monitor INR and holding coumdin give Vitamin K (6) Chronic heart failure with preserved ejection fraction (HFpEF) Conclusion/Plan: He has history of CHF with reduced EF that improved to 55%. He is on Lisinopril and Toprol at home. No diuretic as he has been euvolemic. Not in exacerbation. Will resume home Toprol once blood pressure stabilizes and he is consistently in 130's-140's. Hold Lisinopril due to HANY. Has outpatient follow up with Cardiology on September 10. I expect he will be discharged by then so he can keep that appointment. (7) History of pulmonary embolism Conclusion/Plan: He is on Coumadin with an elevated INR. Will restart coumadin once INR is therapeutic. (8) Chronic indwelling Bautista catheter Conclusion/Plan: He has a chronic indwelling bautista catheter for BPH that was replaced today. Will resume his home medications once his blood pressure stabilizes. Urinalysis is suggestive of colonization rather than infection at this time. (9) COPD (chronic obstructive pulmonary disease) Conclusion/Plan: Stable at this time. Will resume his home inhalers. (10) Atrial fibrillation Conclusion/Plan: He is currently in sinus rhythm and rate controlled. Will resume Metoprolol if blood pressure remains stable. Continue Coumadin once INR becomes therapeutic. Qualifiers: Atrial fibrillation type: paroxysmal Qualified Code(s): I48.0 - Paroxysmal atrial fibrillation (11) BPH (benign prostatic hyperplasia) Conclusion/Plan: Stable. Has chronic indwelling bautista catheter. Qualifiers: Qualified Code(s): R13.14 - Dysphagia, pharyngoesophageal phase
--- NOTE | 2019-09-04 16:40 | XRAY Report ---
Reason: dysphagia, nml swallow Procedure Date: 09/04/2019 Accession Number: [id number] / [id number] Procedure: [place] - Esophogram CPT Code: Final Report FULL RESULT: EXAM: BARIUM ESOPHAGRAM EXAM DATE: 09/04/2019 01:35 PM. CLINICAL HISTORY: Difficulty swallowing. COMPARISONS: ABDOMEN/PELVIS W/O 05/08/2019 10:00 AM NECK SOFT TISSUE 07/03/2019 5:42 PM. TECHNIQUE: Routine double contrast esophagram. Fluoroscopy Time: 4 minutes 20 seconds. Number of Images: 14. FINDINGS: Swallowing Mechanism: No tracheal aspiration or penetration. Esophageal Motility: Normal peristaltic stripping wave. Mucosa: No ulcerations or masses. Gastroesophageal Junction: No hernia, stricture, or significant reflux. Other: When swallowing a 13 mm barium tablet it became lodged in the vallecula. However the patient had no sensation of its retention, believing it had passed into the stomach. Several swallows of liquid were required to dislodge it. Once out of the vallecula the tablet passed easily into the stomach. IMPRESSION: A 13 mm barium tablet becomes lodged in the vallecula when swallowed, which the patient does not recognize. Otherwise unremarkable barium esophagram. RADIA
[2019-09-05] MEDS: ACETAMINOPHEN 325 MG TABLET PO PRN (00:04)
[2019-09-05] MEDS: SODIUM CHLORIDE FLUSH 0.9% 10 ML SYRINGE IVP SCH ×3 (00:06→19:29)
[2019-09-05 06:05] LABS: BASOPHILS % (AUTO) 0.3 %; EOSINOPHILS # (AUTO) 0.2 10^3/uL (0.0-0.7); EOSINOPHILS % (AUTO) 1.7 %; LYMPHOCYTES # (AUTO) 0.9 10^3/uL (1.5-3.5); LYMPHOCYTES % (AUTO) 9.3 %; MEAN CORPUSCULAR HEMOGLOBIN 31.9 pg (27.0-31.0); MEAN CORPUSCULAR HGB CONC 31.3 g/dL (32.0-36.0); MEAN CORPUSCULAR VOLUME 102.2 fL (80.0-94.0); MEAN PLATELET VOLUME 10.9 fL (7.4-11.4); MONOCYTES # (AUTO) 0.4 10^3/uL (0.0-1.0); MONOCYTES % (AUTO) 4.8 %; NEUTROPHILS # (AUTO) 7.6 10^3/uL (1.5-6.6); NEUTROPHILS % (AUTO) 83.2 %; PLT - PLATELET COUNT 258 10^3/uL (130-450); RED BLOOD COUNT 3.13 10^6/uL (4.70-6.10); WHITE BLOOD COUNT 9.2 x10^3/uL (4.8-10.8)
[2019-09-05 06:07] LABS: INR 1.5 (0.8-1.2); PT - PROTHROMBIN TIME 16.2 secs (9.9-12.6)
[2019-09-05 06:16] LABS: CALCIUM 7.8 mg/dL (8.5-10.3); CREATININE 1.1 mg/dL (0.6-1.2)
[2019-09-05] MEDS: IPRATROPIUM/ALBUTEROL 3 ML NEB INH PRN (07:14)
[2019-09-05] MEDS: BUDESONIDE 0.5 MG/2 ML NEB INH SCH ×2 (07:14→19:22)
[2019-09-05] MEDS: FORMOTEROL FUMARATE NEB 20 MCG/2 ML INH SCH ×2 (07:14→19:22)
--- NOTE | 2019-09-05 08:11 | ADVANCE CARE PLANNING NOTE ---
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 Although he lives with his son Grayson, his other son that is in [place] is his power of personal injury attorney. But he tells me that Grayson,has is just as much say so as his other son. - Diagnosis for Encounter (1) Urinary retention with incomplete bladder emptying Summary: He has chronic urinary retention. As result he has a chronic indwelling [place] and has had multiple admissions for dehydration, UTI - Encounter Subjective/Patient's Story: . Objective/Medical Story: He states that he is a [place] is [place]. He went to [employer] when it was a one room schoolhouse. 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 Never owned his own business and worked for somebody else. He has been twice. Both wives are . Had 2 children with his first . He looks back on his life and cannot believe how many happy events he has had. Dinners with family, clamming, his pride with his daughter who lives in [facility]. He has even been back to [place] to see her a couple of times. He noticed that he was "getting older and slowing down" about 10 years ago. But he felt that as long as he could still get from point A to point B, no matter how slowly, life was good. He has been needing more and more help over the last 4 to 5 years, and 1 of his sons moved in with him. He loves to fish. The last time he went fishing was 8 months ago. He loves to clam and the last time he was able to go clamming was 6 months ago. The last time he remembers leaving the house and going for a good long drive and really enjoying his family's company was last summer, summer 2017, when they all got together for a picnic a [place]. He says it is just too much effort to leave the house now. He really does not like to read. Watching TV is hard because he is hard of hearing. And everyone talks so fast he does not understand what is going on. He is getting more more tired. This whole issue of having urinary retention, then having a Saldana, is really taking the "wind out of his sails". Whereas before he never thought about dying, he started to think about it more and more. He is not ready to . But he knows that he does not want to be resuscitated with chest compression or intubation. And he started to think twice about coming back to the hospital. But he still not sure yet. He wants to live but he does not want to live feeling like he feels now, which is hurting all over, miserable, and always in the hospital. Goals of Care: 1. Be at home with family as much as possible 2. Still come back to the hospital for now if he gets sick again 3. Wants to talk to his sons about how he feels. Plan: 1. I spoke to son Grayson. Mr. Hanks wants a POLST filled out and because he has cognitive deficits, wanted to make sure family knew this. Grayson says its fine and he will let his brother know. 2. Continue DNR status 3. Palliative Care consult when able. Code Status: Do Not Attempt Resuscitation Time spent on advance care plannin
[2019-09-05] MEDS: cefTRIAXone 1 GM in SODIUM CHLORIDE 0.9% MINIBAG 100 ML IV SCH (09:17)
--- NOTE | 2019-09-05 10:36 | PROVIDER PROGRESS NOTE ---
Subjective - Prog Note Date Prog Note Date: 09/05/19 Prog Note Time: 11:12 - Subjective Subjective: he had rigors this morning and required heated blankets to keep him warm. denies cp, cough, new abd pain, new urinary symptoms. no diarrhea Current Medications - Current Medications Current Medications: Active Medications Acetaminophen (Tylenol) 650 mg PO Q4HR PRN PRN Reason: Pain 1 to 4 Last Admin: 09/05/19 00:04 Dose: 650 mg Albuterol/Ipratropium (Duoneb) 3 ml INH Q4HR PRN PRN Reason: Wheezing Last Admin: 09/05/19 07:14 Dose: 3 ml Budesonide (Pulmicort) 0.5 mg INH RTBID [facility] Last Admin: 09/05/19 07:14 Dose: 0.5 mg Formoterol Fumarate (Perforomist) 20 mcg INH RTBID [facility] Last Admin: 09/05/19 07:14 Dose: 20 mcg Ceftriaxone Sodium 1 gm/ (Sodium Chloride) 100 mls @ 200 mls/hr IV DAILY [facility] Last Infusion: 09/05/19 09:47 Dose: Infused Ondansetron HCl (Zofran Inj) 4 mg IVP Q6HR PRN PRN Reason: Nausea / Vomiting Ondansetron HCl (Zofran Odt) 4 mg TL Q6HR PRN PRN Reason: Nausea / Vomiting Oxycodone HCl (Roxicodone) 5 mg PO Q4HR PRN PRN Reason: Pain 5 to 7 Phenol/Menthol (Chloraseptic) 2 sprays MM Q2HR PRN PRN Reason: Throat Pain Sodium Chloride (Normal Saline Flush 0.9%) 10 ml IVP PRN PRN PRN Reason: NEEDED PER PROVIDER ORDERS Last Admin: 09/04/19 06:59 Dose: 10 ml Sodium Chloride (Normal Saline Flush 0.9%) 10 ml IVP 0100,0900,1700 [facility] Last Admin: 09/05/19 09:17 Dose: 10 ml Throat Lozenges (Cepacol) 1 lozenge MM Q2HR PRN PRN Reason: Throat pain Last Admin: 09/03/19 21:59 Dose: 1 lozenge Warfarin Sodium (Coumadin) 2.5 mg PO QDWARFARIN [facility] Finasteride 5 mg PO DAILY 05/21/19 Warfarin [Coumadin] 2.5 mg PO SUTUTHSA 06/06/19 Azithromycin 250 mg PO MOWEFR 07/30/19 Albuterol 3 ml INH Q4H PRN 08/17/19 Albuterol Sulfate [Albuterol Sulfate Hfa] 1 puffs INH Q4H PRN 08/17/19 Ipratropium [Atrovent] 2.5 ml INH Q6H 08/17/19 Latanoprost 0.005% Ophth Drops [Xalatan Ophth Drops] 1 drops EACHEYE QPM 08/17/19 Oxybutynin Chloride [Ditropan Xl] 5 mg PO DAILY 08/17/19 Timolol 0.5% Ophth Drops [Timoptic 0.5% Ophth Drops] 1 drops EACHEYE BID 08/17/19 Warfarin [Coumadin] 5 mg PO MOWE08/17/19 Metoprolol Succinate [Toprol Xl] 50 mg PO DAILY 09/04/19 Objective - Vital Signs/Intake & Output Reviewed Vital Signs: Yes Vital Signs: Vital Signs x48h Temp Pulse Pulse Resp BP Pulse Ox 09/05/19 07:52 37.5 C 84 20 133/68 H 93 09/05/19 07:19 79 20 Intake & Output: Intake & Output 09/02/19 09/03/19 09/04/19 09/05/19 23:59 23:59 23:59 23:59 Intake Total 1270 1420 1075 Output Total 175 750 300 Balance 1095 670 775 - Objective General Appearance: positive: Alert, Mild distress, Other (sitting up in chair, wrapped in blankets, still with a little shakes) Eyes Bilateral: positive: PERRL ENT: positive: Pharynx nml Neck: positive: No JVD. negative: Stiff neck, Carotid bruit Respiratory: positive: Chest non-tender, Other (prolonged end exhalation). negative: Wheezes, Rales, Rhonchi Cardiovascular: positive: Regular rate & rhythm, Systolic murmur. 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), Motor nml (except shakes/tremor?), Disoriented to time - Lab Results Fish Bones: 09/05/19 05:25 09/05/19 05:25 Other Labs: Lab Results x24hrs 09/05/19 09/05/19 09/05/19 Range/Units 05:25 05:25 05:25 WBC 9.2 (4.8-10.8) x10^3/uL RBC 3.13 L (4.70-6.10) 10^6/uL Hgb 10.0 L (14.0-18.0) g/dL Hct 32.0 L (42.0-52.0) % MCV 102.2 H (80.0-94.0) fL MCH 31.9 H (27.0-31.0) pg MCHC 31.3 L (32.0-36.0) g/dL RDW 14.0 (12.0-15.0) % Plt Count 258 (130-450) 10^3/uL MPV 10.9 (7.4-11.4) fL Neut # (Auto) 7.6 H (1.5-6.6) 10^3/uL Lymph # (Auto) 0.9 L (1.5-3.5) 10^3/uL [place] # (Auto) 0.4 (0.0-1.0) 10^3/uL Eos # (Auto) 0.2 (0.0-0.7) 10^3/uL Baso # (Auto) 0.0 (0.0-0.1) 10^3/uL Absolute Nucleated RBC 0.00 x10^3/uL Nucleated RBC % 0.0 /100WBC PT 16.2 H (9.9-12.6) secs INR 1.5 H (0.8-1.2) Sodium 144 (135-145) mmol/L Potassium 3.5 (3.5-5.0) mmol/L Chloride 108 (101-111) mmol/L Carbon Dioxide 30 (21-32) mmol/L Anion Gap 6.0 (6-13) BUN 20 (6-20) mg/dL Creatinine 1.1 (0.6-1.2) mg/dL Estimated GFR (MDRD) 64 L (>89) Glucose 98 (70-100) mg/dL Calcium 7.8 L (8.5-10.3) mg/dL ABX Reporting Has patient been on IV antibiotics over the past 48 hours?: Yes Sepsis Event Note (H) - Evaluation Current Stage of Sepsis: Resolved Possible source of Sepsis: positive: Genitourinary - Sepsis Criteria Sepsis Criteria: WBC count greater than 12,000 or less than 4000, SBP less than 90 mmHg, Renal: urine output less than 0.5ml/kg/hr for 2 hours or creatinine gr, Metabolic: lactate > 2 mmol/L Assessment/Plan - Problem List (1) Rigor Impression: he had an abrupt onset this am of rigors without fever and his WBC is normal. BP and oxygen need stable (no hypoxia) Plan: repeat CXR repeat blood culture repeat urine analysis (2) Dysphagia Impression: He was seen by speech therapy. She says that he was able to swallow peaches, pe ars, other food. No evidence of aspiration. Did feel some pain in the lower in the mid esophageal region on the right-hand side. Speech therapist as offered some instructions about staying up in bed after eating. But no other restrictions. However, he still has enough dysphagia that he does not want to eat and has lost weight and is dehydrated. He's so tired. He doesn't want to be here and shares that the only reason he is doing these things is because his son wants him to. Esophogram has the barium pill get stuck in his vallecula but his swallowing is otherwise nml, esophogram normal. Voice is intermittently hoarse. Gets sensation of food stuck at his epigastrium and he gets sore there immediately after or while eating. Plan: EGD as outpatient if he wants to continue work up Nasal pharyngoscopy with ENT as outpatient if he wants to continue workup (3) SIRS (systemic inflammatory response syndrome) resolved Conclusion/Plan: On admission, he met SIRS criteria given his hypotension, elevated white count and lactic acid. Although his urinalysis reveals pyuria and leukocyte esterase, this is likely colonization from a chronic indwelling bautista catheter. There is no bacteria on the urinalysis although yeast is present. I do not think this is causing a true infection as he no lower urinary tract symptoms and is afebrile. He recently completed treatment for MRSA CA-UTI. His hypotension and elevated white count may be secondary to dehydration and reactive in nature. Continue Ceftriaxone for now. IV hydration continues and it did improve his vital signs and labs. If he becomes febrile or white count continues to increase, will treat for presumed jose antonio UTI. Urine and blood cultures have been negative. WBC 13.1>10.7>9.2 Rigors this am. Repeat CXR and cultures. Will continue abx. Day #2 Ceftriaxone. (4) Hypotension to 80's systolic, resolved Conclusion/Plan: Suspect this is likely secondary to poor oral intake rather than sepsis at this time. His blood pressure has already improved with hydration. Will continue IV hydration and check orthostatics. Monitor for signs of infection. Hold antihypertensives at this time. He is 112-130 without his BP meds. Once he is 130-140's consistently, will resume. This morning he has been 116, 173, 133 systolic. (5) HANY (acute kidney injury) Conclusion/Plan: Suspect this is likely pre-renal in nature given his poor oral intake and he clinically appears hydrated. Creatinine elevated at 1.9 compared to baseline of 1.1. This should improve with IV hydration. Will continue to hold Lisinopril. Monitor renal function and urine output. Creat 1.9>1.3>1.1 Plan: stop IVF and monitor response (6) Supratherapeutic INR Conclusion/Plan: His INR is elevated >7 but there are no signs of bleeding. INR 7.4>9.6>Vitamin K 10 mg po>1.5 Plan: resume 2.5 mg coumadin (7) Chronic heart failure with preserved ejection fraction (HFpEF) Conclusion/Plan: He has history of CHF with reduced EF that improved to 55%. He is on Lisinopril and Toprol at home. No diuretic as he has been euvolemic. Not in exacerbation. Will resume home Toprol once blood pressure stabilizes and he is consistently in 130's-140's. Hold Lisinopril due to HANY. Has outpatient follow up with Cardiology on September 10. I expect he will be discharged by then so he can keep that appointment. Stop IVF today. (8) History of pulmonary embolism Conclusion/Plan: He is on Coumadin with an elevated INR. Will restart coumadin once INR is therapeutic, which is today (9) Chronic indwelling Bautista catheter Conclusion/Plan: He has a chronic indwelling bautista catheter for BPH that was replaced day of admission. Will resume his home medications once his blood pressure stabilizes. Urinalysis is suggestive of colonization rather than infection at this time. UA to be repeated since he is having rigors today. (10) COPD (chronic obstructive pulmonary disease) Conclusion/Plan: Stable at this time. Will resume his home inhalers. (11) Atrial fibrillation Conclusion/Plan: He is currently in sinus rhythm and rate controlled. Will resume Metoprolol if blood pressure remains stable. Continue Coumadin once INR becomes therapeutic. Resume today. Qualifiers: Atrial fibrillation type: paroxysmal Qualified Code(s): I48.0 - Paroxysmal atrial fibrillation (12) BPH (benign prostatic hyperplasia) Conclusion/Plan: Stable. Has chronic indwelling bautista catheter. (13) Chronic anemia, unspecified. it's been present in EMR since 2013. Will check studies in am.
--- NOTE | 2019-09-05 11:40 | XRAY Report ---
Reason: rigor and fever Procedure Date: 09/05/2019 Accession Number: [id number] / [id number] Procedure: XR - Chest 1 View X-Ray CPT Code: 89278 Final Report FULL RESULT: EXAM: CHEST RADIOGRAPHY EXAM DATE: 09/05/2019 08:53 AM. CLINICAL HISTORY: Rigor and fever. COMPARISON: Chest radiograph from 09/03/2019. TECHNIQUE: 1 view. FINDINGS: Lungs/Pleura: There are mild linear bibasilar opacities. Lungs are otherwise clear. No pleural effusion or pneumothorax. Mediastinum: Cardiomediastinal silhouette and pulmonary vasculature are within normal limits. Other: None. IMPRESSION: Mild linear bibasilar opacities, favored to represent atelectasis. No findings strongly suspicious for pneumonia. RADIA
[2019-09-05] MEDS: WARFARIN 2.5 MG TABLET PO SCH (14:52)
[2019-09-05 16:19] LABS: BILIRUBIN,URINE NEGATIVE (NEGATIVE); GLUCOSE, URINE (UA) NEGATIVE (NEGATIVE); KETONES,URINE (UA) NEGATIVE (NEGATIVE); LEUKOCYTE ESTERASE, URINE SMALL (NEGATIVE); NITRITE,URINE NEGATIVE (NEGATIVE); OCCULT BLOOD,URINE TRACE-INTA (NEGATIVE); PH,URINE 8.5 PH (5.0-7.5); PROTEIN,URINE TRACE mg/dL (NEGATIVE); UROBILINOGEN,URINE 0.2 (NORMAL) E.U./dL (NORMAL)
[2019-09-05 16:43] LABS: CLARITY,URINE HAZY (CLEAR)
[2019-09-05 16:44] LABS: BACTERIA,URINE None Seen /HPF (None Seen); RBC,URINE 0-5 /HPF (0-5); SQUAMOUS EPITHELIAL CELL,UR NONE SEEN (<= Few); YEAST,URINE PRESENT
[2019-09-06] MEDS: SODIUM CHLORIDE FLUSH 0.9% 10 ML SYRINGE IVP SCH ×3 (02:40→17:03)
[2019-09-06 04:56] LABS: BASOPHILS % (AUTO) 0.2 %; EOSINOPHILS # (AUTO) 0.2 10^3/uL (0.0-0.7); EOSINOPHILS % (AUTO) 2.3 %; HGB - HEMOGLOBIN 9.9 g/dL (14.0-18.0); LYMPHOCYTES # (AUTO) 0.9 10^3/uL (1.5-3.5); MEAN CORPUSCULAR HEMOGLOBIN 31.4 pg (27.0-31.0); MEAN CORPUSCULAR VOLUME 101.3 fL (80.0-94.0); MEAN PLATELET VOLUME 10.5 fL (7.4-11.4); MONOCYTES # (AUTO) 0.4 10^3/uL (0.0-1.0); MONOCYTES % (AUTO) 5.4 %; NEUTROPHILS # (AUTO) 6.5 10^3/uL (1.5-6.6); NEUTROPHILS % (AUTO) 80.4 %; PLT - PLATELET COUNT 282 10^3/uL (130-450); RED BLOOD COUNT 3.15 10^6/uL (4.70-6.10); WHITE BLOOD COUNT 8.1 x10^3/uL (4.8-10.8)
[2019-09-06 05:10] LABS: CALCIUM 8.1 mg/dL (8.5-10.3); CREATININE 1.1 mg/dL (0.6-1.2)
[2019-09-06 05:17] LABS: INR 1.3 (0.8-1.2); PT - PROTHROMBIN TIME 14.8 secs (9.9-12.6)
[2019-09-06] MEDS: IPRATROPIUM/ALBUTEROL 3 ML NEB INH PRN (07:23)
[2019-09-06] MEDS: FORMOTEROL FUMARATE NEB 20 MCG/2 ML INH SCH ×2 (07:23→20:12)
[2019-09-06] MEDS: BUDESONIDE 0.5 MG/2 ML NEB INH SCH ×2 (07:23→20:12)
--- NOTE | 2019-09-06 08:42 | Discharge Plan ---
Discharge Plan Problem Reviewed?: Yes Disposition: 06 Home Health Service Condition: Fair Prescriptions: Sulfamethoxazole/Trimethoprim [Bactrim 400-80 mg Tablet] 1 each PO BID #6 tablet Diet: Low Sodium Activity Restrictions: Activity as Tolerated Shower Restrictions: No Driving Restrictions: Yes (no driving) Assistance Devices: Walker Instruction Topics: CAUTI Catheter Associated, Dehydration, Sepsis, ED Dehydration, ED Hypotension All Causes Health Concerns: You came to the hospital feeling very weak, tired. You had just been to your urology office where they had changed your [place] catheter and you had a very low blood pressure in the office so they sent you to the emergency room. We found you to have low-grade infection (probably from your bladder), dehydration and mild acute kidney failure. We also spent quite a bit talking about your life. How tired you are of coming and going from the hospital. You would like us to focus more on comfort. You would still like to come back to the hospital if needed, but you will talk to your son as time goes on about possibly stopping that. You just are not sure yet. Plan of Treatment: 1. Please see your primary care provider, and [facility], in the next 1 to 2 weeks and take this piece of paper with you so she can read it 2. Resume your usual medications 3. Take Bactrim double strength twice a day for the next 3 days to finish treatment for possible bladder infection 4. Have Dr. Newton check your protime/INR for your coumdin this week and next week. 5. Homehealth will be resumed. Care Goals: focus on comfort and less hospitalizations, doctor visits, and procedures. Assessment: patient and son express understanding and will follow thru with visits No Smoking: If you smoke, Please STOP! Call for help. Follow-up with: Cristel Newton MD [Primary Care Provider] -
[2019-09-06] MEDS: POLYETHYLENE GLYCOL 3350 17 GM PACKET PO SCH (10:28)
[2019-09-06] MEDS: cefTRIAXone 1 GM in SODIUM CHLORIDE 0.9% MINIBAG 100 ML IV SCH (10:28)
[2019-09-06 11:41] LABS: ABSOLUTE RETICS # AUTO 0.033 10^6/uL (0.020-0.110); RED BLOOD COUNT 3.39 10^6/uL (4.70-6.10)
[2019-09-06 12:08] LABS: % IRON SATURATION 16 % (20-50); IRON 22 ug/dL (45-182); TOTAL IRON BINDING CAPACITY 140 ug/dL (250-450); TRANSFERRIN 100 mg/dL (180-329)
[2019-09-06 12:17] LABS: FERRITIN 285.7 ng/mL (23.9-336.2)
[2019-09-06] MEDS: WARFARIN 2.5 MG TABLET PO SCH (14:20)
[2019-09-06] MEDS ORDERED: LIDOCAINE 2% URO-JET 5 ML SYRINGE UR ONE (17:00)
--- NOTE | 2019-09-06 19:22 | PROVIDER PROGRESS NOTE ---
Subjective - Prog Note Date Prog Note Date: 09/06/19 Prog Note Time: 19:21 - Subjective Pt reports feeling: Improved Current Medications - Current Medications Current Medications: Active Medications Acetaminophen (Tylenol) 650 mg PO Q4HR PRN PRN Reason: Pain 1 to 4 Last Admin: 09/05/19 00:04 Dose: 650 mg Albuterol/Ipratropium (Duoneb) 3 ml INH Q4HR PRN PRN Reason: Wheezing Last Admin: 09/06/19 07:23 Dose: 3 ml Budesonide (Pulmicort) 0.5 mg INH RTBID [facility] Last Admin: 09/06/19 07:23 Dose: 0.5 mg Formoterol Fumarate (Perforomist) 20 mcg INH RTBID [facility] Last Admin: 09/06/19 07:23 Dose: 20 mcg Ceftriaxone Sodium 1 gm/ (Sodium Chloride) 100 mls @ 200 mls/hr IV DAILY [facility] Last Infusion: 09/06/19 10:58 Dose: Infused Ondansetron HCl (Zofran Inj) 4 mg IVP Q6HR PRN PRN Reason: Nausea / Vomiting Ondansetron HCl (Zofran Odt) 4 mg TL Q6HR PRN PRN Reason: Nausea / Vomiting Oxycodone HCl (Roxicodone) 5 mg PO Q4HR PRN PRN Reason: Pain 5 to 7 Phenol/Menthol (Chloraseptic) 2 sprays MM Q2HR PRN PRN Reason: Throat Pain Polyethylene Glycol (Miralax) 17 gm PO DAILY [facility] Last Admin: 09/06/19 10:28 Dose: 17 gm Sodium Chloride (Normal Saline Flush 0.9%) 10 ml IVP 0100,0900,1700 [facility] Last Admin: 09/06/19 17:03 Dose: 10 ml Throat Lozenges (Cepacol) 1 lozenge MM Q2HR PRN PRN Reason: Throat pain Last Admin: 09/03/19 21:59 Dose: 1 lozenge Warfarin Sodium (Coumadin) 2.5 mg PO QDWARFARIN [facility] Last Admin: 09/06/19 14:20 Dose: 2.5 mg Finasteride 5 mg PO DAILY 05/21/19 Warfarin [Coumadin] 2.5 mg PO SUTUTHSA 06/06/19 Azithromycin 250 mg PO MOWEFR 07/30/19 Albuterol 3 ml INH Q4H PRN 08/17/19 Albuterol Sulfate [Albuterol Sulfate Hfa] 1 puffs INH Q4H PRN 08/17/19 Ipratropium [Atrovent] 2.5 ml INH Q6H 08/17/19 Latanoprost 0.005% Ophth Drops [Xalatan Ophth Drops] 1 drops EACHEYE QPM 08/17/19 Oxybutynin Chloride [Ditropan Xl] 5 mg PO DAILY 08/17/19 Timolol 0.5% Ophth Drops [Timoptic 0.5% Ophth Drops] 1 drops EACHEYE BID 08/17/19 Warfarin [Coumadin] 5 mg PO MOWEFR 08/17/19 Metoprolol Succinate [Toprol Xl] 50 mg PO DAILY 09/04/19 Objective - Vital Signs/Intake & Output Reviewed Vital Signs: Yes Vital Signs: Vital Signs x48h Temp Pulse Resp BP Pulse Ox 09/06/19 15:57 36.3 C L 91 16 110/51 L 96 Intake & Output: Intake & Output 09/03/19 09/04/19 09/05/19 09/06/19 23:59 23:59 23:59 22:59 Intake Total 1270 1420 1775 560 Output Total 299 320 8378 1150 Balance 1095 670 750 -590 - Objective General Appearance: positive: No acute distress, Alert, Other (thin , hoarse voice.) Neck: positive: No JVD Respiratory: positive: Chest non-tender. negative: Wheezes, Rales, Rhonchi Cardiovascular: positive: Regular rate & rhythm. negative: Gallop/S4, Friction rub Abdomen: positive: Non-tender, No organomegaly, Nml bowel sounds. negative: Guarding, Rebound Skin: positive: Warm, Dry Extremities: positive: No pedal edema Neurologic/Psychiatric: positive: Oriented x3, Motor nml. negative: CN's nml (2-12) (hoarse) - Lab Results Fish Bones: 09/06/19 04:30 09/06/19 04:30 Other Labs: Lab Results x24hrs 09/06/19 09/06/19 09/06/19 Range/Units 11:25 11:25 11:25 WBC (4.8-10.8) x10^3/uL RBC (4.70-6.10) 10^6/uL Hgb (14.0-18.0) g/dL Hct (42.0-52.0) % MCV (80.0-94.0) fL MCH (27.0-31.0) pg MCHC (32.0-36.0) g/dL RDW (12.0-15.0) % Plt Count (130-450) 10^3/uL MPV (7.4-11.4) fL Reticulocyte % (Auto) (0.5-2.3) % Neut # (Auto) (1.5-6.6) 10^3/uL Lymph # (Auto) (1.5-3.5) 10^3/uL Alfalfa # (Auto) (0.0-1.0) 10^3/uL Eos # (Auto) (0.0-0.7) 10^3/uL Baso # (Auto) (0.0-0.1) 10^3/uL Absolute Nucleated RBC x10^3/uL Nucleated RBC % /100WBC Absolute Retic (0.020-0.110) 10^6/uL PT (9.9-12.6) secs INR (0.8-1.2) Sodium (135-145) mmol/L Potassium (3.5-5.0) mmol/L Chloride (101-111) mmol/L Carbon Dioxide (21-32) mmol/L Anion Gap (6-13) BUN (6-20) mg/dL Creatinine (0.6-1.2) mg/dL Estimated GFR (MDRD) (>89) Glucose (70-100) mg/dL Calcium (8.5-10.3) mg/dL Iron 22 L (45-182) ug/dL TIBC 140 L (250-450) ug/dL % Saturation 16 L (20-50) % Transferrin 100 L (180-329) mg/dL Ferritin 285.7 (23.9-336.2) ng/mL Lactate Dehydrogenase 161 (91-225) IU/L Vitamin B12 318 (180-914) pg/mL Nasal Screen MRSA (PCR) (NEGATIVE) 09/06/19 09/06/19 09/06/19 Range/Units 11:25 05:00 04:30 WBC (4.8-10.8) x10^3/uL RBC 3.39 L (4.70-6.10) 10^6/uL Hgb (14.0-18.0) g/dL Hct (42.0-52.0) % MCV (80.0-94.0) fL MCH (27.0-31.0) pg MCHC (32.0-36.0) g/dL RDW (12.0-15.0) % Plt Count (130-450) 10^3/uL MPV (7.4-11.4) fL Reticulocyte % (Auto) 0.96 (0.5-2.3) % Neut # (Auto) (1.5-6.6) 10^3/uL Lymph # (Auto) (1.5-3.5) 10^3/uL Alfalfa # (Auto) (0.0-1.0) 10^3/uL Eos # (Auto) (0.0-0.7) 10^3/uL Baso # (Auto) (0.0-0.1) 10^3/uL Absolute Nucleated RBC x10^3/uL Nucleated RBC % /100WBC Absolute Retic 0.033 (0.020-0.110) 10^6/uL PT 14.8 H (9.9-12.6) secs INR 1.3 H (0.8-1.2) Sodium 144 (135-145) mmol/L Potassium 3.8 (3.5-5.0) mmol/L Chloride 108 (101-111) mmol/L Carbon Dioxide 29 (21-32) mmol/L Anion Gap 7.0 (6-13) BUN 15 (6-20) mg/dL Creatinine 1.1 (0.6-1.2) mg/dL Estimated GFR (MDRD) 64 L (>89) Glucose 101 H (70-100) mg/dL Calcium 8.1 L (8.5-10.3) mg/dL Iron 33 L (45-182) ug/dL TIBC (250-450) ug/dL % Saturation (20-50) % Transferrin (180-329) mg/dL Ferritin (23.9-336.2) ng/mL Lactate Dehydrogenase (91-225) IU/L Vitamin B12 (180-914) pg/mL Nasal Screen MRSA (PCR) (NEGATIVE) 09/06/19 09/05/19 Range/Units 04:30 19:55 WBC 8.1 (4.8-10.8) x10^3/uL RBC 3.15 L (4.70-6.10) 10^6/uL Hgb 9.9 L (14.0-18.0) g/dL Hct 31.9 L (42.0-52.0) % MCV 101.3 H (80.0-94.0) fL MCH 31.4 H (27.0-31.0) pg MCHC 31.0 L (32.0-36.0) g/dL RDW 14.0 (12.0-15.0) % Plt Count 282 (130-450) 10^3/uL MPV 10.5 (7.4-11.4) fL Reticulocyte % (Auto) (0.5-2.3) % Neut # (Auto) 6.5 (1.5-6.6) 10^3/uL Lymph # (Auto) 0.9 L (1.5-3.5) 10^3/uL Alfalfa # (Auto) 0.4 (0.0-1.0) 10^3/uL Eos # (Auto) 0.2 (0.0-0.7) 10^3/uL Baso # (Auto) 0.0 (0.0-0.1) 10^3/uL Absolute Nucleated RBC 0.00 x10^3/uL Nucleated RBC % 0.0 /100WBC Absolute Retic (0.020-0.110) 10^6/uL PT (9.9-12.6) secs INR (0.8-1.2) Sodium (135-145) mmol/L Potassium (3.5-5.0) mmol/L Chloride (101-111) mmol/L Carbon Dioxide (21-32) mmol/L Anion Gap (6-13) BUN (6-20) mg/dL Creatinine (0.6-1.2) mg/dL Estimated GFR (MDRD) (>89) Glucose (70-100) mg/dL Calcium (8.5-10.3) mg/dL Iron (45-182) ug/dL TIBC (250-450) ug/dL % Saturation (20-50) % Transferrin (180-329) mg/dL Ferritin (23.9-336.2) ng/mL Lactate Dehydrogenase (91-225) IU/L Vitamin B12 (180-914) pg/mL Nasal Screen MRSA (PCR) POSITIVE A* (NEGATIVE) ABX Reporting Has patient been on IV antibiotics over the past 48 hours?: Yes Sepsis Event Note (H) - Evaluation Current Stage of Sepsis: Resolved Possible source of Sepsis: positive: Genitourinary - Sepsis Criteria Sepsis Criteria: WBC count greater than 12,000 or less than 4000, SBP less than 90 mmHg, Renal: urine output less than 0.5ml/kg/hr for 2 hours or creatinine gr, Metabolic: lactate > 2 mmol/L Assessment/Plan - Problem List (1) Rigor Impression: he had an abrupt onset yesterday morning of rigors without fever and his WBC is normal. BP and oxygen need stable (no hypoxia) Plan: repeat CXR negtive repeat blood culture negative repeat urine analysis negative (2) Dysphagia Impression: He was seen by speech therapy. She says that he was able to swallow peaches, pears, other food. No evidence of aspiration. Did feel some pain in the lower in the mid esophageal region on the right-hand side. Speech therapist as offered some instructions about staying up in bed after eating. But no other restrictions. However, he still has enough dysphagia that he does not want to eat and has lost weight and is dehydrated. He's so tired. He doesn't want to be here and shares that the only reason he is doing these things is because his son wants him to. Esophogram has the barium pill get stuck in his vallecula but his swallowing is otherwise nml, esophogram normal. Voice is intermittently hoarse. Gets sensation of food stuck at his epigastrium and he gets sore there immediately after or while eating. Plan: EGD as outpatient if he wants to continue work up Nasal pharyngoscopy with ENT as outpatient if he wants to continue workup (3) SIRS (systemic inflammatory response syndrome) resolved Conclusion/Plan: On admission, he met SIRS criteria given his hypotension, elevated white count and lactic acid. Although his urinalysis reveals pyuria and leukocyte esterase, this is likely colonization from a chronic indwelling bautista catheter. There is no bacteria on the urinalysis although yeast is present. I do not think this is causing a true infection as he no lower urinary tract symptoms and is afebrile. He recently completed treatment for MRSA CA-UTI. His hypotension and elevated white count may be secondary to dehydration and reactive in nature. Continue Ceftriaxone for now. IV hydration continues and it did improve his vital signs and labs. If he becomes febrile or white count continues to increase, will treat for presumed jose antonio UTI. Urine and blood cultures have been negative. WBC 13.1>10.7>9.2 Rigors yesterday and Repeat CXR and cultures so far negative. Will continue abx. Day #3 Ceftriaxone. (4) Hypotension to 80's systolic, resolved Conclusion/Plan: Suspect this is likely secondary to poor oral intake rather than sepsis at this time. His blood pressure has already improved with hydration. Will continue IV hydration and check orthostatics. Monitor for signs of infection. Hold antihypertensives at this time. He is 112-130 without his BP meds. Once he is 130-140's consistently, will resume. This morning he has been 96-152 systolic. (5) HANY (acute kidney injury) Conclusion/Plan: Suspect this is likely pre-renal in nature given his poor oral intake and he clinically appears hydrated. Creatinine elevated at 1.9 compared to baseline of 1.1. This should improve with IV hydration. Will continue to hold Lisinopril. Monitor renal function and urine output. Creat 1.9>1.3>1.1>1.1 Plan: stop IVF and monitor response (6) Supratherapeutic INR Conclusion/Plan: His INR is elevated >7 but there are no signs of bleeding. INR 7.4>9.6>Vitamin K 10 mg po>1.5 Plan: resumed 2.5 mg coumadin (7) Chronic heart failure with preserved ejection fraction (HFpEF) Conclusion/Plan: He has history of CHF with reduced EF that improved to 55%. He is on Lisinopril and Toprol at home. No diuretic as he has been euvolemic. Not in exacerbation. Will resume home Toprol once blood pressure stabilizes and he is consistently in 130's-140's. Hold Lisinopril due to HANY. Has outpatient follow up with Cardiology on September 10. I expect he will be discharged by then so he can keep that appointment. Stop IVF 09/05 (8) History of pulmonary embolism Conclusion/Plan: He is on Coumadin with an elevated INR. Will restart coumadin once INR is therapeutic, which was yesterday (9) Chronic indwelling Bautista catheter Conclusion/Plan: He has a chronic indwelling bautista catheter for BPH that was replaced day of admission. Will resume his home medications once his blood pressure stabilizes. Urinalysis is suggestive of colonization rather than infection at this time. UA was repeated since he was having rigors yesterday (10) COPD (chronic obstructive pulmonary disease) Conclusion/Plan: Stable at this time. Will resume his home inhalers. (11) Atrial fibrillation Conclusion/Plan: He is currently in sinus rhythm and rate controlled. Will resume Metoprolol if blood pressure remains stable. Continue Coumadin once INR becomes therapeutic. Resume today. Qualifiers: Atrial fibrillation type: paroxysmal Qualified Code(s): I48.0 - Paroxysmal atrial fibrillation (12) BPH (benign prostatic hyperplasia) Conclusion/Plan: Stable. Has chronic indwelling bautista catheter. (13) Chronic anemia, unspecified. it's been present in EMR since 2013. Laboratory Tests 09/06/19 09/06/19 09/06/19 11:25 11:25 11:25 Iron 22 L TIBC 140 L % Saturation 16 L Transferrin 100 L Ferritin 285.7 Lactate Dehydrogenase 161 Vitamin B12 318
[2019-09-06] MEDS ORDERED: SODIUM CHLORIDE 0.9% 1,000 ML IV SCH (23:00)
[2019-09-07] MEDS: SODIUM CHLORIDE FLUSH 0.9% 10 ML SYRINGE IVP SCH ×2 (01:40→08:30)
[2019-09-07] MEDS: POLYETHYLENE GLYCOL 3350 17 GM PACKET PO SCH (08:30)
[2019-09-07] MEDS: cefTRIAXone 1 GM in SODIUM CHLORIDE 0.9% MINIBAG 100 ML IV SCH (08:30)
[2019-09-07] MEDS: FORMOTEROL FUMARATE NEB 20 MCG/2 ML INH SCH (09:32)
[2019-09-07] MEDS: IPRATROPIUM/ALBUTEROL 3 ML NEB INH PRN (09:32)
[2019-09-07] MEDS: BUDESONIDE 0.5 MG/2 ML NEB INH SCH (09:32)
[2019-09-07 09:43] VITALS: BP 96/52
[2019-09-07] MEDS: ACETAMINOPHEN 325 MG TABLET PO PRN (10:11)
--- NOTE | 2019-09-07 18:58 | DISCHARGE SUMMARY ---
Discharge Summary Admit Date: 09/03/19 Discharge Date: 09/07/19 Discharging Provider: Gemma Sepulveda MD Primary Care Provider: Cristel Newton MD Code Status: Do Not Attempt Resuscitation Condition at Discharge: Fair Discharge Disposition: Home Health Service - DIAGNOSES Discharge Diagnoses with Status of Each Condition: 1. Systemic inflammatory response syndrome 2. Dysphagia, chronic, with probable vocal cord paralysis 3. Chronic indwelling Bautista catheter 4. Benign prostatic hypertrophy 5. Hypotension 6. Acute kidney injury 7. Supratherapeutic INR 8. Chronic heart failure with preserved ejection fraction 9. History of pulmonary embolism 10. COPD without exacerbation 11. Paroxysmal atrial fibrillation 12. Rigors 13. Iron deficiency anemia - HPI History of Present Illness: This is a 84 year old male with a past medical history significant for COPD, atrial fibrillation (on coumadin), BPH with chronic indwelling bautista catheter, chronic CHF with improvement in his EF to 55% who presents from his Urologist's office after he was found to be hypotensive. He went there today to have his bautista catheter exchanged which was done without issues. He came to the emergency department because he has been weak and was now hypotensive. He reports doing well after he was discharged two weeks ago up until this morning. He reports generalized weakness and fatigue. He has had poor oral intake these past three days. He is also complaining of difficulty swallowing and that his throat feels "raw." He reports no heartburn, chest pain, fever, nausea, vomiting, and abdominal pain. He does report dyspnea but states that this has been a chronic issue for him. He reports no signs of bleeding. He is frustrated that he is in the hospital again as this is his third admission since the summer. In the emergency department, he was found to be hypotensive with systolic in the 80's. Heart rate was stable in the 80's. Labs revealed a white count of 13.7 with a left shift. His INR was elevated at 7.4. His BUN and creatinine were also elevated compared to baseline. Lactic acid was elevated at 2.4. His urinalysis revealed 11-25 WBC and moderate leukocyte esterase. There was no bacteria but yeast was present. I did speak with the patient regarding his goals of care. He once again mentions his frustration of his multiple admissions. He would like to "just let go" but his son encourages him to continue to toribio his medical problems. He states that he would like to be a DNR at this time. He is leaning towards focusing on comfort but would like to talk to his son. - Past Medical History Cardiovascular: reports: Congestive heart failure, Hypertension, Pulmonary embolism, Atrial fibrillation Respiratory: reports: Asthma, COPD Neuro: reports: Tremors Endocrine/Autoimmune: reports: None GI: reports: GERD : reports: None Psych: reports: Depression, Anxiety Musculoskeletal: reports: Osteoarthritis, Chronic back pain - HOSPITAL COURSE Hospital Course: He was admitted as a probable UTI because of his history. He has a chronic indwelling Bautista and it was changed on the day of admission. He had an elevated white cell count, was hypotensive. But his urine cultures were negative. Nevertheless he was treated empirically with antibiotic therapy and he responded to IV fluids, antibiotics. He had an episode of [place] 2 days into his stay and repeat blood cultures and urine cultures were done. Also the blood cultures and urine cultures were negative. He is very weak, fatigued. He is 5 feet 11 inches tall and was 55 kg and has poor p.o. intake. He is very tired. Overall endurance has been reduced over the last year. He is tired of coming to the hospital and tired of seeing doctors. We had a long advance care planning conve rsation where he is not afraid to . He is looking forward to meeting up with his [facility]. But when we got to the nitty gritty of palliative care, or discussing if he really wanted to and not come back to the hospital, he is not ready to go yet. He is wanting to come back and still get treatment. When he is tired enough that he does not want treatment he will let his son or us know. He did fill out a POLST form and he wants to be DO NOT RESUSCITATE with limited intervention. Acute kidney injury was noted during his stay. Creatinine was 1.9 and came down to 1.1. BUN was 36 and came down to 15. Lactic acid was initially elevated at 2.4 and came down to 1.3. He was noted to have chronic anemia. Iron studies were done and he has iron deficiency anemia with iron of 22, TIBC 140, percent saturation 16, and transferrin 100. Ferritin is 285.7, B12 is normal at 318. For dysphagia, Demonstrated adequate formation of blistering well and soft lip seal. No pocketing noted. An esophagram was done and he did have the barium pill get stuck in his valleculae but it passed through. He says a lot of his weight loss and weakness is due to not wanting to eat because of the painful sensation of dysphasia that he is getting. Since his swallow study was normal and his esophagram was normal he may be a candidate for an EGD in the outpatient setting. Because he has iron deficiency anemia, he should have his colonoscopy reviewed. His chronic heart failure remained stable. His Coumadin was held because of a supratherapeutic INR and he required vitamin K. Coumadin was resumed at discharge and he will need an INR. Even though his urine cultures were negative, I am sending him home on Bactrim for 3 more days. COPD remained stable during the stay without exacerbation. He is discharged in stable condition with a temperature of 36.6, intermittent atrial fibrillation with a pulse rate of 102 but going down to the 80s. Blood pressure is 96/52. Goes back up to 152/66. Respirations are 16 on room air. He is a gaunt, cachectic elderly gentleman. Low hoarse voice. Has chronic dysphasia and had a speech therapy evaluation while here. He was felt to have tremors, very cold. No natural dentition. He walks with a walker but is very slow to move. He can transition from us laying to sitting position. Standing is harder and he needs a 1 person assist. And he walks very slowly with his walker. Home health will be resumed with PT and nursing. Greater than 30 minutes was spent correlating discharge - ALLERGIES Allergies/Adverse Reactions: Allergies Allergy/AdvReac Type Severity Reaction Status Date / Time No Known Drug Allergies Allergy Verified 09/03/19 12:39 - MEDICATIONS Home Medications: Ambulatory Orders Medication Instructions Recorded Confirmed Finasteride 5 mg PO DAILY 05/21/19 09/04/19 Warfarin [Coumadin] 2.5 mg PO SUTUTHSA 06/06/19 09/04/19 Azithromycin 250 mg PO MOWEFR 07/30/19 09/04/19 Albuterol 3 ml INH Q4H PRN 08/17/19 09/04/19 Albuterol Sulfate [Albuterol 1 puffs INH Q4H PRN 08/17/19 09/04/19 Sulfate Hfa] Ipratropium [Atrovent] 2.5 ml INH Q6H 08/17/19 09/04/19 Latanoprost 0.005% Ophth Drops 1 drops EACHEYE QPM 08/17/19 09/04/19 [Xalatan Ophth Drops] Oxybutynin Chloride [Ditropan Xl] 5 mg PO DAILY 08/17/19 09/04/19 Timolol 0.5% Ophth Drops [Timoptic 1 drops EACHEYE BID 08/17/19 09/04/19 0.5% Ophth Drops] Warfarin [Coumadin] 5 mg PO MOWEFR 08/17/19 09/04/19 Doxycycline Monohydrate 100 mg PO BID 5 Days #10 tablet 08/20/19 09/04/19 predniSONE [Prednisone 21-TAB dose 10 mg PO UD #1 each 08/20/19 09/04/19 pack] Metoprolol Succinate [Toprol Xl] 50 mg PO DAILY 09/04/19 09/04/19 Sulfamethoxazole/Trimethoprim 1 each PO BID #6 tablet 09/07/19 [Bactrim 400-80 mg Tablet] - LABS Result Diagrams: 09/06/19 04:30 09/06/19 04:30 - SEPSIS Current Stage of Sepsis: Resolved Possible source of Sepsis: Genitourinary Sepsis Criteria: WBC count greater than 12,000 or less than 4000, SBP less than 90 mmHg, Renal: urine output less than 0.5ml/kg/hr for 2 hours or creatinine gr, Metabolic: lactate > 2 mmol/L
== END 2019-09-07 11:32 | disposition home health service (06) | DRG 698 ==
LOC: ED 12:32 → MS2 17:39
PROVIDERS: ADMIT Internal Medicine; ATTEND Specialist
DX: T83.511A Infection and inflammatory reaction due to indwelling urethral catheter, initial encounter (principal); A41.9 Sepsis, unspecified organism; N17.9 Acute kidney failure, unspecified; I50.32 Chronic diastolic (congestive) heart failure; Z68.1 Body mass index [BMI] 19.9 or less, adult; E86.1 Hypovolemia; R79.1 Abnormal coagulation profile; R79.89 Other specified abnormal findings of blood chemistry; R13.10 Dysphagia, unspecified; N39.0 Urinary tract infection, site not specified; I11.0 Hypertensive heart disease with heart failure; I50.22 Chronic systolic (congestive) heart failure; I44.7 Left bundle-branch block, unspecified; I48.91 Unspecified atrial fibrillation; R33.9 Retention of urine, unspecified; K21.9 Gastro-esophageal reflux disease without esophagitis; Y84.6 Urinary catheterization as the cause of abnormal reaction of the patient, or of later complication, without mention of misadventure at the time of the procedure; Y92.531 Health care provider office as the place of occurrence of the external cause; I95.9 Hypotension, unspecified; R13.14 Dysphagia, pharyngoesophageal phase; E86.0 Dehydration; R63.4 Abnormal weight loss; J38.00 Paralysis of vocal cords and larynx, unspecified; N40.1 Benign prostatic hyperplasia with lower urinary tract symptoms; R33.8 Other retention of urine; J44.9 Chronic obstructive pulmonary disease, unspecified; I48.0 Paroxysmal atrial fibrillation; D50.9 Iron deficiency anemia, unspecified; H91.90 Unspecified hearing loss, unspecified ear; R41.81 Age-related cognitive decline; R68.89 Other general symptoms and signs; Z51.5 Encounter for palliative care; Z66 Do not resuscitate; Z86.711 Personal history of pulmonary embolism; Z79.01 Long term (current) use of anticoagulants; Z79.899 Other long term (current) drug therapy; Z86.14 Personal history of Methicillin resistant Staphylococcus aureus infection; Z87.891 Personal history of nicotine dependence; Z79.2 Long term (current) use of antibiotics
CPT/HCPCS: 36415; 71045; 74220; 80048; 80053; 81001; 82607; 82728; 83540; 83605; 83615; 83690; 84466; 84484; 85025; 85045; 85610; 87040; 87086; 87640; 92610; 93005; 94640; 96361; 96365; 99283; 99285; A9270; J7626

== ENCOUNTER 2019-10-06 07:00 | Outpatient (CLI) | payer MEDICARE ==
[2019-10-06 13:14] LABS: BASOPHILS # (AUTO) 0.1 10^3/uL (0.0-0.1); BASOPHILS % (AUTO) 0.7 %; EOSINOPHILS # (AUTO) 0.7 10^3/uL (0.0-0.7); EOSINOPHILS % (AUTO) 8.6 %; HGB - HEMOGLOBIN 12.2 g/dL (14.0-18.0); LYMPHOCYTES # (AUTO) 1.6 10^3/uL (1.5-3.5); LYMPHOCYTES % (AUTO) 19.1 %; MEAN CORPUSCULAR HEMOGLOBIN 32.8 pg (27.0-31.0); MEAN CORPUSCULAR HGB CONC 31.5 g/dL (32.0-36.0); MEAN PLATELET VOLUME 10.6 fL (7.4-11.4); MONOCYTES # (AUTO) 0.5 10^3/uL (0.0-1.0); MONOCYTES % (AUTO) 5.3 %; NEUTROPHILS # (AUTO) 5.6 10^3/uL (1.5-6.6); NEUTROPHILS % (AUTO) 65.8 %; PLT - PLATELET COUNT 310 10^3/uL (130-450); RED BLOOD COUNT 3.72 10^6/uL (4.70-6.10); RED CELL DISTRIBUTION WIDTH 14.5 % (12.0-15.0); WHITE BLOOD COUNT 8.5 x10^3/uL (4.8-10.8)
[2019-10-06 13:45] LABS: CALCIUM 8.8 mg/dL (8.5-10.3); CREATININE 1.1 mg/dL (0.6-1.2)
== END 2019-10-06 23:59 | disposition home or self-care (01) ==
LOC: LAB.R 07:00
PROVIDERS: ATTEND Internal Medicine
DX: I50.22 Chronic systolic (congestive) heart failure (principal); R63.4 Abnormal weight loss; I26.99 Other pulmonary embolism without acute cor pulmonale; Z79.01 Long term (current) use of anticoagulants
CPT/HCPCS: 80048; 85025

== ENCOUNTER 2019-10-16 22:33 | Observation (INO) | payer MEDICARE ==
--- NOTE | 2019-10-16 23:14 | ED Physician Documentation ---
PD HPI UPPER EXT INJURY - Stated complaint Stated Complaint: ARM LAC/FALL - Chief complaint Chief Complaint: Trauma Ext - History obtained from History obtained from: Patient, Family (son (in ED at bedside)) - History of Present Illness Location: Right, Forearm Type of injury: Fall Where injury occurred: Home Timing - onset: How many hours ago (approximately 1 hour [employer]) Timing - details: Abrupt onset Pain level now: 6 Improved by: Rest Worsened by: Moving, Palpating Associated symptoms: No: Weakness, Numbness Contributing factors: Anticoagulated Similar symptoms before: Has not had sx before - Additonal information Additional information: fell at home while ambulating, tripped over his bautista catheter. He denies head injury, denies LOC. c/o RUE laceration and pain as well as right chest wall pain that is worse with movement and deep breath in. Patient has COPD but does not use oxygen at home Review of Systems Cardiac: reports: Chest pain / pressure (right low chest wall pain). denies: Palpitations Respiratory: reports: Dyspnea (baseline dyspnea (COPD)). denies: Hemoptysis GI: reports: Reviewed and negative : denies: Bautista Problem (bautista in place (chronic indwelling due to BPH)) PD PAST MEDICAL HISTORY - Past Medical History Past Medical History: Yes Cardiovascular: Congestive heart failure, Hypertension, Pulmonary embolism, Atrial fibrillation Respiratory: Asthma, COPD Neuro: Tremors, Other Endocrine/Autoimmune: None GI: GERD : None Psych: Depression, Anxiety Musculoskeletal: Osteoarthritis, Chronic back pain Derm: None - Past Surgical History Past Surgical History: No General: Appendectomy - Present Medications Home Medications: Ambulatory Orders Medication Instructions Recorded Confirmed Finasteride 5 mg PO DAILY 05/21/19 09/04/19 Warfarin [Coumadin] 2.5 mg PO SUTUTHSA 06/06/19 09/04/19 Azithromycin 250 mg PO MOWEFR 07/30/19 09/04/19 Albuterol 3 ml INH Q4H PRN 08/17/19 09/04/19 Albuterol Sulfate [Albuterol 1 puffs INH Q4H PRN 08/17/19 09/04/19 Sulfate Hfa] Ipratropium [Atrovent] 2.5 ml INH Q6H 08/17/19 09/04/19 Latanoprost 0.005% Ophth Drops 1 drops EACHEYE QPM 08/17/19 09/04/19 [Xalatan Ophth Drops] Oxybutynin Chloride [Ditropan Xl] 5 mg PO DAILY 08/17/19 09/04/19 Timolol 0.5% Ophth Drops [Timoptic 1 drops EACHEYE BID 08/17/19 09/04/19 0.5% Ophth Drops] Warfarin [Coumadin] 5 mg PO MOWEFR 08/17/19 09/04/19 Doxycycline Monohydrate 100 mg PO BID 5 Days #10 tablet 08/20/19 09/04/19 predniSONE [Prednisone 21-TAB dose 10 mg PO UD #1 each 08/20/19 09/04/19 pack] Metoprolol Succinate [Toprol Xl] 50 mg PO DAILY 09/04/19 09/04/19 Sulfamethoxazole/Trimethoprim 1 each PO BID #6 tablet 09/07/19 [Bactrim 400-80 mg Tablet] - Allergies Allergies/Adverse Reactions: Allergies Allergy/AdvReac Type Severity Reaction Status Date / Time No Known Drug Allergies Allergy Verified 09/03/19 12:39 - Social History Does the pt smoke?: No Smoking Status: Never smoker Does the pt drink ETOH?: Yes Does the pt have substance abuse?: No - Immunizations Immunizations are current?: Yes - POLST Patient has POLST: No PD ED PE NORMAL - Vitals Vital signs reviewed: Yes - General General: Alert and oriented X 3, No acute distress (NAD at rest but appears to have pain with movement involving trunk (such as sitting up/leaning forward)), Well developed/nourished - HEENT HEENT: Atraumatic, PERRL, EOMI - Neck Neck: No bony TTP - Cardiac Cardiac: RRR, No murmur - Respiratory Respiratory: No respiratory distress, Other (bilateral end-expiratory wheezing, decreased breath sounds) - Abdomen Abdomen: Soft, Non tender - Back Back: No spinal TTP - Derm Derm: Normal color, Warm and dry - Extremities Extremities: Other (right proximal FA skin tear with tenderness over proximal radius. ALEX (elbow, wrist)) - Neuro Neuro: Alert and oriented X 3 Eye Opening: Spontaneous Motor: Obeys Commands Verbal: Oriented GCS Score: 15 - Free text exam Free text exam: tenderness over posterolateral lower right ribs Results - Vitals Vitals: Vital Signs - 24 hr 10/16/19 10/17/19 22:35 01:16 Temperature 36.1 C L Heart Rate 73 63 Respiratory 22 12 Rate Blood Pressure 146/67 H 124/60 O2 Saturation 98 100 Oxygen O2 Source [Without Activity] Nasal cannula O2 Source Room air - Rads (name of study) right FA xrays Radiology: Prelim report reviewed, See rad report chest w/ right ribs xrays Radiology: Prelim report reviewed, See rad report PD MEDICAL DECISION MAKING - ED course Complexity details: reviewed results, re-evaluated patient, considered differential, d/w patient, d/w family ED course: xrays reveal fractures of right 9th and 10th ribs. This, combined with his age and underlying disease (COPD), puts him at high risk of complications in outpatient setting. He can only manage a weak cough and reports his pain to be 6 on presentation, 10 on reevaluation. D/W Dr. Jean, agrees with admission to [facility], requests hospitalist consultation to manage underlying/chronic medical iss ues. Departure - Departure Disposition: 66 [facility] DC/Xfer Clinical Impression: Rib fractures Qualifiers: Encounter type: initial encounter Rib fracture type: multiple ribs Fracture type: closed Laterality: right Qualified Code(s): S22.41XA - Multiple fractures of ribs, right side, initial encounter for closed fracture COPD (chronic obstructive pulmonary disease) Qualifiers: COPD type: unspecified COPD Qualified Code(s): J44.9 - Chronic obstructive pulmonary disease, unspecified Condition: Stable Discharge Date/Time: 10/17/19 02:17
--- NOTE | 2019-10-17 00:57 | XRAY Report ---
Reason: fall, pain right low posterior ribs Procedure Date: 10/17/2019 Accession Number: [id number] / [id number] Procedure: XR - Ribs w/PA Chest RT CPT Code: Final Report FULL RESULT: EXAM: RIGHT RIB RADIOGRAPHY EXAM DATE: 10/17/2019 12:51 AM. CLINICAL HISTORY: Fall, pain right low posterior ribs. COMPARISON: CHEST 1 VIEW 09/05/2019 8:35 AM. TECHNIQUE: 1 view of the chest and 4 views of the ribs. FINDINGS: Bones: Fractures of the anterior right ninth and 10th ribs. Lungs: No alveolar consolidation or pleural effusion seen. No pneumothorax. Mediastinum: Within exam limitations, cardiomediastinal silhouette is unremarkable. Other: None. IMPRESSION: 1. Fractures of the anterior right ninth and 10th ribs. RADIA
--- NOTE | 2019-10-17 00:58 | XRAY Report ---
Reason: fall, pain, injury Procedure Date: 10/17/2019 Accession Number: [id number] / [id number] Procedure: XR - Forearm RT CPT Code: Final Report FULL RESULT: EXAM: RIGHT FOREARM RADIOGRAPHY EXAM DATE: 10/17/2019 12:10 AM. CLINICAL HISTORY: Fall, pain, injury. COMPARISON: None. TECHNIQUE: 2 views. FINDINGS: Bones: Normal. No fractures or bone lesions. Joints: No elbow effusion. There are degenerative changes at the elbow joint. No dislocation. Soft Tissues: Normal. No soft tissue swelling. IMPRESSION: No fractures or dislocations. Elbow joint osteoarthritis. RADIA
[2019-10-17] MEDS ORDERED: ONDANSETRON ODT 4 MG TABLET TL PRN (01:39)
[2019-10-17] MEDS ORDERED: SODIUM CHLORIDE FLUSH 0.9% 10 ML SYRINGE IVP PRN (01:39)
[2019-10-17 01:49] LABS: BASOPHILS # (AUTO) 0.1 10^3/uL (0.0-0.1); BASOPHILS % (AUTO) 0.6 %; EOSINOPHILS # (AUTO) 0.7 10^3/uL (0.0-0.7); EOSINOPHILS % (AUTO) 4.8 %; HGB - HEMOGLOBIN 11.6 g/dL (14.0-18.0); LYMPHOCYTES # (AUTO) 1.5 10^3/uL (1.5-3.5); LYMPHOCYTES % (AUTO) 10.6 %; MEAN CORPUSCULAR HGB CONC 31.4 g/dL (32.0-36.0); MEAN CORPUSCULAR VOLUME 105.1 fL (80.0-94.0); MEAN PLATELET VOLUME 10.7 fL (7.4-11.4); MONOCYTES # (AUTO) 0.8 10^3/uL (0.0-1.0); MONOCYTES % (AUTO) 5.5 %; NEUTROPHILS # (AUTO) 10.6 10^3/uL (1.5-6.6); NEUTROPHILS % (AUTO) 77.5 %; PLT - PLATELET COUNT 275 10^3/uL (130-450); RED BLOOD COUNT 3.52 10^6/uL (4.70-6.10); RED CELL DISTRIBUTION WIDTH 14.1 % (12.0-15.0); WHITE BLOOD COUNT 13.7 x10^3/uL (4.8-10.8)
[2019-10-17 01:59] LABS: CALCIUM 8.6 mg/dL (8.5-10.3); CREATININE 1.1 mg/dL (0.6-1.2); INR 1.9 (0.8-1.2); PT - PROTHROMBIN TIME 21.3 secs (9.9-12.6)
[2019-10-17] MEDS ORDERED: WARFARIN 2.5 MG TABLET PO SCH ×2 (02:00→21:00)
[2019-10-17 02:06] LABS: PARTIAL THROMBOPLASTIN TIME 36.5 secs (24.9-33.3)
--- NOTE | 2019-10-17 02:08 | CONSULTATION NOTE ---
Referring Provider Name of Referring Provider:: Dr Glo Jean Consult Date: 10/17/19 Chief Complaint - Chief Complaint Chief Complaint: Medical management History of Present Illness - Admitted From Admitted From:: [facility] ED - History Obtained From Records Reviewed: yes History obtained from: patient and family - History of Present Illness HPI Comment/Other: Patient is a 84 y/o male with Hx of COPD, CHF, PE, Afib on coumadin who presented to the ED after a mechanical fall. This happened around 10pm on 10/16/19. He tripped on the tubing of his chronic indwelling abutista cath. He did not hit his head but hit his chest. As a result, he sustained fractures of rib 9-10 on the right and a laceration to his right fore arm. He has some baseline dyspnea owing to his COPD. However his oxygen saturation is currently 100% on room air. He does not wear oxygen at home. He reports some pain with deep inspiration. He denies abdominal pain, n/v/d, fever or chills. He is being admitted by general surgery (Dr Jean) and the hospitalist team is consulted for medical management of his co-morbidities. History - Past Medical History Cardiovascular: reports: Congestive heart failure, Hypertension, Pulmonary embolism, Atrial fibrillation Respiratory: reports: Asthma, COPD Neuro: reports: Tremors, Other Endocrine/Autoimmune: reports: None GI: reports: GERD : reports: None Psych: reports: Depression, Anxiety Musculoskeletal: reports: Osteoarthritis, Chronic back pain Derm: reports: None MRSA Hx?: Yes - Past Surgical History General: reports: Appendectomy - Family & Social History Family History: Mother: , Father: , Other family: Alive and Well (2 children) Family History Comment/Other: He reports no known family history. Social History Notes: He is a retired truck loader overhead crane. Lives on [address] [facility] [address] with his brother. Previously smoked two packs per day for 30 years but quite over 30 years ago. Reports minimal alcohol use. - Substance History Use: Uses substance without health or social issues: Alcohol - POLST Patient has POLST: No POLST Status: DNR Meds/Allgy - Home Medications Home Medications: Ambulatory Orders Medication Instructions Recorded Confirmed Finasteride 5 mg PO DAILY 05/21/19 09/04/19 Warfarin [Coumadin] 2.5 mg PO SUTUTHSA 06/06/19 09/04/19 Azithromycin 250 mg PO MOWEFR 07/30/19 09/04/19 Albuterol 3 ml INH Q4H PRN 08/17/19 09/04/19 Albuterol Sulfate [Albuterol 1 puffs INH Q4H PRN 08/17/19 09/04/19 Sulfate Hfa] Ipratropium [Atrovent] 2.5 ml INH Q6H 08/17/19 09/04/19 Latanoprost 0.005% Ophth Drops 1 drops EACHEYE QPM 08/17/19 09/04/19 [Xalatan Ophth Drops] Oxybutynin Chloride [Ditropan Xl] 5 mg PO DAILY 08/17/19 09/04/19 Timolol 0.5% Ophth Drops [Timoptic 1 drops EACHEYE BID 08/17/19 09/04/19 0.5% Ophth Drops] Warfarin [Coumadin] 5 mg PO MOWEFR 08/17/19 09/04/19 Doxycycline Monohydrate 100 mg PO BID 5 Days #10 tablet 08/20/19 09/04/19 predniSONE [Prednisone 21-TAB dose 10 mg PO UD #1 each 08/20/19 09/04/19 pack] Metoprolol Succinate [Toprol Xl] 50 mg PO DAILY 09/04/19 09/04/19 Sulfamethoxazole/Trimethoprim 1 each PO BID #6 tablet 09/07/19 [Bactrim 400-80 mg Tablet] - Allergies Allergies/Adverse Reactions: Allergies Allergy/AdvReac Type Severity Reaction Status Date / Time No Known Drug Allergies Allergy Verified 09/03/19 12:39 Review of Systems - Constitutional Constitutional: denies: Fatigue, Fever, Chills - Eyes Eyes: denies: Pain, Dipolpia - Ears, Nose & Throat Ears, Nose & Throat: denies: Vertigo, Sore throat - Cardiovascular Cariovascular: denies: Irregular heart rate, Chest pain, Lightheadedness, Syncope, Exertional dyspnea - Respiratory Respiratory: denies: Wheezing, SOB at rest, SOB with exertion - Gastrointestinal Gastrointestinal: denies: Abdominal pain, Abdominal distention, Diarrhea, Nausea, Vomiting, Coffee grounds emesis, Reflux/heartburn - Genitourinary Genitourinary: reports: Other (Chronic indwelling bautista catheter). denies: Dysuria, Frequency, Urgency, Hematuria - Musculoskeletal Musculoskeletal: reports: Other (chest wall pain from fall) - Integumentary Integumentary: denies: Rash, Pruritis, Lesions - Neurological Neurological: denies: General weakness, Focal weakness, Headache, Dizziness - Psychiatric Psychiatric: denies: Depression, Anxiety - Endocrine Endocrine: denies: Polyuria, Polydypsia - Hematologic/Lymphatic Hematologic/Lymphatic: denies: Anemia, Bruising Exam - Vital Signs Vital Signs: Vital Signs x48h Temp Pulse Resp BP Pulse Ox 10/17/19 01:16 63 12 124/60 100 10/16/19 22:35 36.1 C L 73 22 146/67 H 98 - Physical Exam General Appearance: positive: Alert, Mild distress Eyes Bilateral: positive: Normal inspection, PERRL, EOMI ENT: positive: ENT inspection nml, No signs of dehydration Neck: positive: Nml inspection, No JVD, Trachea midline Respiratory: positive: No respiratory distress, Breath sounds nml, Other (chest wall tender to palpation and deep inspiration). negative: Wheezes, Rales, Rhonchi Cardiovascular: positive: Regular rate & rhythm, No murmur Abdomen: positive: Non-tender, Nml bowel sounds, No distention. negative: Guarding, Rebound Back: positive: Nml inspection, CVA tenderness (R) Skin: positive: Color nml, No rash, Warm, Laceration (cm) (on right forearm) Extremities: positive: Non-tender, Full ROM, Nml appearance, No pedal edema Neurologic/Psychiatric: positive: Oriented x3, Motor nml, Sensation nml Conclusion/Plan - Diagnosis Diagnosis: 1. Ribs 9-10 fractures (right): 2. CHF. 3. COPD. 4. Atrial fibrillation on coumadin. 5. Hx of PE. 6. BPH - Plan Plan: 1. Ribs 9-10 fractures (right): Managed by the General Surgery team 2. CHF Not in exacerbation. Last EF was 55% On toprol and lisinopril. Will resume once verified. Not on diuretics 3. COPD Not in exacerbation. Patient at O2Sat of 100% on room air Duoneb breathing treatment prn 4. Atrial fibrillation on coumadin Will continue coumadin. INR 1.9. Monitor INR 5. Hx of PE On coumadin 6. BPH On finasteride. Patient has a chronic indwelling bautista catheter - Lab Results Fish Bones: 10/17/19 01:40 10/17/19 01:40
[2019-10-17] MEDS ORDERED: ALBUTEROL NEB 2.5 MG/3 ML INH PRN (02:30)
[2019-10-17] MEDS: IPRATROPIUM 0.2 MG/ML NEB INH SCH ×4 (04:24→18:07)
[2019-10-17 06:51] LABS: PT - PROTHROMBIN TIME 22.4 secs (9.9-12.6)
[2019-10-17] MEDS: PANTOPRAZOLE 40 MG TABLET PO SCH (06:56)
[2019-10-17] MEDS: oxyCODONE 5 MG TABLET PO PRN ×3 (07:01→17:43)
[2019-10-17] MEDS: ALBUTEROL NEB 2.5 MG/3 ML INH PRN ×3 (07:40→18:07)
[2019-10-17] MEDS: FINASTERIDE 5 MG TABLET PO SCH (08:56)
[2019-10-17] MEDS: TIMOLOL 0.5% OPHTH DROPS EACHEYE SCH ×2 (08:57→20:19)
[2019-10-17] MEDS: SODIUM CHLORIDE FLUSH 0.9% 10 ML SYRINGE IVP SCH ×2 (08:58→17:43)
[2019-10-17] MEDS ORDERED: METOPROLOL SUCCINATE 50 MG TABLET PO SCH (09:00)
--- NOTE | 2019-10-17 10:35 | SURGERY HX AND PHYSICAL(T) ---
Surgical History & Physical - Chief Complaint/HPI Chief Complaint: Right arm injury and chest pain History of Present Illness: Giovani is an unfortunate 84 year old man who is well known to this facility. He has been admitted frequently with pneumonia and copd exacerbation. He multiple comorbidities including a chronic indwelling bautista catheter. He presented to his Urologist yesterday and had his catheter replaced. That was uneventful. When he returned home, he tripped over the catheter tubing and struck his right arm and right chest. He was brought to the ED by his son with the above complaints. There, he was found to have fractures of ribs 9 and 10 on the right and a skin tear involving his right forearm. As this is considered a traumatic injury, he is admitted by the surgical service for monitoring and care. Over night he has done well. He is oxygen saturation on room air is 100% though he says he doesn't feel he is breathing as easily as he is accustomed to. - PMH/PSH/Social Hx Does the pt have a hx of MRSA?: Yes Neurological History: Tremors, Other Cardiovascular: Congestive heart failure, Hypertension, Pulmonary embolism, Atrial fibrillation Respiratory: Asthma, COPD Skin: None Endocrine/Autoimmune: None Gastrointestinal: GERD Urinary: None Musculoskeletal: Osteoarthritis, Chronic back pain Blood Disorders: None Psychiatric: Depression, Anxiety General: Appendectomy Smoking Status: Never smoker Does the pt drink ETOH?: Yes Frequency: Occasional Does the pt have substance abuse?: No - Home Meds and Allergies Home Medications: Finasteride 5 mg PO DAILY 05/21/19 Warfarin [Coumadin] 2.5 mg PO SUTUTHSA 06/06/19 Azithromycin 250 mg PO MOWEFR 07/30/19 Albuterol 3 ml INH Q4H PRN 08/17/19 Albuterol Sulfate [Albuterol Sulfate Hfa] 1 - 2 puffs INH Q4H PRN 08/17/19 Ipratropium [Atrovent] 2.5 ml INH Q6H 08/17/19 Latanoprost 0.005% Ophth Drops [Xalatan Ophth Drops] 1 drops EACHEYE QPM 08/17/19 Timolol 0.5% Ophth Drops [Timoptic 0.5% Ophth Drops] 1 drops EACHEYE BID 08/17/19 Warfarin [Coumadin] 5 mg PO MOWEFR 08/17/19 Furosemide 20 mg PO DAILY 10/17/19 Lisinopril 2.5 mg PO DAILY 10/17/19 Metoprolol Succinate [Toprol Xl] 25 mg PO DAILY 10/17/19 Omeprazole 20 mg PO DAILY 10/17/19 Trospium Chloride [Trospium Chloride ER] 60 mg PO DAILY 10/17/19 Allergies/Adverse Reactions: Allergies Allergy/AdvReac Type Severity Reaction Status Date / Time No Known Drug Allergies Allergy Verified 09/03/19 12:39 - Review of Systems Constitutional: Fatigue, Weakness. No: Chills, Malaise HEENT: No: Headaches, Visual changes Skin: Bruising. No: Rash Cardiac: AFIB, CAD, CHF, HTN Respiratory: Shortness of breath. No: Cough, Sputum Gastrointestinal: No: Nausea, Vomiting, Difficulty swallowing, Abdominal pain, Constipation, Diarrhea Gentinourinary: No: Burning, Pain Neurological: Dizziness, Weakness. No: Syncope Musculoskeletal: Back pain, Joint pain or stiffness. No: Muscle pain Hematologic: Bleeding or bruising. No: Anemia - Vital Signs Heart Rate: 62 Blood Pressure: 140/65 Temperature: 36.4 C Respiratory Rate: 16 O2 Saturation: 98 Weight (kg): 63 kg Height: 1.8 m - Physical Exam General Appearance: positive: No acute distress, Alert Eyes Bilatera: positive: Normal inspection, PERRL, EOMI, No lid inflammation ENT: positive: ENT inspection nml, Pharynx nml, No signs of dehydration. negative: Oral lesions Neck: positive: Nml inspection. negative: Swelling/bruising, Tracheal deviation Respiratory: positive: Other (Right chest wall is tender but no obvious bruising or crepitance. Breath sounds are clear but diminished bilaterally.). negative: Wheezes Abdomen: positive: Non-tender, Nml bowel sounds, No distention Back: positive: Nml inspection, CVA tenderness (R) Skin: positive: Laceration (cm) (Dressed laceration of the right forearm) Neurologic/Psychiatric: positive: Oriented x3, CN's nml (2-12) - Patient Review Patient Review: Problems were reviewed with the patient during this visit. Medications were reviewed with the patient during this visit. Allergies were reviewed this patient during this visit. Pertinent Tests Reviewed: All pertitent test for this patient were reviewed. - Assessment & Plan Assessment and Plan: Debilitated gentleman with fall resulting in two rib fractures in the setting of severe COPD with frequent pneumonia. The hospitalist service has been consulted and are managing medical comorbidities. I will order a CXR for the morning. Continue all other home meds. Agressive pulmonary hygeine. Physical therapy consult for mobilization.
[2019-10-17] MEDS: FUROSEMIDE 20 MG TABLET PO SCH (12:08)
[2019-10-17] MEDS: OXYBUTYNIN CHLORIDE 5 MG PO SCH (12:09)
--- NOTE | 2019-10-17 12:50 | PROVIDER PROGRESS NOTE ---
Subjective - Prog Note Date Prog Note Date: 10/17/19 Prog Note Time: 12:59 - Subjective Subjective: upright in bed. gets up with lap belt and walker. pain is 4/10 wit meds. Current Medications - Current Medications Current Medications: Active Medications Albuterol () 2.5 mg INH Q4H PRN PRN Reason: Shortness of Air/Wheezing Last Admin: 10/17/19 07:40 Dose: 2.5 mg Albuterol () 2.5 mg INH RTQ4H PRN PRN Reason: Wheezing/SHORTNESS OF AIR Azithromycin (Zithromax) 250 mg PO MOWEFR [facility] Finasteride (Proscar) 5 mg PO DAILY [facility] Last Admin: 10/17/19 08:56 Dose: 5 mg Furosemide (Lasix) 20 mg PO DAILY [facility] Last Admin: 10/17/19 12:08 Dose: 20 mg Hydromorphone HCl (Dilaudid Inj Syringe) 0.5 mg IVP Q2H PRN PRN Reason: Pain 8 to 10 Ipratropium [place] (Atrovent) 0.5 mg INH Q6H [facility] Last Admin: 10/17/19 07:40 Dose: 0.5 mg Latanoprost (Xalatan Ophth Drops) 1 drops EACHEYE QPM [facility] Metoprolol Succinate (Toprol Xl) 25 mg PO DAILY [facility] Ondansetron HCl (Zofran Odt) 4 mg TL Q6HR PRN PRN Reason: Nausea / Vomiting Oxycodone HCl (Roxicodone) 5 mg PO Q4HR PRN PRN Reason: Pain 5 to 7 Last Admin: 10/17/19 07:01 Dose: 5 mg Pantoprazole Sodium (Protonix) 40 mg PO QDAC [facility] Last Admin: 10/17/19 06:56 Dose: 40 mg Oxybutynin Chloride ([Ditropan Xl] 5 Mg) 1 each PO DAILY [facility] Last Admin: 10/17/19 12:09 Dose: Not Given Sodium Chloride (Normal Saline Flush 0.9%) 10 ml IVP PRN PRN PRN Reason: NEEDED PER PROVIDER ORDERS Sodium Chloride (Normal Saline Flush 0.9%) 10 ml IVP 0100,0900,1700 [facility] Last Admin: 10/17/19 08:58 Dose: 10 ml Timolol Maleate (Timoptic 0.5% Ophth Drops) 1 drops EACHEYE BID [facility] Last Admin: 10/17/19 08:57 Dose: 1 drops Warfarin Sodium (Coumadin) 2.5 mg PO SuTuThSa@2100 [facility] Warfarin Sodium (Coumadin) 5 mg PO MoWeFr@2100 [facility] Finasteride 5 mg PO DAILY 05/21/19 Warfarin [Coumadin] 2.5 mg PO YBARRA 06/06/19 Azithromycin 250 mg PO MOWEFR 07/30/19 Albuterol 3 ml INH Q4H PRN 08/17/19 Albuterol Sulfate [Albuterol Sulfate Hfa] 1 - 2 puffs INH Q4H PRN 08/17/19 Ipratropium [Atrovent] 2.5 ml INH Q6H 08/17/19 Latanoprost 0.005% Ophth Drops [Xalatan Ophth Drops] 1 drops EACHEYE QPM 08/17/19 Timolol 0.5% Ophth Drops [Timoptic 0.5% Ophth Drops] 1 drops EACHEYE BID 08/17/19 Warfarin [Coumadin] 5 mg PO MOTUWETHFRSA 08/17/19 Alfuzosin HCl [Alfuzosin HCl ER] 10 mg PO DAILY 10/17/19 Furosemide 20 mg PO DAILY 10/17/19 Lisinopril 2.5 mg PO DAILY 10/17/19 Metoprolol Succinate [Toprol Xl] 25 mg PO BID 10/17/19 Omeprazole 20 mg PO DAILY 10/17/19 Trospium Chloride [Trospium Chloride ER] 60 mg PO DAILY 10/17/19 Objective - Vital Signs/Intake & Output Reviewed Vital Signs: Yes Vital Signs: Vital Signs x48h Temp Pulse Pulse Resp BP BP Pulse Ox 10/17/19 12:00 36.6 C 60 17 124/53 L 98 10/17/19 11:00 59 L 19 116/58 L 98 10/17/19 10:42 36.4 C L 62 16 140/65 H 98 10/17/19 09:00 67 16 122/53 L 98 10/17/19 08:00 36.4 C L 72 20 147/70 H 98 10/17/19 07:43 62 14 10/17/19 07:00 64 17 163/76 H 100 10/17/19 06:00 62 16 151/56 H 100 10/17/19 05:08 60 16 136/99 H 100 Intake & Output: Intake & Output 10/14/19 10/15/19 10/16/19 10/17/19 23:59 23:59 23:59 23:59 Intake Total 130 Output Total 400 Balance -270 - Objective General Appearance: positive: No acute distress, Alert Eyes Bilateral: positive: PERRL Neck: positive: No JVD Respiratory: positive: No respiratory distress. negative: Wheezes, Rales, Rhonchi Cardiovascular: positive: Irregularly irregular, Systolic murmur. negative: Gallop/S4, Friction rub Abdomen: positive: Non-tender, No organomegaly, Nml bowel sounds, No distention Skin: positive: Warm, Dry Neurologic/Psychiatric: positive: Oriented x3, CN's nml (2-12). negative: Motor nml (left arm resting tremor) - Lab Results Fish Bones: 10/17/19 01:40 10/17/19 01:40 Other Labs: Lab Results x24hrs 10/17/19 10/17/19 10/17/19 Range/Units 06:40 02:30 01:40 WBC (4.8-10.8) x10^3/uL RBC (4.70-6.10) 10^6/uL Hgb (14.0-18.0) g/dL Hct (42.0-52.0) % MCV (80.0-94.0) fL MCH (27.0-31.0) pg MCHC (32.0-36.0) g/dL RDW (12.0-15.0) % Plt Count (130-450) 10^3/uL MPV (7.4-11.4) fL Neut # (Auto) (1.5-6.6) 10^3/uL Lymph # (Auto) (1.5-3.5) 10^3/uL [place] # (Auto) (0.0-1.0) 10^3/uL Eos # (Auto) (0.0-0.7) 10^3/uL Baso # (Auto) (0.0-0.1) 10^3/uL Absolute Nucleated RBC x10^3/uL Nucleated RBC % /100WBC PT 22.4 H (9.9-12.6) secs INR 2.0 H (0.8-1.2) APTT (24.9-33.3) secs Sodium 141 (135-145) mmol/L Potassium 4.3 (3.5-5.0) mmol/L Chloride 105 (101-111) mmol/L Carbon Dioxide 29 (21-32) mmol/L Anion Gap 7.0 (6-13) BUN 21 H (6-20) mg/dL Creatinine 1.1 (0.6-1.2) mg/dL Estimated GFR (MDRD) 64 L (>89) Glucose 114 H (70-100) mg/dL Calcium 8.6 (8.5-10.3) mg/dL Nasal Screen MRSA (PCR) POSITIVE A* (NEGATIVE) 10/17/19 10/17/19 Range/Units 01:40 01:40 WBC 13.7 H (4.8-10.8) x10^3/uL RBC 3.52 L (4.70-6.10) 10^6/uL Hgb 11.6 L (14.0-18.0) g/dL Hct 37.0 L (42.0-52.0) % MCV 105.1 H (80.0-94.0) fL MCH 33.0 H (27.0-31.0) pg MCHC 31.4 L (32.0-36.0) g/dL RDW 14.1 (12.0-15.0) % Plt Count 275 (130-450) 10^3/uL MPV 10.7 (7.4-11.4) fL Neut # (Auto) 10.6 H (1.5-6.6) 10^3/uL Lymph # (Auto) 1.5 (1.5-3.5) 10^3/uL [place] # (Auto) 0.8 (0.0-1.0) 10^3/uL Eos # (Auto) 0.7 (0.0-0.7) 10^3/uL Baso # (Auto) 0.1 (0.0-0.1) 10^3/uL Absolute Nucleated RBC 0.00 x10^3/uL Nucleated RBC % 0.0 /100WBC PT 21.3 H (9.9-12.6) secs INR 1.9 H (0.8-1.2) APTT 36.5 H (24.9-33.3) secs Sodium (135-145) mmol/L Potassium (3.5-5.0) mmol/L Chloride (101-111) mmol/L Carbon Dioxide (21-32) mmol/L Anion Gap (6-13) BUN (6-20) mg/dL Creatinine (0.6-1.2) mg/dL Estimated GFR (MDRD) (>89) Glucose (70-100) mg/dL Calcium (8.5-10.3) mg/dL Nasal Screen MRSA (PCR) (NEGATIVE) Assessment/Plan - Problem List (1) Chronic heart failure with preserved ejection fraction (HFpEF) Impression: At this time no increased shortness of breath. His main respiratory problem is lack of desire to take a deep breath because of the rib fractures. But there are no crackles. He is on Lasix and metoprolol. His list states At home he is usually on lisinopril 2.5 mg a day but he staes he hasn't been on it since August. We are giving him metoprolol 50 mg twice daily. Patient states he takes 25 mg twice daily and that change will be made. (2) COPD (chronic obstructive pulmonary disease) Impression: Home medication is albuterol, Atrovent, and Spiriva. When you give Spiriva, Atrovent is contraindicated. When the patient goes home we will make sure that he is on Spiriva with albuterol as needed and no Atrovent. At this time he is stable. No changes in medication. Qualifiers: COPD type: unspecified COPD Qualified Code(s): J44.9 - Chronic obstructive pulmonary disease, unspecified (3) Rib fractures Impression: in ICU as trauma patient since he is >65, is on coumadin, and has 2 rib fractures. trauma rib protocol per surgery. Qualifiers: Encounter type: initial encounter Rib fracture type: multiple ribs Fracture type: closed Laterality: right Qualified Code(s): S22.41XA - Multiple fractures of ribs, right side, initial encounter for closed fracture
[2019-10-17] MEDS ORDERED: IPRATROPIUM 0.2 MG/ML NEB INH PRN (20:20)
[2019-10-17] MEDS: HYDROmorphone 0.5 MG/0.5 ML SYRINGE IVP PRN (20:36)
[2019-10-17] MEDS ORDERED: LATANOPROST 0.005% OPHTH DROPS EACHEYE SCH (21:00)
[2019-10-18] MEDS: SODIUM CHLORIDE FLUSH 0.9% 10 ML SYRINGE IVP SCH ×2 (00:52→09:54)
[2019-10-18 04:50] LABS: BASOPHILS # (AUTO) 0.1 10^3/uL (0.0-0.1); BASOPHILS % (AUTO) 0.6 %; EOSINOPHILS # (AUTO) 0.8 10^3/uL (0.0-0.7); EOSINOPHILS % (AUTO) 8.5 %; HGB - HEMOGLOBIN 10.9 g/dL (14.0-18.0); LYMPHOCYTES % (AUTO) 21.2 %; MEAN CORPUSCULAR HEMOGLOBIN 31.8 pg (27.0-31.0); MEAN CORPUSCULAR VOLUME 102.6 fL (80.0-94.0); MEAN PLATELET VOLUME 10.7 fL (7.4-11.4); MONOCYTES # (AUTO) 0.6 10^3/uL (0.0-1.0); MONOCYTES % (AUTO) 6.5 %; NEUTROPHILS # (AUTO) 5.9 10^3/uL (1.5-6.6); NEUTROPHILS % (AUTO) 62.8 %; PLT - PLATELET COUNT 285 10^3/uL (130-450); RED BLOOD COUNT 3.43 10^6/uL (4.70-6.10); RED CELL DISTRIBUTION WIDTH 14.3 % (12.0-15.0); WHITE BLOOD COUNT 9.4 x10^3/uL (4.8-10.8)
[2019-10-18 04:54] LABS: INR 2.3 (0.8-1.2); PT - PROTHROMBIN TIME 25.3 secs (9.9-12.6)
[2019-10-18 04:59] LABS: CALCIUM 8.2 mg/dL (8.5-10.3); CREATININE 1.2 mg/dL (0.6-1.2)
[2019-10-18] MEDS: oxyCODONE 5 MG TABLET PO PRN (06:26)
[2019-10-18] MEDS: PANTOPRAZOLE 40 MG TABLET PO SCH (06:26)
[2019-10-18] MEDS ORDERED: METOPROLOL SUCCINATE 50 MG TABLET PO SCH (09:00)
[2019-10-18] MEDS: FINASTERIDE 5 MG TABLET PO SCH (09:51)
[2019-10-18] MEDS: FUROSEMIDE 20 MG TABLET PO SCH (09:52)
[2019-10-18] MEDS: HYDROmorphone 0.5 MG/0.5 ML SYRINGE IVP PRN (09:52)
[2019-10-18] MEDS: TIMOLOL 0.5% OPHTH DROPS EACHEYE SCH (09:53)
[2019-10-18] MEDS: OXYBUTYNIN CHLORIDE 5 MG PO SCH (09:55)
--- NOTE | 2019-10-18 11:40 | PROVIDER PROGRESS NOTE ---
Subjective - Prog Note Date Prog Note Date: 10/18/19 Prog Note Time: 11:38 - Subjective Pt reports feeling: No change Subjective: Complains of pain with movement and deep breath. Has received a small dose of dilaudid so that he could be moved to a chair and is quite sleepy now. Objective - Vital Signs/Intake & Output Reviewed Vital Signs: Yes Vital Signs: Vital Signs x48h Temp Pulse Resp BP Pulse Ox 10/18/19 10:00 84 19 159/74 H 94 10/18/19 09:00 78 23 122/63 94 10/18/19 08:00 36.8 C 77 22 95 10/18/19 07:00 72 23 147/63 H 96 10/18/19 06:00 63 19 133/58 H 95 10/18/19 05:00 65 18 145/56 H 95 10/18/19 04:00 37.2 C 66 17 147/57 H 94 Intake & Output: Intake & Output 10/15/19 10/16/19 10/17/19 10/18/19 23:59 23:59 23:59 23:59 Intake Total 930 Output Total 750 900 Balance 180 -900 - Objective General Appearance: positive: No acute distress, Lethargic Eyes Bilateral: positive: Normal inspection, PERRL, EOMI ENT: positive: ENT inspection nml, Pharynx nml, No signs of dehydration Neck: positive: Nml inspection, Thyroid nml Respiratory: positive: Other (Right chest is tender to palpation inferiorly. Lung sounds decreased bilaterally but no audible wheezing.) Cardiovascular: positive: Regular rate & rhythm Abdomen: positive: Non-tender, Nml bowel sounds - Lab Results Fish Bones: 10/18/19 04:20 10/18/19 04:20 Other Labs: Lab Results x24hrs 10/18/19 10/18/19 10/18/19 Range/Units 04:20 04:20 04:20 WBC 9.4 (4.8-10.8) x10^3/uL RBC 3.43 L (4.70-6.10) 10^6/uL Hgb 10.9 L (14.0-18.0) g/dL Hct 35.2 L (42.0-52.0) % MCV 102.6 H (80.0-94.0) fL MCH 31.8 H (27.0-31.0) pg MCHC 31.0 L (32.0-36.0) g/dL RDW 14.3 (12.0-15.0) % Plt Count 285 (130-450) 10^3/uL MPV 10.7 (7.4-11.4) fL Neut # (Auto) 5.9 (1.5-6.6) 10^3/uL Lymph # (Auto) 2.0 (1.5-3.5) 10^3/uL [place] # (Auto) 0.6 (0.0-1.0) 10^3/uL Eos # (Auto) 0.8 H (0.0-0.7) 10^3/uL Baso # (Auto) 0.1 (0.0-0.1) 10^3/uL Absolute Nucleated RBC 0.00 x10^3/uL Nucleated RBC % 0.0 /100WBC PT 25.3 H (9.9-12.6) secs INR 2.3 H (0.8-1.2) Sodium 140 (135-145) mmol/L Potassium 4.0 (3.5-5.0) mmol/L Chloride 103 (101-111) mmol/L Carbon Dioxide 30 (21-32) mmol/L Anion Gap 7.0 (6-13) BUN 19 (6-20) mg/dL Creatinine 1.2 (0.6-1.2) mg/dL Estimated GFR (MDRD) 58 L (>89) Glucose 106 H (70-100) mg/dL Calcium 8.2 L (8.5-10.3) mg/dL - Diagnostic Imaging Diagnostic Imaging Comments: CXR shows no evidence of consolidation or pneumonia Assessment/Plan - Problem List (1) Rib fractures Impression: Stable here after a fall with two right sided rib fractures. He is tolerating this injury well considering all of his comorbidities. He does not meet in patient criteria per [place] at this time. I spoke with Dr. Sepulveda regarding patient status. We will consult case management regarding placement. Qualifiers: Encounter type: initial encounter Rib fracture type: multiple ribs Fracture type: closed Laterality: right Qualified Code(s): S22.41XA - Multiple fractures of ribs, right side, initial encounter for closed fracture
--- NOTE | 2019-10-18 11:50 | PROVIDER PROGRESS NOTE ---
Subjective - Prog Note Date Prog Note Date: 10/18/19 Prog Note Time: 11:48 Current Medications - Current Medications Current Medications: Active Medications Albuterol () 2.5 mg INH Q4H PRN PRN Reason: Shortness of Air/Wheezing Last Admin: 10/17/19 18:07 Dose: 2.5 mg Albuterol () 2.5 mg INH RTQ4H PRN PRN Reason: Wheezing/SHORTNESS OF AIR Azithromycin (Zithromax) 250 mg PO MOWEFR [facility] Finasteride (Proscar) 5 mg PO DAILY [facility] Last Admin: 10/18/19 09:51 Dose: 5 mg Furosemide (Lasix) 20 mg PO DAILY [facility] Last Admin: 10/18/19 09:52 Dose: 20 mg Hydromorphone HCl (Dilaudid Inj Syringe) 0.5 mg IVP Q2H PRN PRN Reason: Pain 8 to 10 Last Admin: 10/18/19 09:52 Dose: 0.5 mg Ipratropium [place] (Atrovent) 0.5 mg INH Q6H PRN PRN Reason: Wheezing Latanoprost (Xalatan Ophth Drops) 1 drops EACHEYE QPM [facility] Last Admin: 10/17/19 20:30 Dose: 1 drops Metoprolol Succinate (Toprol Xl) 25 mg PO DAILY [facility] Last Admin: 10/18/19 09:58 Dose: 25 mg Ondansetron HCl (Zofran Odt) 4 mg TL Q6HR PRN PRN Reason: Nausea / Vomiting Oxycodone HCl (Roxicodone) 5 mg PO Q4HR PRN PRN Reason: Pain 5 to 7 Last Admin: 10/18/19 06:26 Dose: 5 mg Pantoprazole Sodium (Protonix) 40 mg PO QDAC [facility] Last Admin: 10/18/19 06:26 Dose: 40 mg Oxybutynin Chloride ([Ditropan Xl] 5 Mg) 1 each PO DAILY [facility] Last Admin: 10/18/19 09:55 Dose: Not Given Sodium Chloride (Normal Saline Flush 0.9%) 10 ml IVP PRN PRN PRN Reason: NEEDED PER PROVIDER ORDERS Last Admin: 10/17/19 20:40 Dose: 10 ml Sodium Chloride (Normal Saline Flush 0.9%) 10 ml IVP 0100,0900,1700 [facility] Last Admin: 10/18/19 09:54 Dose: 10 ml Timolol Maleate (Timoptic 0.5% Ophth Drops) 1 drops EACHEYE BID [facility] Last Admin: 10/18/19 09:53 Dose: 1 drops Warfarin Sodium (Coumadin) 2.5 mg PO SuTuThSa@2100 [facility] Last Admin: 10/17/19 20:14 Dose: 2.5 mg Warfarin Sodium (Coumadin) 5 mg PO MoWeFr@2100 [facility] Finasteride 5 mg PO DAILY 05/21/19 Warfarin [Coumadin] 2.5 mg PO YBARRA 06/06/19 Azithromycin 250 mg PO MOWEFR 07/30/19 Albuterol 3 ml INH Q4H PRN 08/17/19 Albuterol Sulfate [Albuterol Sulfate Hfa] 1 - 2 puffs INH Q4H PRN 08/17/19 Ipratropium [Atrovent] 2.5 ml INH Q6H 08/17/19 Latanoprost 0.005% Ophth Drops [Xalatan Ophth Drops] 1 drops EACHEYE QPM 08/17/19 Timolol 0.5% Ophth Drops [Timoptic 0.5% Ophth Drops] 1 drops EACHEYE BID Warfarin [Coumadin] 5 mg PO MOTUWETHFRSA 08/17/19 Alfuzosin HCl [Alfuzosin HCl ER] 10 mg PO DAILY 10/17/19 Furosemide 20 mg PO DAILY 10/17/19 Metoprolol Succinate [Toprol Xl] 25 mg PO BID 10/17/19 Omeprazole 20 mg PO DAILY 10/17/19 Trospium Chloride [Trospium Chloride ER] 60 mg PO DAILY 10/17/19 Objective - Vital Signs/Intake & Output Reviewed Vital Signs: Yes Vital Signs: Vital Signs x48h Temp Pulse Pulse Pulse Resp BP BP 10/18/19 11:00 73 17 131/68 H 10/18/19 10:05 86 80 147/62 H 10/18/19 10:00 84 19 159/74 H 10/18/19 09:00 78 23 122/63 10/18/19 08:00 36.8 C 77 22 10/18/19 07:00 72 23 147/63 H 10/18/19 06:00 63 19 133/58 H 10/18/19 05:00 65 18 145/56 H 10/18/19 04:00 37.2 C 66 17 147/57 H BP Pulse Ox 10/18/19 11:00 94 10/18/19 10:05 159/74 H 10/18/19 10:00 94 10/18/19 09:00 94 10/18/19 08:00 95 10/18/19 07:00 96 10/18/19 06:00 95 10/18/19 05:00 95 10/18/19 04:00 94 Intake & Output: Intake & Output 10/15/19 10/16/19 10/17/19 10/18/19 23:59 23:59 23:59 23:59 Intake Total 930 Output Total 750 900 Balance 180 -900 - Objective General Appearance: positive: No acute distress, Alert Eyes Bilateral: positive: PERRL ENT: positive: No signs of dehydration Neck: positive: No JVD Respiratory: positive: Chest non-tender, No respiratory distress. negative: Wheezes, Rales, Rhonchi Cardiovascular: positive: Regular rate & rhythm, Systolic murmur. negative: Gallop/S4, Friction rub Abdomen: positive: Non-tender, No organomegaly, Nml bowel sounds, No distention Skin: positive: Warm, Dry Extremities: positive: No pedal edema Neurologic/Psychiatric: positive: Oriented x3, CN's nml (2-12), Motor nml - Lab Results Fish Bones: 10/18/19 04:20 10/18/19 04:20 Other Labs: Lab Results x24hrs 10/18/19 10/18/19 10/18/19 Range/Units 04:20 04:20 04:20 WBC 9.4 (4.8-10.8) x10^3/uL RBC 3.43 L (4.70-6.10) 10^6/uL Hgb 10.9 L (14.0-18.0) g/dL Hct 35.2 L (42.0-52.0) % MCV 102.6 H (80.0-94.0) fL MCH 31.8 H (27.0-31.0) pg MCHC 31.0 L (32.0-36.0) g/dL RDW 14.3 (12.0-15.0) % Plt Count 285 (130-450) 10^3/uL MPV 10.7 (7.4-11.4) fL Neut # (Auto) 5.9 (1.5-6.6) 10^3/uL Lymph # (Auto) 2.0 (1.5-3.5) 10^3/uL [place] # (Auto) 0.6 (0.0-1.0) 10^3/uL Eos # (Auto) 0.8 H (0.0-0.7) 10^3/uL Baso # (Auto) 0.1 (0.0-0.1) 10^3/uL Absolute Nucleated RBC 0.00 x10^3/uL Nucleated RBC % 0.0 /100WBC PT 25.3 H (9.9-12.6) secs INR 2.3 H (0.8-1.2) Sodium 140 (135-145) mmol/L Potassium 4.0 (3.5-5.0) mmol/L Chloride 103 (101-111) mmol/L Carbon Dioxide 30 (21-32) mmol/L Anion Gap 7.0 (6-13) BUN 19 (6-20) mg/dL Creatinine 1.2 (0.6-1.2) mg/dL Estimated GFR (MDRD) 58 L (>89) Glucose 106 H (70-100) mg/dL Calcium 8.2 L (8.5-10.3) mg/dL ABX Reporting Has patient been on IV antibiotics over the past 48 hours?: No Assessment/Plan - Problem List (1) Chronic heart failure with preserved ejection fraction (HFpEF) Impression: Continues to be stable in that no increaed sob and neg crackles. His main respiratory problem is lack of desire to take a deep breath because of the rib fractures. He is on Lasix and metoprolol. His list states At home he is us ually on lisinopril 2.5 mg a day but he staes he hasn't been on it since August. On metoprolol 25 mg po bid (2) COPD (chronic obstructive pulmonary disease) Impression: Home medication is albuterol, Atrovent, and Spiriva. When you give Spiriva, Atrovent is contraindicated. When the patient goes home we will make sure that he is on Spiriva with albuterol as needed and no Atrovent. At this time he is stable. No changes in medication. Qualifiers: COPD type: unspecified COPD Qualified Code(s): J44.9 - Chronic obstructive pulmonary disease, unspecified (3) Rib fractures Impression: in ICU as trauma patient since he is >65, is on coumadin, and has 2 rib fractures. trauma rib protocol per surgery. Qualifiers: Encounter type: initial encounter Rib fracture type: multiple ribs Fr acture type: closed Laterality: right Qualified Code(s): S22.41XA - Multiple fractures of ribs, right side, initial encounter for closed fracture (4) History of atrial fibrillation at this time he is sinus rhythm. On coumadin. INR theraputic. Rate controlled. (2) COPD (chronic obstructive pulmonary disease) Qualifiers: Qualified Code(s): J44.9 - Chronic obstructive pulmonary disease, unspecified (3) Rib fractures Qualifiers: Qualified Code(s): S22.41XA - Multiple fractures of ribs, right side, initial encounter for closed fracture
--- NOTE | 2019-10-18 12:39 | XRAY Report ---
Reason: RIGHT RIB FRACTURES Procedure Date: 10/18/2019 Accession Number: [id number] / [id number] Procedure: XR - Chest 1 View X-Ray CPT Code: 35603 Final Report FULL RESULT: EXAM: CHEST RADIOGRAPHY EXAM DATE: 10/18/2019 10:30 AM. CLINICAL HISTORY: RIGHT RIB FRACTURES. COMPARISON: RIBS W/PA CHEST RT 10/17/2019 12:10 AM. TECHNIQUE: 1 view. FINDINGS: Lungs/Pleura: No focal opacities evident. No pleural effusion. No pneumothorax. Mediastinum: Within exam limitations, the cardiomediastinal contour is normal. Other: No known right-sided anterior ninth and 10th rib fractures are not as well visualized on this study but likely unchanged. IMPRESSION: No acute cardiopulmonary abnormality including no pneumothorax or effusion. RADIA
--- NOTE | 2019-10-18 14:20 | Discharge Plan ---
"Discharge Plan for SNF / [facility] - Discharge Plan And Transition Orders Problem Reviewed?: Yes Disposition: 03 SNF DC/Xfer Condition: Stable Allergies and Adverse Reactions: Allergies Allergy/AdvReac Type Severity Reaction Status Date / Time No Known Drug Allergies Allergy Verified 09/03/19 12:39 Health Concerns: Unfortunately you fell at home tripping over your [place] catheter tubing. You fell and broke ribs #9 and 10 on the right side and suffered a laceration to right forearm. You came to the emergency room and were placed in observation for pain management. Plan of Treatment: Elderly people over the age of 65 have increased risk of pneumonia and as such you had incentive spirometry, frequent pulmonary checks, nebulizers, and pain management with the surgery service. Care Goals: 1. Currently, you are too weak to return to home to stay by yourself. As such you will be transitioned to [facility] for temporary pain management and pulmonary care to prevent pneumonia. Assessment: At this time patient is under the influence of his pain medicine. We have contacted his son to let him know that his dad, as planned, will be transferred for temporary care for his pain management of his rib fractures. - SNF / [facility] Transition Orders Admit to (Facility): [facility] Under the care of (Name): Cristel James MD Discharge Diagnosis: 1. Rib fractures on ribs 9 and 10, right side 2. Fall at home 3. COPD without exacerbation 4. Chronic heart failure with preserved ejection fraction 5. Chronic back pain 6. Depression with anxiety 7. Hypertension 8. History of pulmonary embolism 9. Chronic atrial fibrillation 10. GERD 11. glaucoma Medicare Certification Statement: I certify that [facility] care is medically necessary on a continuing basis for any of the conditions for which she/he is receiving care during hospitalization. Notify PCP of admission and forward orders to primary provider for signature. Weight on admission and: Daily Call PCP immediately if weight increases by: 2 kg Other Notification Orders: Call PCP immediately if patient develops dyspnea, chest pain/tightness or edema. House Bowel Program: Yes Additional Bowel Program Orders: If no BM after 2 days, nurse may give M.O.M. 30ml PO PRN and/or ducolax Supp 1 P R and/or JULIA 250mg P.O., and/or senna 1-2 tabs PO. On day 3 nurse may give repeat above order until residents constipation is resolved. Annual Influenza Vaccine (between Jul 05 and February 01): Yes Two-step PPD per [facility] [id number] or approved exception documents: Yes Oxygen Orders: nasal canula prn to keep O2 sat >92% Lab Tests or X-ray Orders: PT with INR 12/16 and weekly Medication Orders: PLEASE REFER TO THE DISCHARGE MEDICATION LIST. - Medications New Prescriptions: oxyCODONE [Roxicodone] 5 mg PO Q4HR PRN #30 tablet PRN Reason: Pain 5 to 7 - Diet Type: Geriatric Texture: Regular Liquids: Thin May have monthly special meal: Yes - Therapies | Activity Therapy: Evaluation | Treat if indicated: PT, OT Rehabilitation Potential: Return to independent living Activity: Activity as Tolerated Assistance Devices: Walker"
--- NOTE | 2019-10-18 14:45 | DISCHARGE SUMMARY ---
"Discharge Summary Admit Date: 10/17/19 Discharge Date: 10/18/19 Discharging Provider: Gemma Sepulveda MD Primary Care Provider: MD Louie Code Status: Do Not Attempt Resuscitation Condition at Discharge: Stable Discharge Disposition: 03 SNF DC/Xfer Discharge Facility Name: [facility] - DIAGNOSES Discharge Diagnoses with Status of Each Condition: 1. Rib fractures 9 and 10, right side 2. Fall at home 3. COPD without exacerbation 4. Chronic heart failure with preserved ejection fraction 5. Chronic atrial fibrillation 6. History of pulmonary embolism 7. Glaucoma 8. BPH with LUTS - HPI History of Present Illness: Patient is a 84 y/o male with Hx of COPD, CHF, PE, Afib on coumadin who presented to the ED after a mechanical fall. This happened around 10pm on 10/16/19. He tripped on the tubing of his chronic indwelling bautista cath. He did not hit his head but hit his chest. As a result, he sustained fractures of rib 9-10 on the right and a laceration to his right fore arm. He has some baseline dyspnea owing to his COPD. However his oxygen saturation is currently 100% on room air. He does not wear oxygen at home. He reports some pain with deep inspiration. He denies abdominal pain, n/v/d, fever or chills. He is being admitted by general surgery (Dr Jean) and the hospitalist team is consulted for medical management of his co-morbidities. History - Past Medical History Cardiovascular: reports: Congestive heart failure, Hypertension, Pulmonary embolism, Atrial fibrillation Respiratory: reports: Asthma, COPD Neuro: reports: Tremors, Other Endocrine/Autoimmune: reports: None GI: reports: GERD : reports: None Psych: reports: Depression, Anxiety Musculoskeletal: reports: Osteoarthritis, Chronic back pain Derm: reports: None MRSA Hx?: Yes - CONSULTS | PROCEDURES Consultations: Hospitalist service for medical management of chronic medical problems Procedures: 1. Forearm x-ray without fractures or dislocations. Elbow joint osteoarthritis is present. 2. Ribs with chest x-ray showing fractures of the anterior right and ninth ribs. No alveolar consolidation or pleural effusion. 3. Follow-up chest x-ray without acute cardiopulmonary abnormality including no pneumothorax or effusion or infiltrate. Known right-sided anterior ninth and 10th rib fractures unchanged. - HOSPITAL COURSE Hospital Course: This elderly gentleman is well-known to our medical service. He was just discharged on for systemic inflammatory response syndrome without any known identified cause of infection. He had acute kidney injury, dehydration, chronic anemia, dysphasia, chronic heart failure. He has chronic dysphagia that is been evaluated several times by speech therapy. He was seen by his urologist. Had his Bautista catheter changed. This is for benign prostatic hypertrophy with retention. While at home, he tripped over his Bautista catheter and fell. Landed on his right forearm and suffered a laceration as well as right side of his body and has anterior right ninth and 10th rib fractures. He was admitted to the surgery service. We were consulting. He is considered a trauma. He was placed in the ICU and was strongly encouraged with regards to albuterol nebulizers, incentive spirometry, and walking. He walks with a lap belt but is still weak, tired. Gets easily confused with opiates being used to manage his pain. Because of his weakness, fatigue, he will not be able to return to home and is being placed in intermediate facility for strengthening, pain management to then allow him to return to home. During his last day in the stay the patient is DO NOT RESUSCITATE. At discharge temperature was 36.8. Pulse was 78. Blood pressure varied between 108 systolic to 136 systolic. Respirations were 22, he was 95% on room air. He is currently sleepy because of opiates. He received IV Dilaudid. He is eating 0 to 75% of his food. It depends on his alertness and appetite. He is 5 foot 11 inches tall and weighs 63 kg. Neck is supple without stiffness. Lungs have coarse upper airway sounds but they clear with a good deep cough. No wheezing, increased respiratory distress. Although he has a history of atrial fibrillation I am hearing a regular rate and rhythm and a systolic ejection murmur. The abdomen is soft, nontender. Extremities are thin, evidence of chronic bruising on his forearms and anterior shins. This is with resolving bruises. He is able to sit up, dangle at the edge of the bed without getting dizzy, then ambulate with a walker. He is forgetful but is oriented to person place and time. Describes being sad. Has a Bautista catheter in place. No feet edema. He was admitted on prophylactic azithromycin. During his stay Bactrim was not continued. This was also being used prophylactically. - ALLERGIES Allergies/Adverse Reactions: Allergies Allergy/AdvReac Type Severity Reaction Status Date / Time No Known Drug Allergies Allergy Verified 09/03/19 12:39 - MEDICATIONS Home Medications: Ambulatory Orders Medication Instructions Recorded Confirmed Albuterol 3 ml INH Q4H PRN 08/17/19 10/17/19 Albuterol Sulfate [Albuterol 1 - 2 puffs INH Q4H PRN #0 10/18/19 10/17/19 Sulfate Hfa] Alfuzosin HCl [Alfuzosin HCl ER] 10 mg PO DAILY #0 10/18/19 10/17/19 Azithromycin 250 mg PO MOWEFR #0 10/18/19 10/17/19 Finasteride 5 mg PO DAILY #0 10/18/19 10/17/19 Furosemide 20 mg PO DAILY #0 10/18/19 10/17/19 Ipratropium [Atrovent] 2.5 ml INH Q6H #0 10/18/19 10/17/19 Latanoprost 0.005% Ophth Drops 1 drops EACHEYE QPM #0 10/18/19 10/17/19 [Xalatan Ophth Drops] Metoprolol Succinate [Toprol Xl] 25 mg PO BID #0 10/18/19 10/17/19 Omeprazole 20 mg PO DAILY #0 10/18/19 10/17/19 Timolol 0.5% Ophth Drops [Timoptic 1 drops EACHEYE BID #0 10/18/19 10/17/19 0.5% Ophth Drops] Trospium Chloride [Trospium 60 mg PO DAILY #0 10/18/19 10/17/19 Chloride ER] Warfarin [Coumadin] 2.5 mg PO YBARRA #0 10/18/19 10/17/19 Warfarin [Coumadin] 5 mg PO MOTUWETHFRSA #0 10/18/19 10/17/19 oxyCODONE [Roxicodone] 5 mg PO Q4HR PRN #30 tablet 10/18/19 - LABS Result Diagrams: 10/18/19 04:20 10/18/19 04:20"
[2019-10-18 15:34] VITALS: BP 124/74
[2019-10-19] MEDS ORDERED: WARFARIN 5 MG TABLET PO SCH ×2 (01:45→21:00)
[2019-10-19] MEDS ORDERED: AZITHROMYCIN 250 MG TABLET PO SCH (10:27)
== END 2019-10-18 15:45 ==
LOC: ED 22:33 → UNDOADMOB 10-17 01:39 → INTOOBSV 10-17 01:39 → ICU 10-17 01:39
PROVIDERS: ADMIT Surgery; ATTEND Specialist
DX: S22.41XA Multiple fractures of ribs, right side, initial encounter for closed fracture (principal); S51.811A Laceration without foreign body of right forearm, initial encounter; J44.9 Chronic obstructive pulmonary disease, unspecified; I11.0 Hypertensive heart disease with heart failure; I50.9 Heart failure, unspecified; I48.20 Chronic atrial fibrillation, unspecified; Z79.01 Long term (current) use of anticoagulants; Z86.711 Personal history of pulmonary embolism; H40.9 Unspecified glaucoma; N40.1 Benign prostatic hyperplasia with lower urinary tract symptoms; R33.8 Other retention of urine; F32.9 Major depressive disorder, single episode, unspecified; M54.9 Dorsalgia, unspecified; K21.9 Gastro-esophageal reflux disease without esophagitis; G89.29 Other chronic pain; R13.10 Dysphagia, unspecified; R53.1 Weakness; R53.83 Other fatigue; Z87.01 Personal history of pneumonia (recurrent); W18.31XA Fall on same level due to stepping on an object, initial encounter; Y92.009 Unspecified place in unspecified non-institutional (private) residence as the place of occurrence of the external cause; Z66 Do not resuscitate; Z79.2 Long term (current) use of antibiotics
CPT/HCPCS: 36415; 71045; 71101; 73090; 80048; 85025; 85610; 85730; 87150; 94640; 96374; 96376; 97161; 99284; 99285; A9270; G0378; J1170

== ENCOUNTER 2019-10-18 15:36 | Outpatient (CLI) | payer MEDICARE | END 2019-10-18 15:37 | LOC: EMS 15:36 | PROVIDERS: ATTEND Surgery | DX: R52 Pain, unspecified (principal); S22.41XD Multiple fractures of ribs, right side, subsequent encounter for fracture with routine healing | CPT/HCPCS: A0425; A0429 ==

== ENCOUNTER 2019-10-23 23:45 | Outpatient (CLI) | payer MEDICARE ==
[2019-10-24 07:47] LABS: BILIRUBIN,URINE NEGATIVE (NEGATIVE); GLUCOSE, URINE (UA) NEGATIVE (NEGATIVE); KETONES,URINE (UA) NEGATIVE (NEGATIVE); LEUKOCYTE ESTERASE, URINE MODERATE (NEGATIVE); NITRITE,URINE NEGATIVE (NEGATIVE); OCCULT BLOOD,URINE MODERATE (NEGATIVE); PH,URINE 8.5 PH (5.0-7.5); PROTEIN,URINE 30 mg/dL (NEGATIVE); UROBILINOGEN,URINE 2 E.U./dL (NORMAL)
[2019-10-24 08:02] LABS: CLARITY,URINE CLOUDY (CLEAR)
[2019-10-24 08:13] LABS: AMORPHOUS SEDIMENT,UR Moderate /LPF; BACTERIA,URINE Many /HPF (None Seen); SQUAMOUS EPITHELIAL CELL,UR RARE Squamous (<= Few); WBC CLUMPS,URINE PRESENT
== END 2019-10-23 23:59 | disposition home or self-care (01) ==
LOC: LAB.R 23:45
PROVIDERS: ATTEND Internal Medicine
DX: N39.0 Urinary tract infection, site not specified (principal)
CPT/HCPCS: 81001; 81003; 87077; 87086; 87181

== ENCOUNTER 2019-10-24 22:34 | Outpatient (CLI) | payer MEDICARE ==
[2019-10-24 23:32] LABS: BASOPHILS # (AUTO) 0.1 10^3/uL (0.0-0.1); BASOPHILS % (AUTO) 0.6 %; EOSINOPHILS # (AUTO) 0.8 10^3/uL (0.0-0.7); EOSINOPHILS % (AUTO) 10.3 %; HGB - HEMOGLOBIN 11.4 g/dL (14.0-18.0); LYMPHOCYTES # (AUTO) 1.4 10^3/uL (1.5-3.5); LYMPHOCYTES % (AUTO) 18.3 %; MEAN CORPUSCULAR HEMOGLOBIN 32.5 pg (27.0-31.0); MEAN CORPUSCULAR HGB CONC 30.8 g/dL (32.0-36.0); MEAN CORPUSCULAR VOLUME 105.4 fL (80.0-94.0); MEAN PLATELET VOLUME 10.9 fL (7.4-11.4); MONOCYTES # (AUTO) 0.7 10^3/uL (0.0-1.0); MONOCYTES % (AUTO) 8.7 %; NEUTROPHILS # (AUTO) 4.8 10^3/uL (1.5-6.6); NEUTROPHILS % (AUTO) 61.7 %; PLT - PLATELET COUNT 360 10^3/uL (130-450); RED BLOOD COUNT 3.51 10^6/uL (4.70-6.10); RED CELL DISTRIBUTION WIDTH 13.5 % (12.0-15.0); WHITE BLOOD COUNT 7.7 x10^3/uL (4.8-10.8)
[2019-10-24 23:42] LABS: CALCIUM 8.9 mg/dL (8.5-10.3); CREATININE 1.1 mg/dL (0.6-1.2)
== END 2019-10-24 23:59 | disposition home or self-care (01) ==
LOC: LAB.R 22:34
PROVIDERS: ATTEND Internal Medicine
DX: J44.1 Chronic obstructive pulmonary disease with (acute) exacerbation (principal); I10 Essential (primary) hypertension
CPT/HCPCS: 80048; 85025

== ENCOUNTER 2019-11-06 15:28 | Outpatient (CLI) | payer MEDICARE ==
--- NOTE | 2019-11-06 16:06 | XRAY Report ---
Reason: COUGH Procedure Date: 11/06/2019 Accession Number: [id number] / [id number] Procedure: XRN - Chest 2 View X-Ray CPT Code: 83923 Final Report FULL RESULT: EXAM: CHEST RADIOGRAPHY EXAM DATE: 11/06/2019 03:42 PM. CLINICAL HISTORY: Cough. COMPARISON: CHEST 1 VIEW 10/18/2019 10:12 AM. TECHNIQUE: 2 views. FINDINGS: Lungs/Pleura: No focal opacities evident. No pleural effusion. No pneumothorax. High volumes and flattened diaphragms. Mediastinum: Heart and mediastinal contours are unremarkable. Other: None. IMPRESSION: Flattened diaphragms with high lung volumes can be seen with COPD or other obstructive lung disease. Otherwise, no acute cardiopulmonary abnormality. RADIA
== END 2019-11-06 15:29 | disposition home or self-care (01) ==
LOC: DI.N 15:28
PROVIDERS: ATTEND Internal Medicine
DX: R05 Cough (principal)
CPT/HCPCS: 71046

== ENCOUNTER 2019-12-28 14:20 | Outpatient (CLI) | payer MEDICARE ==
[2019-12-28 18:28] LABS: BILIRUBIN,URINE NEGATIVE (NEGATIVE); GLUCOSE, URINE (UA) NEGATIVE (NEGATIVE); KETONES,URINE (UA) NEGATIVE (NEGATIVE); LEUKOCYTE ESTERASE, URINE LARGE (NEGATIVE); NITRITE,URINE NEGATIVE (NEGATIVE); OCCULT BLOOD,URINE TRACE-INTA (NEGATIVE); PH,URINE 5.5 PH (5.0-7.5); PROTEIN,URINE TRACE mg/dL (NEGATIVE); UROBILINOGEN,URINE 0.2 (NORMAL) E.U./dL (NORMAL)
[2019-12-28 18:29] LABS: CLARITY,URINE CLEAR (CLEAR)
[2019-12-28 18:35] LABS: BACTERIA,URINE Rare /HPF (None Seen); RBC,URINE 0-5 /HPF (0-5); SQUAMOUS EPITHELIAL CELL,UR NONE SEEN (<= Few); WBC CLUMPS,URINE PRESENT
== END 2019-12-28 23:59 | disposition home or self-care (01) ==
LOC: LAB.R 14:20
PROVIDERS: ATTEND Internal Medicine
DX: N40.1 Benign prostatic hyperplasia with lower urinary tract symptoms (principal); R33.8 Other retention of urine; Z46.6 Encounter for fitting and adjustment of urinary device
CPT/HCPCS: 81001; 81003

== ENCOUNTER 2020-01-11 12:30 | Outpatient (CLI) | payer MEDICARE ==
[2020-01-11 13:23] LABS: BILIRUBIN,URINE NEGATIVE (NEGATIVE); GLUCOSE, URINE (UA) NEGATIVE (NEGATIVE); KETONES,URINE (UA) NEGATIVE (NEGATIVE); LEUKOCYTE ESTERASE, URINE TRACE (NEGATIVE); NITRITE,URINE NEGATIVE (NEGATIVE); OCCULT BLOOD,URINE LARGE (NEGATIVE); PROTEIN,URINE 30 mg/dL (NEGATIVE); UROBILINOGEN,URINE 0.2 (NORMAL) E.U./dL (NORMAL)
[2020-01-11 13:31] LABS: CLARITY,URINE CLOUDY (CLEAR)
[2020-01-11 13:34] LABS: AMORPHOUS SEDIMENT,UR Few /LPF; BACTERIA,URINE Moderate /HPF (None Seen); RBC,URINE TNTC /HPF (0-5); SQUAMOUS EPITHELIAL CELL,UR NONE SEEN (<= Few)
== END 2020-01-11 23:59 | disposition home or self-care (01) ==
LOC: LAB.R 12:30
PROVIDERS: ATTEND Internal Medicine
DX: R33.8 Other retention of urine (principal)
CPT/HCPCS: 81001; 81003; 87086

== ENCOUNTER 2020-01-11 18:30 | Emergency (ER) | payer MEDICARE ==
[2020-01-11 19:08] LABS: BASOPHILS % (AUTO) 0.5 %; EOSINOPHILS # (AUTO) 0.3 10^3/uL (0.0-0.7); EOSINOPHILS % (AUTO) 3.7 %; HGB - HEMOGLOBIN 13.4 g/dL (14.0-18.0); LYMPHOCYTES # (AUTO) 1.7 10^3/uL (1.5-3.5); LYMPHOCYTES % (AUTO) 21.8 %; MEAN CORPUSCULAR HEMOGLOBIN 32.6 pg (27.0-31.0); MEAN CORPUSCULAR HGB CONC 31.7 g/dL (32.0-36.0); MEAN CORPUSCULAR VOLUME 102.9 fL (80.0-94.0); MEAN PLATELET VOLUME 10.4 fL (7.4-11.4); MONOCYTES # (AUTO) 0.5 10^3/uL (0.0-1.0); MONOCYTES % (AUTO) 6.1 %; NEUTROPHILS # (AUTO) 5.1 10^3/uL (1.5-6.6); NEUTROPHILS % (AUTO) 67.4 %; PLT - PLATELET COUNT 297 10^3/uL (130-450); RED BLOOD COUNT 4.11 10^6/uL (4.70-6.10); RED CELL DISTRIBUTION WIDTH 12.9 % (12.0-15.0); WHITE BLOOD COUNT 7.6 x10^3/uL (4.8-10.8)
[2020-01-11 19:20] LABS: BILIRUBIN,URINE NEGATIVE (NEGATIVE); GLUCOSE, URINE (UA) NEGATIVE (NEGATIVE); KETONES,URINE (UA) NEGATIVE (NEGATIVE); LEUKOCYTE ESTERASE, URINE TRACE (NEGATIVE); NITRITE,URINE NEGATIVE (NEGATIVE); OCCULT BLOOD,URINE LARGE (NEGATIVE); PH,URINE 5.5 PH (5.0-7.5); PROTEIN,URINE 100 mg/dL (NEGATIVE); UROBILINOGEN,URINE 0.2 (NORMAL) E.U./dL (NORMAL)
[2020-01-11 19:20] LABS: ALBUMIN/GLOBULIN RATIO 1.4 (1.0-2.2); BILIRUBIN,TOTAL 0.4 mg/dL (0.2-1.0); CREATININE 1.4 mg/dL (0.6-1.2); TOTAL PROTEIN 6.9 g/dL (6.7-8.2)
[2020-01-11 19:27] LABS: CLARITY,URINE HAZY (CLEAR)
--- NOTE | 2020-01-11 19:27 | ED Physician Documentation ---
History of Present Illness - Stated complaint Stated Complaint: CATHETER COMPLICATIONS - Chief complaint Chief Complaint: General - Additonal information Additional information: This is a 84-year-old male with a history of congestive heart failure, hypertension, atrial fibrillation on warfarin, COPD, and indwelling catheter for urinary retention, who presents with bleeding from his catheter. Patient states that he had a UTI which was treated with 7 days of Bactrim, and starting early in the week and he began having a little bit of bleeding around the meatus of his penis and a slight amount of blood mixed in with his urine. This was re latively mild until earlier today when he had constant oozing which then stopped on its own. The amount of bleeding was greater than have in the past so he sought care here. He has been taking his warfarin as directed, and sound like he is had issues with a varying INR in the past. He denies any abdominal pain at this time, no fever. No bleeding elsewhere. No chest pain, shortness of breath, lightheadedness. Review of Systems Constitutional: denies: Fever Nose: denies: Rhinorrhea / runny nose Throat: denies: Dental pain / toothache Cardiac: denies: Chest pain / pressure Respiratory: denies: Dyspnea GI: denies: Vomiting : reports: Hematuria Skin: denies: Rash Neurologic: denies: Generalized weakness PD PAST MEDICAL HISTORY - Past Medical History Cardiovascular: Congestive heart failure, Hypertension, Pulmonary embolism, Atrial fibrillation Respiratory: Asthma, COPD Neuro: Tremors, Other Endocrine/Autoimmune: None GI: GERD : Indwelling catheter Psych: Depression, Anxiety Musculoskeletal: Osteoarthritis, Chronic back pain Derm: None - Past Surgical History Past Surgical History: No General: Appendectomy - Present Medications Home Medications: Ambulatory Orders Medication Instructions Recorded Confirmed Albuterol 3 ml INH Q4H PRN 08/17/19 01/11/20 Albuterol Sulfate [Albuterol 1 - 2 puffs INH Q4H PRN #0 10/18/19 01/11/20 Sulfate Hfa] Alfuzosin HCl [Alfuzosin HCl ER] 10 mg PO DAILY #0 10/18/19 01/11/20 Azithromycin 250 mg PO MOWEFR #0 10/18/19 01/11/20 Finasteride 5 mg PO DAILY #0 10/18/19 01/11/20 Furosemide 20 mg PO DAILY #0 10/18/19 01/11/20 Ipratropium [Atrovent] 2.5 ml INH Q6H #0 10/18/19 01/11/20 Latanoprost 0.005% Ophth Drops 1 drops EACHEYE QPM #0 10/18/19 01/11/20 [Xalatan Ophth Drops] Metoprolol Succinate [Toprol Xl] 25 mg PO BID #0 10/18/19 01/11/20 Omeprazole 20 mg PO DAILY #0 10/18/19 01/11/20 Timolol 0.5% Ophth Drops [Timoptic 1 drops EACHEYE BID #0 10/18/19 01/11/20 0.5% Ophth Drops] Trospium Chloride [Trospium 60 mg PO DAILY #0 10/18/19 01/11/20 Chloride ER] oxyCODONE [Roxicodone] 5 mg PO Q4HR PRN #30 tablet 10/18/19 01/11/20 Acetaminophen 500 mg PO Q6HR PRN 01/11/20 01/11/20 Cyclobenzaprine [Flexeril] 10 mg PO TID PRN 01/11/20 01/11/20 Docusate Sodium 100 mg PO DAILY PRN 01/11/20 01/11/20 Lactulose 15 ml PO QID PRN 01/11/20 01/11/20 Saw Upper Tract Fruit [Saw Upper Tract] 450 mg PO DAILY 01/11/20 01/11/20 Warfarin [Coumadin] 2 tab PO MOTUWETHFRSA 01/11/20 01/11/20 Warfarin [Coumadin] 3 tab PO YBARRA 01/11/20 01/11/20 - Allergies Allergies/Adverse Reactions: Allergies Allergy/AdvReac Type Severity Reaction Status Date / Time No Known Drug Allergies Allergy Verified 01/11/20 18:34 - Social History Does the pt smoke?: No Smoking Status: Never smoker Does the pt drink ETOH?: Yes Does the pt have substance abuse?: No - Immunizations Immunizations are current?: Yes - POLST Patient has POLST: No POLST Status: DNR PD ED PE NORMAL - Vitals Vital signs reviewed: Yes - General General: Alert and oriented X 3, No acute distress - HEENT HEENT: PERRL - Neck Neck: Supple, no meningeal sign - Cardiac Cardiac: Other (Irregularly irregular rhythm, normal rate.) - Respiratory Respiratory: No respiratory distress, Clear bilaterally - Abdomen Abdomen: Soft, Non tender, Non distended - Male Male : Other (. Performed with JOSE Aguero as development writer. Penis is circumcised and normal in appearance. There is a small amount of dried blood on the glans and scrotum, no active bleeding or bruising. Urine draining from the Bautista is mostly pale yellow with some pink tinge to it. No clots in the Bautista line. No lacerations or lesions to the penis.) - Derm Derm: Warm and dry - Extremities Extremities: No deformity - Neuro Neuro: Alert and oriented X 3 - Psych Psych: Normal mood, Normal affect Results - Vitals Vitals: Oxygen O2 Source [Without Activity] Room air O2 Source Room air - Labs Labs: Microbiology 01/11/20 19:05 Urine Culture - Final Urine,Catheterized No growth Laboratory Tests 01/11/20 01/11/20 01/11/20 19:00 19:00 19:00 WBC 7.6 RBC 4.11 L Hgb 13.4 L Hct 42.3 MCV 102.9 H MCH 32.6 H MCHC 31.7 L RDW 12.9 Plt Count 297 MPV 10.4 Neut # (Auto) 5.1 Lymph # (Auto) 1.7 [place] # (Auto) 0.5 Eos # (Auto) 0.3 Baso # (Auto) 0.0 Absolute Nucleated RBC 0.00 Nucleated RBC % 0.0 PT Cancelled INR Cancelled Whole Blood INR Sodium 139 Potassium 4.2 Chloride 102 Carbon Dioxide 28 Anion Gap 9.0 BUN 29 H Creatinine 1.4 H Estimated GFR (MDRD) 48 L Glucose 112 H Calcium 9.0 Total Bilirubin 0.4 AST 20 ALT 15 Alkaline Phosphatase 73 Total Protein 6.9 Albumin 4.0 Globulin 2.9 Albumin/Globulin Ratio 1.4 Lipase 50 Urine Color Urine Clarity Urine pH Ur Specific [place] Urine Protein Urine Glucose (UA) Urine Ketones Urine Occult Blood Urine Nitrite Urine Bilirubin Urine Urobilinogen Ur Leukocyte Esterase Urine RBC Urine WBC Ur Squamous Epith Cells Urine Bacteria Ur Microscopic Review Urine Culture Comments 01/11/20 01/11/20 19:05 19:52 WBC RBC Hgb Hct MCV MCH MCHC RDW Plt Count MPV Neut # (Auto) Lymph # (Auto) [place] # (Auto) Eos # (Auto) Baso # (Auto) Absolute Nucleated RBC Nucleated RBC % PT INR Whole Blood INR 4.3 H Sodium Potassium Chloride Carbon Dioxide Anion Gap BUN Creatinine Estimated GFR (MDRD) Glucose Calcium Total Bilirubin AST ALT Alkaline Phosphatase Total Protein Albumin Globulin Albumin/Globulin Ratio Lipase Urine Color YELLOW Urine Clarity HAZY Urine pH 5.5 Ur Specific [place] >=1.030 H Urine Protein 100 H Urine Glucose (UA) NEGATIVE Urine Ketones NEGATIVE Urine Occult Blood LARGE H Urine Nitrite NEGATIVE Urine Bilirubin NEGATIVE Urine Urobilinogen 0.2 (NORMAL) Ur Leukocyte Esterase TRACE H Urine RBC TNTC H Urine WBC 0-3 Ur Squamous Epith Cells NONE SEEN Urine Bacteria None Seen Ur Microscopic Review INDICATED Urine Culture Comments INDICATED PD MEDICAL DECISION MAKING - ED course Complexity details: considered differential (UTI, supratherapeutic INR, urethral irritation/trauma) ED course: On exam pt has dried blood around the penis, but no active bleeding. This is likely from irritation from his bautista along with being on blood thinners. His urine has microscopic blood in it but the bautista is draining well, there is no lg blood or clots in the bautista or urine. UA negative for infection. CBC is stable (hemoglobin actually improved from prior), creatinine is slightly elevated at 1.4, baseline seems to be 1.1. INR is elevated at 4.3, I discussed that he should hold his warfarin dose tonight and resume it tomorrow or do as directed by his PCP. I also reviewed that he should have his INR and BMP repeated in a few days. Given he is not having active bleeding and the bautista is functioning, he appears stable for outpatient follow up, I reviewed return precautions, that he should minimize trauma/tugging/movement of the bautista if possible, and pt was discharged home in the care of family. Departure - Departure Disposition: 01 Home, Self Care Clinical Impression: Bleeding of penis Condition: Good Follow-Up: Cristel Newton MD [Primary Care Provider] - Within 3 Days Comments: You were seen today for some bleeding around your catheter, your urine does not show signs of an infection, but your INR is high at 4.3. Please hold a dose of your warfarin tonight, and return to normal dosing tomorrow unless your physician tells you otherwise. Your creatinine (measure of kidney function) was also a little bit high at 1.4, typically you are at 1.1-1.2. You should have your creatinine and your INR rechecked within the next 3 days, please call Dr. eNwton to arrange this. If you are unable to have this arranged return to the emergency department for recheck. If you are having bleeding that is not stopping with gentle direct pressure, or other concerning symptoms such as fever or inability to urinate, return to the emergency department. Make sure you are drinking adequate fluids. Discharge Date/Time: 01/11/20 20:12
[2020-01-11 19:32] LABS: BACTERIA,URINE None Seen /HPF (None Seen); RBC,URINE TNTC /HPF (0-5); SQUAMOUS EPITHELIAL CELL,UR NONE SEEN (<= Few)
[2020-01-11 20:11] VITALS: BP 126/50
== END 2020-01-11 20:12 | disposition home or self-care (01) ==
LOC: ED 18:30
DX: T83.83XA Hemorrhage due to genitourinary prosthetic devices, implants and grafts, initial encounter (principal); Y84.6 Urinary catheterization as the cause of abnormal reaction of the patient, or of later complication, without mention of misadventure at the time of the procedure; N48.89 Other specified disorders of penis; R79.1 Abnormal coagulation profile; Z79.01 Long term (current) use of anticoagulants; I48.91 Unspecified atrial fibrillation; Z86.711 Personal history of pulmonary embolism; I11.0 Hypertensive heart disease with heart failure; I50.9 Heart failure, unspecified; J44.9 Chronic obstructive pulmonary disease, unspecified
CPT/HCPCS: 36415; 80053; 81001; 81003; 83690; 85025; 85610; 87086; 99283; 99284

== ENCOUNTER 2020-01-13 08:00 | Outpatient (CLI) | payer MEDICARE ==
[2020-01-13 19:00] LABS: CREATININE 1.3 mg/dL (0.6-1.2)
== END 2020-01-13 23:59 | disposition home or self-care (01) ==
LOC: LAB.WCP 08:00
PROVIDERS: ATTEND Internal Medicine
DX: N40.1 Benign prostatic hyperplasia with lower urinary tract symptoms (principal); R33.8 Other retention of urine; M62.81 Muscle weakness (generalized)
CPT/HCPCS: 82565

== ENCOUNTER 2020-03-25 15:00 | Outpatient (CLI) | payer MEDICARE ==
[2020-03-25 16:07] LABS: BILIRUBIN,URINE NEGATIVE (NEGATIVE); GLUCOSE, URINE (UA) NEGATIVE (NEGATIVE); KETONES,URINE (UA) NEGATIVE (NEGATIVE); LEUKOCYTE ESTERASE, URINE LARGE (NEGATIVE); NITRITE,URINE NEGATIVE (NEGATIVE); OCCULT BLOOD,URINE MODERATE (NEGATIVE); PROTEIN,URINE 30 mg/dL (NEGATIVE); UROBILINOGEN,URINE 0.2 (NORMAL) E.U./dL (NORMAL)
[2020-03-25 16:08] LABS: CLARITY,URINE HAZY (CLEAR)
[2020-03-25 16:18] LABS: BACTERIA,URINE None Seen /HPF (None Seen); SQUAMOUS EPITHELIAL CELL,UR NONE SEEN (<= Few); WBC CLUMPS,URINE PRESENT
== END 2020-03-25 23:59 | disposition home or self-care (01) ==
LOC: LAB.R 15:00
PROVIDERS: ATTEND Internal Medicine
DX: N40.1 Benign prostatic hyperplasia with lower urinary tract symptoms (principal)
CPT/HCPCS: 81001; 81003; 87086; 87181

== ENCOUNTER 2020-04-11 12:51 | Outpatient (CLI) | payer MEDICARE ==
--- NOTE | 2020-04-11 17:05 | Ultrasound Report ---
Reason: URINARY RETENTION Procedure Date: 04/11/2020 Accession Number: [id number] / [id number] Procedure: US - Bladder CPT Code: Final Report FULL RESULT: PROCEDURE: Bladder INDICATIONS: URINARY RETENTION TECHNIQUE: Scanning over the bladder was performed. COMPARISON: No similar recent study, CT 05/08/2019. FINDINGS: Scanning over the bladder reveals centrally positioned Saldana catheter, with the bladder contracted and with bladder volume measuring 48.5 cc. Voiding through the catheter yields 0 cc residual. The prostate gland is noted to measure 5.4 x 5.1 x 6.5 cm. IMPRESSION: The exam is somewhat limited by 4 catheter largely emptying the bladder lumen and initiation of study with final bladder contraction resulting in a post void through catheter residual of 0 cc. Prostatic enlargement as discussed. Reviewed by: Jason Queen MD on 04/11/2020 5:04 PM PDT Approved by: Jason Queen MD on 04/11/2020 5:04 PM PDT Station ID: [id number]
== END 2020-04-11 12:52 | disposition home or self-care (01) ==
LOC: DI 12:51
PROVIDERS: ATTEND Internal Medicine
DX: N40.0 Benign prostatic hyperplasia without lower urinary tract symptoms (principal)
CPT/HCPCS: 76857

== ENCOUNTER 2020-04-21 12:15 | Outpatient (CLI) | payer MEDICARE ==
[2020-04-21 13:38] LABS: BILIRUBIN,URINE NEGATIVE (NEGATIVE); GLUCOSE, URINE (UA) NEGATIVE (NEGATIVE); KETONES,URINE (UA) NEGATIVE (NEGATIVE); LEUKOCYTE ESTERASE, URINE LARGE (NEGATIVE); NITRITE,URINE POSITIVE (NEGATIVE); OCCULT BLOOD,URINE LARGE (NEGATIVE); PH,URINE 5.5 PH (5.0-7.5); PROTEIN,URINE TRACE mg/dL (NEGATIVE); UROBILINOGEN,URINE 0.2 (NORMAL) E.U./dL (NORMAL)
[2020-04-21 13:39] LABS: CLARITY,URINE CLEAR (CLEAR)
[2020-04-21 13:50] LABS: BACTERIA,URINE Few /HPF (None Seen); SQUAMOUS EPITHELIAL CELL,UR RARE Squamous (<= Few)
== END 2020-04-21 23:59 | disposition home or self-care (01) ==
LOC: LAB.R 12:15
PROVIDERS: ATTEND Internal Medicine
DX: N39.0 Urinary tract infection, site not specified (principal)
CPT/HCPCS: 81001; 81003; 87086; 87181

== ENCOUNTER 2020-04-30 13:50 | Outpatient (CLI) | payer MEDICARE ==
[2020-04-30 14:37] LABS: BILIRUBIN,URINE NEGATIVE (NEGATIVE); GLUCOSE, URINE (UA) NEGATIVE (NEGATIVE); KETONES,URINE (UA) NEGATIVE (NEGATIVE); LEUKOCYTE ESTERASE, URINE TRACE (NEGATIVE); NITRITE,URINE NEGATIVE (NEGATIVE); OCCULT BLOOD,URINE MODERATE (NEGATIVE); PROTEIN,URINE 100 mg/dL (NEGATIVE); UROBILINOGEN,URINE 0.2 (NORMAL) E.U./dL (NORMAL)
[2020-04-30 14:43] LABS: CLARITY,URINE CLEAR (CLEAR)
[2020-04-30 14:58] LABS: EPITHELIAL CELLS,UR RARE Renal Tubular /HPF (<= Few); SQUAMOUS EPITHELIAL CELL,UR RARE Squamous (<= Few)
[2020-04-30 14:59] LABS: BACTERIA,URINE Few /HPF (None Seen)
== END 2020-04-30 23:59 ==
LOC: LAB.R 13:50
PROVIDERS: ATTEND Internal Medicine
DX: R33.8 Other retention of urine (principal); N40.1 Benign prostatic hyperplasia with lower urinary tract symptoms
CPT/HCPCS: 81001; 81003; 87086

== ENCOUNTER 2020-05-16 10:50 | Outpatient (CLI) | payer MEDICARE ==
[2020-05-16 12:14] LABS: BILIRUBIN,URINE NEGATIVE (NEGATIVE); GLUCOSE, URINE (UA) NEGATIVE (NEGATIVE); KETONES,URINE (UA) NEGATIVE (NEGATIVE); LEUKOCYTE ESTERASE, URINE MODERATE (NEGATIVE); NITRITE,URINE NEGATIVE (NEGATIVE); OCCULT BLOOD,URINE MODERATE (NEGATIVE); PROTEIN,URINE TRACE mg/dL (NEGATIVE); UROBILINOGEN,URINE 0.2 (NORMAL) E.U./dL (NORMAL)
[2020-05-16 12:26] LABS: CLARITY,URINE CLEAR (CLEAR)
[2020-05-16 12:29] LABS: BACTERIA,URINE None Seen /HPF (None Seen); RBC,URINE 0-5 /HPF (0-5); SQUAMOUS EPITHELIAL CELL,UR RARE Squamous (<= Few)
== END 2020-05-16 23:59 | disposition home or self-care (01) ==
LOC: LAB.R 10:50
PROVIDERS: ATTEND Internal Medicine
DX: N40.1 Benign prostatic hyperplasia with lower urinary tract symptoms (principal)
CPT/HCPCS: 81001; 81003; 87077; 87086; 87181

== ENCOUNTER 2020-06-15 13:20 | Outpatient (CLI) | payer MEDICARE ==
[2020-06-15 14:01] LABS: PT - PROTHROMBIN TIME 85.8 secs (9.9-12.6)
[2020-06-15 14:39] LABS: INR 8.5 (0.8-1.2)
== END 2020-06-15 23:59 | disposition home or self-care (01) ==
LOC: LAB.R 13:20
PROVIDERS: ATTEND Internal Medicine
DX: I48.20 Chronic atrial fibrillation, unspecified (principal)
CPT/HCPCS: 85610

== ENCOUNTER 2020-07-26 14:01 | Outpatient (CLI) | payer MEDICARE | END 2020-07-26 14:02 | disposition critical access hospital (66) | LOC: EMS 14:01 | PROVIDERS: ATTEND Surgery | DX: R68.84 Jaw pain (principal) | CPT/HCPCS: A0425; A0429 ==

== ENCOUNTER 2020-07-26 14:20 | Emergency (ER) | payer MEDICARE ==
[2020-07-26] MEDS ORDERED: IPRATROPIUM/ALBUTEROL 3 ML NEB INH STA (14:40)
[2020-07-26] MEDS ORDERED: HYDROcod/ACETAM 5/325 MG TABLET PO STA (14:41)
[2020-07-26] MEDS ORDERED: KETOROLAC 30 MG/ML VIAL IM STA (14:42)
[2020-07-26] MEDS ORDERED: HYDROmorphone 2 MG/ML VIAL IM STA (15:12)
--- NOTE | 2020-07-26 15:13 | CT Report ---
PROCEDURE: MAXILLOFACIAL WO INDICATIONS: left mandible/jaw pain acutely TECHNIQUE: Noncontrast 1.5 mm thick axial images acquired from the mandible through the frontal sinuses, with co merle and sagittal reformatting. For radiation dose reduction, the following was used: automated ex posure control, adjustment of mA and/or kV according to patient size. COMPARISON: None. FINDINGS: Image quality: Excellent. Bones and teeth: In this patient with this given history, scrutiny is given to the left mandible. Th e left mandible demonstrates no fracture or focal bony lesion. The remainder of the mandible likewise appears unremarkable. This patient is edentulous. Orbital uribe are intact. Sinus uribe show no fracture or deformity. Nasal bones and septum are int act. There is chronic leftward nasal septal deviation. Zygomatic arches are intact. Pterygoid plates are intact. Visualized portions of the skull base and auditory canals are intact. Relatively prominent degenerative changes can be seen within the visualized cervical spine. Sinuses: Mild mucosal thickening is seen within the ethmoid air cells. There is also mild mucosal thi ckening within the left maxillary sinus. Mild mucous retention cysts are seen within the inferior rig ht maxillary sinus. Mastoid air cells are aerated. Soft tissues: No edema, masses, or fluid collections. No enlarged lymph nodes. No soft tissue lace rations or debris. Vascular: Visualized vascular structures appear normal in the absence of contrast. Bony vascular fo ramina and canals are intact. IMPRESSION: A cause of the patient's acute left mandible pain is not seen on this study. Reviewed by: Eddie Clark MD on 07/26/2020 2:11 PM AKDT Approved by: Eddie Clark MD on 07/26/2020 2:11 PM AKDT Station ID: [id number]
[2020-07-26] MEDS ORDERED: ACETAMINOPHEN 325 MG TABLET PO STA (15:52)
[2020-07-26] MEDS ORDERED: DOXYCYCLINE 100 MG TABLET PO STA (15:52)
--- NOTE | 2020-07-26 15:52 | XRAY Report ---
PROCEDURE: Chest 1 View X-Ray INDICATIONS: dyspnea TECHNIQUE: One view of the chest was acquired. COMPARISON: 10/18/2019 FINDINGS: Surgical changes and devices: None. Lungs and pleura: No pleural effusions or pneumothorax. Lungs are chronically hyperinflated and hyp erlucent. No acute consolidations. Mediastinum: Mediastinal contours appear normal. Heart size is normal. Bones and chest wall: No suspicious bony lesions. Degenerative changes in the right shoulder. Overl nora soft tissues appear unremarkable. IMPRESSION: Moderate emphysematous changes. Reviewed by: Tracy Danielson MD on 07/26/2020 2:51 PM [email or web address] Approved by: Tracy Danielson MD on 07/26/2020 2:51 PM AKDT Station ID: [id number]
--- NOTE | 2020-07-26 15:57 | ED Physician Documentation ---
PD HPI HEENT - Stated complaint Stated Complaint: LEFT JAW PX - Chief complaint Chief Complaint: General - History obtained from History obtained from: Patient - History of Present Illness Timing - onset: Today Timing - duration: Hours Timing - details: Abrupt onset, Still present Location: Mouth (left jaw pain near TMJ abruptly without injury. Pain with ROM of the jaw and also some tender along gum left upper (edentulous so no teeth pain).) Worsens: Position, Other (opening of mouth. palpation hurts.) Associated symptoms: No: Fever, Congestion, Facial swelling, Headache, Cough Similar symptoms before: Has not had sx before Recently seen: Not recently seen Review of Systems Constitutional: denies: Fever, Chills Nose: denies: Rhinorrhea / runny nose, Congestion Throat: denies: Sore throat Respiratory: denies: Cough GI: denies: Abdominal Pain, Nausea, Vomiting Skin: denies: Rash, Lesions Neurologic: denies: Headache PD PAST MEDICAL HISTORY - Past Medical History Cardiovascular: Congestive heart failure, Hypertension, Pulmonary embolism, Atrial fibrillation Respiratory: Asthma, COPD Neuro: Tremors, Other Endocrine/Autoimmune: None GI: GERD : Indwelling catheter Psych: Depression, Anxiety Musculoskeletal: Osteoarthritis, Chronic back pain Derm: None - Past Surgical History Past Surgical History: No General: Appendectomy - Present Medications Home Medications: Ambulatory Orders Medication Instructions Recorded Confirmed Albuterol 3 ml INH Q4H PRN 08/17/19 01/11/20 Albuterol Sulfate [Albuterol 1 - 2 puffs INH Q4H PRN #0 10/18/19 01/11/20 Sulfate Hfa] Alfuzosin HCl [Alfuzosin HCl ER] 10 mg PO DAILY #0 10/18/19 01/11/20 Azithromycin 250 mg PO MOWEFR #0 10/18/19 01/11/20 Finasteride 5 mg PO DAILY #0 10/18/19 01/11/20 Furosemide 20 mg PO DAILY #0 10/18/19 01/11/20 Ipratropium [Atrovent] 2.5 ml INH Q6H #0 10/18/19 01/11/20 Latanoprost 0.005% Ophth Drops 1 drops EACHEYE QPM #0 10/18/19 01/11/20 [Xalatan Ophth Drops] Metoprolol Succinate [Toprol Xl] 25 mg PO BID #0 10/18/19 01/11/20 Omeprazole 20 mg PO DAILY #0 10/18/19 01/11/20 Timolol 0.5% Ophth Drops [Timoptic 1 drops EACHEYE BID #0 10/18/19 01/11/20 0.5% Ophth Drops] Trospium Chloride [Trospium 60 mg PO DAILY #0 10/18/19 01/11/20 Chloride ER] oxyCODONE [Roxicodone] 5 mg PO Q4HR PRN #30 tablet 10/18/19 01/11/20 Acetaminophen 500 mg PO Q6HR PRN 01/11/20 01/11/20 Cyclobenzaprine [Flexeril] 10 mg PO TID PRN 01/11/20 01/11/20 Docusate Sodium 100 mg PO DAILY PRN 01/11/20 01/11/20 Lactulose 15 ml PO QID PRN 01/11/20 01/11/20 Saw [place] Fruit [Saw Lyndon] 450 mg PO DAILY 01/11/20 01/11/20 Warfarin [Coumadin] 2 tab PO MOTUWETHFRSA 01/11/20 01/11/20 Warfarin [Coumadin] 3 tab PO YBARRA 01/11/20 01/11/20 Doxycycline Monohydrate 100 mg PO BID #14 tablet 07/26/20 Oxycodone HCl/Acetaminophen 1 each PO Q6H PRN #14 tablet 07/26/20 [Percocet 5-325 mg Tablet] - Allergies Allergies/Adverse Reactions: Allergies Allergy/AdvReac Type Severity Reaction Status Date / Time No Known Drug Allergies Allergy Verified 07/26/20 14:28 - Social History Does the pt smoke?: No Smoking Status: Never smoker Does the pt drink ETOH?: Yes Does the pt have substance abuse?: No - Immunizations Immunizations are current?: Yes - POLST Patient has POLST: No POLST Status: DNR PD ED PE NORMAL - Vitals Vital signs reviewed: Yes - General General: Alert and oriented X 3, No acute distress, Well developed/nourished - HEENT HEENT: Ears normal, Pharynx benign, Other (edentulous but some tdnerness and mild swelling left upper posterior gum. Not tender in parotid and without swelling. He is tender above that near the TMJ area. Very tender to palpation. ) - Neck Neck: Supple, no meningeal sign, No adenopathy - Cardiac Cardiac: RRR, No murmur - Respiratory Respiratory: Clear bilaterally - Derm Derm: Normal color, Warm and dry, No rash Results - Vitals Vitals: Vital Signs - 24 hr 07/26/20 07/26/20 07/26/20 14:28 15:10 16:31 Temperature 37.4 C Heart Rate 68 69 80 Respiratory 24 14 18 Rate Blood Pressure 116/88 H 133/97 H O2 Saturation 99 100 Oxygen O2 Source [Without Activity] Room air O2 Source Room air - Labs Labs: Laboratory Tests 07/26/20 14:53 Whole Blood INR 3.1 H - Rads (name of study) M CT Radiology: Prelim report reviewed (no acute process), See rad report PD MEDICAL DECISION MAKING - ED course Complexity details: reviewed results, considered differential (not sure of the cause. Some tender and mild swelling of gum so consider infection. Very painful and to touch so consider early shingles. Watch for rash. ), d/w patient Departure - Departure Disposition: 01 Home, Self Care Clinical Impression: Left-sided face pain Condition: Stable Record reviewed to determine appropriate education?: Yes Follow-Up: Cristel Newton MD [Primary Care Provider] - Prescriptions: Doxycycline Monohydrate 100 mg PO BID #14 tablet Oxycodone HCl/Acetaminophen [Percocet 5-325 mg Tablet] 1 each PO Q6H PRN #14 tablet PRN Reason: pain Comments: It is not clear the cause of your pain at this time. The CT scan does not show any obvious structural lesions in the area. You do have tenderness along the gumline and in the cheek so an infection would be a consideration. Otherwise there may be some nerve irritation developed. Doxycycline antibiotic for a week as directed. Add Tylenol or Percocet if needed for pain. Stay well-hydrated. See what develops over the next few days if the symptoms go away. If they persist or worsen or if you develop a rash or other symptoms it may be easier to further diagnose it. Discharge Date/Time: 07/26/20 16:30
[2020-07-26 16:32] VITALS: BP 133/97
== END 2020-07-26 16:30 | disposition home or self-care (01) ==
LOC: EDUNIT# → ED 14:20
DX: R68.84 Jaw pain (principal); K06.8 Other specified disorders of gingiva and edentulous alveolar ridge; R51 Headache; I11.0 Hypertensive heart disease with heart failure; I50.9 Heart failure, unspecified; I48.91 Unspecified atrial fibrillation; Z79.01 Long term (current) use of anticoagulants; J44.9 Chronic obstructive pulmonary disease, unspecified
CPT/HCPCS: 70486; 71045; 85610; 94640; 96372; 99284; A9270; J1170

== ENCOUNTER 2020-08-02 12:10 | Outpatient (CLI) | payer MEDICARE ==
[2020-08-02 19:16] LABS: PT - PROTHROMBIN TIME 55.6 secs (9.9-12.6)
[2020-08-02 19:58] LABS: INR 5.6 (0.8-1.2)
== END 2020-08-02 23:59 | disposition home or self-care (01) ==
LOC: LAB.R 12:10
PROVIDERS: ATTEND Internal Medicine
DX: Z79.01 Long term (current) use of anticoagulants (principal)
CPT/HCPCS: 85610

== ENCOUNTER 2020-08-18 15:50 | Inpatient (IN) | payer MEDICARE ==
[2020-08-18] MEDS ORDERED: PANTOPRAZOLE 40 MG VIAL IVP STA (16:37)
[2020-08-18] MEDS ORDERED: IOVERSOL 320 100 ML VIAL IVP ONE ×2 (16:48→17:24)
[2020-08-18 16:52] LABS: BASOPHILS % (AUTO) 0.4 %; EOSINOPHILS # (AUTO) 0.3 10^3/uL (0.0-0.7); EOSINOPHILS % (AUTO) 2.7 %; HGB - HEMOGLOBIN 12.4 g/dL (14.0-18.0); LYMPHOCYTES # (AUTO) 1.5 10^3/uL (1.5-3.5); LYMPHOCYTES % (AUTO) 15.8 %; MEAN CORPUSCULAR HEMOGLOBIN 32.6 pg (27.0-31.0); MEAN CORPUSCULAR HGB CONC 31.6 g/dL (32.0-36.0); MEAN CORPUSCULAR VOLUME 103.2 fL (80.0-94.0); MEAN PLATELET VOLUME 11.1 fL (7.4-11.4); MONOCYTES # (AUTO) 0.6 10^3/uL (0.0-1.0); MONOCYTES % (AUTO) 5.9 %; NEUTROPHILS # (AUTO) 7.3 10^3/uL (1.5-6.6); NEUTROPHILS % (AUTO) 74.7 %; PLT - PLATELET COUNT 312 10^3/uL (130-450); RED CELL DISTRIBUTION WIDTH 12.8 % (12.0-15.0); WHITE BLOOD COUNT 9.7 x10^3/uL (4.8-10.8)
[2020-08-18 17:01] LABS: INR 2.2 (0.8-1.2); PT - PROTHROMBIN TIME 22.8 secs (9.9-12.6)
--- NOTE | 2020-08-18 17:01 | ED Physician Documentation ---
History of Present Illness - Stated complaint Stated Complaint: VOMITING BLOOD - Chief complaint Chief Complaint: Abd Pain - History obtained from History obtained from: Patient - History of Present Illness Timing: Today Pain level max: 0 Pain level now: 0 - Additonal information Additional information: 85-year-old male presents to the emergency department stating he has had dark and tarry stools for the last several days. States vomited today x1 and it was noted to be coffee-ground. He states have a history of ulcers in the past. He is on warfarin. No history of varices or liver disease. He is on warfarin for atrial fibrillation. No abdominal pain. No fevers. Nothing makes it better or worse Review of Systems Ten Systems: 10 systems reviewed and negative Constitutional: denies: Fever, Chills Ears: denies: Ear pain Nose: denies: Rhinorrhea / runny nose, Congestion, Epistaxis Throat: denies: Sore throat Cardiac: denies: Chest pain / pressure Respiratory: denies: Dyspnea, Cough, Wheezing GI: reports: Vomiting, Hematemesis, Bloody / black stool. denies: Nausea, Diarrhea Skin: denies: Rash Musculoskeletal: denies: Neck pain, Back pain Neurologic: denies: Headache PD PAST MEDICAL HISTORY - Past Medical History Cardiovascular: Congestive heart failure, Hypertension, Pulmonary embolism, Atrial fibrillation Respiratory: Asthma, COPD Neuro: Tremors, Other Endocrine/Autoimmune: None GI: GERD : Indwelling catheter Psych: Depression, Anxiety Musculoskeletal: Osteoarthritis, Chronic back pain Derm: None - Past Surgical History Past Surgical History: No General: Appendectomy - Present Medications Home Medications: Ambulatory Orders Medication Instructions Recorded Confirmed Albuterol 3 ml INH Q4H PRN 08/17/19 01/11/20 Albuterol Sulfate [Albuterol 1 - 2 puffs INH Q4H PRN #0 10/18/19 01/11/20 Sulfate Hfa] Alfuzosin HCl [Alfuzosin HCl ER] 10 mg PO DAILY #0 10/18/19 01/11/20 Azithromycin 250 mg PO MOWEFR #0 10/18/19 01/11/20 Finasteride 5 mg PO DAILY #0 10/18/19 01/11/20 Furosemide 20 mg PO DAILY #0 10/18/19 01/11/20 Ipratropium [Atrovent] 2.5 ml INH Q6H #0 10/18/19 01/11/20 Latanoprost 0.005% Ophth Drops 1 drops EACHEYE QPM #0 10/18/19 01/11/20 [Xalatan Ophth Drops] Metoprolol Succinate [Toprol Xl] 25 mg PO BID #0 10/18/19 01/11/20 Omeprazole 20 mg PO DAILY #0 10/18/19 01/11/20 Trospium Chloride [Trospium 60 mg PO DAILY #0 10/18/19 01/11/20 Chloride ER] Acetaminophen 500 mg PO Q6HR PRN 01/11/20 01/11/20 Cyclobenzaprine [Flexeril] 10 mg PO TID PRN 01/11/20 01/11/20 Saw [place] Fruit [Saw [place]] 450 mg PO DAILY 01/11/20 01/11/20 Warfarin [Coumadin] 2.5 mg PO YBARRA 01/11/20 01/11/20 Warfarin [Coumadin] 5 mg PO MOTUWETHFRSA 01/11/20 01/11/20 Bimatoprost 0.01% Ophth Dops 40 drops EACHEYE 08/18/20 08/18/20 [Lumigan 0.01% Ophth Drops] - Allergies Allergies/Adverse Reactions: Allergies Allergy/AdvReac Type Severity Reaction Status Date / Time No Known Drug Allergies Allergy Verified 08/18/20 15:58 - Social History Does the pt smoke?: No Smoking Status: Never smoker Does the pt drink ETOH?: Yes Does the pt have substance abuse?: No - Immunizations Immunizations are current?: Yes - POLST Patient has POLST: No POLST Status: DNR PD ED PE NORMAL - Vitals Vital signs reviewed: Yes - General General: Alert and oriented X 3, No acute distress, Well developed/nourished - HEENT HEENT: PERRL, Moist mucous membranes - Neck Neck: Supple, no meningeal sign - Cardiac Cardiac: RRR - Respiratory Respiratory: No respiratory distress, Clear bilaterally - Abdomen Abdomen: Soft, Non tender, Non distended - Rectal Rectal: Pt declined - Derm Derm: Warm and dry - Neuro Neuro: Alert and oriented X 3 Results - Vitals Vitals: Vital Signs - 24 hr 08/18/20 08/18/20 08/18/20 15:52 16:30 18:07 Temperature 36.3 C L Heart Rate 86 81 77 Respiratory 19 18 21 Rate Blood Pressure 137/75 H 141/79 H 123/89 H O2 Saturation 96 100 81 L Oxygen O2 Source [Without Activity] Room air O2 Source Room air - Labs Labs: Laboratory Tests 08/18/20 08/18/20 08/18/20 16:45 16:45 16:45 WBC 9.7 RBC 3.80 L Hgb 12.4 L Hct 39.2 L MCV 103.2 H MCH 32.6 H MCHC 31.6 L RDW 12.8 Plt Count 312 MPV 11.1 Neut # (Auto) 7.3 H Lymph # (Auto) 1.5 Carbon # (Auto) 0.6 Eos # (Auto) 0.3 Baso # (Auto) 0.0 Absolute Nucleated RBC 0.00 Nucleated RBC % 0.0 PT 22.8 H INR 2.2 H APTT 37.0 H Sodium 143 Potassium 3.9 Chloride 103 Carbon Dioxide 31 Anion Gap 9.0 BUN 29 H Creatinine 1.4 H Estimated GFR (MDRD) 48 L Glucose 93 Calcium 9.1 Total Bilirubin 0.9 AST 17 ALT 11 Alkaline Phosphatase 63 Total Protein 7.0 Albumin 3.7 Globulin 3.3 Albumin/Globulin Ratio 1.1 Lipase 30 Urine Color Urine Clarity Urine pH Ur Specific Dorado Urine Protein Urine Glucose (UA) Urine Ketones Urine Occult Blood Urine Nitrite Urine Bilirubin Urine Urobilinogen Ur Leukocyte Esterase Urine RBC Urine WBC Ur Squamous Epith Cells Urine Bacteria Urine Yeast Ur Microscopic Review Urine Culture Comments Blood Type Antibody Screen 08/18/20 08/18/20 16:50 16:55 WBC RBC Hgb Hct MCV MCH MCHC RDW Plt Count MPV Neut # (Auto) Lymph # (Auto) Carbon # (Auto) Eos # (Auto) Baso # (Auto) Absolute Nucleated RBC Nucleated RBC % PT INR APTT Sodium Potassium Chloride Carbon Dioxide Anion Gap BUN Creatinine Estimated GFR (MDRD) Glucose Calcium Total Bilirubin AST ALT Alkaline Phosphatase Total Protein Albumin Globulin Albumin/Globulin Ratio Lipase Urine Color YELLOW Urine Clarity HAZY Urine pH 6.0 Ur Specific Dor[place] 1.020 Urine Protein 30 H Urine Glucose (UA) NEGATIVE Urine Ketones NEGATIVE Urine Occult Blood MODERATE H Urine Nitrite POSITIVE H Urine Bilirubin NEGATIVE Urine Urobilinogen 0.2 (NORMAL) Ur Leukocyte Esterase LARGE H Urine RBC 11-25 H Urine WBC >25 H Ur Squamous Epith Cells NONE SEEN Urine Bacteria Moderate H Urine Yeast PRESENT Ur Microscopic Review INDICATED Urine Culture Comments INDICATED Blood Type O NEGATIVE Antibody Screen NEGATIVE PD MEDICAL DECISION MAKING - ED course Complexity details: reviewed results, re-evaluated patient, considered differential, d/w patient, d/w family, d/w transportation consultant ED course: Discussed the case with Dr. Hernadez, general surgery who will likely take the patient for endoscopy tomorrow. This appears to be secondary to a bleeding ulcer, history of ulcers in the past. Given Protonix here. Patient is hemodynamically stable. Discussed the case with Dr. Sepulveda, hospitalist who accepts. This document was made in part using voice recognition software. While efforts are made to proofread this document, sound alike and grammatical errors may occur. Departure - Departure Disposition: ED Place in Observation Clinical Impression: Upper GI bleed, Anticoagulated on Coumadin Condition: Stable
[2020-08-18 17:06] LABS: ALBUMIN 3.7 g/dL (3.2-5.5); ALBUMIN/GLOBULIN RATIO 1.1 (1.0-2.2); BILIRUBIN,TOTAL 0.9 mg/dL (0.2-1.0); CALCIUM 9.1 mg/dL (8.5-10.3); CREATININE 1.4 mg/dL (0.6-1.2)
[2020-08-18 17:11] LABS: BILIRUBIN,URINE NEGATIVE (NEGATIVE); GLUCOSE, URINE (UA) NEGATIVE (NEGATIVE); KETONES,URINE (UA) NEGATIVE (NEGATIVE); LEUKOCYTE ESTERASE, URINE LARGE (NEGATIVE); NITRITE,URINE POSITIVE (NEGATIVE); OCCULT BLOOD,URINE MODERATE (NEGATIVE); PROTEIN,URINE 30 mg/dL (NEGATIVE); UROBILINOGEN,URINE 0.2 (NORMAL) E.U./dL (NORMAL)
[2020-08-18 17:12] LABS: CLARITY,URINE HAZY (CLEAR)
[2020-08-18 17:24] LABS: BACTERIA,URINE Moderate /HPF (None Seen); SQUAMOUS EPITHELIAL CELL,UR NONE SEEN (<= Few); YEAST,URINE PRESENT
[2020-08-18] MEDS ORDERED: cefTRIAXone 1 GM VIAL IVP STA (17:31)
--- NOTE | 2020-08-18 17:48 | CT Report ---
PROCEDURE: Abdomen/Pelvis W INDICATIONS: hematemesis, melena CONTRAST: IV CONTRAST: Optiray 320 ml: 100 PO CONTRAST: *NO PO CONTRAST TECHNIQUE: After the administration of IV contrast, 5 mm thick sections acquired from the diaphragms to the symp hysis. 5 mm thick coronal and sagittal reformats were acquired. For radiation dose reduction, the f ollowing was used: automated exposure control, adjustment of mA and/or kV according to patient size. COMPARISON: 05/08/2019. FINDINGS: Image quality: Excellent. ABDOMEN: Lung bases: Lung bases are clear. Heart size is normal. Solid organs: Liver and spleen are normal in size and enhancement. Gallbladder is within normal ching its Biliary system is non dilated. Pancreas enhances normally. No adrenal nodules. Kidneys demons trate normal size and enhancement, without hydronephrosis. Peritoneum and bowel: Bowel loops demonstrate normal wall thickness and caliber. No free fluid or a ir. Mild fecal stasis throughout the colon is seen. Colonic diverticulosis is again seen, no CT evid ence of acute diverticulitis. Nodes and vessels: No retroperitoneal or mesenteric adenopathy by size criteria. Aorta and inferior vena cava are normal in size. Miscellaneous: No ventral hernias. PELVIS: Genitourinary: Sald[place] catheter is seen in a decompressed urinary bladder. No definite bladder wall abn ormality. Enlarged prostate gland is seen with mass effect on floor of urinary bladder.. Miscellaneous: No inguinal lymphadenopathy. Bilateral fat-containing inguinal hernias are seen. Bones: No suspicious bony lesions. No vertebral body compression fractures. Degenerative disc dise ase in lower lumbar spine at L4-5 and L5-S1 levels are seen. IMPRESSION: 1. No bowel obstruction. No abnormal bowel wall thickening . No free fluid of free air. Sigmoid diver ticulosis without evidence of acute diverticulitis. 2. No obstructing renal stone or hydronephrosis. Saldana catheter in a decompressed urinary bladder. No gross bladder wall abnormality is seen. Enlarged prostate gland with mass effect on floor of urinary bladder. Reviewed by: Bradford Villalobos MD on 08/18/2020 5:47 PM PDT Approved by: Bradford Villalobos MD on 08/18/2020 5:47 PM PDT Station ID: [id number]
[2020-08-18] MEDS ORDERED: ACETAMINOPHEN 325 MG TABLET PO PRN (18:28)
[2020-08-18] MEDS ORDERED: ONDANSETRON ODT 4 MG TABLET TL PRN (18:28)
[2020-08-18] MEDS ORDERED: oxyCODONE 5 MG TABLET PO PRN (18:28)
[2020-08-18] MEDS ORDERED: ONDANSETRON 4 MG/2 ML VIAL IVP PRN (18:28)
[2020-08-18] MEDS ORDERED: MORPHINE 2 MG/ML CARPUJECT IVP PRN (18:28)
[2020-08-18] MEDS ORDERED: LACTATED RINGERS 1,000 ML IV SCH (19:00)
--- NOTE | 2020-08-18 19:21 | HISTORY & PHYSICAL EXAMINATION ---
Chief Complaint - Chief Complaint Chief Complaint: Hematemesis. History of Present Illness - Admitted From Admitted From:: Home - History Obtained From Records Reviewed: Yes History obtained from: Patient, ER Physician, EMR - History of Present Illness HPI Comment/Other: This is a 85-year-old male with a past medical history significant for chronic diastolic heart failure, BPH, chronic indwelling Saldana catheter, atrial fibrillation, history of pulmonary embolism on Coumadin who presents today after having hematemesis at home. He reports having 1 or 2 episodes of hematemesis this morning. He reported some nausea associated with it which has since resolved. He felt like he had significant abdominal pain at that time but that has also resolved. He reports no further episodes of emesis since then. He denies any melena or bloody stools although this was reportedly a symptom he had at home when he spoke to the emergency department provider. He reports no dizziness or lightheadedness. He denied being on any anticoagulation but when I mention Coumadin he stated that he is on that. He reports no prior history of ulcers. He denies any NSAID use. Reports drinking 2 alcoholic beverages a week. He reports no dysuria, urgency, frequency. In the emergency department, he was found to be afebrile with temperature of 36.3 C. His heart rate was 86. Blood pressure was 137/75. He was not tachypneic and saturating well on room air. Labs were significant for hemoglobin of 12.4. His INR was 2.2. Creatinine was 1.4. His urinalysis revealed positive nitrites, large leukocyte Estrace, 25 WBCs, moderate bacteria as well as moderate occult blood and 11-[address] of the abdomen pelvis which showed no acute abnormalities. He was given ceftriaxone and Protonix IV in the emergency department. Given the above findings, medicine was consulted for admission. I did discuss goals of care with the patient and he would like to be a DNR. History - Past Medical History Cardiovascular: reports: Congestive heart failure, Hypertension, Pulmonary embolism, Atrial fibrillation Respiratory: reports: Asthma, COPD Neuro: reports: Tremors, Other Endocrine/Autoimmune: reports: None GI: reports: GERD : reports: Indwelling catheter Psych: reports: Depression, Anxiety Musculoskeletal: reports: Osteoarthritis, Chronic back pain Derm: reports: None MRSA Hx?: Yes - Past Surgical History General: reports: Appendectomy - Family & Social History Family History: Mother: , Father: Family History Comment/Other: He reports no known family history. 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 Lives at home with his son, Grayson. He previously smoked 2 packs of cigarettes a day for 30 years but quit over 30 years ago. Reports drinking 2 alcoholic beverages a week. - Substance History Use: Uses substance without health or social issues: Alcohol - POLST Patient has POLST: No POLST Status: DNR Meds/Allgy - Home Medications Home Medications: Ambulatory Orders Medication Instructions Recorded Confirmed Albuterol 3 ml INH Q4H PRN 08/17/19 01/11/20 Albuterol Sulfate [Albuterol 1 - 2 puffs INH Q4H PRN #0 10/18/19 01/11/20 Sulfate Hfa] Alfuzosin HCl [Alfuzosin HCl ER] 10 mg PO DAILY #0 10/18/19 01/11/20 Azithromycin 250 mg PO MOWEFR #0 10/18/19 01/11/20 Finasteride 5 mg PO DAILY #0 10/18/19 01/11/20 Furosemide 20 mg PO DAILY #0 10/18/19 01/11/20 Ipratropium [Atrovent] 2.5 ml INH Q6H #0 10/18/19 01/11/20 Latanoprost 0.005% Ophth Drops 1 drops EACHEYE QPM #0 10/18/19 01/11/20 [Xalatan Ophth Drops] Metoprolol Succinate [Toprol Xl] 25 mg PO BID #0 10/18/19 01/11/20 Omeprazole 20 mg PO DAILY #0 10/18/19 01/11/20 Trospium Chloride [Trospium 60 mg PO DAILY #0 10/18/19 01/11/20 Chloride ER] Acetaminophen 500 mg PO Q6HR PRN 01/11/20 01/11/20 Cyclobenzaprine [Flexeril] 10 mg PO TID PRN 01/11/20 01/11/20 Saw Monitor Fruit [Saw Monitor] 450 mg PO DAILY 01/11/20 01/11/20 Warfarin [Coumadin] 2.5 mg PO YBARRA 01/11/20 01/11/20 Warfarin [Coumadin] 5 mg PO MOTUWETHFRSA 01/11/20 01/11/20 Bimatoprost 0.01% Ophth Dops 40 drops EACHEYE 08/18/20 08/18/20 [Lumigan 0.01% Ophth Drops] - Allergies Allergies/Adverse Reactions: Allergies Allergy/AdvReac Type Severity Reaction Status Date / Time No Known Drug Allergies Allergy Verified 08/18/20 15:58 Review of Systems - Constitutional Constitutional: denies: Fatigue, Fever, Chills, Weakness - Eyes Eyes: denies: Blurred vision - Cardiovascular Cariovascular: denies: Chest pain, Edema, Lightheadedness, Exertional dyspnea, Decr. exercise tolerance - Gastrointestinal Gastrointestinal: reports: Nausea, Vomiting, Coffee grounds emesis. denies: A bdominal pain, Black stools - Genitourinary Genitourinary: denies: Dysuria, Frequency, Urgency, Hematuria, Flank pain - Musculoskeletal Musculoskeletal: denies: Muscle pain - Integumentary Integumentary: denies: Rash - Neurological Neurological: denies: General weakness, Focal weakness, Dizziness - Hematologic/Lymphatic Hematologic/Lymphatic: denies: Anemia, Bruising, Bleeding tendencies - All Other Systems All Other Systems: reports: Reviewed and negative Prior Level of Functionality: Lives with his son, Grayson at home. He ambulates with a walker at baseline. He appears to have some mild cognitive impairment. Exam - Vital Signs Reviewed Vital Signs: Yes Vital Signs: Vital Signs x48h Temp Pulse Pulse Resp BP BP Pulse Ox 08/18/20 19:11 36.9 C 80 20 139/61 H 98 08/18/20 18:07 77 21 123/89 H 81 L 08/18/20 16:30 81 18 141/79 H 100 08/18/20 15:52 36.3 C L 86 19 137/75 H 96 - Physical Exam General Appearance: positive: No acute distress, Alert Eyes Bilateral: positive: Normal inspection, Conjunctivae nml ENT: positive: ENT inspection nml, Pharynx nml, Other (No evidence of bleeding.). negative: Pharyngeal erythema Neck: positive: Nml inspection Respiratory: positive: No respiratory distress, Wheezes (Faint expiratory wheezes.). negative: Rales, Rhonchi Cardiovascular: positive: Regular rate & rhythm, No murmur. negative: Tachycardia, Bradycardia, Systolic murmur Abdomen: positive: Non-tender, No distention. negative: Tenderness, Guarding, Rebound Skin: positive: Warm, Dry Extremities: positive: Full ROM, No pedal edema Neurologic/Psychiatric: positive: Disoriented to place (Knows he is at the hospital but not which one.), Disoriented to time, Other (No focal deficits on exam. He does have a resting tremor most prominent in his right upper extremity.). negative: Disoriented to person Conclusion/Plan - Problem List (1) Upper GI bleed Conclusion/Plan: He has a history of gastric ulcers in the past and presents with hematemesis and melena. Hemoglobin is fortunately stable. He is on Coumadin for history of pulmonary embolism and atrial fibrillation. Will place in observation for endoscopy tomorrow. N.p.o. at midnight. Protonix 40 mg IV twice daily. We will reverse his INR with vitamin K. Check hemoglobin every 6 hours. (2) Anticoagulated on Coumadin Conclusion/Plan: He is on Coumadin for history of pulmonary embolism and atrial fibrillation. His INR is therapeutic. He received vitamin K in the emergency department. We will recheck an INR in the morning and if it is still elevated, we will administer FFP prior to endoscopy. If he does bleed significantly overnight we will also administer FFP but for the time being we will hold off on this. (3) Atrial fibrillation Conclusion/Plan: He is currently rate controlled. We will hold his evening dose of metoprolol so that we do not mask potential tachycardia from further bleeding. We will resume in the morning. Monitor on telemetry. Qualifiers: Atrial fibrillation type: paroxysmal Qualified Code(s): I48.0 - Paroxysmal atrial fibrillation (4) CKD (chronic kidney disease), stage III Conclusion/Plan: Renal function is stable and at baseline with a creatinine of 1.4. We will check daily BMP and monitor his urine output. (5) Chronic heart failure with preserved ejection fraction (HFpEF) Conclusion/Plan: Stable and not in exacerbation. We will resume his home Lasix in the morning. (6) History of pulmonary embolism Conclusion/Plan: He is therapeutic on Coumadin. We will hold the Coumadin and reverse his INR given the upper GI bleed. We will resume after endoscopy when appropriate. (7) COPD (chronic obstructive pulmonary disease) Conclusion/Plan: Stable and not in exacerbation. Continue home inhalers. Qualifiers: Qualified Code(s): J44.9 - Chronic obstructive pulmonary disease, unspecified (8) Chronic indwelling Saldana catheter Conclusion/Plan: This is due to BPH. His urinalysis does reveal greater than 25 WBCs and moderate bacteria as well as yeast. Suspect is likely colonization in a patient who has chronic indwelling Saldana catheter. He has no dysuria, urgency, suprapubic pain. He also has no leukocytosis or fever. He received ceftriaxone IV in the emergency department. Prior urine cultures have grown MRSA and enterococcus. We will hold off on continuing antibiotics for the time being unless he develops signs or symptoms of infection. (9) Cognitive impairment Conclusion/Plan: Suspect he likely has some mild cognitive impairment. He is a poor historian and although he knew that he was at the hospital, he thought he was in [place]. He also does not know the year or month. We will consider an OT consult for cognitive evaluation. - Lab Results Lab results reviewed: Yes Fish Bones: 08/18/20 16:45 08/18/20 16:45 - Diagnostic Imaging Results Diagnostic Imaging Results: positive: Final report reviewed Core Measures - Anticipated LOS I expect patient to be DC'd or transferred within 96 hours.: Yes - Issues Hospital Issues and Management Plan: 85-year-old male on Coumadin for history of atrial fibrillation pulmonary embolism presents with hematemesis. Has a known history of gastric ulcers. We will place in observation for endoscopy tomorrow. Protonix IV and n.p.o. at midnight. Trend his hemoglobin. - DVT/VTE - Prophylaxis VTE/DVT Device ordered at admit?: Yes VTE/DVT Prophylaxis med ordered at admit?: No Not Ordered - Medical Reason: Contraindicated
[2020-08-18] MEDS ORDERED: ALBUTEROL NEB 2.5 MG/3 ML INH PRN (19:35)
[2020-08-18] MEDS ORDERED: CHERRY SYRUP 10 ML UDC PO ONE (20:19)
[2020-08-18] MEDS ORDERED: PHYTONADIONE 10 MG/ML AMP PO ONE (20:19)
[2020-08-18] MEDS: METOPROLOL SUCCINATE 25 MG TABLET PO SCH (21:32)
[2020-08-18] MEDS: IPRATROPIUM 0.2 MG/ML NEB INH SCH (21:56)
[2020-08-19] MEDS: SODIUM CHLORIDE FLUSH 0.9% 10 ML SYRINGE IVP SCH ×3 (02:44→17:24)
[2020-08-19] MEDS: IPRATROPIUM 0.2 MG/ML NEB INH SCH ×4 (03:27→20:37)
[2020-08-19] MEDS: ALBUTEROL NEB 2.5 MG/3 ML INH PRN ×2 (03:27→08:16)
[2020-08-19 05:50] LABS: BASOPHILS # (AUTO) 0.1 10^3/uL (0.0-0.1); BASOPHILS % (AUTO) 0.6 %; EOSINOPHILS # (AUTO) 0.3 10^3/uL (0.0-0.7); EOSINOPHILS % (AUTO) 3.9 %; HGB - HEMOGLOBIN 10.8 g/dL (14.0-18.0); LYMPHOCYTES # (AUTO) 1.1 10^3/uL (1.5-3.5); LYMPHOCYTES % (AUTO) 12.7 %; MEAN CORPUSCULAR HEMOGLOBIN 32.4 pg (27.0-31.0); MEAN CORPUSCULAR HGB CONC 31.4 g/dL (32.0-36.0); MEAN CORPUSCULAR VOLUME 103.3 fL (80.0-94.0); MEAN PLATELET VOLUME 10.4 fL (7.4-11.4); MONOCYTES # (AUTO) 0.5 10^3/uL (0.0-1.0); MONOCYTES % (AUTO) 6.4 %; NEUTROPHILS # (AUTO) 6.3 10^3/uL (1.5-6.6); NEUTROPHILS % (AUTO) 75.9 %; PLT - PLATELET COUNT 275 10^3/uL (130-450); RED BLOOD COUNT 3.33 10^6/uL (4.70-6.10); WHITE BLOOD COUNT 8.3 x10^3/uL (4.8-10.8)
[2020-08-19 05:59] LABS: CALCIUM 8.5 mg/dL (8.5-10.3); CREATININE 1.4 mg/dL (0.6-1.2)
[2020-08-19 06:19] LABS: INR 2.2 (0.8-1.2); PT - PROTHROMBIN TIME 23.1 secs (9.9-12.6)
[2020-08-19] MEDS: SODIUM CHLORIDE FLUSH 0.9% 10 ML SYRINGE IVP PRN ×2 (06:42→20:28)
[2020-08-19] MEDS ORDERED: POTASSIUM CHLORIDE 20 MEQ TABLET PO ONE (06:50)
[2020-08-19] MEDS ORDERED: PANTOPRAZOLE 40 MG VIAL IVP SCH (07:00)
[2020-08-19] MEDS ORDERED: PHYTONADIONE 10 MG/ML AMP IVP STA (08:27)
[2020-08-19] MEDS ORDERED: cefTRIAXone 1 GM in SODIUM CHLORIDE 0.9% MINIBAG 100 ML IV SCH (09:00)
[2020-08-19] MEDS ORDERED: D5.45NS W/20 MEQ KCL 1,000 ML IV SCH ×2 (09:00→11:24)
[2020-08-19] MEDS: METOPROLOL SUCCINATE 25 MG TABLET PO SCH ×2 (09:15→20:28)
[2020-08-19] MEDS: PHYTONADIONE INJ (ADULT) 5 MG in SODIUM CHLORIDE 0.9% 50 ML IV SCH ×2 (09:17→09:24)
[2020-08-19] MEDS: PANTOPRAZOLE 40 MG VIAL IVP SCH ×2 (09:36→20:27)
[2020-08-19] MEDS ORDERED: PROPOFOL 200 MG/20 ML VIAL IVP ONE (09:40)
[2020-08-19] MEDS ORDERED: KETAMINE 500 MG/10 ML VIAL IVP ONE (09:40)
[2020-08-19] MEDS ORDERED: MIDAZOLAM 2 MG/2 ML VIAL IVP ONE (09:40)
--- NOTE | 2020-08-19 10:48 | ANESTHESIA ---
Pre-Anesthesia VS, & Labs - Diagnosis GI bleed - Procedure EGD, Colonoscopy Vital Signs: Temp Pulse Resp BP Pulse Ox 36.4 C L 85 14 104/54 L 93 08/19/20 07:35 08/19/20 08:16 08/19/20 08:16 08/19/20 07:35 08/19/20 07:35 Height: 5 ft 11 in Weight (kg): 61.5 kg Body Mass Index: 18.8 BMI Classification: Healthy weight - NPO >8 hours - Lab Results Current Lab Results: Laboratory Tests 08/19/20 05:40: PT 23.1 H, INR 2.2 H 08/19/20 05:40: Sodium 142, Potassium 3.3 L, Chloride 104, Carbon Dioxide 31, Anion Gap 7.0, BUN 22 H, Creatinine 1.4 H, Estimated GFR (MDRD) 48 L, Glucose 107 H, Calcium 8.5 08/19/20 05:40: WBC 8.3, RBC 3.33 L, Hgb 10.8 L, Hct 34.4 L, MCV 103.3 H, MCH 32.4 H, MCHC 31.4 L, RDW 13.0, Plt Count 275, MPV 10.4, Neut # (Auto) 6.3, Lymph # (Auto) 1.1 L, [place] # (Auto) 0.5, Eos # (Auto) 0.3, Baso # (Auto) 0.1, Absolute Nucleated RBC 0.00, Nucleated RBC % 0.0 08/18/20 16:50: Blood Type O NEGATIVE, Antibody Screen NEGATIVE 08/18/20 16:45: Sodium 143, Potassium 3.9, Chloride 103, Carbon Dioxide 31, Anion Gap 9.0, BUN 29 H, Creatinine 1.4 H, Estimated GFR (MDRD) 48 L, Glucose 93, Calcium 9.1, Total Bilirubin 0.9, AST 17, ALT 11, Alkaline Phosphatase 63, Total Protein 7.0, Albumin 3.7, Globulin 3.3, Albumin/Globulin Ratio 1.1, Lipase 30 08/18/20 16:45: PT 22.8 H, INR 2.2 H, APTT 37.0 H 08/18/20 16:45: WBC 9.7, RBC 3.80 L, Hgb 12.4 L, Hct 39.2 L, MCV 103.2 H, MCH 32.6 H, MCHC 31.6 L, RDW 12.8, Plt Count 312, MPV 11.1, Neut # (Auto) 7.3 H, Lymph # (Auto) 1.5, [place] # (Auto) 0.6, Eos # (Auto) 0.3, Baso # (Auto) 0.0, Absolute Nucleated RBC 0.00, Nucleated RBC % 0.0 Lab results reviewed: Yes Fish Bones: 08/19/20 10:55 08/19/20 05:40 Home Medications and Allergies Home Medications: Ambulatory Orders Bimatoprost 0.01% Ophth Dops [Lumigan 0.01% Ophth Drops] 40 drops EACHEYE 08/18/20 Active Medications Acetaminophen (Tylenol) 650 mg PO Q4HR PRN PRN Reason: Pain 1 to 4 Albuterol () 2.5 mg INH RTQ4H PRN PRN Reason: Wheezing Last Admin: 08/19/20 08:16 Dose: 2.5 mg Documented by: Potassium Chloride/Dextrose/Sod Cl (D5.45ns W/20 Meq Kcl) 1,000 mls @ 100 mls/hr IV .Q10H [facility] Stop: 08/20/20 04:59 Last Admin: 08/19/20 09:21 Dose: 100 mls/hr Documented by: Ipratropium [place] (Atrovent) 0.5 mg INH Q6H [facility] Last Admin: 08/19/20 08:16 Dose: 0.5 mg Documented by: Metoprolol Succinate (Toprol Xl) 25 mg PO BID [facility] Last Admin: 08/19/20 09:15 Dose: 25 mg Documented by: Morphine Sulfate (Morphine (Carpuject)) 2 mg IVP Q2HR PRN PRN Reason: Pain 8 to 10 Ondansetron HCl (Zofran Odt) 4 mg TL Q6HR PRN PRN Reason: Nausea / Vomiting Ondansetron HCl (Zofran Inj) 4 mg IVP Q6HR PRN PRN Reason: Nausea / Vomiting Oxycodone HCl (Roxicodone) 5 mg PO Q4HR PRN PRN Reason: Pain 5 to 7 Pantoprazole Sodium (Protonix) 40 mg IVP BID [facility] Last Admin: 08/19/20 09:36 Dose: 40 mg Documented by: Sodium Chloride (Normal Saline Flush 0.9%) 10 ml IVP PRN PRN PRN Reason: NEEDED PER PROVIDER ORDERS Last Admin: 08/19/20 06:42 Dose: 10 ml Documented by: Sodium Chloride (Normal Saline Flush 0.9%) 10 ml IVP 0100,0900,1700 [facility] Last Admin: 08/19/20 09:31 Dose: Not Given Documented by: Sodium Sulfate/Potass Sulf/Mag Sulf (Suprep Bowel Prep Kit) 177 ml PO 1800,0500 [facility] Stop: 08/19/20 18:01 Albuterol 3 ml INH Q4H PRN 08/17/19 Acetaminophen 500 mg PO Q6HR PRN 01/11/20 Cyclobenzaprine [Flexeril] 10 mg PO TID PRN 01/11/20 Saw [place] Fruit [Saw [place]] 450 mg PO DAILY 01/11/20 Warfarin [Coumadin] 2.5 mg PO YBARRA 01/11/20 Warfarin [Coumadin] 5 mg PO MOTUWETHFRSA 01/11/20 Bimatoprost 0.01% Ophth Dops [Lumigan 0.01% Ophth Drops] 40 drops EACHEYE 08/18/20 Allergies/Adverse Reactions: Allergies Allergy/AdvReac Type Severity Reaction Status Date / Time No Known Drug Allergies Allergy Verified 08/18/20 15:58 Anes History & Medical History - Anesthetic History Anesthesia Complications: reports: No previous complications Family history of Anesthesia Complications: Denies Family history of Malignant Hyperthermia: Denies - Medical History Cardiovascular: reports: Congestive heart failure, Hypertension, Pulmonary embolism, Atrial fibrillation Pulmonary: reports: Asthma, COPD Gastrointestinal: reports: GERD Urinary: reports: Indwelling catheter Neuro: reports: Tremors, Other (mild cognative impairment) Musculoskeletal: reports: Osteoarthritis, Chronic back pain Endocrine/Autoimmune: reports: None Blood Disorders: reports: None Skin: reports: None Smoking Status: Former smoker - Surgical History General: Appendectomy Exam General: Alert, Oriented x3, Cooperative, No acute distress Dental: Other (edentulous) Mouth Openin Fingerbreadth Neck Mobility: Limited Mallampati classification: III Respiratory: Lungs clear, Normal breath sounds, No respiratory distress, No accessory muscle use Plan Anesthesia Type: MAC Consent for Procedure(s) Verified and Reviewed: Yes Code Status: Attempt Resuscitation ASA classification: 3-Severe systemic disease Is this case an emergency?: No
--- NOTE | 2020-08-19 11:00 | PROVIDER PROGRESS NOTE ---
Subjective - Prog Note Date Prog Note Date: 08/19/20 - Subjective Pt reports feeling: Improved Subjective: Patient report he had a one-time of hematemesis on yesterday, about 50cc blood. He denies syncope or chest pain. Patient still had INR 2.2. Call surgeon Dr. Hernadez. He recommend to give patient vitamin K and bowel repair, plan to have EGD and the colonoscopy for patient today. Current Medications - Current Medications Current Medications: Active Medications Acetaminophen (Tylenol) 650 mg PO Q4HR PRN PRN Reason: Pain 1 to 4 Albuterol () 2.5 mg INH RTQ4H PRN PRN Reason: Wheezing Last Admin: 08/19/20 08:16 Dose: 2.5 mg Documented by: Potassium Chloride/Dextrose/Sod Cl (D5.45ns W/20 Meq Kcl) 1,000 mls @ 100 mls/hr IV .Q10H [facility] Stop: 08/20/20 04:59 Last Admin: 08/19/20 09:21 Dose: 100 mls/hr Documented by: Ipratropium Celoron (Atrovent) 0.5 mg INH Q6H [facility] Last Admin: 08/19/20 08:16 Dose: 0.5 mg Documented by: Metoprolol Succinate (Toprol Xl) 25 mg PO BID [facility] Last Admin: 08/19/20 09:15 Dose: 25 mg Documented by: Morphine Sulfate (Morphine (Carpuject)) 2 mg IVP Q2HR PRN PRN Reason: Pain 8 to 10 Ondansetron HCl (Zofran Odt) 4 mg TL Q6HR PRN PRN Reason: Nausea / Vomiting Ondansetron HCl (Zofran Inj) 4 mg IVP Q6HR PRN PRN Reason: Nausea / Vomiting Oxycodone HCl (Roxicodone) 5 mg PO Q4HR PRN PRN Reason: Pain 5 to 7 Pantoprazole Sodium (Protonix) 40 mg IVP BID [facility] Last Admin: 08/19/20 09:36 Dose: 40 mg Documented by: Sodium Chloride (Normal Saline Flush 0.9%) 10 ml IVP PRN PRN PRN Reason: NEEDED PER PROVIDER ORDERS Last Admin: 08/19/20 06:42 Dose: 10 ml Documented by: Sodium Chloride (Normal Saline Flush 0.9%) 10 ml IVP 0100,0900,1700 [facility] Last Admin: 08/19/20 09:31 Dose: Not Given Documented by: Sodium Sulfate/Potass Sulf/Mag Sulf (Suprep Bowel Prep Kit) 177 ml PO 1800,0500 [facility] Stop: 08/19/20 18:01 Albuterol 3 ml INH Q4H PRN 08/17/19 Acetaminophen 500 mg PO Q6HR PRN 01/11/20 Cyclobenzaprine [Flexeril] 10 mg PO TID PRN 01/11/20 Saw [place] Fruit [Saw Wilmar] 450 mg PO DAILY 01/11/20 Warfarin [Coumadin] 2.5 mg PO YBARRA 01/11/20 Warfarin [Coumadin] 5 mg PO MOTUWETHFRSA 01/11/20 Bimatoprost 0.01% Ophth Dops [Lumigan 0.01% Ophth Drops] 40 drops EACHEYE 08/18/20 Objective - Vital Signs/Intake & Output Vital Signs: Vital Signs x48h Temp Pulse Pulse Resp BP BP Pulse Ox 08/19/20 08:16 85 14 08/19/20 07:35 36.4 C L 89 18 104/54 L 93 08/19/20 04:06 37.2 C 74 18 111/54 L 96 08/19/20 03:28 77 18 Intake & Output: Intake & Output 08/16/20 08/17/20 08/18/20 08/19/20 23:59 23:59 23:59 23:59 Intake Total 50 1011.667 Output Total 500 350 Balance -450 661.667 - Objective General Appearance: positive: No acute distress, Alert. negative: Lethargic Eyes Bilateral: positive: Normal inspection, PERRL, No lid inflammation ENT: positive: ENT inspection nml, No signs of dehydration. negative: Purulent nasal drainage Neck: positive: Nml inspection, Thyroid nml, Trachea midline. negative: Thyromegaly, Tracheal deviation Respiratory: positive: Chest non-tender, No respiratory distress, Breath sounds nml. negative: Wheezes, Rales Cardiovascular: positive: Regular rate & rhythm, No murmur. negative: Tachycardia, Bradycardia, Systolic murmur, Diastolic murmur Peripheral Pulses: 2+ Radial (R), 2+ Radial (L) Abdomen: positive: Non-tender, Nml bowel sounds, No distention. negative: Tenderness, Guarding, Rebound Back: positive: Nml inspection Skin: positive: Color nml, No rash, Warm, Dry. negative: Cyanosis, Diaphoresis, Pallor Extremities: positive: Non-tender, Nml appearance. negative: Calf tenderness Neurologic/Psychiatric: positive: Oriented x3, Motor nml, Sensation nml, Mood/affect nml. negative: Weakness, Sensory loss, Facial droop, Slurred/abnml speech, Depressed mood/affect - Lab Results Fish Bones: 08/19/20 10:55 08/19/20 05:40 Other Labs: Lab Results x24hrs 08/19/20 08/19/20 08/19/20 Range/Units 05:40 05:40 05:40 WBC 8.3 (4.8-10.8) x10^3/uL RBC 3.33 L (4.70-6.10) 10^6/uL Hgb 10.8 L (14.0-18.0) g/dL Hct 34.4 L (42.0-52.0) % MCV 103.3 H (80.0-94.0) fL MCH 32.4 H (27.0-31.0) pg MCHC 31.4 L (32.0-36.0) g/dL RDW 13.0 (12.0-15.0) % Plt Count 275 (130-450) 10^3/uL MPV 10.4 (7.4-11.4) fL Neut # (Auto) 6.3 (1.5-6.6) 10^3/uL Lymph # (Auto) 1.1 L (1.5-3.5) 10^3/uL [place] # (Auto) 0.5 (0.0-1.0) 10^3/uL Eos # (Auto) 0.3 (0.0-0.7) 10^3/uL Baso # (Auto) 0.1 (0.0-0.1) 10^3/uL Absolute Nucleated RBC 0.00 x10^3/uL Nucleated RBC % 0.0 /100WBC PT 23.1 H (9.9-12.6) secs INR 2.2 H (0.8-1.2) APTT (24.9-33.3) secs Sodium 142 (135-145) mmol/L Potassium 3.3 L (3.5-5.0) mmol/L Chloride 104 (101-111) mmol/L Carbon Dioxide 31 (21-32) mmol/L Anion Gap 7.0 (6-13) BUN 22 H (6-20) mg/dL Creatinine 1.4 H (0.6-1.2) mg/dL Estimated GFR (MDRD) 48 L (>89) Glucose 107 H (70-100) mg/dL Calcium 8.5 (8.5-10.3) mg/dL Total Bilirubin (0.2-1.0) mg/dL AST (10-42) IU/L ALT (10-60) IU/L Alkaline Phosphatase (42-121) IU/L Total Protein (6.7-8.2) g/dL Albumin (3.2-5.5) g/dL Globulin (2.1-4.2) g/dL Albumin/Globulin Ratio (1.0-2.2) Lipase (22-51) U/L Urine Color Urine Clarity (CLEAR) Urine pH (5.0-7.5) PH Ur Specific [place] (1.002-1.030) Urine Protein (NEGATIVE) mg/dL Urine Glucose (UA) (NEGATIVE) mg/dL Urine Ketones (NEGATIVE) mg/dL Urine Occult Blood (NEGATIVE) Urine Nitrite (NEGATIVE) Urine Bilirubin (NEGATIVE) Urine Urobilinogen (NORMAL) E.U./dL Ur Leukocyte Esterase (NEGATIVE) Urine RBC (0-5) /HPF Urine WBC (0-3) /HPF Ur Squamous Epith Cells (<= Few) Urine Bacteria (None Seen) /HPF Urine Yeast Ur Microscopic Review Urine Culture Comments Blood Type Antibody Screen 08/18/20 08/18/20 08/18/20 Range/Units 16:55 16:50 16:45 WBC (4.8-10.8) x10^3/uL RBC (4.70-6.10) 10^6/uL Hgb (14.0-18.0) g/dL Hct (42.0-52.0) % MCV (80.0-94.0) fL MCH (27.0-31.0) pg MCHC (32.0-36.0) g/dL RDW (12.0-15.0) % Plt Count (130-450) 10^3/uL MPV (7.4-11.4) fL Neut # (Auto) (1.5-6.6) 10^3/uL Lymph # (Auto) (1.5-3.5) 10^3/uL [place] # (Auto) (0.0-1.0) 10^3/uL Eos # (Auto) (0.0-0.7) 10^3/uL Baso # (Auto) (0.0-0.1) 10^3/uL Absolute Nucleated RBC x10^3/uL Nucleated RBC % /100WBC PT (9.9-12.6) secs INR (0.8-1.2) APTT (24.9-33.3) secs Sodium 143 (135-145) mmol/L Potassium 3.9 (3.5-5.0) mmol/L Chloride 103 (101-111) mmol/L Carbon Dioxide 31 (21-32) mmol/L Anion Gap 9.0 (6-13) BUN 29 H (6-20) mg/dL Creatinine 1.4 H (0.6-1.2) mg/dL Estimated GFR (MDRD) 48 L (>89) Glucose 93 (70-100) mg/dL Calcium 9.1 (8.5-10.3) mg/dL Total Bilirubin 0.9 (0.2-1.0) mg/dL AST 17 (10-42) IU/L ALT 11 (10-60) IU/L Alkaline Phosphatase 63 (42-121) IU/L Total Protein 7.0 (6.7-8.2) g/dL Albumin 3.7 (3.2-5.5) g/dL Globulin 3.3 (2.1-4.2) g/dL Albumin/Globulin Ratio 1.1 (1.0-2.2) Lipase 30 (22-51) U/L Urine Color YELLOW Urine Clarity HAZY (CLEAR) Urine pH 6.0 (5.0-7.5) PH Ur Specific [place] 1.020 (1.002-1.030) Urine Protein 30 H (NEGATIVE) mg/dL Urine Glucose (UA) NEGATIVE (NEGATIVE) mg/dL Urine Ketones NEGATIVE (NEGATIVE) mg/dL Urine Occult Blood MODERATE H (NEGATIVE) Urine Nitrite POSITIVE H (NEGATIVE) Urine Bilirubin NEGATIVE (NEGATIVE) Urine Urobilinogen 0.2 (NORMAL) (NORMAL) E.U./dL Ur Leukocyte Esterase LARGE H (NEGATIVE) Urine RBC 11-25 H (0-5) /HPF Urine WBC >25 H (0-3) /HPF Ur Squamous Epith Cells NONE SEEN (<= Few) Urine Bacteria Moderate H (None Seen) /HPF Urine Yeast PRESENT Ur Microscopic Review INDICATED Urine Culture Comments INDICATED Blood Type O NEGATIVE Antibody Screen NEGATIVE 08/18/20 08/18/20 Range/Units 16:45 16:45 WBC 9.7 (4.8-10.8) x10^3/uL RBC 3.80 L (4.70-6.10) 10^6/uL Hgb 12.4 L (14.0-18.0) g/dL Hct 39.2 L (42.0-52.0) % MCV 103.2 H (80.0-94.0) fL MCH 32.6 H (27.0-31.0) pg MCHC 31.6 L (32.0-36.0) g/dL RDW 12.8 (12.0-15.0) % Plt Count 312 (130-450) 10^3/uL MPV 11.1 (7.4-11.4) fL Neut # (Auto) 7.3 H (1.5-6.6) 10^3/uL Lymph # (Auto) 1.5 (1.5-3.5) 10^3/uL [place] # (Auto) 0.6 (0.0-1.0) 10^3/uL Eos # (Auto) 0.3 (0.0-0.7) 10^3/uL Baso # (Auto) 0.0 (0.0-0.1) 10^3/uL Absolute Nucleated RBC 0.00 x10^3/uL Nucleated RBC % 0.0 /100WBC PT 22.8 H (9.9-12.6) secs INR 2.2 H (0.8-1.2) APTT 37.0 H (24.9-33.3) secs Sodium (135-145) mmol/L Potassium (3.5-5.0) mmol/L Chloride (101-111) mmol/L Carbon Dioxide (21-32) mmol/L Anion Gap (6-13) BUN (6-20) mg/dL Creatinine (0.6-1.2) mg/dL Estimated GFR (MDRD) (>89) Glucose (70-100) mg/dL Calcium (8.5-10.3) mg/dL Total Bilirubin (0.2-1.0) mg/dL AST (10-42) IU/L ALT (10-60) IU/L Alkaline Phosphatase (42-121) IU/L Total Protein (6.7-8.2) g/dL Albumin (3.2-5.5) g/dL Globulin (2.1-4.2) g/dL Albumin/Globulin Ratio (1.0-2.2) Lipase (22-51) U/L Urine Color Urine Clarity (CLEAR) Urine pH (5.0-7.5) PH Ur Specific [place] (1.002-1.030) Urine Protein (NEGATIVE) mg/dL Urine Glucose (UA) (NEGATIVE) mg/dL Urine Ketones (NEGATIVE) mg/dL Urine Occult Blood (NEGATIVE) Urine Nitrite (NEGATIVE) Urine Bilirubin (NEGATIVE) Urine Urobilinogen (NORMAL) E.U./dL Ur Leukocyte Esterase (NEGATIVE) Urine RBC (0-5) /HPF Urine WBC (0-3) /HPF Ur Squamous Epith Cells (<= Few) Urine Bacteria (None Seen) /HPF Urine Yeast Ur Microscopic Review Urine Culture Comments Blood Type Antibody Screen ABX Reporting Has patient been on IV antibiotics over the past 48 hours?: No Assessment/Plan - Problem List (1) Upper GI bleed Impression: 1016,Patient hemoglobin is 10.8, there is some hemodilution. Patient denies dizziness, lightheaded, shortness of breathing. Patient reported he did a vomiting of blood about 50 to 100 cc in the home once. call surgeon to plan to have EGD and colonoscopy for patient this afternoon. Patient takes Coumadin at home for his hx of PE and Hx of a fibrillation. INR 2.2. surgeon suggest give patient vitamin K, not FFP. Continue intravenous Protonix, H&H monitor patient. (2) Anticoagulated on Coumadin Conclusion/Plan: He is on Coumadin for history of pulmonary embolism and atrial fibrillation. His INR is therapeutic. He received vitamin K in the emergency department. But INR still is 2.2. Per surgeon's suggestion, we will give patient vitamin K intravenous 5 mg, We will hold Coumadin now. Dependent EGD finding, patient might need hold Coumadin for gastro ulcer healing. (3) Atrial fibrillation Conclusion/Plan: He is currently rate controlled. Continue home medication Metoprolol, Continue telemetry and vital signs monitor (4) CKD (chronic kidney disease), stage III Conclusion/Plan: stable. (5) Chronic heart failure with preserved ejection fraction (HFpEF) Conclusion/Plan: Stable. We will give the patient gently hydration since pt is NPO. (6) History of pulmonary embolism Conclusion/Plan: He is therapeutic on Coumadin. We will hold the Coumadin and reverse his INR given the upper GI bleed now. (7) COPD (chronic obstructive pulmonary disease) Conclusion/Plan: Stable and not in exacerbation. Continue home inhalers. (8) Chronic indwelling Saldana catheter Conclusion/Plan: Patient denies dysuria, urgency, suprapubic pain, he also has no leukocytosis or fever. Prior urine cultures have grown MRSA and enterococcus. His urinalysis does reveal greater than 25 WBCs and moderate bacteria as well as yeast. S uspect it is likely colonization in a patient who has chronic indwelling Saldana catheter. He received ceftriaxone IV in the emergency department. agree to hold off antibiotics unless he develops signs or symptoms of infection. (9) Cognitive impairment Conclusion/Plan: stable, improved, not confused today morning.
[2020-08-19 11:05] LABS: BASOPHILS # (AUTO) 0.1 10^3/uL (0.0-0.1); BASOPHILS % (AUTO) 0.5 %; EOSINOPHILS # (AUTO) 0.2 10^3/uL (0.0-0.7); EOSINOPHILS % (AUTO) 2.4 %; HGB - HEMOGLOBIN 11.9 g/dL (14.0-18.0); LYMPHOCYTES # (AUTO) 0.8 10^3/uL (1.5-3.5); LYMPHOCYTES % (AUTO) 7.8 %; MEAN CORPUSCULAR HEMOGLOBIN 32.8 pg (27.0-31.0); MEAN CORPUSCULAR HGB CONC 31.3 g/dL (32.0-36.0); MEAN CORPUSCULAR VOLUME 104.7 fL (80.0-94.0); MEAN PLATELET VOLUME 10.8 fL (7.4-11.4); MONOCYTES # (AUTO) 0.6 10^3/uL (0.0-1.0); MONOCYTES % (AUTO) 5.8 %; NEUTROPHILS # (AUTO) 8.3 10^3/uL (1.5-6.6); PLT - PLATELET COUNT 309 10^3/uL (130-450); RED BLOOD COUNT 3.63 10^6/uL (4.70-6.10)
[2020-08-19] MEDS: SODIUM/POTASSIUM/MAG SULFATES 354 ML PREP KIT PO SCH ×2 (11:32→17:59)
--- NOTE | 2020-08-19 13:11 | CONSULTATION NOTE ---
Referring Provider Name of Referring Provider:: Fleming Consult Date: 08/19/20 Chief Complaint - Chief Complaint Chief Complaint: Gastrointestinal bleed History of Present Illness - Admitted From Admitted From:: Home - History Obtained From Records Reviewed: EMR History obtained from: Patient and EMR and hospital service Exam Limitations: Somewhat secondary to patient's forgetfulness - History of Present Illness HPI Comment/Other: 85-year-old male with a past medical history significant for chronic diastolic heart failure, BPH, chronic indwelling Saldana catheter, atrial fibrillation, history of pulmonary embolism on Coumadin who presents today after having hematemesis at home. He reports having 1 or 2 episodes of hematemesis this morning. Hospital service is requested this patient undergo endoscopic evaluation for gastrointestinal bleed. The patient does not recollect having historic ulcers neither gastric nor peptic. He denies cirrhosis or complications of alcohol abuse. He denies any significant past surgical history save appendectomy for appendicitis. History - Past Medical History Cardiovascular: reports: Congestive heart failure, Hypertension, Pulmonary embolism, Atrial fibrillation Respiratory: reports: Asthma, COPD Neuro: reports: Tremors, Other (mild cognative impairment) Endocrine/Autoimmune: reports: None GI: reports: GERD : reports: Indwelling catheter Psych: reports: Depression, Anxiety Musculoskeletal: reports: Osteoarthritis, Chronic back pain Derm: reports: None MRSA Hx?: Yes - Past Surgical History General: reports: Appendectomy - Family & Social History Family History: Mother: , Father: , Other family: Alive and Well (2 children) Family History Comment/Other: He reports no known family history. 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 Lives at home with his son, Grayson. He previously smoked 2 packs of cigarettes a day for 30 years but quit over 30 years ago. Reports drinking 2 alcoholic beverages a week. - Substance History Use: Uses substance without health or social issues: Alcohol - POLST Patient has POLST: No POLST Status: DNR Meds/Allgy - Home Medications Home Medications: Ambulatory Orders Medication Instructions Recorded Confirmed Albuterol 3 ml INH Q4H PRN 08/17/19 01/11/20 Albuterol Sulfate [Albuterol 1 - 2 puffs INH Q4H PRN #0 10/18/19 01/11/20 Sulfate Hfa] Alfuzosin HCl [Alfuzosin HCl ER] 10 mg PO DAILY #0 10/18/19 08/19/20 Azithromycin 250 mg PO MOWEFR #0 10/18/19 01/11/20 Finasteride 5 mg PO DAILY #0 10/18/19 08/19/20 Furosemide 20 mg PO DAILY #0 10/18/19 01/11/20 Ipratropium [Atrovent] 2.5 ml INH Q6H #0 10/18/19 08/19/20 Latanoprost 0.005% Ophth Drops 1 drops EACHEYE QPM #0 10/18/19 01/11/20 [Xalatan Ophth Drops] Metoprolol Succinate [Toprol Xl] 25 mg PO BID #0 10/18/19 01/11/20 Omeprazole 20 mg PO DAILY #0 10/18/19 01/11/20 Trospium Chloride [Trospium 60 mg PO DAILY #0 10/18/19 08/19/20 Chloride ER] Acetaminophen 500 mg PO Q6HR PRN 01/11/20 01/11/20 Cyclobenzaprine [Flexeril] 10 mg PO TID PRN 01/11/20 01/11/20 Saw Erwin Fruit [Saw Erwin] 450 mg PO DAILY 01/11/20 01/11/20 Warfarin [Coumadin] 2.5 mg PO YBARRA 01/11/20 08/19/20 Warfarin [Coumadin] 5 mg PO MOTUWETHFRSA 01/11/20 08/19/20 Bimatoprost 0.01% Ophth Dops 40 drops EACHEYE 08/18/20 08/18/20 [Lumigan 0.01% Ophth Drops] Ipratropium [place] 2 spray DAY BID 08/19/20 08/19/20 Oxycodone HCl/Acetaminophen 1 each PO Q6H PRN 08/19/20 08/19/20 [Oxycodone-Acetaminophen 5-325] - Allergies Allergies/Adverse Reactions: Allergies Allergy/AdvReac Type Severity Reaction Status Date / Time No Known Drug Allergies Allergy Verified 08/18/20 15:58 Review of Systems - Gastrointestinal Gastrointestinal: reports: Abdominal pain, Black stools, Bloody stools, Nausea, Vomiting, [place] blood emesis Exam - Vital Signs Vital Signs: Vital Signs x48h Temp Pulse Pulse Resp BP BP Pulse Ox 08/19/20 11:54 36.6 C 74 18 122/59 L 100 08/19/20 08:16 85 14 08/19/20 07:35 36.4 C L 89 18 104/54 L 93 - Physical Exam General Appearance: positive: No acute distress, Alert Eyes Bilateral: positive: Normal inspection, PERRL, EOMI ENT: positive: ENT inspection nml, Pharynx nml Neck: positive: Nml inspection Respiratory: positive: Chest non-tender, No respiratory distress, Breath sounds nml. negative: Wheezes, Rales, Rhonchi Cardiovascular: positive: Regular rate & rhythm Abdomen: positive: Non-tender, No distention. negative: Tenderness, Guarding, Rebound Rectal: positive: Other (Deferred pending endoscopy) Skin: positive: Color nml Extremities: positive: Non-tender, Full ROM Neurologic/Psychiatric: positive: Oriented x3, CN's nml (2-12), Motor nml, Sensation nml, Mood/affect nml Conclusion and Plan - Lab Results Laboratory Results 08/19/20 12:06: POC Whole Bld Glucose 85 08/19/20 10:55: WBC 10.0, RBC 3.63 L, Hgb 11.9 L, Hct 38.0 L, MCV 104.7 H, MCH 32.8 H, MCHC 31.3 L, RDW 13.0, Plt Count 309, MPV 10.8, Neut # (Auto) 8.3 H, Lymph # (Auto) 0.8 L, [place] # (Auto) 0.6, Eos # (Auto) 0.2, Baso # (Auto) 0.1, Absolute Nucleated RBC 0.00, Nucleated RBC % 0.0 08/19/20 05:40: PT 23.1 H, INR 2.2 H 08/19/20 05:40: Sodium 142, Potassium 3.3 L, Chloride 104, Carbon Dioxide 31, Anion Gap 7.0, BUN 22 H, Creatinine 1.4 H, Estimated GFR (MDRD) 48 L, Glucose 107 H, Calcium 8.5 08/19/20 05:40: WBC 8.3, RBC 3.33 L, Hgb 10.8 L, Hct 34.4 L, MCV 103.3 H, MCH 32.4 H, MCHC 31.4 L, RDW 13.0, Plt Count 275, MPV 10.4, Neut # (Auto) 6.3, Lymph # (Auto) 1.1 L, [place] # (Auto) 0.5, Eos # (Auto) 0.3, Baso # (Auto) 0.1, Absolute Nucleated RBC 0.00, Nucleated RBC % 0.0 08/18/20 16:55: Urine Color YELLOW, Urine Clarity HAZY, Urine pH 6.0, Ur Specific [place] 1.020, Urine Protein 30 H, Urine Glucose (UA) NEGATIVE, Urine Ketones NEGATIVE, Urine Occult Blood MODERATE H, Urine Nitrite POSITIVE H, Urine Bilirubin NEGATIVE, Urine Urobilinogen 0.2 (NORMAL), Ur Leukocyte Esterase LARGE H, Urine RBC 11-25 H, Urine WBC >25 H, Ur Squamous Epith Cells NONE SEEN, Urine Bacteria Moderate H, Urine Yeast PRESENT, Ur Microscopic Review INDICATED, Urine Culture Comments INDICATED 08/18/20 16:50: Blood Type O NEGATIVE, Antibody Screen NEGATIVE 08/18/20 16:45: Sodium 143, Potassium 3.9, Chloride 103, Carbon Dioxide 31, Anion Gap 9.0, BUN 29 H, Creatinine 1.4 H, Estimated GFR (MDRD) 48 L, Glucose 93, Calcium 9.1, Total Bilirubin 0.9, AST 17, ALT 11, Alkaline Phosphatase 63, Total Protein 7.0, Albumin 3.7, Globulin 3.3, Albumin/Globulin Ratio 1.1, Lipase 30 08/18/20 16:45: PT 22.8 H, INR 2.2 H, APTT 37.0 H 08/18/20 16:45: WBC 9.7, RBC 3.80 L, Hgb 12.4 L, Hct 39.2 L, MCV 103.2 H, MCH 32.6 H, MCHC 31.6 L, RDW 12.8, Plt Count 312, MPV 11.1, Neut # (Auto) 7.3 H, Lymph # (Auto) 1.5, [place] # (Auto) 0.6, Eos # (Auto) 0.3, Baso # (Auto) 0.0, Absolute Nucleated RBC 0.00, Nucleated RBC % 0.0 - Diagnostic Imaging Results Diagnostic Imaging Results: positive: Final report reviewed Diagnostic Imaging Results Comments: CT/computed tomography abdomen pelvis. 1. No bowel obstruction. No abdominal or abnormal wall thickening. No free fluid or air. Sigmoid diverticulosis without evidence of acute diverticulitis. 2. No obstructing renal stones or hydronephrosis. Saldana catheter in a decompressed urinary bladder. 3. No gross bladder wall abnormality seen. Enlarged prostate gland with mass- effect on floor of urinary bladder. - Diagnosis Diagnosis: 1. Systemic anticoagulation. 2. History of pulmonary embolism. 3. Gastrointestinal bleed with hematemesis. 4. Acute blood loss anemia. 5. Cardiac disease - Plan Plan: 1. Care per hospitalist service 2. Trend H&H and transfuse appropriately given the patient's history of cardiac disease 3. Telemetry and close hemodynamic monitoring 4. Plan upper endoscopy to evaluate source, which is most likely given the patient's presenting uremia. Will proceed with colonoscopy as well. 5. Aggressive resuscitation 6. As is always the case, diagnostic endoscopy with potential for therapeutic interventions. Given limitations, surgical interventions and/or transfer for advanced gastrointestinal interventions and/or interventional radiographic interventions remain part of this complex algorithm. 7. Bowel rest and bowel prep in anticipation of colonoscopy 8. PPI infusion and consider Carafate pending results
[2020-08-19] MEDS: ethyl alcohoL 62% SWAB AMPULE NAS SCH ×2 (14:39→20:27)
[2020-08-19 18:06] LABS: HGB - HEMOGLOBIN 11.9 g/dL (14.0-18.0)
[2020-08-19] MEDS: D5.45NS W/20 MEQ KCL 1,000 ML IV SCH (18:54)
[2020-08-20 00:18] LABS: HGB - HEMOGLOBIN 11.7 g/dL (14.0-18.0)
[2020-08-20] MEDS: SODIUM CHLORIDE FLUSH 0.9% 10 ML SYRINGE IVP SCH ×3 (00:24→18:45)
[2020-08-20] MEDS: ALBUTEROL NEB 2.5 MG/3 ML INH PRN ×2 (04:30→19:20)
[2020-08-20] MEDS: IPRATROPIUM 0.2 MG/ML NEB INH SCH ×4 (04:31→19:20)
[2020-08-20] MEDS: D5.45NS W/20 MEQ KCL 1,000 ML IV SCH (04:58)
[2020-08-20 05:59] LABS: BASOPHILS # (AUTO) 0.1 10^3/uL (0.0-0.1); BASOPHILS % (AUTO) 0.8 %; EOSINOPHILS # (AUTO) 0.6 10^3/uL (0.0-0.7); EOSINOPHILS % (AUTO) 6.7 %; LYMPHOCYTES # (AUTO) 1.4 10^3/uL (1.5-3.5); LYMPHOCYTES % (AUTO) 17.1 %; MEAN CORPUSCULAR HEMOGLOBIN 33.2 pg (27.0-31.0); MEAN CORPUSCULAR HGB CONC 31.7 g/dL (32.0-36.0); MEAN PLATELET VOLUME 10.9 fL (7.4-11.4); MONOCYTES # (AUTO) 0.5 10^3/uL (0.0-1.0); MONOCYTES % (AUTO) 6.5 %; NEUTROPHILS # (AUTO) 5.7 10^3/uL (1.5-6.6); NEUTROPHILS % (AUTO) 68.4 %; PLT - PLATELET COUNT 321 10^3/uL (130-450); RED BLOOD COUNT 3.61 10^6/uL (4.70-6.10); RED CELL DISTRIBUTION WIDTH 13.1 % (12.0-15.0); WHITE BLOOD COUNT 8.4 x10^3/uL (4.8-10.8)
[2020-08-20 06:01] LABS: INR 1.4 (0.8-1.2); PT - PROTHROMBIN TIME 15.1 secs (9.9-12.6)
[2020-08-20 06:08] LABS: CALCIUM 8.9 mg/dL (8.5-10.3); CREATININE 1.4 mg/dL (0.6-1.2); MAGNESIUM 1.7 mg/dL (1.7-2.8); PHOSPHORUS 1.7 mg/dL (2.5-4.6)
[2020-08-20] MEDS ORDERED: POTASSIUM PHOSPHATE 15 MMOL in SODIUM CHLORIDE 0.9% 250 ML IV ONE (08:00)
[2020-08-20] MEDS ORDERED: KETAMINE 500 MG/10 ML VIAL IVP ONE (09:40)
[2020-08-20] MEDS ORDERED: MIDAZOLAM 2 MG/2 ML VIAL IVP ONE (09:40)
[2020-08-20] MEDS ORDERED: PROPOFOL 200 MG/20 ML VIAL IVP ONE (09:40)
--- NOTE | 2020-08-20 10:29 | ANESTHESIA POST OP EVALUATION ---
Anesthesia Post Eval - Post Anesthesia Eval Vitals: Last Vital Signs Temp 36.3 C L 08/20/20 08:28 Pulse 73 08/20/20 08:28 Resp 18 08/20/20 08:28 BP 157/83 H 08/20/20 08:28 Pulse Ox 97 08/20/20 08:28 CV Function Including HR & BP: positive: Stable Pain Control: positive: Satisfactory Nausea & Vomiting: positive: Negative Mental Status: positive: Baseline (drowsy) Respiratory Status: Airway Patent Hydration Status: Satisfactory Anesthesia Complications: positive: None
--- NOTE | 2020-08-20 10:39 | PROVIDER PROGRESS NOTE ---
Progress Note Patient status post attempted and aborted upper endoscopy today and lower endoscopy, see brief findings per below, reports provided to hospital service as well: Upper endoscopy: 1. On achieving adequate sedation, scope was inserted and immediately within the pharynx both at the level of the aryepiglottic fold and lateral to the vocal cords there were large, friable, masslike lesions, signs of oozing and likely the source of the patient's hematemesis. 2. Given the location these look to be a very large lesion on the aryepiglottic fold just above the vocal cords and also within the glottis laterally.l 3. These large masslike structure on the Aryepiglottic fold just above the cords and the lateral lesions it was a felt that we would NOT be able to safely proceed with upper endoscopy especially given that this was the likely source of the patient's presumptive upper gastrointestinal bleeding. 4. These findings would behoove us to consider transport and transfer to a higher level of care to proceed with airway management, biopsy, oncologic management if indicated, and consideration for percutaneous endoscopic gastrostomy tube placement in the setting of general endotracheal anesthesia and possible advanced airway management either by tracheostomy or fiberoptic intubation Lower endoscopy: Please note that the colonoscopy was without any blood or blood-containing stool. No colitis, no proctitis, no ileitis. No diverticular bleedings no diverticulosis. No masses or polyps larger than 6 mm limits of detection in the setting of extensive retained stool. Extensively irrigated with no notable abnormal findings. Discussed with [facility] transfer service the likely need for the patient to be transferred for further work-up there are multiple concerns as a relates to this patient: 1. He is having presented with hematemesis in the setting of systemic anticoagu lation for multiple comorbid states including atrial fibrillation and pulmonary embolism 2. The upper endoscopic findings concerning for multiple areas of masslike lesions 3. The CT of the neck with soft tissue swelling involving the left posterior pharyngeal region correlating with endoscopic findings 4. The need to still consider upper endoscopy if there is an occult source of upper gastrointestinal bleed not attributable to these friable masses in the pharynx 5. The periprocedural management of both his airway, and simultaneous procedural needs of ENT in the way of laryngoscopy for biopsy and possible gastroenterology for safe upper endoscopy 6. The questionable need for IVC filter placement if this patient can no longer be candidate for anticoagulation at least to mitigate his risk in the setting of historic pulmonary embolism 7. The risk of recurrent bleed if he were to discharge and the significant and sizable risk of aspiration not only of blood but of food boluses as well 8. The need for oncologic input and management and the adjuvants as it relates to lines, enteral tubes and feeding amongst others. Have spoken extensively with the Noriega hospitalist at [facility]. Currently there ENT is uncomfortable with the potential for airway management although able to perform biopsies. Awaiting to hear from [facility] as to whether they would be willing to accept patient. Interim plan would be as follows: 1. Strict n.p.o. 2. Continue to hold anticoagulation 3. Maintain head of bed at 45 degrees 4. IV fluids and medications Impression CT of the neck: 1. Generalized soft tissue swelling is seen involving the left posterior pharyngeal region, with asymmetric narrowing of the left piriform sinus. 2. If clinically appropriate, please consider dedicated visualization via laryngoscopy. 3. Relatively prominent cervical spine degenerative changes are seen, which are worse at the C4-C5 level. Impression CT of the chest: 1. No primary mass or lg findings of metastatic disease can be seen on these images that are limited by motion artifact. Impression of CT of the abdomen: 1. This is a repeat imaging having already undergone imaging on 18 August. 2. No primary masses, enlarged lymph nodes, or lg findings of metastatic disease are detected
[2020-08-20] MEDS ORDERED: IOVERSOL 320 100 ML VIAL IVP ONE ×2 (10:46→11:32)
[2020-08-20] MEDS: ethyl alcohoL 62% SWAB AMPULE NAS SCH ×2 (10:48→20:33)
[2020-08-20] MEDS: TAMSULOSIN 0.4 MG CAPSULE PO SCH (11:09)
[2020-08-20] MEDS: PANTOPRAZOLE 40 MG VIAL IVP SCH ×2 (11:09→20:33)
[2020-08-20] MEDS: METOPROLOL SUCCINATE 25 MG TABLET PO SCH ×2 (11:09→20:05)
[2020-08-20] MEDS: cefTRIAXone 1 GM in SODIUM CHLORIDE 0.9% MINIBAG 100 ML IV SCH (11:20)
--- NOTE | 2020-08-20 11:50 | CT Report ---
PROCEDURE: SOFT TISSUE NECK W INDICATIONS: mass in pharynx obst bleeding CONTRAST: IV CONTRAST: Optiray 320 ml: 100 PO CONTRAST: *NO PO CONTRAST TECHNIQUE: After the administration of intravenous contrast, 3.0 mm axial sections acquired from the sella to th e aortic arch. Additional oblique axial 3.0 mm sections acquired through the pharynx. 3 mm thick co merle reformats were generated. For radiation dose reduction, the following was used: automated exp osure control, adjustment of mA and/or kV according to patient size. COMPARISON: Correlation is made with the accompanying chest CT and the coupling abdomen pelvis CT, 1 . Correlation is also made with the overlapping portions of maxillofacial CT, 07/26/2020. FINDINGS: Image quality: Excellent. Lymph nodes: No enlarged lymph nodes seen throughout the neck. Vessels: Visualized vasculature appears patent. Neck spaces: There is mild soft tissue thickening seen involving the left posterior paralaryngeal re gion, with asymmetric narrowing of the left piriform sinus. No lg enhancing mass can be seen at th is site, however. The oropharynx and the nasopharynx demonstrate no mucosal lesions. The vocal cords, false vocal cord s, epiglottis, vallecula, and tongue base all appear normal. Extramucosal spaces appear unremarkable . Glands: The parotid and submandibular glands appear normal. The thyroid is normal in size. Miscellaneous: Visualized brain and orbits appear normal. Lung apices appear clear. Superficial so ft tissues appear normal. Bones: No suspicious bony lesions. Visualized sinuses and mastoids appear unremarkable. Relatively prominent bony degenerative changes are seen, with at least moderate disc space narrowing seen at ea ch cervical level. Posterior directed endplate osteophytes are seen, which are worst at the C4-C5 lev el. IMPRESSION: Generalized soft tissue swelling is seen involving the left posterior pharyngeal region, with asymmet isatu narrowing of the left piriform sinus. If clinically appropriate, please consider dedicated visualization via laryngoscopy. Relatively prominent cervical spine degenerative changes are seen, which are worst at the C4-C5 level . Reviewed by: Eddie Clark MD on 08/20/2020 10:48 AM KAYODE Approved by: Eddie Clark MD on 08/20/2020 10:48 AM AKJÚNIOR Station ID: [id number]
--- NOTE | 2020-08-20 11:55 | CT Report ---
PROCEDURE: CHEST W INDICATIONS: mass in pharnyx bleeding CONTRAST: IV CONTRAST: Optiray 320 ml: 100 PO CONTRAST: *NO PO CONTRAST TECHNIQUE: After the administration of intravenous contrast, 5 mm thick sections acquired from the pulmonary api ciarra to the posterior costophrenic angles. 7 mm thick coronal MIP reformats were acquired. For radia tion dose reduction, the following was used: automated exposure control, adjustment of mA and/or kV according to patient size. COMPARISON: Prior chest CT 05/26/2019. Correlation is also made with the accompanying soft tissue nec k CT and abdomen pelvis CT examinations dated 08/20/2020. FINDINGS: Image quality: This study is limited by motion artifact. Lungs and pleura: No acute air space opacities. No pleural effusions or pneumothorax. Central and peripheral airways are patent and normal in caliber. Mediastinum: Heart size is normal. No pericardial effusion. No mediastinal or hilar adenopathy by size criteria. Thoracic aorta and central pulmonary arteries are normal in size. Atherosclerotic ca lcification is seen. Esophagus is normal in caliber. No hiatal hernia. Bones and chest wall: No suspicious bony lesions. Age-appropriate degenerative changes are seen. No vertebral body compression fractures. No axillary or supraclavicular adenopathy by size criteria. Thyroid gland is not well seen. Abdomen: Visualized upper abdominal solid organs appear normal. Upper abdominal bowel loops are nor mal in caliber. IMPRESSION: No primary masses or lg findings of metastatic disease can be seen on these images that are limite d by motion artifact. Reviewed by: Eddie Clark MD on 08/20/2020 10:53 AM [facility] Approved by: Eddie Clark MD on 08/20/2020 10:53 AM K[facility]ODE Station ID: [id number]
--- NOTE | 2020-08-20 12:02 | CT Report ---
PROCEDURE: Abdomen/Pelvis W INDICATIONS: mass in pharynx, bleeding CONTRAST: IV CONTRAST: Optiray 320 ml: 100 PO CONTRAST: *NO PO CONTRAST TECHNIQUE: After the administration of nonionic IV contrast, 5 mm thick sections acquired from the diaphragms to the symphysis. 5 mm thick coronal and sagittal reformats were acquired. For radiation dose reducti on, the following was used: automated exposure control, adjustment of mA and/or kV according to raymond ent size. COMPARISON: Prior abdomen pelvis CT examination 08/18/2020, 05/08/2019, 01/16/2017. Correlation is al so made with the chest CT and soft tissue neck CT examinations dated 08/20/2020. FINDINGS: Image quality: This study is limited by motion artifact. ABDOMEN: Lung bases: Lung bases are clear. Heart size is normal. Solid organs: Liver and spleen are normal in size and enhancement. Gallbladder demonstrates hyperde nse material within its lumen, which is attributed to vicarious excretion of contrast from the contra st given 08/18/2020. Biliary system is non dilated. Pancreas enhances normally. No adrenal nodules . Kidneys demonstrate normal size and enhancement, without hydronephrosis. Peritoneum and bowel: Bowel loops demonstrate normal wall thickness and caliber. No free fluid or a ir. Nodes and vessels: No retroperitoneal or mesenteric adenopathy by size criteria. Aorta and inferior vena cava are normal in size. Atelectatic calcification is seen, including involving the right codey l artery. Miscellaneous: No ventral hernias. PELVIS: Genitourinary: A Saldana catheter is seen, which partially decompresses the bladder lumen. Miscellaneous: No inguinal adenopathy. Mild bilateral fat-containing inguinal hernias are seen. Bones: No suspicious bony lesions. No vertebral body compression fractures. Focal L5-S1 degenerati ve change is seen, with mild grade 1 anterolisthesis at this level. No associated pars defects are se en. Moderate degenerative change is also seen involving L4-L5. IMPRESSION: No primary masses, enlarged lymph nodes, or lg findings of metastatic disease are det ected. Incidental note is made of: Vicarious excretion of contrast within the gallbladder Saldana catheter Mild bilateral fat-containing inguinal hernias Focal lower lumbar spine degenerative change Reviewed by: Eddie Clark MD on 08/20/2020 11:00 AM AKDT Approved by: Eddie Clark MD on 08/20/2020 11:00 AM K[facility] Station ID: [id number]
[2020-08-20] MEDS ORDERED: DEXTROSE 50% ABBOJECT 25 GM/50 ML SYRINGE IVP ONE (12:10)
[2020-08-20] MEDS ORDERED: DEXTROSE 50% ABBOJECT 25 GM/50 ML SYRINGE ONE (12:10)
[2020-08-20] MEDS ORDERED: DEXTROSE 5% 1,000 ML IV STA (12:11)
--- NOTE | 2020-08-20 12:27 | DISCHARGE SUMMARY ---
"Discharge Summary Admit Date: 08/18/20 Discharge Date: 08/21/20 Discharging Provider: Gemma Sepulveda MD Primary Care Provider: MD Ludivina Code Status: Do Not Attempt Resuscitation Condition at Discharge: Stable Discharge Disposition: 02 Transfer Acute Care Hosp - DIAGNOSES Discharge Diagnoses with Status of Each Condition: 1. Hematemesis 2. Piriform sinus mass, partially obstructing 3. Chronic atrial fibrillation 4. Therapeutic anticoagulation 5. Chronic kidney disease stage III 6. Chronic heart failure with preserved ejection fraction 7. History of pulmonary embolism 8. COPD without exacerbation 9. Chronic indwelling Saldana catheter 10. UTI 11. Moderate cognitive deficit - HPI History of Present Illness: This is a 85-year-old male with a past medical history significant for chronic diastolic heart failure, BPH, chronic indwelling Saldana catheter, atrial fibrillation, history of pulmonary embolism on Coumadin who presents today after having hematemesis at home. He reports having 1 or 2 episodes of hematemesis this morning. He reported some nausea associated with it which has since r esolved. He felt like he had significant abdominal pain at that time but that has also resolved. He reports no further episodes of emesis since then. He denies any melena or bloody stools although this was reportedly a symptom he had at home when he spoke to the emergency department provider. He reports no dizziness or lightheadedness. He denied being on any anticoagulation but when I mention Coumadin he stated that he is on that. He reports no prior history of ulcers. He denies any NSAID use. Reports drinking 2 alcoholic beverages a week. He reports no dysuria, urgency, frequency. In the emergency department, he was found to be afebrile with temperature of 36.3 C. His heart rate was 86. Blood pressure was 137/75. He was not tachypneic and saturating well on room air. Labs were significant for hemoglobin of 12.4. His INR was 2.2. Creatinine was 1.4. His urinalysis revea led positive nitrites, large leukocyte Estrace, 25 WBCs, moderate bacteria as well as moderate occult blood and 11-[address] of the abdomen pelvis which showed no acute abnormalities. He was given ceftriaxone and Protonix IV in the emergency department. Given the above findings, medicine was consulted for admission. I did discuss goals of care with the patient and he would like to be a DNR. History - Past Medical History Cardiovascular: reports: Congestive heart failure, Hypertension, Pulmonary embolism, Atrial fibrillation Respiratory: reports: Asthma, COPD Neuro: reports: Tremors, Other Endocrine/Autoimmune: reports: None GI: reports: GERD : reports: Indwelling catheter Psych: reports: Depression, Anxiety Musculoskeletal: reports: Osteoarthritis, Chronic back pain Derm: reports: None - CONSULTS | PROCEDURES Consultations: General surgery, Dr. Shaw Hernadez Procedures: 1. Canceled EGD due to throat partial obstruction 2. CT of abdomen on admission for hematemesis and melena showed no bowel obstruction. No abnormal bowel wall thickening. No free fluid or air. Sigmoid diverticulosis without diverticulitis. No hydronephrosis or stones. A Saldana catheter in a decompressed bladder. A repeat that he was done with contrast, IV, and no changes. 3. Soft tissue neck CT with generalized soft tissue swelling in the left glass bender ior retropharyngeal region with asymmetric narrowing of the left piriform sinus. No lg enhancing mass can be seen. Oropharynx and nasopharynx demonstrate no mucosal lesions. Vocal cords, false vocal cords, epiglottis, vallecula and tongue base all appear normal. Bones without suspicious bony lesions. 4. Chest CT with no primary masses or lg findings of metastatic disease that can be seen in images. Limited by motion artifact. 5. Urinary culture with gram-negative growth. Final results and sensitivities pending. 6.. Colonoscopy had no abnormalities of the rectum, internal hemorrhoids. Poor prep with extensive irrigation required. No large polyps seen. No ulcerations, colitis, proctitis or large masses. - HOSPITAL COURSE Hospital Course: The patient was placed in observation for upper GI bleed. Because of the prolonged INR due to his Coumadin use for A. fib, he received vitamin K. On the day that he was due for his EGD, unfortunately general surgery had a completely full schedule and EGD was delayed until the . During that time the patient had 1 more episode of hematemesis/hemoptysis. Approximately 50 cc. No hemodynamic instability and hemoglobin hematocrit remained normal. He was maintained in IV Protonix bolus. When the EGD was attempted, he had almost complete retropharyngeal closure because of a masslike effect. As such EGD was canceled. General surgery is asking for transfer and will be calling [facility] for a transfer to [place]. This patient's mass will need to be evaluated, and then further work-up for possible GI bleed. He could be bleeding from this abnormality as opposed to stomach or esophagus. CT of neck was asked for and done. As was CT of chest. Other than the changes of soft tissue, no other findings noted. Before discharge, urine culture in this patient with chronic indwelling Saldana is growing out Pseudomonas. He does not have a fever or white cell count. But unfortunately he is confused. As such we are treating him as a possible UTI with an abundance of caution. He has been given Rocephin. At the beginning of his stay his Coumadin was discontinued and his INR was reversed with vitamin K orally. We are not going to anticoagulate him with long-term oral ant icoagulation as we await status of his neck mass. He has a history of pulmonary embolus as well as chronic A. fib. He will be placed on Lovenox 60 mg subcu twice daily. He was accepted in transfer 08/20 to [facility] but there is not a bed ready yet. As such he stayed until with status changed from observation to Inpatient while we awaited a bed. Today there was a bed available and the patient was transferred. At discharge Temperature 36.4. Pulse 52. Blood pressure 126/84. Respirations 20. 96% on room air. He is much more confused over the last 48 hours. Very forgetful. At times just babbling. Increased respiratory effort at times when he tries to get out of bed on his own. Lungs have coarse upper airway tubular breath sounds. Occasional scattered wheezes. But no stridor. He is not drooling. Abdomen is benign. Saldana is draining straw, cloudy urine. Tremors worse today than they were yesterday. He reports 2 alcoholic beverages a week. Son does not confirm there is a history of alcohol abuse. Greater than 30 minutes were spent coordinating discharge - ALLERGIES Allergies/Adverse Reactions: Allergies Allergy/AdvReac Type Severity Reaction Status Date / Time No Known Drug Allergies Allergy Verified 08/18/20 15:58 - MEDICATIONS Home Medications: Ambulatory Orders Medication Instructions Recorded Confirmed Albuterol Sulfate [Albuterol 1 - 2 puffs INH Q4H PRN #0 10/18/19 08/20/20 Sulfate Hfa] Alfuzosin HCl [Alfuzosin HCl ER] 10 mg PO DAILY #0 10/18/19 08/19/20 Finasteride 5 mg PO DAILY #0 10/18/19 08/19/20 Ipratropium [Atrovent] 2.5 ml INH Q6H #0 10/18/19 08/19/20 Latanoprost 0.005% Ophth Drops 1 drops EACHEYE QPM #0 10/18/19 08/20/20 [Xalatan Ophth Drops] Trospium Chloride [Trospium 60 mg PO DAILY #0 10/18/19 08/19/20 Chloride ER] Acetaminophen 500 mg PO Q6HR PRN 01/11/20 08/20/20 Warfarin [Coumadin] 2.5 mg PO YBARRA 01/11/20 08/19/20 Warfarin [Coumadin] 5 mg PO [id number] 01/11/20 08/19/20 Ipratropium [place] 2 spray DAY BID 08/19/20 08/19/20 Oxycodone HCl/Acetaminophen 1 each PO Q6H PRN 08/19/20 08/19/20 [Oxycodone-Acetaminophen 5-325] Brimonidine 0.2% Ophth Drops 1 drops EACHEYE BID 08/20/20 08/20/20 [Alphagan P 0.2% Ophth Drops] - LABS Result Diagrams: 08/21/20 04:50 08/21/20 04:50"
--- NOTE | 2020-08-20 12:44 | PHARMACY PROGRESS NOTE ---
- Best Possible Medication History Admit Date and Time: 08/18/20 1828 Processed by: Pharmacy Medication History completed: Yes Patient Interview: Completed Secondary Source(s): Physician records, Pharmacy records, Insurance records As the person ultimately responsible for medication therapy, providers are able to order a medication from an existing home medication list in [facility] via the "Reconcile Routine" prior to Confirmation of that medication by support specialist. Such practice is discouraged except when the physician, in their clinical judgment, deems that a medical need exists for a medication without regard to previous use.
[2020-08-20] MEDS: DEXTROSE 5%-0.45% NACL 1,000 ML IV SCH (20:33)
[2020-08-21] MEDS: METOPROLOL 5 MG/5 ML VIAL IVP SCH ×2 (00:17→06:12)
[2020-08-21] MEDS: SODIUM CHLORIDE FLUSH 0.9% 10 ML SYRINGE IVP SCH ×2 (00:17→08:22)
[2020-08-21] MEDS: IPRATROPIUM 0.2 MG/ML NEB INH SCH (05:03)
[2020-08-21 05:15] LABS: BASOPHILS # (AUTO) 0.1 10^3/uL (0.0-0.1); BASOPHILS % (AUTO) 0.7 %; EOSINOPHILS # (AUTO) 0.5 10^3/uL (0.0-0.7); EOSINOPHILS % (AUTO) 6.6 %; LYMPHOCYTES # (AUTO) 1.2 10^3/uL (1.5-3.5); LYMPHOCYTES % (AUTO) 15.4 %; MEAN CORPUSCULAR HEMOGLOBIN 32.5 pg (27.0-31.0); MEAN CORPUSCULAR HGB CONC 31.3 g/dL (32.0-36.0); MEAN CORPUSCULAR VOLUME 104.1 fL (80.0-94.0); MEAN PLATELET VOLUME 10.7 fL (7.4-11.4); MONOCYTES # (AUTO) 0.5 10^3/uL (0.0-1.0); MONOCYTES % (AUTO) 5.9 %; NEUTROPHILS # (AUTO) 5.4 10^3/uL (1.5-6.6); PLT - PLATELET COUNT 269 10^3/uL (130-450); RED BLOOD COUNT 3.38 10^6/uL (4.70-6.10); RED CELL DISTRIBUTION WIDTH 12.9 % (12.0-15.0); WHITE BLOOD COUNT 7.6 x10^3/uL (4.8-10.8)
[2020-08-21 05:20] LABS: INR 1.4 (0.8-1.2); PT - PROTHROMBIN TIME 14.8 secs (9.9-12.6)
[2020-08-21 05:23] LABS: CALCIUM 8.5 mg/dL (8.5-10.3); CREATININE 1.3 mg/dL (0.6-1.2)
[2020-08-21 07:53] VITALS: BP 126/84
[2020-08-21] MEDS: DEXTROSE 5%-0.45% NACL 1,000 ML IV SCH (08:16)
[2020-08-21] MEDS: cefTRIAXone 1 GM in SODIUM CHLORIDE 0.9% MINIBAG 100 ML IV SCH (08:18)
[2020-08-21] MEDS: PANTOPRAZOLE 40 MG VIAL IVP SCH (08:20)
[2020-08-21] MEDS: ethyl alcohoL 62% SWAB AMPULE NAS SCH (08:20)
[2020-08-21] MEDS: TAMSULOSIN 0.4 MG CAPSULE PO SCH (08:26)
[2020-08-21] MEDS ORDERED: BRIMONIDINE 0.2% OPHTH DROPS 5 ML EACHEYE SCH (09:00)
[2020-08-21] MEDS ORDERED: ENOXAPARIN 60 MG/0.6 ML SYRINGE SUBQ SCH (09:00)
--- NOTE | 2020-08-21 15:18 | Discharge Plan ---
Discharge Plan Problem Reviewed?: Yes Disposition: 02 Transfer Acute Care Hosp Condition: Stable No Smoking: If you smoke, Please STOP! Call for help. Follow-up with: Cristel Newton MD [Primary Care Provider] -
[2020-08-21] MEDS ORDERED: LACTATED RINGERS IV STA (15:50)
[2020-08-21] MEDS ORDERED: LATANOPROST 0.005% OPHTH DROPS EACHEYE SCH (21:00)
== END 2020-08-21 09:25 | disposition short-term general hospital (02) | DRG 378 ==
LOC: ED 15:50 → MS2 18:28 → OBSVTOIN 08-21 07:26
PROVIDERS: ADMIT Specialist; ATTEND Specialist
PROC: 0DJD8ZZ Inspection of Lower Intestinal Tract, Via Natural or Artificial Opening Endoscopic (ICD-10-PCS; principal; 2020-08-20 09:40)
PROC: 0DJ08ZZ Inspection of Upper Intestinal Tract, Via Natural or Artificial Opening Endoscopic (ICD-10-PCS; 2020-08-20 09:40)
DX: K92.2 Gastrointestinal hemorrhage, unspecified (principal); I13.0 Hypertensive heart and chronic kidney disease with heart failure and stage 1 through stage 4 chronic kidney disease, or unspecified chronic kidney disease; K64.8 Other hemorrhoids; I50.32 Chronic diastolic (congestive) heart failure; N39.0 Urinary tract infection, site not specified; J39.2 Other diseases of pharynx; I48.0 Paroxysmal atrial fibrillation; Z79.01 Long term (current) use of anticoagulants; N18.30 Chronic kidney disease, stage 3 unspecified; J44.9 Chronic obstructive pulmonary disease, unspecified; Z86.711 Personal history of pulmonary embolism; Z86.14 Personal history of Methicillin resistant Staphylococcus aureus infection; Z96.0 Presence of urogenital implants; N40.0 Benign prostatic hyperplasia without lower urinary tract symptoms; Z87.11 Personal history of peptic ulcer disease; Z87.891 Personal history of nicotine dependence; Z66 Do not resuscitate; G31.84 Mild cognitive impairment of uncertain or unknown etiology; B96.5 Pseudomonas (aeruginosa) (mallei) (pseudomallei) as the cause of diseases classified elsewhere; R31.9 Hematuria, unspecified; R25.1 Tremor, unspecified
CPT/HCPCS: 36415; 43235; 45378; 70491; 71260; 74177; 80048; 80053; 81001; 83690; 83735; 84100; 85014; 85018; 85025; 85610; 85730; 86850; 86900; 86901; 87077; 87086; 87181; 94640; 96365; 96366; 96367; 96368; 96375; 96376; 99285; A9270; G0378; J7040; J7120; Q9967; 81003

== ENCOUNTER 2020-08-30 12:50 | Outpatient (CLI) | payer MEDICARE ==
[2020-08-30 18:16] LABS: BASOPHILS # (AUTO) 0.1 10^3/uL (0.0-0.1); BASOPHILS % (AUTO) 0.4 %; EOSINOPHILS # (AUTO) 0.4 10^3/uL (0.0-0.7); EOSINOPHILS % (AUTO) 3.3 %; HGB - HEMOGLOBIN 11.3 g/dL (14.0-18.0); LYMPHOCYTES # (AUTO) 1.6 10^3/uL (1.5-3.5); LYMPHOCYTES % (AUTO) 13.8 %; MEAN CORPUSCULAR HEMOGLOBIN 32.8 pg (27.0-31.0); MEAN CORPUSCULAR HGB CONC 31.1 g/dL (32.0-36.0); MEAN CORPUSCULAR VOLUME 105.2 fL (80.0-94.0); MONOCYTES # (AUTO) 0.6 10^3/uL (0.0-1.0); MONOCYTES % (AUTO) 4.8 %; NEUTROPHILS # (AUTO) 8.9 10^3/uL (1.5-6.6); NEUTROPHILS % (AUTO) 77.1 %; PLT - PLATELET COUNT 352 10^3/uL (130-450); RED BLOOD COUNT 3.45 10^6/uL (4.70-6.10); RED CELL DISTRIBUTION WIDTH 13.2 % (12.0-15.0); WHITE BLOOD COUNT 11.6 x10^3/uL (4.8-10.8)
== END 2020-08-30 23:59 | disposition home or self-care (01) ==
LOC: LAB.R 12:50
PROVIDERS: ATTEND Internal Medicine
DX: Z79.01 Long term (current) use of anticoagulants (principal)
CPT/HCPCS: 83880; 85025

== ENCOUNTER 2020-09-07 12:05 | Outpatient (CLI) | payer MEDICARE ==
[2020-09-07 18:54] LABS: CALCIUM 8.4 mg/dL (8.5-10.3); CREATININE 1.6 mg/dL (0.6-1.2)
== END 2020-09-07 23:59 | disposition home or self-care (01) ==
LOC: LAB.R 12:05
PROVIDERS: ATTEND Internal Medicine
DX: I50.22 Chronic systolic (congestive) heart failure (principal); Z79.01 Long term (current) use of anticoagulants; Z46.6 Encounter for fitting and adjustment of urinary device; Z51.81 Encounter for therapeutic drug level monitoring
CPT/HCPCS: 80048; 81001; 87086

== ENCOUNTER 2020-09-09 12:00 | Outpatient (CLI) | payer MEDICARE ==
[2020-09-09 19:29] LABS: BILIRUBIN,URINE NEGATIVE (NEGATIVE); GLUCOSE, URINE (UA) NEGATIVE (NEGATIVE); KETONES,URINE (UA) NEGATIVE (NEGATIVE); LEUKOCYTE ESTERASE, URINE MODERATE (NEGATIVE); NITRITE,URINE POSITIVE (NEGATIVE); OCCULT BLOOD,URINE MODERATE (NEGATIVE); PROTEIN,URINE 30 mg/dL (NEGATIVE); UROBILINOGEN,URINE 0.2 (NORMAL) E.U./dL (NORMAL)
[2020-09-09 19:43] LABS: CLARITY,URINE CLOUDY (CLEAR)
[2020-09-09 19:59] LABS: BACTERIA,URINE Moderate /HPF (None Seen); SQUAMOUS EPITHELIAL CELL,UR RARE Squamous (<= Few)
== END 2020-09-09 23:59 | disposition home or self-care (01) ==
LOC: LAB.R 12:00
PROVIDERS: ATTEND Internal Medicine
DX: N40.1 Benign prostatic hyperplasia with lower urinary tract symptoms (principal); R33.8 Other retention of urine; Z46.6 Encounter for fitting and adjustment of urinary device
CPT/HCPCS: 81001; 81003; 87086; 87181

== ENCOUNTER 2020-10-04 13:50 | Outpatient (CLI) | payer MEDICARE ==
[2020-10-04 16:39] LABS: BASOPHILS % (AUTO) 0.2 %; EOSINOPHILS # (AUTO) 0.2 10^3/uL (0.0-0.7); EOSINOPHILS % (AUTO) 2.1 %; HGB - HEMOGLOBIN 11.4 g/dL (14.0-18.0); LYMPHOCYTES # (AUTO) 1.3 10^3/uL (1.5-3.5); LYMPHOCYTES % (AUTO) 16.2 %; MEAN CORPUSCULAR HEMOGLOBIN 32.9 pg (27.0-31.0); MEAN CORPUSCULAR HGB CONC 31.9 g/dL (32.0-36.0); MEAN CORPUSCULAR VOLUME 103.2 fL (80.0-94.0); MEAN PLATELET VOLUME 11.1 fL (7.4-11.4); MONOCYTES # (AUTO) 0.4 10^3/uL (0.0-1.0); MONOCYTES % (AUTO) 5.5 %; NEUTROPHILS % (AUTO) 74.6 %; PLT - PLATELET COUNT 300 10^3/uL (130-450); RED BLOOD COUNT 3.46 10^6/uL (4.70-6.10); RED CELL DISTRIBUTION WIDTH 12.8 % (12.0-15.0)
[2020-10-04 16:45] LABS: CALCIUM 9.1 mg/dL (8.5-10.3); CREATININE 1.7 mg/dL (0.6-1.2)
[2020-10-04 16:50] LABS: BILIRUBIN,URINE NEGATIVE (NEGATIVE); GLUCOSE, URINE (UA) NEGATIVE (NEGATIVE); KETONES,URINE (UA) NEGATIVE (NEGATIVE); LEUKOCYTE ESTERASE, URINE NEGATIVE (NEGATIVE); NITRITE,URINE NEGATIVE (NEGATIVE); OCCULT BLOOD,URINE TRACE-LYSE (NEGATIVE); PROTEIN,URINE NEGATIVE (NEGATIVE); UROBILINOGEN,URINE 0.2 (NORMAL) E.U./dL (NORMAL)
[2020-10-04 17:00] LABS: CLARITY,URINE CLEAR (CLEAR)
== END 2020-10-04 23:59 | disposition home or self-care (01) ==
LOC: LAB.R 13:50
PROVIDERS: ATTEND Internal Medicine
DX: N18.30 Chronic kidney disease, stage 3 unspecified (principal); Z87.440 Personal history of urinary (tract) infections
CPT/HCPCS: 80048; 81001; 81003; 85025; 87086

== ENCOUNTER 2020-10-07 10:25 | Outpatient (CLI) | payer MEDICARE ==
--- NOTE | 2020-10-07 10:51 | XRAY Report ---
PROCEDURE: Chest 2 View X-Ray INDICATIONS: COUGH TECHNIQUE: 2 view(s) of the chest. COMPARISON: 07/26/2020. FINDINGS: Surgical changes and devices: None. Lungs and pleura: There is hyperinflation of the lungs with flattening of the hemidiaphragms compati ble with COPD redemonstrated. No acute consolidation. No pleural effusions or pneumothorax. Mediastinum: Mediastinal contours are unchanged. Heart size is normal. Bones and chest wall: No suspicious bony abnormalities. Soft tissues appear unremarkable. IMPRESSION: 1. No acute cardiopulmonary disease. 2. Findings compatible with COPD redemonstrated. Reviewed by: Daniel Gillespie MD on 10/07/2020 10:50 AM [facility] Approved by: Daniel Gillespie MD on 10/07/2020 10:50 AM [facility] Station ID: [id number]
== END 2020-10-07 10:26 | disposition home or self-care (01) ==
LOC: DI 10:25
PROVIDERS: ATTEND Internal Medicine
DX: R05 Cough (principal); J44.9 Chronic obstructive pulmonary disease, unspecified

== ENCOUNTER 2020-10-18 15:18 | Outpatient (CLI) | payer MEDICARE ==
[2020-10-18 18:54] LABS: BILIRUBIN,URINE NEGATIVE (NEGATIVE); GLUCOSE, URINE (UA) NEGATIVE (NEGATIVE); KETONES,URINE (UA) NEGATIVE (NEGATIVE); LEUKOCYTE ESTERASE, URINE LARGE (NEGATIVE); NITRITE,URINE POSITIVE (NEGATIVE); OCCULT BLOOD,URINE SMALL (NEGATIVE); PROTEIN,URINE TRACE mg/dL (NEGATIVE); UROBILINOGEN,URINE 0.2 (NORMAL) E.U./dL (NORMAL)
[2020-10-18 19:34] LABS: CLARITY,URINE CLOUDY (CLEAR)
[2020-10-18 19:35] LABS: BACTERIA,URINE Moderate /HPF (None Seen); SQUAMOUS EPITHELIAL CELL,UR RARE Squamous (<= Few); WBC CLUMPS,URINE PRESENT
== END 2020-10-18 23:59 | disposition home or self-care (01) ==
LOC: LAB.R 15:18
PROVIDERS: ATTEND Internal Medicine
DX: Z87.440 Personal history of urinary (tract) infections (principal)
CPT/HCPCS: 81001; 81003; 87086; 87181

== ENCOUNTER 2020-10-22 12:48 | Outpatient (CLI) | payer MEDICARE ==
--- NOTE | 2020-10-22 13:33 | CT Report ---
PROCEDURE: HEAD WO INDICATIONS: ams TECHNIQUE: Noncontrast 4.5 mm thick angled axial sections acquired from the foramen magnum to the vertex. For r adiation dose reduction, the following was used: automated exposure control, adjustment of mA and/or kV according to patient size. COMPARISON: Head CT 05/26/2019. FINDINGS: Image quality: Excellent. CSF spaces: Basal cisterns are patent. No extra-axial fluid collections. Ventricles are normal in size and shape. Brain: No midline shift. No intracranial masses or hemorrhage. No large area of hypodensity in a va scular distribution to suggest acute infarction. There is periventricular hypodensity consistent with chronic microvascular ischemic disease. There is age-related parenchymal loss. Skull and face: Calvarium and visualized facial bones are intact, without suspicious lesions. Sinuses: Visualized sinuses and mastoids are clear. IMPRESSION: No acute intracranial abnormality. Chronic microvascular ischemic disease. Reviewed by: Dmitriy Ordonez MD on 10/22/2020 12:32 PM [facility] Approved by: Dmitriy Ordonez MD on 10/22/2020 12:32 PM [facility] Station ID: [id number]
== END 2020-10-22 12:49 | disposition home or self-care (01) ==
LOC: DI 12:48
PROVIDERS: ATTEND Internal Medicine
DX: R41.82 Altered mental status, unspecified (principal); R51.9 Headache, unspecified
CPT/HCPCS: 70450

== ENCOUNTER 2020-10-27 08:00 | Outpatient (CLI) | payer MEDICARE ==
[2020-10-27 15:20] LABS: BILIRUBIN,URINE NEGATIVE (NEGATIVE); GLUCOSE, URINE (UA) NEGATIVE (NEGATIVE); KETONES,URINE (UA) NEGATIVE (NEGATIVE); LEUKOCYTE ESTERASE, URINE LARGE (NEGATIVE); NITRITE,URINE NEGATIVE (NEGATIVE); OCCULT BLOOD,URINE MODERATE (NEGATIVE); PROTEIN,URINE TRACE mg/dL (NEGATIVE); UROBILINOGEN,URINE 0.2 (NORMAL) E.U./dL (NORMAL)
[2020-10-27 15:28] LABS: CLARITY,URINE HAZY (CLEAR)
[2020-10-27 16:12] LABS: BACTERIA,URINE Rare /HPF (None Seen); SQUAMOUS EPITHELIAL CELL,UR NONE SEEN (<= Few); YEAST,URINE PRESENT
== END 2020-10-27 23:59 ==
LOC: LAB.N 08:00
PROVIDERS: ATTEND Internal Medicine
DX: R33.8 Other retention of urine (principal); Z87.440 Personal history of urinary (tract) infections; Z46.6 Encounter for fitting and adjustment of urinary device
CPT/HCPCS: 81001; 81599; 87086; 87106; 87186

== ENCOUNTER 2020-11-09 10:00 | Outpatient (CLI) | payer MEDICARE ==
[2020-11-09 18:01] LABS: BASOPHILS % (AUTO) 0.5 %; EOSINOPHILS # (AUTO) 0.3 10^3/uL (0.0-0.7); EOSINOPHILS % (AUTO) 3.3 %; HGB - HEMOGLOBIN 12.7 g/dL (14.0-18.0); LYMPHOCYTES # (AUTO) 1.2 10^3/uL (1.5-3.5); LYMPHOCYTES % (AUTO) 15.6 %; MEAN CORPUSCULAR HEMOGLOBIN 32.4 pg (27.0-31.0); MEAN CORPUSCULAR HGB CONC 30.9 g/dL (32.0-36.0); MEAN CORPUSCULAR VOLUME 104.8 fL (80.0-94.0); MEAN PLATELET VOLUME 11.2 fL (7.4-11.4); MONOCYTES # (AUTO) 0.4 10^3/uL (0.0-1.0); MONOCYTES % (AUTO) 4.9 %; NEUTROPHILS % (AUTO) 75.3 %; PLT - PLATELET COUNT 317 10^3/uL (130-450); RED BLOOD COUNT 3.92 10^6/uL (4.70-6.10); WHITE BLOOD COUNT 7.9 x10^3/uL (4.8-10.8)
== END 2020-11-09 23:59 | disposition home or self-care (01) ==
LOC: LAB.R 10:00
PROVIDERS: ATTEND Internal Medicine
DX: N40.1 Benign prostatic hyperplasia with lower urinary tract symptoms (principal); R32 Unspecified urinary incontinence; R63.4 Abnormal weight loss; N39.0 Urinary tract infection, site not specified; R19.7 Diarrhea, unspecified; K25.4 Chronic or unspecified gastric ulcer with hemorrhage; Z79.01 Long term (current) use of anticoagulants; Z87.440 Personal history of urinary (tract) infections; R33.8 Other retention of urine
CPT/HCPCS: 81599; 83630; 85025; 87045; 87046; 87177; 87209; 87329; 87427; 87493

== ENCOUNTER 2020-11-10 10:20 | Outpatient (CLI) | payer MEDICARE ==
[2020-11-10 13:29] LABS: BILIRUBIN,URINE NEGATIVE (NEGATIVE); GLUCOSE, URINE (UA) NEGATIVE (NEGATIVE); KETONES,URINE (UA) NEGATIVE (NEGATIVE); NITRITE,URINE POSITIVE (NEGATIVE); OCCULT BLOOD,URINE MODERATE (NEGATIVE); PROTEIN,URINE 100 mg/dL (NEGATIVE); UROBILINOGEN,URINE 0.2 (NORMAL) E.U./dL (NORMAL)
[2020-11-10 13:39] LABS: CLARITY,URINE CLOUDY (CLEAR); LEUKOCYTE ESTERASE, URINE LARGE (NEGATIVE)
[2020-11-10 13:40] LABS: BACTERIA,URINE Moderate /HPF (None Seen); SQUAMOUS EPITHELIAL CELL,UR FEW Squamous (<= Few); WBC,URINE >25 /HPF (0-3)
== END 2020-11-10 23:59 | disposition home or self-care (01) ==
LOC: LAB.R 10:20
PROVIDERS: ATTEND Internal Medicine
DX: N40.1 Benign prostatic hyperplasia with lower urinary tract symptoms (principal); R33.8 Other retention of urine; Z87.440 Personal history of urinary (tract) infections
CPT/HCPCS: 81001; 81003; 87077; 87086; 87181

== ENCOUNTER 2020-11-18 14:11 | Outpatient (CLI) | payer MEDICARE | END 2020-11-18 14:12 | disposition critical access hospital (66) | LOC: EMS 14:11 | PROVIDERS: ATTEND Surgery | DX: R41.0 Disorientation, unspecified (principal) | CPT/HCPCS: A0425; A0429 ==

== ENCOUNTER 2020-11-18 14:28 | Emergency (ER) | payer MEDICARE ==
--- NOTE | 2020-11-18 15:22 | ED Physician Documentation ---
History of Present Illness - Stated complaint Stated Complaint: FALL/CONFUSION - Chief complaint Chief Complaint: Neuro - History obtained from History obtained from: Patient, EMS - History of Present Illness Timing: How many days ago (2) Pain level max: 0 Pain level now: 0 - Additonal information Additional information: Patient is an 85-year-old male who reportedly fell 2 days ago. Has a history of severe dementia. Has caregiver called 911 because she said he was "more altered than usual". Unable to be more specific than this. He has a Saldana catheter in place that seems to be draining dark urine. No fevers. No vomiting. No diarrhea. Nothing makes it better or worse. Arrives in a c-collar Review of Systems Unable to obtain: Dementia Constitutional: denies: Fever Respiratory: denies: Cough GI: denies: Vomiting, Diarrhea Skin: denies: Rash PD PAST MEDICAL HISTORY - Past Medical History Past Medical History: Yes Cardiovascular: Congestive heart failure, Hypertension, Pulmonary embolism, Atrial fibrillation Respiratory: Asthma, COPD Neuro: Dementia, Tremors, Other Endocrine/Autoimmune: None GI: GERD : Indwelling catheter HEENT: Chronic vision loss Psych: Depression, Anxiety Musculoskeletal: Osteoarthritis, Chronic back pain Derm: None - Past Surgical History Past Surgical History: No General: Appendectomy - Present Medications Home Medications: Ambulatory Orders Medication Instructions Recorded Confirmed Albuterol Sulfate [Albuterol 1 - 2 puffs INH Q4H PRN #0 10/18/19 08/20/20 Sulfate Hfa] Alfuzosin HCl [Alfuzosin HCl ER] 10 mg PO DAILY #0 10/18/19 08/19/20 Finasteride 5 mg PO DAILY #0 10/18/19 08/19/20 Ipratropium [Atrovent] 2.5 ml INH Q6H #0 10/18/19 08/19/20 Latanoprost 0.005% Ophth Drops 1 drops EACHEYE QPM #0 10/18/19 08/20/20 [Xalatan Ophth Drops] Trospium Chloride [Trospium 60 mg PO DAILY #0 10/18/19 08/19/20 Chloride ER] Acetaminophen 500 mg PO Q6HR PRN 01/11/20 08/20/20 Warfarin [Coumadin] 2.5 mg PO YBARRA 01/11/20 08/19/20 Warfarin [Coumadin] 5 mg PO [id number] 01/11/20 08/19/20 Ipratropium Ribera 2 spray DAY BID 08/19/20 08/19/20 Oxycodone HCl/Acetaminophen 1 each PO Q6H PRN 08/19/20 08/19/20 [Oxycodone-Acetaminophen 5-325] Brimonidine 0.2% Ophth Drops 1 drops EACHEYE BID 08/20/20 08/20/20 [Alphagan P 0.2% Ophth Drops] - Allergies Allergies/Adverse Reactions: Allergies Allergy/AdvReac Type Severity Reaction Status Date / Time No Known Drug Allergies Allergy Verified 11/18/20 14:38 - Social History Does the pt smoke?: No Smoking Status: Never smoker Does the pt drink ETOH?: Yes Does the pt have substance abuse?: No - Immunizations Immunizations are current?: Yes - POLST Patient has POLST: No POLST Status: DNR PD ED PE NORMAL - Vitals Vital signs reviewed: Yes - General General: No acute distress, Other (alert, pleasant) - HEENT HEENT: Atraumatic, PERRL, Ears normal, Moist mucous membranes, Pharynx benign - Neck Neck: Supple, no meningeal sign, No bony TTP - Cardiac Cardiac: RRR, Strong equal pulses - Respiratory Respiratory: No respiratory distress, Clear bilaterally - Abdomen Abdomen: Soft, Other (TTP over the bladder with distention) - Derm Derm: Warm and dry - Extremities Extremities: No calf tenderness / cord - Neuro Neuro: Other (alert, pleasant. oriented to person and place. ) Results - Vitals Vitals: Vital Signs - 24 hr 11/18/20 11/18/20 14:33 16:43 Temperature 37 C 37.0 C Heart Rate 85 76 Respiratory 18 17 Rate Blood Pressure 144/65 H 128/65 O2 Saturation 97 100 Oxygen O2 Source [Without Activity] Room air O2 Source Room air - Labs Labs: Laboratory Tests 11/18/20 11/18/20 11/18/20 15:39 15:39 17:04 WBC 13.3 H RBC 3.68 L Hgb 11.9 L Hct 38.2 L MCV 103.8 H MCH 32.3 H MCHC 31.2 L RDW 13.0 Plt Count 269 MPV 11.1 Neut # (Auto) 11.7 H Lymph # (Auto) 0.7 L Bleckley # (Auto) 0.8 Eos # (Auto) 0.0 Baso # (Auto) 0.0 Absolute Nucleated RBC 0.00 Nucleated RBC % 0.0 PT INR Sodium 141 142 Potassium 5.1 H 4.7 Chloride 104 104 Carbon Dioxide 25 27 Anion Gap 12.0 11.0 BUN 51 H 49 H Creatinine 4.2 H 3.9 H Estimated GFR (MDRD) 14 L 15 L Glucose 125 H 111 H Calcium 8.8 8.7 Total Bilirubin 0.6 AST 19 ALT 13 Alkaline Phosphatase 64 Total Protein 6.8 Albumin 3.5 Globulin 3.3 Albumin/Globulin Ratio 1.1 11/18/20 17:54 WBC RBC Hgb Hct MCV MCH MCHC RDW Plt Count MPV Neut # (Auto) Lymph # (Auto) Bleckley # (Auto) Eos # (Auto) Baso # (Auto) Absolute Nucleated RBC Nucleated RBC % PT 38.4 H INR 3.8 H Sodium Potassium Chloride Carbon Dioxide Anion Gap BUN Creatinine Estimated GFR (MDRD) Glucose Calcium Total Bilirubin AST ALT Alkaline Phosphatase Total Protein Albumin Globulin Albumin/Globulin Ratio - Rads (name of study) R hand xray Radiology: Prelim report reviewed, EMP read contemporaneously, See rad report (Mildly displaced fracture of the proximal aspect of the proximal phalanx of the fifth finger, without definite intra-articular involvement. ) CT head Radiology: Prelim report reviewed, EMP read contemporaneously, See rad report (No acute abnormality) CT cervical spine Radiology: Prelim report reviewed, EMP read contemporaneously, See rad report (No acute abnormality) PD MEDICAL DECISION MAKING - ED course Complexity details: reviewed results, re-evaluated patient, considered differential, d/w patient ED course: 85-year-old male with urinary retention. Bedside ultrasound revealed approximately 1 L in the bladder. His Saldaan catheter was changed and a large amount of urine drained. Does have renal insufficiency, acute on chronic. Likely that this was secondary to the urinary retention. He is eating and drinking well here. We will increase his water intake at home as well. Hyperkalemia resolved. Expect this will continue. No evidence of urosepsis. Has a chronically infected Saldana catheter. We will have him have his creatinine rechecked with his doctor early next week. Baseline creatinine is around 2. This document was made in part using voice recognition software. While efforts are made to proofread this document, sound alike and grammatical errors may occur. Departure - Departure Disposition: 01 Home, Self Care Clinical Impression: Urinary obstruction, Renal insufficiency, Acute renal insufficiency Chronic kidney disease (CKD) Qualifiers: Chronic kidney disease stage: unspecified stage Qualified Code(s): N18.9 - Chronic kidney disease, unspecified Finger fracture, right Qualifiers: Encounter type: initial encounter Finger: little finger Fracture type: closed Phalanx: proximal Fracture alignment: nondisplaced Qualified Code(s): S62.646A - Nondisplaced fracture of proximal phalanx of right little finger, initial encounter for closed fracture Condition: Good Instructions: ED Fx Finger Closed, ED Insufficiency Renal Follow-Up: Cristel Newton MD [Primary Care Provider] - Within 3 Days Comments: Mr. Abarca will need his creatinine rechecked on Saturday or Saturday by his doctor. He had urinary obstruction today with about 1 L of urine. He needs to drink plenty of water over the weekend. Return if he worsens. The finger should heal on its own. We placed him in a splint tonight. This can be rechecked next week with his doctor as well. Discharge Date/Time: 11/18/20 19:06
[2020-11-18 15:47] LABS: BASOPHILS % (AUTO) 0.3 %; EOSINOPHILS % (AUTO) 0.2 %; HGB - HEMOGLOBIN 11.9 g/dL (14.0-18.0); LYMPHOCYTES # (AUTO) 0.7 10^3/uL (1.5-3.5); LYMPHOCYTES % (AUTO) 5.2 %; MEAN CORPUSCULAR HEMOGLOBIN 32.3 pg (27.0-31.0); MEAN CORPUSCULAR HGB CONC 31.2 g/dL (32.0-36.0); MEAN CORPUSCULAR VOLUME 103.8 fL (80.0-94.0); MEAN PLATELET VOLUME 11.1 fL (7.4-11.4); MONOCYTES # (AUTO) 0.8 10^3/uL (0.0-1.0); MONOCYTES % (AUTO) 5.7 %; NEUTROPHILS # (AUTO) 11.7 10^3/uL (1.5-6.6); NEUTROPHILS % (AUTO) 88.1 %; PLT - PLATELET COUNT 269 10^3/uL (130-450); RED BLOOD COUNT 3.68 10^6/uL (4.70-6.10); WHITE BLOOD COUNT 13.3 x10^3/uL (4.8-10.8)
[2020-11-18 16:00] LABS: ALBUMIN 3.5 g/dL (3.2-5.5); ALBUMIN/GLOBULIN RATIO 1.1 (1.0-2.2); BILIRUBIN,TOTAL 0.6 mg/dL (0.2-1.0); CALCIUM 8.8 mg/dL (8.5-10.3); CREATININE 4.2 mg/dL (0.6-1.2); TOTAL PROTEIN 6.8 g/dL (6.7-8.2)
--- NOTE | 2020-11-18 16:05 | CT Report ---
PROCEDURE: HEAD WO INDICATIONS: dementia, fall TECHNIQUE: Noncontrast 4.5 mm thick angled axial sections acquired from the foramen magnum to the vertex. For r adiation dose reduction, the following was used: automated exposure control, adjustment of mA and/or kV according to patient size. COMPARISON: None. FINDINGS: Image quality: Excellent. CSF spaces: Basal cisterns are patent. No extra-axial fluid collections. Ventricles are normal in size and shape. Brain: No midline shift. No intracranial masses or hemorrhage. Middleton-white matter interface is norm al. Skull and face: Calvarium and visualized facial bones are intact, without suspicious lesions. Sinuses: Visualized sinuses and mastoids are clear. IMPRESSION: No acute intracranial process. Reviewed by: David White MD on 11/18/2020 4:04 PM [facility] Approved by: David White MD on 11/18/2020 4:04 PM [facility] Station ID: [id number]
--- NOTE | 2020-11-18 16:10 | CT Report ---
PROCEDURE: CERVICAL SPINE WO INDICATIONS: dementia, fall TECHNIQUE: Noncontrast 3 mm thick sections acquired from the skull base to the T4 level. Sagittal and coronal r eformats were then constructed. For radiation dose reduction, the following was used: automated exp osure control, adjustment of mA and/or kV according to patient size. COMPARISON: None. FINDINGS: Image quality: Excellent. Bones: No fractures or dislocations. A 1.2 cm lytic lesion seen in the left occipital calvarium is u nchanged since 05/26/2019. Visualized superior ribs are intact. Diffuse osteopenia. 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 Straightening of the normal lordotic curvature. Soft tissues: Prevertebral soft tissues are normal in thickness. No paravertebral hematomas. No ap ical pneumothoraces. Scattered carotid atherosclerotic calcified plaque. IMPRESSION: No fracture. Chronic and degenerative changes as above Reviewed by: David White MD on 11/18/2020 4:09 PM PST Approved by: David White MD on 11/18/2020 4:09 PM PST Station ID: [id number]
[2020-11-18 16:44] VITALS: BP 128/65
[2020-11-18 17:21] LABS: CALCIUM 8.7 mg/dL (8.5-10.3); CREATININE 3.9 mg/dL (0.6-1.2)
[2020-11-18 18:11] LABS: INR 3.8 (0.8-1.2); PT - PROTHROMBIN TIME 38.4 secs (9.9-12.6)
--- NOTE | 2020-11-18 18:43 | XRAY Report ---
PROCEDURE: Hand 3 View RT INDICATIONS: fall, hand pain TECHNIQUE: 3 views of the hand(s) acquired. COMPARISON: None FINDINGS: Bones: There is a mildly displaced fracture involving the proximal aspect of the proximal phalanx of the fifth finger. No definite intra-articular involvement can be seen. No suspicious bony lesions. Focal degenerative change is seen involving the carpometacarpal joint, with milder degenerative harvey es seen elsewhere. Soft tissues: No suspicious soft tissue calcifications. IMPRESSION: Mildly displaced fracture of the proximal aspect of the proximal phalanx of the fifth finger, without definite intra-articular involvement. Age-appropriate degenerative changes are seen. Reviewed by: Eddie Clark MD on 11/18/2020 5:42 PM [facility] Approved by: Eddie Clark MD on 11/18/2020 5:42 PM [facility] Station ID: [id number]
== END 2020-11-18 19:06 | disposition home or self-care (01) ==
LOC: EDUNIT# → ED 14:28
DX: F03.90 Unspecified dementia, unspecified severity, without behavioral disturbance, psychotic disturbance, mood disturbance, and anxiety (principal); N13.9 Obstructive and reflux uropathy, unspecified; R33.9 Retention of urine, unspecified; I12.9 Hypertensive chronic kidney disease with stage 1 through stage 4 chronic kidney disease, or unspecified chronic kidney disease; N18.9 Chronic kidney disease, unspecified; E87.5 Hyperkalemia; T83.511A Infection and inflammatory reaction due to indwelling urethral catheter, initial encounter; Y84.6 Urinary catheterization as the cause of abnormal reaction of the patient, or of later complication, without mention of misadventure at the time of the procedure; S62.646A Nondisplaced fracture of proximal phalanx of right little finger, initial encounter for closed fracture; W18.30XA Fall on same level, unspecified, initial encounter; M47.812 Spondylosis without myelopathy or radiculopathy, cervical region; I48.91 Unspecified atrial fibrillation; Z79.01 Long term (current) use of anticoagulants; Z86.711 Personal history of pulmonary embolism
CPT/HCPCS: 70450; 72125; 80048; 80053; 85025; 85610; 99284; 99285